=== PATIENT | female | born 1950 | race Caucasian/White ===

== ENCOUNTER 2018-10-12 11:16 | Observation (INO) | payer BC, MEDICARE ==
--- OUTSIDE RECORDS SUMMARY | 2018-10-12 11:20 | XMS REPORT | Continuity of Care Document ---
:1950 Author Organization Interface Problems Problem Status Onset Classification Date Comments Source Date Reported RECURRENT VENTRAL Active [facility] INCISIONAL HERNIA 7 Medical Center INCISIONAL Active [facility] HERNIA, ABD PAIN, 7 Medical UMBILICAL P Center CAD (<span Active Problem 05/02/2017 [facility] ID="[id number]" Medical >Confirmed</span> Center ) Morbid obesity Active Problem 05/02/2017 BMI-46.7 [facility] with BMI of Medical 45.0-49.9, Center adult<sup>1</sup> HTN (<span Active Problem 05/02/2017 [facility] ID="[id number]" Medical >Confirmed</span> Center ) MAIDA (<span Active Problem 05/02/2017 [facility] ID="[id number]" Medical >Confirmed</span> Center ) Type 2 diabetes Active Problem 05/02/2017 [facility] mellitus with Medical diabetic chronic Center kidney disease INCISIONAL HERNIA Active [facility] WITHOUT Medical OBSTRUCTION OR Center PERIUMBILICAL Active [facility] PAIN Medical Center Medications Medication Details Route Status Patient Ordering Order Source Instructions Provider Date pantoprazole 40 40 mg=1 tab, PO, Active 04/29[facility] [place] mg oral enteric Daily, 0 2016 Medical coated tablet Refill(s) [place] Acetaminophen 300 1 - 2 tablets, Active 04/29[facility] [place] MG / Codeine PO, Q6H, PRN 2017 Medical Phosphate 30 MG Pain, not to Center Oral Tablet exceed 4000 mg [Tylenol with acetaminophen Codeine #3] per day, do not operate vehicle or machinery on medication., X 14 day, # 90 tab, 0 Refill(s) POLYETHYLENE 17 gm, PO, Active 04/29[facility] [place] GLYCOL 3350 142 Bedtime, 2017 Medical MG/ML Oral Dissolve in 8 Center Solution oz. of water, X [Miralax] 7 day, # 1 ea, 1 Refill(s) Docusate Sodium 100 mg=1 cap, Active 04/29[facility] [place] 100 MG Oral PO, BID, # 60 2017 Medical Capsule cap, 1 Refill(s) [place] tiotropium 0.018 18 microgram=1 Active [facility] MG/ACTUAT inhalation, 2017 Medical Inhalant Powder INHALATION, [place] [Spiriva] Daily, 0 Refill(s) tramadol 50 mg, 1 tab, Inactive [place] hydrochloride 50 Route: PO, Drug 2017 Medical MG Oral Tablet form: TAB, Q6H, Center Dosing Weight 115.455, kg, Start date: 04/29/17 12:00:00 CDT, Duration: 30 day, Stop date: 05/29/17 6:00:00 CDTNotes: Not to exceed 400mg/day. (Same As: Ultram) tramadol 50 mg, 1 tab, Inactive [place] hydrochloride 50 Route: PO, Drug 2016 Medical MG Oral Tablet form: TAB, Q6H, Center Dosing Weight 115.455, kg, PRN Pain Score 1-3, Start date: 04/29/17 11:14:00 CDT, Duration: 30 day, Stop date: 05/29/17 11:13:00 CDTNotes: Not to exceed 400mg/day. (Same As: Ultram) pneumococcal 0.5 mL, Route: Inactive [facility] 13-valent vaccine IM, Drug Form: 2017 Medical INJ, Daily, Center Start date: 04/29/17 10:00:00 CDT, Duration: 1 doses or times, Stop date: 04/29/17 10:00:00 CDTNotes: Shake well prior to use (Same as: Prevnar 13) Protonix 40 mg, 1 tab, No Longer [facility] Route: PO, Drug Active 2016 Medical form: ECTAB, Center Daily, Start date: 04/27/17 10:00:00 CDT, Duration: 30 day, Stop date: 05/27/17 9:00:00 CDTNotes: Tablet should not be chewed or crushed. (Same as: Protonix) sennosides, FDC 8.6 mg, 1 tab, No Longer [place] Route: PO, Drug Active 2016 Medical Form: TAB, Center Dosing Weight 115.455, kg, BID, Start date: 04/27/17 9:00:00 CDT, Duration: 30 day, Stop date: 05/26/17 17:00:00 CDTNotes: (Same as: Senokot) Psyllium 1 tsp, Route: No Longer [facility] PO, Drug Form: Active 2017 Medical PDR/REC, Dosing Center Weight 115.455, kg, BID, Start date: 04/27/17 9:00:00 CDT, Duration: 30 day, Stop date: 05/26/17 17:00:00 CDTNotes: (Same as: Metamucil) Mix in 8 oz liquid with meal. Miralax 17 gm, 1 pkt, No Longer [facility] Route: PO, Drug Active 2016 Medical form: PWDR, BID, Center Dosing Weight 115.455, kg, Start date: 04/27/17 9:00:00 CDT, Duration: 30 day, Stop date: 05/26/17 17:00:00 CDTNotes: Dissolve in 8 oz of water or juice. (Same as: Miralax) Isolyte S (PH 1,000 mL, Rate: No Longer [place] 7.4) 1000 mL 70 ml/hr, Infuse Active 2017 Medical 1,000 mL over: 14.3 hr, Center Route: IV, Dosing Weight 115.455 kg, Total Volume: 1,000, Start date: 04/27/17 8:45:00 CDT, Duration: 30 day, Stop date: 05/27/17 8:44:00 CDTNotes: (Same as: Isolyte S PH 7.4) Mag-Ox 400 400 mg, 1 tab, Inactive [place] Route: PO, Drug 2017 Medical form: TAB, ONCE, Center Dosing Weight 115.455, kg, Start date: 04/27/17 8:38:00 CDT, Stop date: 04/27/17 8:38:00 CDTNotes: (Same as: Mag-Ox 400) Magnesium oxide [id number] elemental magnesium Dose=____mg magnesium oxide (___mg elemental magnesium) Acetaminophen 1,000 mg, 2 tab, No Longer [place] Route: PO, Drug Active 2016 Medical form: TAB, Q6H, Center Dosing Weight 115.455, kg, Start date: 04/26/17 18:00:00 CDT, Duration: 30 day, Stop date: 05/26/17 12:00:00 CDTNotes: Max acetaminophen 4000 mg/day (4 gm/day). (Same as: Tylenol Extra Strength) Morphine 4 mg, 1 mL, No Longer [facility] Route: IVP, Drug Active 2016 Medical form: INJ, Q4H, Center Dosing Weight 115.455, kg, PRN Pain Score 7-10, Start date: 04/26/17 18:00:00 CDT, Duration: 30 day, Stop date: 05/26/17 17:59:00 CDTNotes: (Same as:MORPhine Sulfate) Morphine 4 mg, 1 mL, Inactive [place] Route: IVP, Drug 2016 Medical form: INJ, ONCE, Center Dosing Weight 115.455, kg, Start date: 04/26/17 13:04:00 CDT, Stop date: 04/26/17 13:04:00 CDTNotes: (Same as:MORPhine Sulfate) gabapentin 300 MG 300 mg, 1 cap, No Longer [facility] Oral Capsule Route: PO, Drug Active 2016 Medical form: CAP, Q8H, Center Dosing Weight 115.455, kg, (CrCl > 60 ml/min), Start date: 04/26/17 13:03:00 CDT, Duration: 30 day, Stop date: 05/26/17 12:00:00 CDTNotes: (Same as: Neurontin) phenol 1 spray, Route: No Longer [facility] TOP, Daily, Drug Active 2016 Medical form: LUCILA, [employer] Center Sore Throat, Start date: 04/26/17 13:00:00 CDT, Duration: 30 day, Stop date: 05/26/17 12:59:00 CDTNotes: Chloraseptic [place] (Same as: Chloraseptic, Sore Throat [place]) WASTE: F/P - Black; E - Municipal Trash Bin Flomax 0.4 mg, 1 cap, No Longer [facility] Route: PO, Drug Active 2016 Medical form: CAP, After Center Breakfast, Dosing Weight 115.455, kg, Start date: 04/26/17 8:30:00 CDT, Duration: 30 day, Stop date: 05/25/17 8:30:00 CDTNotes: (Same As: Flomax) "Do Not Crush" Thyroxine 37 microgram, No Longer [facility] Route: IVP, Drug Active 2016 Medical form: INJ, Center Q630AM, Dosing Weight 115.455, kg, Start date: 04/26/17 6:30:00 CDT, Duration: 30 day, Stop date: 05/25/17 6:30:00 CDTNotes: (Same as: Synthroid) Reconstitute with 5ml of NS. Final concentration=20 micrograms/ml. Use immediately after reconstitution and discard remaining solution. Ofirmev 1,000 mg, 100 No Longer [facility] mL, Route: IV, Active 2016 Medical Drug form: INJ, Center Q6H, Dosing Weight 115.455, kg, for > or=50 kg, Start date: 04/25/17 18:00:00 CDT, Duration: 30 day, Stop date: 05/25/17 10:00:00 CDTNotes: Infuse over 15 minutes Do not exceed 4gm/day of acetaminophen MEDICATION WASTE Product Size: 1000 mg Product Wasted: ___ mg Protonix 40 mg, Route: No Longer [facility] IVP, Drug form: Active 2016 Medical INJ, Daily, Center Dosing Weight 115.455, kg, Patient is NPO, Start date: 04/25/17 17:00:00 CDT, Duration: 30 day, Stop date: 05/25/17 9:00:00 CDTNotes: For IV push reconstitute with 10 ml 0.9% sodium chloride and push over 2 minutes. (Same as: Protonix) Zofran 4 mg, 2 mL, No Longer [facility] Route: IVP, Drug Active 2016 Medical form: INJ, Q6H, Center Dosing Weight 115.455, kg, PRN Nausea, Start date: 04/25/17 16:48:00 CDT, Duration: 30 day, Stop date: 05/25/17 16:47:00 CDTNotes: (Same as: Zofran) MEDICATION WASTE Product Size: 4 mg Product Wasted: ___ mg Morphine 4 mg, 1 mL, No Longer [facility] Route: IVP, Drug Active 2017 Medical form: INJ, Q6H, Center Dosing Weight 115.455, kg, PRN Pain Score 7-10, Start date: 04/25/17 16:06:00 CDT, Duration: 30 day, Stop date: 05/25/17 16:05:00 CDTNotes: (Same as:MORPhine Sulfate) Isolyte S (PH 1,000 mL, Rate: No Longer [facility] 7.4) 1000 mL 135 ml/hr, Active 2017 Medical 1,000 mL Infuse over: 7.4 Center hr, Route: IV, Dosing Weight 115.455 kg, Total Volume: 1,000, Start date: 04/25/17 14:39:00 CDT, Duration: 30 day, Stop date: 05/25/17 14:38:00 CDTNotes: (Same as: Isolyte S PH 7.4) Zofran 4 mg, 1 tab, Inactive [place] Route: PO, Drug 2016 Medical form: TAB, Q8H, Center Dosing Weight 115.455, kg, PRN Nausea, Start date: 04/25/17 13:43:00 CDT, Duration: 30 day, Stop date: 05/25/17 13:42:00 CDTNotes: (Same as: Zofran) Bisacodyl 5 mg, 1 tab, Inactive [facility] Route: PO, Drug 2016 Medical form: ECTAB, Center ONCE, Dosing Weight 115.455, kg, Priority: NOW, Start date: 04/25/17 13:15:00 CDT, Stop date: 04/25/17 13:15:00 CDTNotes: (Same As: Dulcolax, Correctol) (Do Not Crush) "Do Not Crush" Bisacodyl 10 mg, 1 supp, Inactive [facility] Route: VA, Drug 2016 Medical form: SUPP, Center ONCE, Dosing Weight 115.455, kg, Priority: NOW, Start date: 04/25/17 13:14:00 CDT, Stop date: 04/25/17 13:14:00 CDTNotes: (Same As: Dulcolax, [place]-Lax) Lovenox 40 mg, 0.4 mL, No Longer [facility] Route: SUB-Q, Active 2017 Medical Drug form: INJ, Center [id number], Dosing Weight 115.455, kg, Start date: 04/24/17 20:00:00 CDT, Duration: 30 day, Stop date: 05/23/17 20:00:00 CDTNotes: (Same as: Lovenox) Plavix 75 mg, 1 tab, No Longer [facility] Route: PO, Drug Active 2017 Medical form: TAB, Center Daily, Dosing Weight 115.455, kg, Start date: 04/24/17 14:22:00 CDT, Duration: 30 day, Stop date: 05/24/17 9:00:00 CDTNotes: (Same As: Plavix) Allopurinol 300 mg, 1 tab, No Longer [facility] Route: PO, Drug Active 2016 Medical form: TAB, Center Daily, Dosing Weight 115.455, kg, Start date: 04/24/17 9:00:00 CDT, Duration: 30 day, Stop date: 05/23/17 9:00:00 CDT Streptococcus 0.5 mL, Route: No Longer [place] pneumoniae IM, Drug Form: Active 2017 Medical serotype 1 INJ, Daily, Center capsular antigen Start date: diphtheria [id number] 04/24/17 9:00:00 protein conjugate CDT, Duration: 1 vaccine / doses or times, Streptococcus Stop date: pneumoniae 04/24/17 9:00:00 serotype 14 CDTNotes: Shake capsular antigen well prior to diphtheria [id number] use (Same as: protein conjugate Prevnar 13) vaccine / Streptococcus pneumoniae serotype 18C capsular antigen d Lovenox 40 mg, 0.4 mL, Inactive [facility] Route: SUB-Q, 2016 Medical Drug form: INJ, Center Daily, Dosing Weight 115.455, kg, Start date: 04/24/17 9:00:00 CDT, Duration: 30 day, Stop date: 05/23/17 9:00:00 CDTNotes: (Same as: Lovenox) pantoprazole 40 mg, 1 tab, No Longer [facility] Route: PO, Drug Active 2016 Medical form: ECTAB, Center Daily, Dosing Weight 115.455, kg, Start date: 04/24/17 9:00:00 CDT, Duration: 30 day, Stop date: 05/23/17 9:00:00 CDT tiotropium 0.018 18 microgram, 1 No Longer [place] MG/ACTUAT inhalation, Active 2016 Medical Inhalant Powder Route: Center [Spiriva] INHALATION, Drug form: CAP, Daily, Dosing Weight 115.455, kg, Start date: 04/24/17 9:00:00 CDT, Duration: 30 day, Stop date: 05/23/17 9:00:00 CDT Buspirone 10 mg, 1 tab, No Longer [place] Route: PO, Drug Active 2016 Medical form: TAB, TID, Center Dosing Weight 115.455, kg, Start date: 04/24/17 9:00:00 CDT, Duration: 30 day, Stop date: 05/23/17 17:00:00 CDTNotes: (Same As: BuSpar) Bumetanide 2 mg, 2 tab, No Longer [place] Route: PO, Drug Active 2016 Medical form: TAB, Center Daily, Dosing Weight 115.455, kg, Start date: 04/24/17 9:00:00 CDT, Duration: 30 day, Stop date: 05/23/17 9:00:00 CDTNotes: (Same As: Bumex) Enoxaparin 40 mg, 0.4 mL, Inactive [facility] Route: SUB-Q, 2016 Medical Drug form: INJ, Center [id number], Dosing Weight 115.455, kg, Consider for obese patients, Start date: 04/24/17 7:00:00 CDT, Duration: 30 day, Stop date: 05/23/17 19:00:00 CDTNotes: (Same as: Lovenox) Levothroid 75 microgram, 1 No Longer [place] tab, Route: PO, Active 2016 Medical Drug form: TAB, Center Q630AM, Dosing Weight 115.455, kg, Start date: 04/24/17 6:30:00 CDT, Duration: 30 day, Stop date: 05/23/17 6:30:00 CDT Acetaminophen 1,000 mg, 2 tab, No Longer [place] Route: PO, Drug Active 2016 Medical form: TAB, Q6H, Center Dosing Weight 115.455, kg, Start date: 04/24/17 2:00:00 CDT, Duration: 30 day, Stop date: 05/23/17 20:00:00 CDTNotes: Max acetaminophen 4000 mg/day (4 gm/day). (Same as: Tylenol Extra Strength) celecoxib 200 mg, 1 cap, No Longer [place] Route: PO, Drug Active 2016 Medical form: CAP, Q12H, Center Dosing Weight 115.455, kg, Start date: 04/24/17 2:00:00 CDT, Duration: 30 day, Stop date: 05/23/17 14:00:00 CDTNotes: NSAID. Please check indication. Not for seizure. (Same As: CeleBREX) gabapentin 300 MG 300 mg, 1 cap, No Longer [facility] Oral Capsule Route: PO, Drug Active 2016 Medical form: CAP, Q8H, Center Dosing Weight 115.455, kg, (CrCl > 60 ml/min), Start date: 04/24/17 0:00:00 CDT, Duration: 30 day, Stop date: 05/23/17 16:00:00 CDTNotes: (Same as: Neurontin) pregabalin 100 mg, 1 cap, No Longer [place] Route: PO, Drug Active 2016 Medical form: CAP, Center Q8Hnow, Dosing Weight 115.455, kg, Start date: 04/23/17 21:00:00 CDT, Duration: 30 day, Stop date: 05/23/17 13:00:00 CDTNotes: (Same as: Lyrica) Docusate Sodium 50 mg, 5 mL, No Longer [place] 50 MG Oral Route: PO, Drug Active 2016 Medical Capsule [Colace] form: LIQ, Center Bedtime, Dosing Weight 115.455, kg, Start date: 04/23/17 21:00:00 CDT, Stop date: 05/22/17 21:00:00 CDTNotes: (Same as: Colace) Oxycodone 10 mg, 2 tab, No Longer [place] Hydrochloride 5 Route: PO, Drug Active 2016 Medical MG Oral Tablet form: TAB, Q4H, Center Dosing Weight 115.455, kg, PRN Pain Score 7-10, Start date: 04/23/17 20:49:00 CDT, Duration: 30 day, Stop date: 05/23/17 20:48:00 CDTNotes: (Same as: Roxicodone) Ofirmev 1,000 mg, 100 Inactive [place] mL, Route: IVPB, 2016 Medical Drug form: INJ, Center Q6H, Dosing Weight 115.455, kg, for > or=50 kg, Start date: 04/23/17 18:00:00 CDT, Duration: 48 hr, Stop date: 04/25/17 12:00:00 CDTNotes: Infuse over 15 minutes Do not exceed 4gm/day of acetaminophen MEDICATION WASTE Product Size: 1000 mg Product Wasted: ___ mg Albuterol 0.833 3 ml, Route: No Longer [place] MG/ML / NEB, Drug Form: Active 2016 Medical Ipratropium SOLN, Dosing Center [place] 0.167 Weight 115.455, MG/ML Inhalant kg, PRN, PRN Solution [DuoNeb] Respiratory Protocol, Start date: 04/23/17 17:27:00 CDT, Duration: 30 day, Stop date: 05/23/17 17:26:00 CDTNotes: (Same as: Duoneb) Insulin, Aspart, 1 unit, 0.01 mL, No Longer [place] Human Route: SUB-Q, Active 2016 Medical Drug form: SOLN, Center Sliding Scale, Dosing Weight 115.455, kg, PRN Blood Glucose Results, Start date: 04/23/17 17:26:00 CDT, Duration: 30 day, Stop date: 05/23/17 17:25:00 CDTNotes: Roll in palms of hands gently; Do not shake vigorously. (Same as: NovoLOG) "single patient use only" WASTE: F/P - Black; E - Municipal Trash Bin Stable for 28 days at room temperature. Expires in days from Da te Dextrose 50% 25 gm, 50 mL, No Longer [place] Syringe Route: IVP, Drug Active 2016 Medical Form: INJ, Center Dosing Weight 115.455, kg, PRN, PRN Blood Glucose Results, Start date: 04/23/17 17:26:00 CDT, Duration: 30 day, Stop date: 05/23/17 17:25:00 CDT Glucagon 1 mg, Route: IM, No Longer [facility] Drug form: Active 2016 Medical PDR/INJ, PRN, Center Dosing Weight 115.455, kg, PRN Blood Glucose Results, Start date: 04/23/17 17:26:00 CDT, Duration: 30 day, Stop date: 05/23/17 17:25:00 CDT hydromorphone Route: IV, Drug Inactive [facility] (ANES) form: INJ, ONCE, 2016 Medical Stop date: [place] 04/23/17 17:26:00 CDT neostigmine Route: IV, Drug Inactive [facility] ([employer] [facility]) form: INJ, ONCE, 2016 Medical Stop date: [place] 04/23/17 17:26:00 CDT glycopyrrolate Route: IV, Drug Inactive [facility] ([employer] [facility]) form: INJ, ONCE, 2016 Medical Stop date: [place] 04/23/17 17:26:00 CDT ondansetron Route: IV, Drug Inactive [facility] ([employer] [facility]) form: INJ, ONCE, 2016 Medical Stop date: [place] 04/23/17 17:26:00 CDT cyclobenzaprine 10 mg, 1 tab, No Longer [place] Route: PO, Drug Active 2016 Medical form: TAB, TID, Center Dosing Weight 115.455, kg, PRN as needed for muscle spasm, Start date: 04/23/17 17:25:00 CDT, Duration: 30 day, Stop date: 05/23/17 17:24:00 CDT Dilaudid 0.2 mg, 0.1 mL, Inactive [place] Route: IVP, Drug 2016 Medical form: INJ, Q3H, Center Dosing Weight 115.455, kg, PRN Pain Score 7-10, Start date: 04/23/17 17:20:00 CDT, Duration: 30 day, Stop date: 05/23/17 17:19:00 CDTNotes: Same as: Dilaudid tramadol 50 mg, 1 tab, No Longer [place] hydrochloride 50 Route: PO, Drug Active 2017 Medical MG Oral Tablet form: TAB, Q6H, [place] Dosing Weight 115.455, kg, PRN Pain Score 1-3, Start date: 04/23/17 17:18:00 CDT, Duration: 30 day, Stop date: 05/23/17 17:17:00 CDT Isolyte S (PH 1,000 mL, Rate: No Longer [facility] 7.4) 1000 mL 35 ml/hr, Infuse Active [facility] Medical 1,000 mL over: 28.6 hr, [place] Route: IV, Dosing Weight 115.455 kg, Total Volume: 1,000, Start date: 04/23/17 17:16:00 CDT, Stop date: 05/23/17 17:15:00 CDT rocuronium (ANES) Route: IV, Drug Inactive [place] form: INJ, ONCE, 2016 Medical Stop date: [place] 04/23/17 16:20:00 CDT dexamethasone Route: IV, Drug Inactive 04/23[facility] [place] (ANES) form: INJ, ONCE, 2016 Medical Stop date: [place] 04/23/17 16:07:00 CDT ketAMINE (ANES) Route: IV, Drug Inactive 04/23[facility] form: INJ, ONCE, 2016 Medical Stop date: [place] 04/23/17 16:05:00 CDT Promethazine 6.25 mg, Route: Inactive 04/23[facility] [place] IVPB, ONCE, 2016 Medical Dosing Weight Center 115.455, kg, PRN Nausea & Vomiting, Start date: 04/23/17 15:59:00 CDT Ondansetron 4 mg, Route: Inactive 04/23[facility] IVP, ONCE, 2016 Medical Dosing Weight Center 115.455, kg, PRN Nausea & Vomiting, Start date: 04/23/17 15:59:00 CDT Hydralazine 10 mg, Route: Inactive 04/23[facility] IVP, Q20Min, 2016 Medical Dosing Weight Center 115.455, kg, PRN Elevated BP, Start date: 04/23/17 15:59:00 CDT, Duration: 2 doses or times, Stop date: Limited # of times Hydromorphone 0.5 mg, Route: Inactive [facility] [place] IVP, Q5Min, 2016 Medical Dosing Weight Center 115.455, kg, PRN Pain Score 7-10, Start date: 04/23/17 15:59:00 CDT, Duration: 4 doses or times, Stop date: Limited # of times Labetalol 10 mg, Route: Inactive 04/23[facility] IVP, Q5Min, 2017 Medical Dosing Weight Center 115.455, kg, PRN Elevated BP, Start date: 04/23/17 15:59:00 CDT, Duration: 5 doses or times, Stop date: Limited # of times Acetaminophen 1,000 mg, Route: Inactive 04/23[facility] PO, Drug form: 2017 Medical TAB, ONCE, Center Dosing Weight 115.455, kg, PRN Pain Score 1-3, Start date: 04/23/17 15:59:00 CDT, Duration: 1 doses or times, Stop date: Limited # of times Naloxone 0.4 mg, Route: Inactive 04/23[facility] IVP, Q2MIN, 2017 Medical Dosing Weight Center 115.455, kg, PRN Narcotic Reversal, Start date: 04/23/17 15:59:00 CDT, Duration: 8 doses or times, Stop date: Limited # of times Flumazenil 0.2 mg, Route: Inactive 04/23[facility] IVP, PRN, Dosing 2017 Medical Weight 115.455, Center kg, PRN Benzodiazepine Reversal, Initial dose, Start date: 04/23/17 15:59:00 CDT, Duration: 30 day, Stop date: 05/23/17 15:58:00 CDT Oxycodone 5 mg, Route: PO, Inactive 04/23[facility] Drug form: TAB, 2017 Medical Q4H, Dosing Center Weight 115.455, kg, PRN Pain Score 4-6, Start date: 04/23/17 15:59:00 CDT, Duration: 30 day, Stop date: 05/23/17 15:58:00 CDT rocuronium (ANES) Route: IV, Drug Inactive 04/23[facility] form: INJ, ONCE, 2017 Medical Stop date: [place] 04/23/17 15:40:00 CDT dexamethasone Route: IV, Drug Inactive 04/23[facility] [place] (ANES) form: INJ, ONCE, 2017 Medical Stop date: [place] 04/23/17 15:25:00 CDT famotidine (ANES) Route: IV, Drug Inactive [facility] form: INJ, ONCE, 2016 Medical Stop date: [place] 04/23/17 15:25:00 CDT ketAMINE (ANES) Route: IV, Drug Inactive [facility] form: INJ, ONCE, 2016 Medical Stop date: [place] 04/23/17 15:25:00 CDT metoprolol (ANES) Route: IV, Drug Inactive [facility] form: INJ, ONCE, 2016 Medical Stop date: [place] 04/23/17 15:25:00 CDT midazolam (ANES) Route: IV, Drug Inactive [facility] form: SOLN, 2017 Medical ONCE, Stop date: [place] 04/23/17 15:25:00 CDT lidocaine (ANES) Route: IV, Drug Inactive [facility] form: INJ, ONCE, 2016 Medical Stop date: [place] 04/23/17 15:25:00 CDT propofol (ANES) Route: IV, Drug Inactive [facility] form: INJ, ONCE, 2016 Medical Stop date: [place] 04/23/17 15:25:00 CDT succinylcholine Route: IV, Drug Inactive [place] (ANES) form: INJ, ONCE, 2016 Medical Stop date: [place] 04/23/17 15:25:00 CDT fentaNYL (ANES) Route: IV, Drug Inactive [facility] form: INJ, ONCE, 2016 Medical Stop date: [place] 04/23/17 15:25:00 CDT ceFAZolin (ANES) Route: IV, Drug Inactive [facility] form: INJ, ONCE, 2016 Medical Stop date: [place] 04/23/17 15:09:00 CDT LR 1000 mL INJ Route: IV, Total Inactive [place] (ANES) Volume: 1,000, 2016 Medical Start date: [place] 04/23/17 13:50:00 CDT, Stop date: 04/23/17 14:50:00 CDT ceFAZolin 2 gm, 100 mL, No Longer [facility] Route: IVPB, Active 2016 Medical Drug form: INJ, Center PRE OP, Start date: 04/22/17 23:00:00 CDT, Duration: 1 day, Stop date: 04/23/17 22:59:00 CDT, ABX Indication: Surgical ProphylaxisNotes : Same as: Ancef Allergies, Adverse Reactions, Alerts Substance Category Reaction Severity Reaction Status Date Comments Source type Reported Immunizations Immunization Date Site Status Last Updated Comments Source Given pneumococcal Right completed Celine [facility] 13-valent 7 deltoid [facility] vaccine [place] Results Order Name Results Value Reference Date Interpretation Comments Source Range ELECTROLYTE AGAP 11.2 meq/L 10.0 - 04/29 [facility] 20.0 [facility] ELECTROLYTE Chloride Lvl 101 meq/L 95 - 109 04/[address] ELECTROLYTE Potassium Lvl 3.2 meq/L 3.5 - 5.1 04/[address] ELECTROLYTE Sodium Lvl 138 meq/L 135 - 145 04/[address] ELECTROLYTE CO2 29 meq/L 24 - 32 04/[address] ELECTROLYTE Calcium Lvl 8.5 mg/dL 8.5 - 10.5 04/[address] ELECTROLYTE BUN 14 mg/dL 7 - 22 04/[address] ELECTROLYTE Creatinine 0.72 mg/dL 0.50 - 04/29 [facility] Lvl 1. [facility] ELECTROLYTE Glucose Lvl 98 mg/dL 70 - 99 04/[address] ELECTROLYTE eGFR 87 04/29 Result Comment: The eGFR is calculated using the CKD-EPI formula. In most young, healthy individuals the eGFR will be >90 mL/ min/1.73m2. The eGFR declines with age. An eGFR of 60-89 may be normal in [facility] mL/min/1. some populations, particularly the elderly, for whom the CKD-EPI formula has not been extensively validated. Use of the eGFR is not recommended in the following populations: [address] Individuals with unstable creatinine concentrations, including patients and those with serious co-morbid conditions. Patients with extremes in muscle mass or diet. The data above are obtained from the National Kidney Disease Education Program (NKDEP) which additionally recommends that when the eGFR is used in patients with extremes of body mass index for purposes of drug dosing, the eGFR should be multiplied by the estimated BMI. HEMATOLOGY RBC 3.94 M/CMM 4.20 - 04/29 [facility] 5.40 [facility] HEMATOLOGY Hgb 11.2 g/dL 12.0 - 04/29 [place] 16.0 [facility], Inc HEMATOLOGY Hct 34.0 % 36.0 - 04/29 48.0 [facility] HEMATOLOGY MCV 86.1 fL 80.0 - 04/29 98.0 [facility] HEMATOLOGY MCHC 33.1 g/dL 32.0 - 04/29 [place] 36.0 [facility] HEMATOLOGY MCH 28.5 pg 27.0 - 04/29 31.0 [facility] HEMATOLOGY RDW 16.2 % 11.5 - 04/29 [place] 14.5 [facility] HEMATOLOGY Platelet 213 K/CMM 133 - 450 04/29 [facility] HEMATOLOGY MPV 7.3 fL 7.4 - 10.4 04/29 [facility] HEMATOLOGY WBC 6.4 K/CMM 3.7 - 10.4 04/29 [facility] HEMATOLOGY Monocytes # 0.6 K/CMM 0.0 - 0.8 04/29 [facility] HEMATOLOGY Eosinophils # 0.4 K/CMM 0.0 - 0.5 04/29 [facility] HEMATOLOGY Basophils # 0.1 K/CMM 0.0 - 0.2 04/29 [facility] HEMATOLOGY Segs 60.9 % 45.0 - 04/29 [facility] 75.0 [facility] HEMATOLOGY Lymphocytes 23.4 % 20.0 - 04/29 [place] 40.0 [facility] HEMATOLOGY Eosinophils 5.6 % 0.0 - 4.0 04/29 [facility] HEMATOLOGY Monocytes 9.2 % 2.0 - 12.0 04/29 [facility] HEMATOLOGY Basophils 0.9 % 0.0 - 1.0 04/29 [facility] HEMATOLOGY Segs-Bands # 3.9 K/CMM 1.5 - 8.1 04/29 [facility] HEMATOLOGY Lymphocytes # 1.5 K/CMM 1.0 - 5.5 04/29 2016 [facility] ELECTROLYTE AGAP 11.4 meq/L 10.0 - 04/28 [facility] S 20. [facility] ELECTROLYTE CO2 30 meq/L 24 - 32 04/28 [facility] ELECTROLYTE Calcium Lvl 8.4 mg/dL 8.5 - 10.5 04/28 [facility] ELECTROLYTE BUN 11 mg/dL 7 - 22 04/28 [facility] ELECTROLYTE Creatinine 0.82 mg/dL 0.50 - 04/28 [facility] Lvl 1.40 [facility] ELECTROLYTE Sodium Lvl 139 meq/L 135 - 145 04/28 [facility] ELECTROLYTE Glucose Lvl 111 mg/dL 70 - 99 04/28 [facility] ELECTROLYTE Potassium Lvl 3.4 meq/L 3.5 - 5.1 04/28 [facility] ELECTROLYTE Chloride Lvl 101 meq/L 95 - 109 04/28 [facility]2016 [facility] ELECTROLYTE eGFR 74 04/28 Result Comment: The eGFR is calculated using the CKD-EPI formula. In most young, healthy individuals the eGFR will be >90 mL/ min/1.73m2. The eGFR declines with age. An eGFR of 60-89 may be normal in [facility] mL/min/1.7 some populations, particularly the elderly, for whom the CKD-EPI formula has not been extensively validated. Use of the eGFR is not recommended in the following populations: [address] Individuals with unstable creatinine concentrations, including patients and those with serious co-morbid conditions. Patients with extremes in muscle mass or diet. The data above are obtained from the National Kidney Disease Education Program (NKDEP) which additionally recommends that when the eGFR is used in patients with extremes of body mass index for purposes of drug dosing, the eGFR should be multiplied by the estimated BMI. HEMATOLOGY Monocytes 9.1 % 2.0 - 12.0 04/28 [facility] HEMATOLOGY Segs 65.8 % 45.0 - 04/28 [facility] 75.0 [facility] HEMATOLOGY Basophils # 0.1 K/CMM 0.0 - 0.2 04/28 [facility]2016 [facility] HEMATOLOGY Eosinophils # 0.3 K/CMM 0.0 - 0.5 04/28 [facility]2016 [facility] HEMATOLOGY Monocytes # 0.6 K/CMM 0.0 - 0.8 04/[address] HEMATOLOGY Lymphocytes # 1.4 K/CMM 1.0 - 5.5 04/28 [facility]2016 [facility] HEMATOLOGY Basophils 1.0 % 0.0 - 1.0 04/28 [facility] [place] /2017 [facility] HEMATOLOGY Eosinophils 3.9 % 0.0 - 4.0 04/28 [facility] HEMATOLOGY Lymphocytes 20.2 % 20.0 - 04/28 40.0 [facility] HEMATOLOGY Segs-Bands # 4.5 K/CMM 1.5 - 8.1 04/28 [facility] HEMATOLOGY MCH 27.7 pg 27.0 - 04/28 31.0 [facility] HEMATOLOGY MCV 87.3 fL 80.0 - 04/28 98.0 [facility] HEMATOLOGY MPV 7.2 fL 7.4 - 10.4 04/28 [facility] HEMATOLOGY RBC 4.24 M/CMM 4.20 - 04/28 5.40 [facility] HEMATOLOGY WBC 6.8 K/CMM 3.7 - 10.4 04/28 [facility] HEMATOLOGY Hct 37.0 % 36.0 - 04/28 48.0 [facility] HEMATOLOGY Hgb 11.7 g/dL 12.0 - 04/28 16.0 [facility] HEMATOLOGY MCHC 31.7 g/dL 32.0 - 04/28 36.0 [facility] HEMATOLOGY RDW 16.6 % 11.5 - 04/28 14.5 [facility] HEMATOLOGY Platelet 212 K/CMM 133 - 450 04/28 [facility] IMMUNOLOGY Prealbumin 13.4 mg/dL 18.0 - 04/27 45.0 [facility] CHEM PANEL Magnesium Lvl 2.4 mg/dL 1.8 - 2.4 04/26 2016 [facility] CHEM PANEL Phosphorus 2.8 mg/dL 2.5 - 4.5 04/26 [facility] CHEM PANEL eGFR 89 04/26 Result Comment: The eGFR is calculated using the CKD-EPI formula. In most young, healthy individuals the eGFR will be >90 mL/ min/1.73m2. The eGFR declines with age. An eGFR of 60-89 may be normal in [facility] mL/min/1. some populations, particularly the elderly, for whom the CKD-EPI formula has not been extensively validated. Use of the eGFR is not recommended in the following populations: [address] Individuals with unstable creatinine concentrations, including patients and those with serious co-morbid conditions. Patients with extremes in muscle mass or diet. The data above are obtained from the National Kidney Disease Education Program (NKDEP) which additionally recommends that when the eGFR is used in patients with extremes of body mass index for purposes of drug dosing, the eGFR should be multiplied by the estimated BMI. CHEM PANEL AGAP 11.5 meq/L 10.0 - 04/26 [facility] 20.0 [facility] CHEM PANEL Potassium Lvl 4.5 meq/L 3.5 - 5.1 04/[address] CHEM PANEL Chloride Lvl 104 meq/L 95 - 109 04/[address] CHEM PANEL Calcium Lvl 7.9 mg/dL 8.5 - 10.5 04/[address] CHEM PANEL BUN 15 mg/dL 7 - 22 04/[address] CHEM PANEL Sodium Lvl 139 meq/L 135 - 145 04/[address] CHEM PANEL Creatinine 0.71 mg/dL 0.50 - 04/26 [facility] Lvl 1.40 [facility] CHEM PANEL CO2 28 meq/L 24 - 32 04/[address] CHEM PANEL Glucose Lvl 114 mg/dL 70 - 99 04/[address] HEMATOLOGY Eosinophils # 0.3 K/CMM 0.0 - 0.5 04/[address] HEMATOLOGY Lymphocytes # 1.8 K/CMM 1.0 - 5.5 04/[address] HEMATOLOGY Monocytes # 0.8 K/CMM 0.0 - 0.8 04/[address] HEMATOLOGY Segs 67.0 % 45.0 - 04/26 [facility] 75.0 [facility] HEMATOLOGY Lymphocytes 20.3 % 20.0 - 04/26 [facility] 40.0 [facility] HEMATOLOGY Eosinophils 3.1 % 0.0 - 4.0 04/[address] HEMATOLOGY Monocytes 9.0 % 2.0 - 12.0 04/[address] HEMATOLOGY Segs-Bands # 5.9 K/CMM 1.5 - 8.1 04/[address] HEMATOLOGY Basophils 0.6 % 0.0 - 1.0 04/[address] HEMATOLOGY RBC 4.57 M/CMM 4.20 - 04/26 [facility] 5.40 /2016 [facility] HEMATOLOGY WBC 8.8 K/CMM 3.7 - 10.4 04/26 [facility] HEMATOLOGY Hgb 12.8 g/dL 12.0 - 04/26 [facility] 16.0 [facility] HEMATOLOGY Hct 40.3 % 36.0 - 04/26 [facility] 48.0 /2016 [facility] HEMATOLOGY MCH 28.0 pg 27.0 - 04/26 31.0 [facility] HEMATOLOGY RDW 16.7 % 11.5 - 04/26 [facility] 14.5 /2016 [facility] HEMATOLOGY MCHC 31.7 g/dL 32.0 - 04/26 [facility] 36.0 [facility] HEMATOLOGY MPV 7.5 fL 7.4 - 10.4 04/26 [facility] HEMATOLOGY Platelet 213 K/CMM 133 - 450 04/26 [facility] HEMATOLOGY MCV 88.2 fL 80.0 - 04/26 [facility] 98.0 [facility] URINE AND UA <=1.0 0.1 - 1.0 04/25 [facility] Urobilinogen mg/dL [facility] URINE AND UA Sq Epi Occasional Few /LPF 04/25 [facility] STOOL /LPF [facility] URINE AND UA Bili Negative Negative 04/25 [facility] *NA* [place] (04/25/17 10:22 AM) URINE AND UA Mucus Few /LPF None Seen 04/25 [facility] /LPF [facility] URINE AND UA Ketones Negative Negative 04/25 [facility] mg/dL mg/dL [facility] URINE AND UA Blood Negative Negative 04/25 [facility] (04/25/17 10:22 AM) [place] URINE AND UA Nitrite Negative Negative 04/25 [facility] (04/25/17 10:22 AM) [place] URINE AND UA Leuk Est Negative Negative 04/25 [facility] (04/25/17 10:22 AM) [place] URINE AND UA WBC 1 /HPF 0 - 5 04/25 [facility] [address] [place] [address] URINE AND UA Protein Negative Negative 04/25 [facility] mg/dL mg/dL [facility] URINE AND UA Glucose Negative Negative 04/25 [facility] mg/dL mg/dL [facility] URINE AND UA Color Yellow Yellow 04/25 [facility] *NA* [place] (04/25/17 10:22 AM) URINE AND UA pH 5.5 5.0 - 8.0 04/25 [facility] URINE AND UA Spec Grav 1.017 <=1.030 04/25 [facility] URINE AND UA Turbidity Clear Clear 04/25 [facility] (04/25/17 10:22 AM) Center Abdomen AP Abdomen AP DX EXAM: XR ABDOMEN 1 VIEW 04/25 - [facility] - [facility] This report was dictated by a Engineering Instructor/Fellow. I have personally reviewed the images as Center well as the Resident's interpretation and agree with the findings. DATE: 04/25/2017 1:13 PM CDT Read by: Edwardo Thomas MD Resident: Edwardo Thomas MD Dictated Date/time: 04/25/17 15:59 Electronically Signed by: Aubrey Camejo MD 04/25/17 17:03 FINAL REPORT INDICATION: Extensive ventral hernia repair, no flatus/BM COMPARISON: Abdominal radiograph on 06/17/2007. TECHNIQUE: AP view of the abdomen. FINDINGS: Lines, tubes and hardware: Nasogastric tube tip and side port project in the gastric fundus. IVC filter is noted. Left paramedian surgical trevon are seen. A Jones catheter projects over the pelvis. Mu ltiple drainage tubes are seen projecting over the abdomen. Lower thorax: Unremarkable where visualized. Bowel: There is diffuse gaseous distention of the small and large bowel. The small bowel centrally appears mildly dilated up to 3.5 cm, suggestive of underlying ileus. No portal venous gas or pneumatosis is seen. Other abdominal organs: No abnormal mass or organomegaly seen. Calcifications: No abnormal calcifications found. Bones: No acute abnormality. Extraabdominal soft tissues: Normal. IMPRESSION: 1. Proportionate distention of the small and large bowel is suggestive of postoperative ileus. Continued follow-up with serial radiographs is recommended 2. Nasogastric tube tip and side port project in the gastric fundus. CHEM PANEL Phosphorus 3.4 mg/dL 2.5 - 4.5 04/25 [facility] CHEM PANEL Magnesium Lvl 2.5 mg/dL 1.8 - 2.4 04/25 [facility] [place] [address] Chest 1view Chest 1view EXAM: XR CHEST 1 VIEW 04/25 - [facility] DX - [facility] DATE: 04/25/2017 6:24 AM CDT Read by: Donya Naik MD Dictated Date/time: 04/25/17 09:32 Electronically Signed by: Donya Naik MD 04/25/17 11:03 FINAL REPORT INDICATION: - leukocytosis post-op. FINDINGS: Comparison is made to April 21. The lungs are low in volume resulting in spurious widening of the cardiomediastinal silhouette and bilateral infrahilar subsegmental atelectasis. The costophrenic sulci are sharp, without effusions. Note is made of old healed left-sided rib fractures. IMPRESSION: The lungs are low in volume with bilateral lower lobe subsegmental atelectasis. BLOOD BANK Antibody Scrn Negative 04/23 [facility] (04/23/17 9:08 AM) [place] BLOOD BANK ABO/Rh O POS 04/23 [facility] [address] [place] [address] CHEM PANEL B/C Ratio 20 6 - 25 04/[address] CHEM PANEL Globulin 3.9 g/dL 2.7 - 4.2 04/[address] CHEM PANEL A/G Ratio 1.0 0.7 - 1.6 04/[address] CHEM PANEL ALT 38 unit/L 0 - 65 04/[address] CHEM PANEL Total Protein 7.7 g/dL 6.4 - 8.4 04/[address] CHEM PANEL Albumin Lvl 3.8 g/dL 3.5 - 5.0 04/[address] CHEM PANEL AST 34 unit/L 0 - 37 04/[address] CHEM PANEL Alk Phos 106 unit/L 39 - 136 04/[address] CHEM PANEL Bili Total 0.3 mg/dL 0.2 - 1.3 04/[address] HEMATOLOGY Basophils # 0.1 K/CMM 0.0 - 0.2 04/[address] SPECIAL Hgb A1C 7.1 % <=5.6 % 04/21 [facility] CHEMISTRY /[address] [place] [address] Chest 2 Chest 2 views EXAM: XR CHEST 2 VIEWS 04/21 - [place] views DX - [facility] DATE: 04/21/2017 12:49 PM CDT Read by: Rickey Duarte MD Dictated Date/time: 04/21/17 13:15 Electronically Signed by: Rickey Duarte MD 04/21/17 13:16 FINAL REPORT INDICATION: - RECURRENT VENTRAL INCISIONAL HERNIA COMPARISON: 06/15/2007 FINDINGS: Lines and Tubes: None Heart and Mediastinum: Unremarkable. Lungs and Pleura: Mild biapical scarring present. Minimal opacities in the lung bases statistically represent atelectasis, however, infectious process could have a similar appearance. Other: None. IMPRESSION: 1. No acute cardiopulmonary findings. Vital Signs Vital Sign Value Date Comments Source Heart Rate 84 04/29/2017 [facility] Respitory Rate 20 04/29/2017 [facility] Systolic (mm Hg) 130 04/29/2017 [facility] Diastolic (mm Hg) 77 04/29/2017 [facility] Temperature Oral (F) 97.7 F 04/29/2017 [facility] Temperature Oral (F) 97.8 F 04/29/2017 [facility] Heart Rate 85 04/29/2017 [facility] Systolic (mm Hg) 129 04/29/2017 [facility] Diastolic (mm Hg) 77 04/29/2017 [facility] Respitory Rate 18 04/29/2017 [facility] Respitory Rate 18 04/29/2017 [facility] Systolic (mm Hg) 147 04/29/2017 [facility] Diastolic (mm Hg) 80 04/29/2017 [facility] Temperature Oral (F) 97.5 F 04/29/2017 [facility] Heart Rate 80 04/29/2017 [facility] Height 160.02 cm 04/24/2017 [facility] BMI Calculated 45.09 04/24/2017 [facility] Weight 115.455 04/24/2017 [facility] Weight 115.455 04/23/2017 [facility] BMI Calculated 44.38 04/23/2017 [facility] Height 161.29 cm 04/23/2017 [facility] Height 161.29 cm 04/21/2017 [facility] BMI Calculated 44.38 04/21/2017 [facility] Weight 115.455 04/21/2017 [facility] Encounters Location Location Encounter Encounter Reason Attending ADM DC Status Source Details Type Number For Provider Date Date Visit [facility] [id number] Marc 04/23 04/29 [facility]2016 [facility] Procedures Procedure Code Date Perfomer Comments Source Cholecystectomy [id number] [facility] Hernia repair [id number] [facility] Hysterectomy [id number] [facility] Knee joint operation [id number] [facility]
--- OUTSIDE RECORDS SUMMARY | 2018-10-12 11:20 | XMS REPORT | Summary of Care ---
:1950 Author Organization [facility] Address [address] [place] [id number] Encounter HQ [email or web address]([email or web address]) [id number] Date(s): 04/23/17 - 04/29/[address] Professional Services provided by [facility] [place] [address]- Discharge Disposition: Home or Self Care Attending Physician: Marc Sevilla DO Admitting Physician: Marc Sevilla DO Referring Physician: Marc Sevilla DO Vital Signs Most recent to oldest 1 2 3 [Reference Range]: Height 160.02 cm 161.29 cm 161.29 cm (04/23/17 8:58 PM) (04/23/17 9:02 AM) (04/21/17 2:23 PM) Temperature Oral [96.4-99.1 97.7 DegF 97.8 DegF 97.5 DegF DegF] (04/29/17 5:13 PM) (04/29/17 12:52 PM) (04/29/17 8:31 AM) Blood Pressure [90-140/60-90 130/77 mmHg 129/77 mmHg 147/80 mmHg mmHg] (04/29/17 5:13 PM) (04/29/17 12:52 PM) *HI* (04/29/17 8:31 AM) Respiratory Rate [14-20 20 BRMIN 18 BRMIN 18 BRMIN BRMIN] (04/29/17 5:13 PM) (04/29/17 12:52 PM) (04/29/17 10:07 AM) Peripheral Pulse Rate [60-100 84 bpm 85 bpm 80 bpm bpm] (04/29/17 5:13 PM) (04/29/17 12:52 PM) (04/29/17 8:31 AM) Weight 115.455 kg 115.455 kg 115.455 kg (04/23/17 8:58 PM) (04/23/17 9:02 AM) (04/21/17 2:23 PM) Body Mass Index 45.09 m2 44.38 m2 44.38 m2 (04/23/17 8:58 PM) (04/23/17 9:02 AM) (04/21/17 2:23 PM) Problem List Condition Effective Dates Status Health Status Informant CAD (coronary artery Active disease)(Confirmed) Morbid obesity with BMI of 45.0-49.9, Active adult(Confirmed)1 HTN (hypertension)(Confirmed) Active MAIDA (obstructive sleep Active apnea)(Confirmed) 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 (Same as: Tylenol Extra Strength) Start Date: 04/24/17 Stop Date: 04/25/17 Status: Discontinuedacetaminophen 1,000 mg, 2 tab, Route: PO, Drug form: TAB, Q6H, Dosing Weight 115.455, kg, Start date: 04/26/17 18:00:00 CDT, Duration: 30 day, Stop date: 05/26/17 12:00: 00 CDT Notes: Max acetaminophen 4000 mg/day (4 gm/day). (Same as: Tylenol Extra Strength) Start Date: 04/26/17 Stop Date: 04/29/17 Status: Discontinuedallopurinol 300 mg, 1 tab, Route: PO, Drug form: TAB, Daily, Dosing Weight 115.455, kg, Start date: 04/24/17 9:00:00 CDT, Duration: 30 day, Stop date: 05/23/17 9:00:00 CDT Start Date: 04/24/17 Stop Date: 04/29/17 Status: DiscontinuedANES acetaminophen 1,000 mg, Route: PO, Drug form: TAB, ONCE, Dosing Weight 115.455, kg, PRN Pain Score 1-3, Start date: 04/23/17 15:59:00 CDT, Duration: 1 doses or times, Stop date: Limited # of times Start Date: 04/23/17 Stop Date: 04/23/17 Status: DiscontinuedANES flumazenil 0.2 mg, Route: IVP, PRN, Dosing Weight 115.455, kg, PRN Benzodiazepine Reversal , Initial dose, Startdate: 04/23/17 15:59:00 CDT, Duration: 30 day, Stop date: 05/23/17 15:58:00 CDT Start Date: 04/23/17 Stop Date: 04/23/17 Status: DiscontinuedANES hydrALAZINE 10 mg, Route: IVP, Q20Min, Dosing Weight 115.455, kg, PRN Elevated BP, Start date: 04/23/17 15:59:00CDT, Duration: 2 doses or times, Stop date: Limited # of times Start Date: 04/23/17 Stop Date: 04/23/17 Status: DiscontinuedANES HYDROmorphone 0.5 mg, Route: IVP, Q5Min, Dosing Weight 115.455, kg, PRN Pain Score 7-10, Start date: 04/23/17 15:59:00 CDT, Duration: 4 doses or times, Stop date: Limited # of times Start Date: 04/23/17 Stop Date: 04/23/17 Status: DiscontinuedANES labetalol 10 mg, Route: IVP, Q5Min, Dosing Weight 115.455, kg, PRN Elevated BP, Start date : 04/23/17 15:59:00 CDT, Duration: 5 doses or times, Stop date: Limited # of times Start Date: 04/23/17 Stop Date: 04/23/17 Status: DiscontinuedANES naloxone 0.4 mg, Route: IVP, Q2MIN, Dosing Weight 115.455, kg, PRN Narcotic Reversal, Start date: 04/23/17 15:59:00 CDT, Duration: 8 doses or times, Stop date: Limited # of times Start Date: 04/23/17 Stop Date: 04/23/17 Status: DiscontinuedANES ondansetron 4 mg, Route: IVP, ONCE, Dosing Weight 115.455, kg, PRN Nausea & Vomiting, Start date: 04/23/17 15:59:00 CDT Start Date: 04/23/17 Stop Date: 04/23/17 Status: CompletedANES oxyCODONE 5 mg, Route: PO, Drug form: TAB, Q4H, Dosing Weight 115.455, kg, PRN Pain Score 4-6, Start date: 04/23/17 15:59:00 CDT, Duration: 30 day, Stop date: 05/23/17 15 :58:00 CDT Start Date: 04/23/17 Stop Date: 04/23/17 Status: DiscontinuedANES promethazine 6.25 mg, Route: IVPB, ONCE, Dosing Weight 115.455, kg, PRN Nausea & Vomiting , Start date: 04/23/17 15:59:00 CDT Start Date: 04/23/17 Stop Date: 04/23/17 Status: Completedbisacodyl 10 mg, 1 supp, Route: MA, Drug form: SUPP, ONCE, Dosing Weight 115.455, kg, Priority: NOW, Start date: 04/25/17 13:14:00 CDT, Stop date: 04/25/17 13:14:00 CDT Notes: (Same As: Dulcolax, Bisco-Lax) Start Date: 04/25/17 Stop Date: 04/25/17 Status: Completedbisacodyl 5 mg, 1 tab, Route: PO, Drug form: ECTAB, ONCE, Dosing Weight 115.455, kg, Priority: NOW, Start date: 04/25/17 13:15:00 CDT, Stop date: 04/25/17 13:15:00 CDT Notes: (Same As: Dulcolax, Correctol) (Do Not Crush) "Do Not Crush" Start Date: 04/25/17 Stop Date: 04/25/17 Status: Completedbumetanide 2 mg, 2 tab, Route: PO, Drug form: TAB, Daily, Dosing Weight 115.455, kg, Start date: 04/24/17 9:00:00 CDT, Duration: 30 day, Stop date: 05/23/17 9:00:00 CDT Notes: (Same As: Bumex) Start Date: 04/24/17 Stop Date: 04/29/17 Status: DiscontinuedbusPIRone 10 mg, 1 tab, Route: PO, Drug form: TAB, TID, Dosing Weight 115.455, kg, Start date: 04/24/17 9:00:00 CDT, Duration: 30 day, Stop date: 05/23/17 17:00:00 CDT Notes: (Same As: BuSpar) Start Date: 04/24/17 Stop Date: 04/29/17 Status: DiscontinuedceFAZolin 2 gm, 100 mL, Route: IVPB, Drug form: INJ, PRE OP, Start date: 04/22/17 23:00: 00 CDT, Duration: 1 day, Stop date: 04/23/17 22:59:00 CDT, ABX Indication: Surgical Prophylaxis Notes: Same as: Ancef Start Date: 04/22/17 Stop Date: 04/29/17 Status: DiscontinuedceFAZolin (ANES) Route: IV, Drug form: INJ, ONCE, Stop date: 04/23/17 15:09:00 CDT Start Date: 04/23/17 Stop Date: 04/23/17 Status: Completedcelecoxib 200 mg, 1 cap, Route: PO, Drug form: CAP, Q12H, Dosing Weight 115.455, kg, Start date: 04/24/17 2:00:00 CDT, Duration: 30 day, Stop date: 05/23/17 14:00: 00 CDT Notes: NSAID. Please check indication. Not for seizure. (Same As: CeleBREX) Start Date: 04/24/17 Stop Date: 04/29/17 Status: DiscontinuedChloraseptic 1.4% spray 1 spray, Route: TOP, Daily, Drug form: SPRY, PRN Sore Throat, Start date: 13:00:00 CDT, Duration: 30 day, Stop date: 05/26/17 12:59:00 CDT Notes: Chloraseptic [place](Same as: Chloraseptic, Sore Throat [place])WASTE: F/P - Black; E - MunicipalTrash Bin Start Date: 04/26/17 Stop Date: 04/29/17 Status: Discontinuedcyclobenzaprine 10 mg, 1 tab, Route: PO, Drug form: TAB, TID, Dosing Weight 115.455, kg, PRN as needed for muscle spasm, Start date: 04/23/17 17:25:00 CDT, Duration: 30 day, Stop date: 05/23/17 17:24:00 CDT Start Date: 04/23/17 Stop Date: 04/29/17 Status: Discontinueddexamethasone (ANES) Route: IV, Drug form: INJ, ONCE, Stop date: 04/23/17 15:25:00 CDT Start Date: 04/23/17 Stop Date: 04/23/17 Status: Deleteddexamethasone (ANES) Route: IV, Drug form: INJ, ONCE, Stop date: 04/23/17 16:07:00 CDT Start Date: 04/23/17 Stop Date: 04/23/17 Status: CompletedDextrose 50% Syringe 25 gm, 50 mL, Route: IVP, Drug Form: INJ, Dosing Weight 115.455, kg, PRN, PRN Blood Glucose Results,Start date: 04/23/17 17:26:00 CDT, Duration: 30 day, Stop date: 05/23/17 17:25:00 CDT Start Date: 04/23/17 Stop Date: 04/29/17 Status: DiscontinuedDextrose 50% Syringe 12.5 gm, 25 mL, Route: IVP, Drug Form: INJ, Dosing Weight 115.455, kg, PRN, PRN Blood Glucose Results, Start date: 04/23/17 17:26:00 CDT, Duration: 30 day, Stop date: 05/23/17 17:25:00 CDT Start Date: 04/23/17 Stop Date: 04/29/17 Status: DiscontinuedDilaudid 0.2 mg, 0.1 mL, Route: IVP, Drug form: INJ, Q3H, Dosing Weight 115.455, kg, PRN Pain Score 7-10, Start date: 04/23/17 17:20:00 CDT, Duration: 30 day, Stop date : 05/23/17 17:19:00 CDT Notes: Same as: Dilaudid Start Date: 04/23/17 Stop Date: 04/23/17 Status: Discontinueddocusate 50 mg, 5 mL, Route: PO, Drug form: LIQ, Bedtime, Dosing Weight 115.455, kg, Start date: 04/23/17 21:00:00 CDT, Stop date: 05/22/17 21:00:00 CDT Notes: (Same as: Colace) Start Date: 04/23/17 Stop Date: 04/29/17 Status: Discontinueddocusate sodium 100 mg oral capsule 100 mg=1 cap, PO, BID, # 60 cap, 1 Refill(s) Start Date: 04/29/17 Stop Date: 06/28/17 Status: OrderedDuoNeb inhalation solution 3 ml, Route: NEB, Drug Form: SOLN, Dosing Weight 115.455, kg, PRN, PRN Respiratory Protocol, Start date: 04/23/17 17:27:00 CDT, Duration: 30 day, Stop date: 05/23/17 17:26:00 CDT Notes: (Same as: Duoneb) Start Date: 04/23/17 Stop Date: 04/29/17 Status: Discontinuedenoxaparin 40 mg, 0.4 mL, Route: SUB-Q, Drug form: INJ, [id number], Dosing Weight 115.455, kg , Consider for obesepatients, Start date: 04/24/17 7:00:00 CDT, Duration: 30 day , Stop date: 05/23/17 19:00:00 CDT Notes: (Same as: Lovenox) Start Date: 04/24/17 Stop Date: 04/24/17 Status: Discontinuedfamotidine (ANES) Route: IV, Drug form: INJ, ONCE, Stop date: 04/23/17 15:25:00 CDT Start Date: 04/23/17 Stop Date: 04/23/17 Status: CompletedfentaNYL (ANES) Route: IV, Drug form: INJ, ONCE, Stop date: 04/23/17 15:25:00 CDT Start Date: 04/23/17 Stop Date: 04/23/17 Status: CompletedFlomax 0.4 mg, 1 cap, Route: PO, Drug form: CAP, After Breakfast, Dosing Weight 115.455 , kg, Start date: 04/26/17 8:30:00 CDT, Duration: 30 day, Stop date: 05/25/17 8: 30:00 CDT Notes: (Same As: Flomax) "Do Not Crush" Start Date: 04/26/17 Stop Date: 04/29/17 Status: Discontinuedgabapentin 300 mg oral capsule 300 mg, 1 cap, Route: PO, Drug form: CAP, Q8H, Dosing Weight 115.455, kg, (CrCl > 60 ml/min), Start date: 04/24/17 0:00:00 CDT, Duration: 30 day, Stop date: 16:00:00 CDT Notes: (Same as: Neurontin) Start Date: 04/24/17 Stop Date: 04/23/17 Status: Discontinuedgabapentin 300 mg oral capsule 300 mg, 1 cap, Route: PO, Drug form: CAP, Q8H, Dosing Weight 115.455, kg, (CrCl > 60 ml/min), Start date: 04/26/17 13:03:00 CDT, Duration: 30 day, Stop date: 12:00:00 CDT Notes: (Same as: Neurontin) Start Date: 04/26/17 Stop Date: 04/29/17 Status: Discontinuedglucagon 1 mg, Route: IM, Drug form: PDR/INJ, PRN, Dosing Weight 115.455, kg, PRN Blood Glucose Results, Start date: 04/23/17 17:26:00 CDT, Duration: 30 day, Stop date : 05/23/17 17:25:00 CDT Start Date: 04/23/17 Stop Date: 04/29/17 Status: Discontinuedglycopyrrolate (ANES) Route: IV, Drug form: INJ, ONCE, Stop date: 04/23/17 17:26:00 CDT Start Date: 04/23/17 Stop Date: 04/23/17 Status: Completedhydromorphone (ANES) Route: IV, Drug form: INJ, ONCE, Stop date: 04/23/17 17:26:00 CDT Start Date: 04/23/17 Stop Date: 04/23/17 Status: Completedinsulin aspart 1 unit, 0.01 mL, Route: SUB-Q, Drug form: SOLN, Sliding Scale, Dosing Weight 115.455, kg, PRN Blood Glucose Results, Start date: 04/23/17 17:26:00 CDT, Duration: 30 day, Stop date: 05/23/17 17:25:00 CDT Notes: Roll in palms of hands gently; Do not shake vigorously. (Same as: NovoLOG)"single patient use only"WASTE: F/P - Black; E - Municipal Trash Bin Stable for 28 days at room temperature.Expires in days from Date Start Date: 04/23/17 Stop Date: 04/29/17 Status: Discontinuedinsulin aspart 2 unit, 0.02 mL, Route: SUB-Q, Drug form: SOLN, Sliding Scale, Dosing Weight 115.455, kg, PRN Blood Glucose Results, Start date: 04/23/17 17:26:00 CDT, Duration: 30 day, Stop date: 05/23/17 17:25:00 CDT Notes: Roll in palms of hands gently; Do not shake vigorously. (Same as: NovoLOG)"single patient use only"WASTE: F/P - Black; E - Municipal Trash Bin Stable for 28 days at room temperature.Expires in days from Date Start Date: 04/23/17 Stop Date: 04/29/17 Status: Discontinuedinsulin aspart 3 unit, 0.03 mL, Route: SUB-Q, Drug form: SOLN, Sliding Scale, Dosing Weight 115.455, kg, PRN Blood Glucose Results, Start date: 04/23/17 17:26:00 CDT, Duration: 30 day, Stop date: 05/23/17 17:25:00 CDT Notes: Roll in palms of hands gently; Do not shake vigorously. (Same as: NovoLOG)"single patient use only"WASTE: F/P - Black; E - Municipal Trash Bin Stable for 28 days at room temperature.Expires in days from Date Start Date: 04/23/17 Stop Date: 04/29/17 Status: Discontinuedinsulin aspart 4 unit, 0.04 mL, Route: SUB-Q, Drug form: SOLN, Sliding Scale, Dosing Weight 115.455, kg, PRN Blood Glucose Results, Start date: 04/23/17 17:26:00 CDT, Duration: 30 day, Stop date: 05/23/17 17:25:00 CDT Notes: Roll in palms of hands gently; Do not shake vigorously. (Same as: NovoLOG)"single patient use only"WASTE: F/P - Black; E - Municipal Trash Bin Stable for 28 days at room temperature.Expires in days from Date Start Date: 04/23/17 Stop Date: 04/29/17 Status: Discontinuedinsulin aspart 5 unit, 0.05 mL, Route: SUB-Q, Drug form: SOLN, Sliding Scale, Dosing Weight 115.455, kg, PRN Blood Glucose Results, Start date: 04/23/17 17:26:00 CDT, Duration: 30 day, Stop date: 05/23/17 17:25:00 CDT Notes: Roll in palms of hands gently; Do not shake vigorously. (Same as: NovoLOG)"single patient use only"WASTE: F/P - Black; E - Municipal Trash Bin Stable for 28 days at room temperature.Expires in days from Date Start Date: 04/23/17 Stop Date: 04/29/17 Status: DiscontinuedIsolyte S (PH 7.4) 1000 mL 1,000 mL 1,000 mL, Rate: 70 ml/hr, Infuse over: 14.3 hr, Route: IV, Dosing Weight 115.455 kg, Total Volume: 1,000, Start date: 04/27/17 8:45:00 CDT, Duration: 30 day, Stop date: 05/27/17 8:44:00 CDT Notes: (Same as: Isolyte S PH 7.4) Start Date: 04/27/17 Stop Date: 04/29/17 Status: DiscontinuedIsolyte S (PH 7.4) 1000 mL 1,000 mL 1,000 mL, Rate: 35 ml/hr, Infuse over: 28.6 hr, Route: IV, Dosing Weight 115.455 kg, Total Volume: 1,000, Start date: 04/23/17 17:16:00 CDT, Stop date: 05/23/17 17:15:00 CDT Start Date: 04/23/17 Stop Date: 04/25/17 Status: DiscontinuedIsolyte S (PH 7.4) 1000 mL 1,000 mL 1,000 mL, Rate: 135 ml/hr, Infuse over: 7.4 hr, Route: IV, Dosing Weight 115.455 kg, Total Volume: 1,000, Start date: 04/25/17 14:39:00 CDT, Duration: 30 day, Stop date: 05/25/17 14:38:00 CDT Notes: (Same as: Isolyte S PH 7.4) Start Date: 04/25/17 Stop Date: 04/27/17 Status: DiscontinuedketAMINE (ANES) Route: IV, Drug form: INJ, ONCE, Stop date: 04/23/17 15:25:00 CDT Start Date: 04/23/17 Stop Date: 04/23/17 Status: CompletedketAMINE (ANES) Route: IV, Drug form: INJ, ONCE, Stop date: 04/23/17 16:05:00 CDT Start Date: 04/23/17 Stop Date: 04/23/17 Status: CompletedLevothroid 75 microgram, 1 tab, Route: PO, Drug form: TAB, Q630AM, Dosing Weight 115.455, kg, Start date: 04/24/17 6:30:00 CDT, Duration: 30 day, Stop date: 05/23/17 6:30 :00 CDT Start Date: 04/24/17 Stop Date: 04/25/17 Status: Discontinuedlevothyroxine 37 microgram, Route: IVP, Drug form: INJ, Q630AM, Dosing Weight 115.455, kg, Start date: 04/26/17 6:30:00 CDT, Duration: 30 day, Stop date: 05/25/17 6:30:00 CDT Notes: (Same as: Synthroid)Reconstitute with 5ml of NS. Final concentration=20 micrograms/ml. Use immediately after reconstitution and discard remaining solution. Start Date: 04/26/17 Stop Date: 04/29/17 Status: Discontinuedlidocaine (ANES) Route: IV, Drug form: INJ, ONCE, Stop date: 04/23/17 15:25:00 CDT Start Date: 04/23/17 Stop Date: 04/23/17 Status: CompletedLovenox 40 mg, 0.4 mL, Route: SUB-Q, Drug form: INJ, Daily, Dosing Weight 115.455, kg, Start date: 04/24/17 9:00:00 CDT, Duration: 30 day, Stop date: 05/23/17 9:00:00 CDT Notes: (Same as: Lovenox) Start Date: 04/24/17 Stop Date: 04/24/17 Status: DiscontinuedLovenox 40 mg, 0.4 mL, Route: SUB-Q, Drug form: INJ, [id number], Dosing Weight 115.455, kg , Start date: 04/24/17 20:00:00 CDT, Duration: 30 day, Stop date: 05/23/17 20:00 :00 CDT Notes: (Same as: Lovenox) Start Date: 04/24/17 Stop Date: 04/29/17 Status: DiscontinuedLR 1000 mL INJ (ANES) Route: IV, Total Volume: 1,000, Start date: 04/23/17 13:50:00 CDT, Stop date: 14:50:00 CDT Start Date: 04/23/17 Stop Date: 04/23/17 Status: CompletedMag-Ox 400 400 mg, 1 tab, Route: PO, Drug form: TAB, ONCE, Dosing Weight 115.455, kg, Start date: 04/27/17 8:38:00 CDT, Stop date: 04/27/17 8:38:00 CDT Notes: (Same as: Mag-Ox 400)Magnesium oxide [id number] elemental magnesiumDose= ____mg magnesium oxide (___mg elemental magnesium) Start Date: 04/27/17 Stop Date: 04/27/17 Status: Completedmetoprolol (ANES) Route: IV, Drug form: INJ, ONCE, Stop date: 04/23/17 15:25:00 CDT Start Date: 04/23/17 Stop Date: 04/23/17 Status: Completedmidazolam (ANES) Route: IV, Drug form: SOLN, ONCE, Stop date: 04/23/17 15:25:00 CDT Start Date: 04/23/17 Stop Date: 04/23/17 Status: CompletedMiraLax 17 gm, 1 pkt, Route: PO, Drug form: PWDR, BID, Dosing Weight 115.455, kg, Start date: 04/27/17 9:00:00 CDT, Duration: 30 day, Stop date: 05/26/17 17:00:00 CDT Notes: Dissolve in 8 oz of water or juice.(Same as: Miralax) Start Date: 04/27/17 Stop Date: 04/29/17 Status: DiscontinuedMiraLax oral powder for reconstitution 17 gm, PO, Bedtime, Dissolve in 8 oz. of water, X 7 day, # 1 ea, 1 Refill(s) Start Date: 04/29/17 Stop Date: 05/13/17 Status: Orderedmorphine Sulfate 4 mg, 1 mL, Route: IVP, Drug form: INJ, Q6H, Dosing Weight 115.455, kg, PRN Pain Score 7-10, Start date: 04/25/17 16:06:00 CDT, Duration: 30 day, Stop date : 05/25/17 16:05:00 CDT Notes: (Same as:MORPhine Sulfate) Start Date: 04/25/17 Stop Date: 04/26/17 Status: Discontinuedmorphine Sulfate 4 mg, 1 mL, Route: IVP, Drug form: INJ, Q4H, Dosing Weight 115.455, kg, PRN Pain Score 7-10, Start date: 04/26/17 18:00:00 CDT, Duration: 30 day, Stop date : 05/26/17 17:59:00 CDT Notes: (Same as:MORPhine Sulfate) Start Date: 04/26/17 Stop Date: 04/29/17 Status: Discontinuedmorphine Sulfate 4 mg, 1 mL, Route: IVP, Drug form: INJ, ONCE, Dosing Weight 115.455, kg, Start date: 04/26/17 13:04:00 CDT, Stop date: 04/26/17 13:04:00 CDT Notes: (Same as:MORPhine Sulfate) Start Date: 04/26/17 Stop Date: 04/26/17 Status: Completedneostigmine (ANES) Route: IV, Drug form: INJ, ONCE, Stop date: 04/23/17 17:26:00 CDT Start Date: 04/23/17 Stop Date: 04/23/17 Status: CompletedOfirmev 1,000 mg, 100 mL, Route: IV, Drug form: INJ, Q6H, Dosing Weight 115.455, kg, for > or=50 kg, Start date: 04/25/17 18:00:00 CDT, Duration: 30 day, Stop date: 05/25/17 10:00:00 CDT Notes: Infuse over 15 minutesDo not exceed 4gm/day of acetaminophen MEDICATION WASTE ProductSize: 1000 mgProduct Wasted: ___ mg Start Date: 04/25/17 Stop Date: 04/26/17 Status: DiscontinuedOfirmev 1,000 mg, 100 mL, Route: IVPB, Drug form: INJ, Q6H, Dosing Weight 115.455, kg, for > or=50 kg, Start date: 04/23/17 18:00:00 CDT, Duration: 48 hr, Stop date: 04/25/17 12:00:00 CDT Notes: Infuse over 15 minutesDo not exceed 4gm/day of acetaminophen MEDICATION WASTE ProductSize: 1000 mgProduct Wasted: ___ mg Start Date: 04/23/17 Stop Date: 04/23/17 Status: Discontinuedondansetron (ANES) Route: IV, Drug form: INJ, ONCE, Stop date: 04/23/17 17:26:00 CDT Start Date: 04/23/17 Stop Date: 04/23/17 Status: CompletedoxyCODONE 5 mg immediate release 10 mg, 2 tab, Route: PO, Drug form: TAB, Q4H, Dosing Weight 115.455, kg, PRN Pain Score 7-10, Start date: 04/23/17 20:49:00 CDT, Duration: 30 day, Stop date : 05/23/17 20:48:00 CDT Notes: (Same as: Roxicodone) Start Date: 04/23/17 Stop Date: 04/25/17 Status: DiscontinuedoxyCODONE 5 mg immediate release 5 mg, 1 tab, Route: PO, Drug form: TAB, Q4H, Dosing Weight 115.455, kg, PRN Pain Score 4-6, Start date: 04/23/17 20:49:00 CDT, Duration: 30 day, Stop date: 05/23/17 20:48:00 CDT Notes: (Same as: Roxicodone) Start Date: 04/23/17 Stop Date: 04/25/17 Status: Discontinuedpantoprazole 40 mg, 1 tab, Route: PO, Drug form: ECTAB, Daily, Dosing Weight 115.455, kg, Start date: 04/24/17 9:00:00 CDT, Duration: 30 day, Stop date: 05/23/17 9:00:00 CDT Start Date: 04/24/17 Stop Date: 04/25/17 Status: Discontinuedpantoprazole 40 mg oral enteric coated tablet 40 mg=1 tab, PO, Daily, 0 Refill(s) Start Date: 04/29/17 Status: OrderedPlavix 75 mg, 1 tab, Route: PO, Drug form: TAB, Daily, Dosing Weight 115.455, kg, Start date: 04/24/17 14:22:00 CDT, Duration: 30 day, Stop date: 05/24/17 9:00: 00 CDT Notes: (Same As: Plavix) Start Date: 04/24/17 Stop Date: 04/29/17 Status: Discontinuedpneumococcal 13-valent vaccine 0.5 mL, Route: IM, Drug Form: INJ, Daily, Start date: 04/24/17 9:00:00 CDT, Duration: 1 doses or times, Stop date: 04/24/17 9:00:00 CDT Notes: Shake well prior to use (Same as: Prevmila 13) Start Date: 04/24/17 Stop Date: 04/29/17 Status: Deletedpneumococcal 13-valent vaccine 0.5 mL, Route: IM, Drug Form: INJ, Daily, Start date: 04/29/17 10:00:00 CDT, Duration: 1 doses or times, Stop date: 04/29/17 10:00:00 CDT Notes: Shake well prior to use (Same as: Prevmila 13) Start Date: 04/29/17 Stop Date: 04/29/17 Status: Completedpregabalin 100 mg, 1 cap, Route: PO, Drug form: CAP, Q8Hnow, Dosing Weight 115.455, kg, Start date: 04/23/17 21:00:00 CDT, Duration: 30 day, Stop date: 05/23/17 13:00: 00 CDT Notes: (Same as: Lyrica) Start Date: 04/23/17 Stop Date: 04/25/17 Status: Discontinuedpropofol (ANES) Route: IV, Drug form: INJ, ONCE, Stop date: 04/23/17 15:25:00 CDT Start Date: 04/23/17 Stop Date: 04/23/17 Status: CompletedProtonix 40 mg, Route: IVP, Drug form: INJ, Daily, Dosing Weight 115.455, kg, Patient is NPO, Start date: 04/25/17 17:00:00 CDT, Duration: 30 day, Stop date: 05/25/17 9: 00:00 CDT Notes: For IV push reconstitute with 10 ml 0.9% sodium chloride and push over 2 minutes. (Same as: Protonix) Start Date: 04/25/17 Stop Date: 04/27/17 Status: DiscontinuedProtonix 40 mg, 1 tab, Route: PO, Drug form: ECTAB, Daily, Start date: 04/27/17 10:00:00 CDT, Duration: 30 day, Stop date: 05/27/17 9:00:00 CDT Notes: Tablet should not be chewed or crushed.(Same as: Protonix) Start Date: 04/27/17 Stop Date: 04/29/17 Status: Discontinuedpsyllium 1 tsp, Route: PO, Drug Form: PDR/REC, Dosing Weight 115.455, kg, BID, Start date : 04/27/17 9:00:00 CDT, Duration: 30 day, Stop date: 05/26/17 17:00:00 CDT Notes: (Same as: Metamucil) Mix in 8 oz liquid with meal. Start Date: 04/27/17 Stop Date: 04/29/17 Status: Discontinuedrocuronium (ANES) Route: IV, Drug form: INJ, ONCE, Stop date: 04/23/17 15:40:00 CDT Start Date: 04/23/17 Stop Date: 04/23/17 Status: Completedrocuronium (ANES) Route: IV, Drug form: INJ, ONCE, Stop date: 04/23/17 16:20:00 CDT Start Date: 04/23/17 Stop Date: 04/23/17 Status: Completedsenna 8.6 mg, 1 tab, Route: PO, Drug Form: TAB, Dosing Weight 115.455, kg, BID, Start date: 04/27/17 9:00:00 CDT, Duration: 30 day, Stop date: 05/26/17 17:00:00 CDT Notes: (Same as: Senokot) Start Date: 04/27/17 Stop Date: 04/29/17 Status: DiscontinuedSpiriva 18 mcg inhalation capsule 18 microgram, 1 inhalation, Route: INHALATION, Drug form: CAP, Daily, Dosing Weight 115.455, kg, Start date: 04/24/17 9:00:00 CDT, Duration: 30 day, Stop date: 05/23/17 9:00:00 CDT Start Date: 04/24/17 Stop Date: 04/29/17 Status: DiscontinuedSpiriva 18 mcg inhalation capsule 18 microgram=1 inhalation, INHALATION, Daily, 0 Refill(s) Start Date: 04/29/17 Status: Orderedsuccinylcholine (ANES) Route: IV, Drug form: INJ, ONCE, Stop date: 04/23/17 15:25:00 CDT Start Date: 04/23/17 Stop Date: 04/23/17 Status: Completedtramadol 50 mg oral tablet 50 mg, 1 tab, Route: PO, Drug form: TAB, Q6H, Dosing Weight 115.455, kg, Start date: 04/29/17 12:00:00 CDT, Duration: 30 day, Stop date: 05/29/17 6:00:00 CDT Notes: Not to exceed 400mg/day. (Same As: Ultram) Start Date: 04/29/17 Stop Date: 04/29/17 Status: Discontinuedtramadol 50 mg oral tablet 50 mg, 1 tab, Route: PO, Drug form: TAB, Q6H, Dosing Weight 115.455, kg, PRN Pain Score 1-3, Start date: 04/29/17 11:14:00 CDT, Duration: 30 day, Stop date: 05/29/17 11:13:00 CDT Notes: Not to exceed 400mg/day. (Same As: Ultram) Start Date: 04/29/17 Stop Date: 04/29/17 Status: Discontinuedtramadol 50 mg oral tablet 50 mg, 1 tab, Route: PO, Drug form: TAB, Q6H, Dosing Weight 115.455, kg, PRN Pain Score 1-3, Start date: 04/23/17 17:18:00 CDT, Duration: 30 day, Stop date: 05/23/17 17:17:00 CDT Start Date: 04/23/17 Stop Date: 04/25/17 Status: DiscontinuedTylenol with Codeine #3 oral tablet 1 - 2 tablets, PO, Q6H, PRN Pain, not to exceed 4000 mg acetaminophen per day, do not operate vehicle or machinery on medication., X 14 day, # 90 tab, 0 Refill (s) Start Date: 04/29/17 Stop Date: 05/13/17 Status: OrderedZofran 4 mg, 2 mL, Route: IVP, Drug form: INJ, Q6H, Dosing Weight 115.455, kg, PRN Nausea, Start date: 04/25/17 16:48:00 CDT, Duration: 30 day, Stop date: 16:47:00 CDT Notes: (Same as: Zofran) MEDICATION WASTE Product Size: 4 mgProduct Wasted: ___ mg Start Date: 04/25/17 Stop Date: 04/29/17 Status: DiscontinuedZofran 4 mg, 1 tab, Route: PO, Drug form: TAB, Q8H, Dosing Weight 115.455, kg, PRN Nausea, Start date: 04/25/17 13:43:00 CDT, Duration: 30 day, Stop date: 13:42:00 CDT Notes: (Same as: Zofran) Start Date: 04/25/17 Stop Date: 04/25/17 Status: Discontinued Results BLOOD BANK RESULTS Most recent to oldest [Reference Range]: 1 2 3 ABO/Rh O POS *Unknown* (04/23/17 9:08 AM) Antibody Scrn Negative (04/23/17 9:08 AM) ELECTROLYTES Most recent to oldest 1 2 3 [Reference Range]: Sodium Lvl [135-145 mEq/L] 138 mEq/L 139 mEq/L 139 mEq/L (04/29/17 3:33 AM) (04/28/17 6:48 AM) (04/26/17 6:28 AM) Potassium Lvl [3.5-5.1 3.2 mEq/L 3.4 mEq/L 4.5 mEq/L mEq/L] *LOW* *LOW* (04/26/17 6:28 AM) (04/29/17 3:33 AM) (04/28/17 6:48 AM) Chloride Lvl [95-109 mEq/L] 101 mEq/L 101 mEq/L 104 mEq/L (04/29/17 3:33 AM) (04/28/17 6:48 AM) (04/26/17 6:28 AM) CO2 [24-32 mEq/L] 29 mEq/L 30 mEq/L 28 mEq/L (04/29/17 3:33 AM) (04/28/17 6:48 AM) (04/26/17 6:28 AM) AGAP [10.0-20.0 mEq/L] 11.2 mEq/L 11.4 mEq/L 11.5 mEq/L (04/29/17 3:33 AM) (04/28/17 6:48 AM) (04/26/17 6:28 AM) CHEM PANEL Most recent to oldest 1 2 3 [Reference Range]: Creatinine Lvl [0.50-1.40 0.72 mg/dL 0.82 mg/dL 0.71 mg/dL mg/dL] (04/29/17 3:33 AM) (04/28/17 6:48 AM) (04/26/17 6:28 AM) eGFR 87 mL/min/1.73m2 1 74 mL/min/1.73m2 2 89 mL/min/1.73m2 3 *NA* *NA* *NA* (04/29/17 3:33 AM) (04/28/17 6:48 AM) (04/26/17 6:28 AM) BUN [7-22 mg/dL] 14 mg/dL 11 mg/dL 15 mg/dL (04/29/17 3:33 AM) (04/28/17 6:48 AM) (04/26/17 6:28 AM) B/C Ratio [6-25] 20 (04/21/17 12:30 PM) Glucose Lvl [70-99 mg/dL] 98 mg/dL 111 mg/dL 114 mg/dL (04/29/17 3:33 AM) *HI* *HI* (04/28/17 6:48 AM) (04/26/17 6:28 AM) Total Protein [6.4-8.4 7.7 g/dL g/dL] (04/21/17 12:30 PM) Albumin Lvl [3.5-5.0 g/dL] 3.8 g/dL (04/21/17 12:30 PM) Globulin [2.7-4.2 g/dL] 3.9 g/dL (04/21/17 12:30 PM) A/G Ratio [0.7-1.6] 1.0 (04/21/17 12:30 PM) Calcium Lvl [8.5-10.5 8.5 mg/dL 8.4 mg/dL 7.9 mg/dL mg/dL] (04/29/17 3:33 AM) *LOW* *LOW* (04/28/17 6:48 AM) (04/26/17 6:28 AM) Phosphorus [2.5-4.5 mg/dL] 2.8 mg/dL 3.4 mg/dL (04/26/17 6:28 AM) (04/25/17 2:51 AM) Magnesium Lvl [1.8-2.4 2.4 mg/dL 2.5 mg/dL mg/dL] (04/26/17 6:28 AM) *HI* (04/25/17 2:51 AM) ALT [0-65 unit/L] 38 unit/L (04/21/17 12:30 PM) AST [0-37 unit/L] 34 unit/L (04/21/17 12:30 PM) Alk Phos [39-136 unit/L] 106 unit/L (04/21/17 12:30 PM) Bili Total [0.2-1.3 mg/dL] 0.3 mg/dL (04/21/17 12:30 PM) 1Result Comment: The eGFR is calculated using the CKD-EPI formula. In most young , healthy individualsthe eGFR will be >90 mL/min/1.73m2. The eGFR declines with age. An eGFR of 60-89 may be normal in some populations, particularly the elderly, for whom the CKD-EPI formula has not been extensively validated. Use of the eGFR is not recommended in the following populations: Individuals with unstable creatinine concentrations, including patients and those with serious co-morbid conditions. Patients with extremes in muscle mass or diet. The data above are obtained from the National Kidney Disease Education Program ( NKDEP) which additionally recommends that when the eGFR is used in patients with extremes of body mass index for purposesof drug dosing, the eGFR should be multiplied by the estimated BMI.2Result Comment: The eGFR is calculated using the CKD-EPI formula. In most young, healthy individualsthe eGFR will be >90 mL/ min/1.73m2. The eGFR declines with age. An eGFR of 60-89 may be normal in some populations, particularly the elderly, for whom the CKD-EPI formula has not been extensively validated. Use of the eGFR is not recommended in the following populations: Individuals with unstable creatinine concentrations, including patients and those with serious co-morbid conditions. Patients with extremes in muscle mass or diet. The data above are obtained from the National Kidney Disease Education Program ( NKDEP) which additionally recommends that when the eGFR is used in patients with extremes of body mass index for purposesof drug dosing, the eGFR should be multiplied by the estimated BMI.3Result Comment: The eGFR is calculated using the CKD-EPI formula. In most young, healthy individualsthe eGFR will be >90 mL/ min/1.73m2. The eGFR declines with age. An eGFR of 60-89 may be normal in some populations, particularly the elderly, for whom the CKD-EPI formula has not been extensively validated. Use of the eGFR is not recommended in the following populations: Individuals with unstable creatinine concentrations, including patients and those with serious co-morbid conditions. Patients with extremes in muscle mass or diet. The data above are obtained from the National Kidney Disease Education Program ( NKDEP) which additionally recommends that when the eGFR is used in patients with extremes of body mass index for purposesof drug dosing, the eGFR should be multiplied by the estimated BMI.SPECIAL CHEMISTRY Most recent to oldest [Reference Range]: 1 2 3 Hgb A1C [<=5.6 %] 7.1 % *HI* (04/21/17 12:30 PM) URINE AND STOOL Most recent to oldest [Reference Range]: 1 2 3 UA Turbidity [Clear] Clear (04/25/17 10:22 AM) UA Color [Yellow] Yellow *NA* (04/25/17 10:22 AM) UA pH [5.0-8.0] 5.5 (04/25/17 10:22 AM) UA Spec Grav [<=1.030] 1.017 (04/25/17 10:22 AM) UA Glucose [Negative mg/dL] Negative mg/dL *NA* (04/25/17 10:22 AM) UA Blood [Negative] Negative (04/25/17 10:22 AM) UA Ketones [Negative mg/dL] Negative mg/dL *NA* (04/25/17 10:22 AM) UA Protein [Negative mg/dL] Negative mg/dL (04/25/17 10:22 AM) UA Urobilinogen [0.1-1.0 mg/dL] <=1.0 mg/dL *NA* (04/25/17 10:22 AM) UA Bili [Negative] Negative *NA* (04/25/17 10:22 AM) UA Leuk Est [Negative] Negative (04/25/17 10:22 AM) UA Nitrite [Negative] Negative (04/25/17 10:22 AM) UA WBC [0-5 /HPF] 1 /HPF (04/25/17 10:22 AM) UA Sq Epi [Few /LPF] Occasional /LPF *NA* (04/25/17 10:22 AM) UA Mucus [None Seen /LPF] Few /LPF *NA* (04/25/17 10:22 AM) IMMUNOLOGY Most recent to oldest [Reference Range]: 1 2 3 Prealbumin [18.0-45.0 mg/dL] 13.4 mg/dL *LOW* (04/27/17 12:52 PM) HEMATOLOGY Most recent to oldest 1 2 3 [Reference Range]: WBC [3.7-10.4 K/CMM] 6.4 K/CMM 6.8 K/CMM 8.8 K/CMM (04/29/17 3:33 AM) (04/28/17 6:48 AM) (04/26/17 6:28 AM) RBC [4.20-5.40 M/CMM] 3.94 M/CMM 4.24 M/CMM 4.57 M/CMM *LOW* (04/28/17 6:48 AM) (04/26/17 6:28 AM) (04/29/17 3:33 AM) Hgb [12.0-16.0 g/dL] 11.2 g/dL 11.7 g/dL 12.8 g/dL *LOW* *LOW* (04/26/17 6:28 AM) (04/29/17 3:33 AM) (04/28/17 6:48 AM) Hct [36.0-48.0 %] 34.0 % 37.0 % 40.3 % *LOW* (04/28/17 6:48 AM) (04/26/17 6:28 AM) (04/29/17 3:33 AM) MCV [80.0-98.0 fL] 86.1 fL 87.3 fL 88.2 fL (04/29/17 3:33 AM) (04/28/17 6:48 AM) (04/26/17 6:28 AM) MCH [27.0-31.0 pg] 28.5 pg 27.7 pg 28.0 pg (04/29/17 3:33 AM) (04/28/17 6:48 AM) (04/26/17 6:28 AM) MCHC [32.0-36.0 g/dL] 33.1 g/dL 31.7 g/dL 31.7 g/dL (04/29/17 3:33 AM) *LOW* *LOW* (04/28/17 6:48 AM) (04/26/17 6:28 AM) RDW [11.5-14.5 %] 16.2 % 16.6 % 16.7 % *HI* *HI* *HI* (04/29/17 3:33 AM) (04/28/17 6:48 AM) (04/26/17 6:28 AM) Platelet [133-450 K/CMM] 213 K/CMM 212 K/CMM 213 K/CMM (04/29/17 3:33 AM) (04/28/17 6:48 AM) (04/26/17 6:28 AM) MPV [7.4-10.4 fL] 7.3 fL 7.2 fL 7.5 fL *LOW* *LOW* (04/26/17 6:28 AM) (04/29/17 3:33 AM) (04/28/17 6:48 AM) Segs [45.0-75.0 %] 60.9 % 65.8 % 67.0 % (04/29/17 3:33 AM) (04/28/17 6:48 AM) (04/26/17 6:28 AM) Lymphocytes [20.0-40.0 %] 23.4 % 20.2 % 20.3 % (04/29/17 3:33 AM) (04/28/17 6:48 AM) (04/26/17 6:28 AM) Monocytes [2.0-12.0 %] 9.2 % 9.1 % 9.0 % (04/29/17 3:33 AM) (04/28/17 6:48 AM) (04/26/17 6:28 AM) Eosinophils [0.0-4.0 %] 5.6 % 3.9 % 3.1 % *HI* (04/28/17 6:48 AM) (04/26/17 6:28 AM) (04/29/17 3:33 AM) Basophils [0.0-1.0 %] 0.9 % 1.0 % 0.6 % (04/29/17 3:33 AM) (04/28/17 6:48 AM) (04/26/17 6:28 AM) Segs-Bands # [1.5-8.1 K/CMM] 3.9 K/CMM 4.5 K/CMM 5.9 K/CMM (04/29/17 3:33 AM) (04/28/17 6:48 AM) (04/26/17 6:28 AM) Lymphocytes # [1.0-5.5 1.5 K/CMM 1.4 K/CMM 1.8 K/CMM K/CMM] (04/29/17 3:33 AM) (04/28/17 6:48 AM) (04/26/17 6:28 AM) Monocytes # [0.0-0.8 K/CMM] 0.6 K/CMM 0.6 K/CMM 0.8 K/CMM (04/29/17 3:33 AM) (04/28/17 6:48 AM) (04/26/17 6:28 AM) Eosinophils # [0.0-0.5 0.4 K/CMM 0.3 K/CMM 0.3 K/CMM K/CMM] (04/29/17 3:33 AM) (04/28/17 6:48 AM) (04/26/17 6:28 AM) Basophils # [0.0-0.2 K/CMM] 0.1 K/CMM 0.1 K/CMM 0.1 K/CMM (04/29/17 3:33 AM) (04/28/17 6:48 AM) (04/21/17 12:30 PM) Immunizations Given and Recorded Vaccine Date Status Refusal Reason pneumococcal 13-valent vaccine 04/29/17 Given Procedures Procedure Date Related Diagnosis Body Site Cholecystectomy Hernia repair Hysterectomy Knee joint operation Social History Social History Type Response Substance Abuse Use: Current. Type: Marijuana. Recreational Drug Route: Inhaled. Frequency: 1-2 times per week.1 Smoking Status Never smoker; Type: Cigarettes; Exposure to Tobacco Smoke None; Cigarette Smoking Last 365 Days No; Reg Smoking Cessation Counseling No 1for pain Assessment and Plan Extracted from: Title: EGS Progress Note Author: Estrada Mishra MD Date: 04/29/17 Progress Note - Daily [facility] Completed: Saturday, APRIL 29, 2017, 11: 38 by Estrada Mishra MD RM: [id number], [id number] BALTA STOVER 66y (: 1950) F Attending: Marc Sevilla DO Service: Surgery Reason for Admission: RECURRENT VENTRAL INCISIONAL HERNIA Working DRG: Hernia procedures except inguinal & femoral w/o CC/SENIOR CARE Code status: None Specified=FULL CODE Isolation: None Documented Allergies: NKDA SUBJECTIVE Doing very well overnight. Had 3 large bowel movements. OBJECTIVE General: Alert and oriented, No acute distress. Eye: Extraocular movements are intact. HENT: Normocephalic. Respiratory: Respirations are non-labored; Symmetrical chest wall expansion. Cardiovascular: Good pulses equal in all extremities. Gastrointestinal: Soft. Surgical site is c/d/i. Cleaned and redresssed with 4x4 and tape. Abdominal binder in place. Musculoskeletal Normal range of motion in all extremities. 24hr Labs 04/29 0556 Glucose POC 99 04/29 0333 Glucose Lvl 98 BUN 14 Creatinine Lvl 0.72 Sodium Lvl 138 Potassium Lvl 3.2 L Chloride Lvl 101 CO2 29 AGAP 11.2 Calcium Lvl 8.5 eGFR 87 WBC 6.4 RBC 3.94 L Hgb 11.2 L Hct 34.0 L MCV 86.1 MCH 28.5 MCHC 33.1 RDW 16.2 H Platelet 213 MPV 7.3 L Segs 60.9 Monocytes 9.2 Lymphocytes 23.4 Eosinophils 5.6 H Basophils 0.9 Segs-Bands # 3.9 Lymphocytes # 1.5 Monocytes # 0.6 Eosinophils # 0.4 Basophils # 0.1 04/28 2115 Glucose POC 149 H 04/28 1748 Glucose POC 148 H Jones still necessary (Yes/No): Line still necessary (Yes/No): Vitals Tmp(F) Pulse BP RR SpO2 FIO2 04/29 10:07 ---- --- ----- 18 95 21% 04/29 08:31 97.5 80 147/80 18 95 --- 04/29 03:33 97.5 73 123/68 18 96 --- 04/28 23:44 98.0 83 117/72 18 96 --- 04/28 21:15 ---- --- ----- 18 96 --- 24 Hr Tmax: 98.2F (36.78c) at 04/28 12:39 Vital Signs are the last 5 in the past 48 hours. Date Wt(kg) Wt(lb) Ht(cm) Ht(in) Method 04/23 115.45 254.00 160.02 63.00 Estimated 04/21 (initial) 115.45 254.00 161.29 63.50 Measured I&O Record In Out Bal 04/29 24hr Tot 1 0 1 04/28 24hr Tot 593 140 453 Medications (32) Active Scheduled Meds (17): 04/26/17 acetaminophen 1,000 mg PO Q6H 04/24/17 allopurinol 300 mg PO Daily 04/24/17 bumetanide 2 mg PO Daily 04/24/17 busPIRone 10 mg PO TID 04/24/17 celecoxib 200 mg PO Q12H 04/24/17 clopidogrel (Plavix) 75 mg PO Daily 04/23/17 docusate 50 mg PO Bedtime 04/24/17 enoxaparin (Lovenox) 40 mg SUB-Q [id number] 04/26/17 gabapentin (gabapentin 300 mg oral capsule) 300 mg PO Q8H 04/26/17 levothyroxine 37 microgram IVP [id number] 04/27/17 pantoprazole (Protonix) 40 mg PO Daily 04/27/17 polyethylene glycol 3350 (MiraLax) 17 gm PO BID 04/27/17 psyllium 1 tsp PO BID 04/27/17 senna 8.6 mg PO BID 04/26/17 tamsulosin (Flomax) 0.4 mg PO After Breakfast 04/24/17 tiotropium (Spiriva 18 mcg inhalation capsule) 18 microgram INHALATION Daily 04/29/17 tramadol (tramadol 50 mg oral tablet) 50 mg PO Q6H Unscheduled Meds (1): 04/22/17 ceFAZolin 2 gm IVPB PRE OP 200 ml/hr PRN Meds (13): 04/23/17 Dextrose 50% in Water IV (Dextrose 50% Syringe) 12.5 gm IVP PRN 04/23/17 Dextrose 50% in Water IV (Dextrose 50% Syringe) 25 gm IVP PRN 04/23/17 albuterol-ipratropium (DuoNeb inhalation solution) 3 ml NEB PRN 04/23/17 cyclobenzaprine 10 mg PO TID 04/23/17 glucagon 1 mg IM PRN 04/23/17 insulin aspart 1 unit SUB-Q Sliding Scale 04/23/17 insulin aspart 2 unit SUB-Q Sliding Scale 04/23/17 insulin aspart 3 unit SUB-Q Sliding Scale 04/23/17 insulin aspart 4 unit SUB-Q Sliding Scale 04/23/17 insulin aspart 5 unit SUB-Q Sliding Scale 04/25/17 ondansetron (Zofran) 4 mg IVP Q6H 04/26/17 phenol topical (Chloraseptic 1.4% spray) 1 spray TOP Daily 04/29/17 tramadol (tramadol 50 mg oral tablet) 50 mg PO Q6H One Time Meds: None Continuous Infusions (1): 04/27/17 Isolyte S (PH 7.4) 1000 mL 1,000 mL 1,000 mL 70 ml/hr ASSESSMENT & PLAN 66y/o female with PMHx morbid obesity, asthma, DM, HepC, GERD and Breast Ca s/ p Ex-Lap, EDA, Retrorectus hernia repair with mesh -POD #6 - Distention and Pain improved - Having bowel movements - Continue robust bowel regimen + fiber, + senna, +miralax +Docusate - Advanced to regular diet - RAKESH outputs: 35 and 160 cc/ 24hrs; -Drains serousanguinous Not drawing daily labs - Jones out PT/OT ordered and seen working with patient - Patient ambulating daily. Will continue to encourage. Resumed home meds except BP meds as pressure are currently controlled -Possible d/c today vs tomorrow if tolerating diet. Addendum by Estrada Mishra MD on 04/29/2017 11:42 xx
[2018-10-12] MEDS ORDERED: METRONIDAZOLE 500mg IVPB 500 MG/100 ML BAG IV ONE (12:18)
[2018-10-12] MEDS ORDERED: NA CHLORIDE 0.9% 500 ML ONE (12:18)
[2018-10-12] MEDS ORDERED: CIPROFLOXACIN 400mg IV 400 MG/200 ML BAG IV ONE (12:18)
[2018-10-12] MEDS ORDERED: FENTANYL CITR 100 MCG/2 ML ONE ×2 (12:18→14:25)
[2018-10-12] MEDS ORDERED: ONDANSETRON 4 MG/2 ML VIAL ONE (12:18)
[2018-10-12] MEDS ORDERED: NA CHLORIDE 0.9% 1,000 ML ONE (12:18)
[2018-10-12 12:20] LABS: Absolute Lymphocytes (CBC) 2.1 K/uL (0.7-4.9); Absolute Monocytes 0.7 K/uL (0.1-1.3); Absolute Neutrophil 4.9 K/uL (1.8-8.0); Basophils % 0.8 % (0-1.3); Eosinophils % 3.1 % (0-4.4); Hematocrit 43.4 % (36.0-45.0); Lymphocytes % 26.5 % (15.3-44.8); MCH 27.4 pg (27.0-35.0); MCV 80.1 fL (80-100); MPV 7.1 fL (7.6-11.3); Monocytes % 8.3 % (3.3-12.3); RBC Red Blood Cell Count 5.42 M/uL (3.86-4.86)
[2018-10-12 12:40] LABS: Protime INR 1.03
--- NOTE | 2018-10-12 12:43 | RAD REPORT ---
EXAM DESCRIPTION: Benita Single View10/12/2018 12:21 pm CLINICAL HISTORY: Cough COMPARISON: 2016 FINDINGS: The lungs appear clear of acute infiltrate. The heart is normal size IMPRESSION: No acute abnormalities displayed
[2018-10-12 12:46] LABS: Urine Blood NEGATIVE (NEG); Urine Glucose NEGATIVE (NEG); Urine Protein NEGATIVE (NEG); Urine pH 6.5 (5.0-7.0)
[2018-10-12 13:01] LABS: ALT/SGPT 21 U/L (12-78); AST/SGOT 14 U/L (15-37); Albumin 3.3 g/dL (3.4-5.0); Alkaline Phosphatase 86 U/L (45-117); BUN Blood Urea Nitrogen 9 mg/dL (7-18); Bicarbonate 29 mmol/L (21-32); Bilirubin Direct < 0.1 mg/dL (0-0.2); Bilirubin Total 0.3 mg/dL (0.2-1.0); Glucose Level 135 mg/dL (74-106); Lipase 135 U/L (73-393); Magnesium 1.9 mg/dL (1.8-2.4); NT PRO-BNP 154 pg/mL (<125); Protein, Total 7.3 g/dL (6.4-8.2); Sodium Level 141 mmol/L (136-145); Troponin (Emerg Dept Use Only) < 0.02 ng/mL (0.0-0.045)
[2018-10-12 13:09] LABS: Potassium 2.8 mmol/L (3.5-5.1)
--- NOTE | 2018-10-12 13:57 | ER ---
Nurse's Notes [facility] Name: Adi Gifford Age: 67 yrs Sex: Female : 1950 Arrival Date: 10/12/2018 Time: 11:21 Bed 7 Private MD: Jayden Pérez Diagnosis: Abdominal tenderness;Nausea;Diarrhea, unspecified;Hypokalemia;Fever, unspecified Presentation: 10/12 11:31 Presenting complaint: Patient states: "It feels like my insides are falling out from my sv vagina." Has been going on for a week. c/o dysuria and a foul smell with urine. Transition of care: patient was not received from another setting of care. Onset of symptoms was October 05, 2018. Risk Assessment: Do you want to hurt yourself or someone else? Patient reports no desire to harm self or others. Care prior to arrival: None. 11:31 Method Of Arrival: Wheelchair sv 11:31 Acuity: RONI 3 sv 15:48 Initial Sepsis Screen: Does the patient meet any 2 criteria? No. Patient's initial bp sepsis screen is negative. Does the patient have a suspected source of infection? No. Patient's initial sepsis screen is negative. Triage Assessment: 11:32 General: Appears in no apparent distress. uncomfortable, obese, Behavior is sv cooperative, appropriate for age, anxious. Pain: Complains of pain in pelvis Pain currently is 10 out of 10 on a pain scale. Neuro: Level of Consciousness is awake, alert, obeys commands, Oriented to person, place, time, situation, Moves all extremities. Full function Gait is steady. Respiratory: Airway is patent Respiratory effort is even, unlabored, Respiratory pattern is regular, symmetrical. : Reports pain in suprapubic area vaginal area. Historical: - Allergies: 11:32 No Known Allergies; sv - PMHx: 11:32 CHF; High Cholesterol; Hypertension; Hypothyroidism; Myocardial infarction; sv - PSHx: 11:32 Hysterectomy; Cholecystectomy; Hernia repair; Knee surgery; Bladder suspension; sv Infected tooth; IVC filter; cardiac stents; - Immunization history:: Adult Immunizations up to date, Flu vaccine is not up to date. - Social history:: Smoking status: Patient/guardian denies using tobacco, Patient/guardian denies using alcohol. - Ebola Screening: : No symptoms or risks identified at this time. - Family history:: not pertinent. Screenin:35 Abuse screen: Denies threats or abuse. Denies injuries from another. Nutritional bp screening: No deficits noted. Tuberculosis screening: No symptoms or risk factors identified. Fall Risk None identified. Assessment: 11:34 General: SEE TRIAGE NOTE. VS STABLE ON MONITOR. bp 12:30 Reassessment: Patient appears in no apparent distress at this time. No changes from hb previously documented assessment. Patient and/or family updated on plan of care and expected duration. Pain level reassessed. Patient is alert, oriented x 3, equal unlabored respirations, skin warm/dry/pink. 13:17 Reassessment: Patient appears in no apparent distress at this time. No changes from hb previously documented assessment. Patient and/or family updated on plan of care and expected duration. Pain level reassessed. Patient is alert, oriented x 3, equal unlabored respirations, skin warm/dry/pink. 14:32 Reassessment: PT TO CT WITH CAREER RESOURCE SPECIALIST. bp Vital Signs: 11:33 BP 143 / 95; Pulse 84; Resp 24; Temp 98; Pulse Ox 97% ; Height 5 ft. 3 in. (160.02 cm); sv Pain 10/10; 12:21 BP 153 / 91; Pulse 81; Resp 18; Pulse Ox 97% ; bp 13:18 BP 142 / 84; Pulse 80; Resp 18; Pulse Ox 97% on R/A; hb 14:00 BP 141 / 85; Pulse 80; Resp 16; Pulse Ox 96% ; bp 15:00 BP 139 / 78; Pulse 76; Resp 16; Pulse Ox 95% ; bp 16:00 BP 139 / 94; Pulse 79; Resp 16; Pulse Ox 97% ; bp ED Course: 11:21 Patient arrived in ED. sb2 11:21 Jayden Pérez DO is Private Physician. sb2 11:23 Richard Moise, RN is Primary Nurse. bp 11:32 Triage completed. sv 11:33 Arm band placed on Patient placed in an exam room, on a stretcher, on pulse oximetry. sv 11:35 Patient has correct armband on for positive identification. Bed in low position. Call bp light in reach. Side rails up X2. 11:40 Tay Flores MD is Attending Physician. elissa 12:05 Missed attempt(s): 22 gauge in right antecubital area. Bleeding controlled, band aid hb applied, catheter tip intact. 12:06 EKG done, by technical customer support specialist. reviewed by Tay Flores MD. at1 12:12 Initial lab(s) drawn, by me, sent to lab. Inserted saline lock: 20 gauge in left dh3 antecubital area, using aseptic technique. Blood collected. 12:20 X-ray completed. Portable x-ray completed in exam room. Patient tolerated procedure mh1 well. 12:21 XRAY Chest (1 view) In Process Unspecified. EDMS 12:25 Urine collected: hat, cloudy. 3 12:33 Lab(s) recollected, by me, sent to lab. [facility] 13:41 River Roach MD is Hospitalizing Provider. [facility] 14:46 CT completed. Patient tolerated procedure well. Patient moved back from CT. pa 15:49 No provider procedures requiring assistance completed. Patient admitted, IV remains in bp place. Administered Medications: Discontinued: NS 0.9% 1000 ml IV at 125 ml/hr continuous 12:15 Drug: NS 0.9% 500 ml Route: IV; Rate: bolus; Site: left antecubital; bp 13:00 Follow up: IV Status: Completed infusion; IV Intake: 500ml bp 12:15 Drug: NS 0.9% 1000 ml Route: IV; Rate: 125 ml/hr; Site: left antecubital; bp 12:15 Drug: Flagyl 500 mg Volume: 100 ml; Route: IVPB; Rate: 200 ml/hr; Infused Over: 30 bp mins; Site: left antecubital; 13:11 Follow up: IV Status: Completed infusion; IV Intake: 100ml bp 12:15 Drug: fentaNYL (PF) 25 mcg Route: IVP; Site: left antecubital; bp 13:00 Follow up: Response: Pain is decreased bp 12:15 Drug: Zofran 4 mg Route: IVP; Site: left antecubital; bp 14:27 Follow up: Response: No adverse reaction bp 12:45 Drug: Rocephin - (cefTRIAXone) 1 grams Route: IVPB; Infused Over: 30 mins; Site: left bp antecubital; 13:15 Follow up: IV Status: Completed infusion bp 13:00 Drug: Cipro 400 mg Volume: 200 ml; Route: IVPB; Infused Over: 60 mins; Site: left bp antecubital; 14:00 Follow up: IV Status: Completed infusion; IV Intake: 200ml bp 13:30 Drug: NS 0.9% with KCl 20 mEq/L 1000 ml Route: IV; Rate: 125 ml/hr; Site: left bp antecubital; 15:43 Follow up: IV Status: Infusion continued upon admission bp 13:47 Drug: Potassium Chloride 20 mEq Route: IV; Rate: per protocol; Site: left antecubital; bp 15:44 Follow up: IV Status: Infusion continued upon admission bp 14:26 Drug: fentaNYL (PF) 25 mcg Route: IVP; Site: left antecubital; bp 15:43 Follow up: Response: Pain is decreased bp Intake: 13:00 IV: 500ml; Total: 500ml. bp 13:11 IV: 100ml; Total: 600ml. bp 14:00 IV: 200ml; Total: 800ml. bp Outcome: 13:43 Decision to Hospitalize by Provider. elissa 16:03 Admitted to Med/surg accompanied by tech, via stretcher, room 215, with chart, Report bp called to BRISEIDA DESAI RN 16:03 Condition: stable 16:03 Instructed on the need for admit. 16:11 Patient left the ED. bp Signatures: Dispatcher [employer] Alona Mahan, RN RN Tay Bhakta MD MD cha Harvey, Martha mh1 Lanette Meier, pattern clerk EKG Tat1 Sanjuana Mcdonnell RN RN hb Jordan, Nathan nj Herrera, Deanna 3 Richard Moise RN RN bp Ciara Berry sb2
--- NOTE | 2018-10-12 13:58 | EDPHYS ---
Physician Documentation [facility] Name: Adi Gifford Age: 67 yrs Sex: Female : 1950 Arrival Date: 10/12/2018 Time: 11:21 Bed 7 Private MD: Jayden Pérez ED Physician Tay Flores HPI: 10/12 11:53 This 67 yrs old Female presents to ER via Wheelchair with complaints of elissa Pelvic Pain. 11:53 The patient presents with abdominal pain in the lower abdomen, abdominal distention in elissa the upper abdomen, in the lower abdomen. Onset: The symptoms/episode began/occurred 3 day(s) ago. The patient presents with urinary symptoms, dysuria, frequency. Onset: The symptoms/episode began/occurred 3 day(s) ago. Modifying factors: The symptoms are alleviated by nothing, the symptoms are aggravated by nothing. Associated signs and symptoms: The patient has no apparent associated signs or symptoms. Severity of symptoms: At their worst the symptoms were mild, moderate, in the emergency department the symptoms are unchanged. The patient is not sexually active. Historical: - Allergies: 11:32 No Known Allergies; sv - PMHx: 11:32 CHF; High Cholesterol; Hypertension; Hypothyroidism; Myocardial infarction; sv - PSHx: 11:32 Hysterectomy; Cholecystectomy; Hernia repair; Knee surgery; Bladder suspension; sv Infected tooth; IVC filter; cardiac stents; - Immunization history:: Adult Immunizations up to date, Flu vaccine is not up to date. - Social history:: Smoking status: Patient/guardian denies using tobacco, Patient/guardian denies using alcohol. - Ebola Screening: : No symptoms or risks identified at this time. - Family history:: not pertinent. ROS: 11:53 Constitutional: Negative for fever, chills, and weight loss, Eyes: Negative for injury, elissa pain, redness, and discharge, ENT: Negative for injury, pain, and discharge, Neck: Negative for injury, pain, and swelling, Cardiovascular: Negative for chest pain, palpitations, and edema, Respiratory: Negative for shortness of breath, cough, wheezing, and pleuritic chest pain, Back: Negative for injury and pain. 11:53 : Negative for injury, bleeding, discharge, and swelling, MS/Extremity: Negative for injury and deformity, Skin: Negative for injury, rash, and discoloration, Neuro: Negative for headache, weakness, numbness, tingling, and seizure, Psych: Negative for depression, anxiety, suicide ideation, homicidal ideation, and hallucinations, Allergy/Immunology: Negative for hives, rash, and allergies, Endocrine: Negative for neck swelling, polydipsia, polyuria, polyphagia, and marked weight changes, Hematologic/Lymphatic: Negative for swollen nodes, abnormal bleeding, and unusual bruising. 11:53 Abdomen/GI: Positive for abdominal pain, nausea, of the right lower quadrant and left lower quadrant. Exam: 11:53 Constitutional: This is a well developed, well nourished patient who is awake, alert, elissa and in no acute distress. Head/Face: Normocephalic, atraumatic. Eyes: Pupils equal round and reactive to light, extra-ocular motions intact. Lids and lashes normal. Conjunctiva and sclera are non-icteric and not injected. Cornea within normal limits. Periorbital areas with no swelling, redness, or edema. ENT: Nares patent. No nasal discharge, no septal abnormalities noted. Tympanic membranes are normal and external auditory canals are clear. Oropharynx with no redness, swelling, or masses, exudates, or evidence of obstruction, uvula midline. Mucous membranes moist. Neck: Trachea midline, no thyromegaly or masses palpated, and no cervical lymphadenopathy. Supple, full range of motion without nuchal rigidity, or vertebral point tenderness. No Meningismus. Chest/axilla: Normal chest wall appearance and motion. Nontender with no deformity. No lesions are appreciated. Cardiovascular: Regular rate and rhythm with a normal S1 and S2. No gallops, murmurs, or rubs. Normal PMI, no JVD. No pulse deficits. Respiratory: Lungs have equal breath sounds bilaterally, clear to auscultation and percussion. No rales, rhonchi or wheezes noted. No increased work of breathing, no retractions or nasal flaring. Back: No spinal tenderness. No costovertebral tenderness. Full range of motion. Female : Normal external genitalia. Skin: Warm, dry with normal turgor. Normal color with no rashes, no lesions, and no evidence of cellulitis. MS/ Extremity: Pulses equal, no cyanosis. Neurovascular intact. Full, normal range of motion. Neuro: Awake and alert, GCS 15, oriented to person, place, time, and situation. Cranial nerves II-XII grossly intact. Motor strength 5/5 in all extremities. Sensory grossly intact. Cerebellar exam normal. Normal gait. Psych: Awake, alert, with orientation to person, place and time. Behavior, mood, and affect are within normal limits. 11:53 Abdomen/GI: Inspection: distension, Bowel sounds: active, Palpation: mild abdominal tenderness, moderate abdominal tenderness, in the right lower quadrant and left lower quadrant, Indicators: , Liver: no appreciated palpable abnormalities, Hernia: not appreciated. Vital Signs: 11:33 BP 143 / 95; Pulse 84; Resp 24; Temp 98; Pulse Ox 97% ; Height 5 ft. 3 in. (160.02 cm); sv Pain 10/10; 12:21 BP 153 / 91; Pulse 81; Resp 18; Pulse Ox 97% ; bp 13:18 BP 142 / 84; Pulse 80; Resp 18; Pulse Ox 97% on R/A; hb 14:00 BP 141 / 85; Pulse 80; Resp 16; Pulse Ox 96% ; bp 15:00 BP 139 / 78; Pulse 76; Resp 16; Pulse Ox 95% ; bp 16:00 BP 139 / 94; Pulse 79; Resp 16; Pulse Ox 97% ; bp MDM: 11:40 Patient medically screened. [facility] 11:55 Data reviewed: vital signs, nurses notes, lab test result(s), EKG, radiologic studies, [facility] CT scan, plain films. 10/12 11:52 Order name: Basic Metabolic Panel; Complete Time: 13:16 [facility] 10/12 11:52 Order name: CBC with Diff; Complete Time: 12:33 [facility] 10/12 11:52 Order name: LFT's; Complete Time: 13:16 [facility] 10/12 11:52 Order name: Magnesium; Complete Time: 13:16 [facility] 10/12 11:52 Order name: NT PRO-BNP; Complete Time: 13:16 [facility] 10/12 11:52 Order name: PT-INR; Complete Time: 13:16 [facility] 10/12 11:52 Order name: Troponin (emerg Dept Use Only); Complete Time: 13:16 [facility] 10/12 11:52 Order name: XRAY Chest (1 view); Complete Time: 13:16 [facility] 10/12 11:52 Order name: Lipase; Complete Time: 13:16 [facility] 10/12 11:52 Order name: Urine Culture [facility] 10/12 12:28 Order name: Urine Dipstick--Ancillary (enter results); Complete Time: 13:16 10/12 13:49 Order name: Stool Culture [facility] 10/12 13:49 Order name: Fecal Leukocyte Stain [facility] 10/12 13:49 Order name: CDIFF [facility] 10/12 11:52 Order name: EKG; Complete Time: 11:54 [facility] 10/12 11:52 Order name: Cardiac monitoring; Complete Time: 12:13 [facility] 10/12 11:52 Order name: EKG - Nurse/Tech; Complete Time: 12:13 [facility] 10/12 11:52 Order name: IV Saline Lock; Complete Time: 12:14 [facility] 10/12 11:52 Order name: CT Abd/Pelvis - W/Contrast [facility] 10/12 14:59 Order name: CT; Complete Time: 15:35 EDMS 10/12 11:52 Order name: Labs collected and sent; Complete Time: 12:13 [facility] 10/12 11:52 Order name: O2 Per Protocol; Complete Time: 12:14 [facility] 10/12 11:52 Order name: O2 Sat Monitoring; Complete Time: 12:14 [facility] 10/12 11:52 Order name: Urine Dipstick-Ancillary (obtain specimen); Complete Time: 12:32 [facility] 10/12 11:52 Order name: Urine Test (obtain specimen); Complete Time: 12:32 [facility] Administered Medications: Discontinued: NS 0.9% 1000 ml IV at 125 ml/hr continuous 12:15 Drug: NS 0.9% 500 ml Route: IV; Rate: bolus; Site: left antecubital; bp 13:00 Follow up: IV Status: Completed infusion; IV Intake: 500ml bp 12:15 Drug: NS 0.9% 1000 ml Route: IV; Rate: 125 ml/hr; Site: left antecubital; bp 12:15 Drug: Flagyl 500 mg Volume: 100 ml; Route: IVPB; Rate: 200 ml/hr; Infused Over: 30 bp mins; Site: left antecubital; 13:11 Follow up: IV Status: Completed infusion; IV Intake: 100ml bp 12:15 Drug: fentaNYL (PF) 25 mcg Route: IVP; Site: left antecubital; bp 13:00 Follow up: Response: Pain is decreased bp 12:15 Drug: Zofran 4 mg Route: IVP; Site: left antecubital; bp 14:27 Follow up: Response: No adverse reaction bp 12:45 Drug: Rocephin - (cefTRIAXone) 1 grams Route: IVPB; Infused Over: 30 mins; Site: left bp antecubital; 13:15 Follow up: IV Status: Completed infusion bp 13:00 Drug: Cipro 400 mg Volume: 200 ml; Route: IVPB; Infused Over: 60 mins; Site: left bp antecubital; 14:00 Follow up: IV Status: Completed infusion; IV Intake: 200ml bp 13:30 Drug: NS 0.9% with KCl 20 mEq/L 1000 ml Route: IV; Rate: 125 ml/hr; Site: left bp antecubital; 15:43 Follow up: IV Status: Infusion continued upon admission bp 13:47 Drug: Potassium Chloride 20 mEq Route: IV; Rate: per protocol; Site: left antecubital; bp 15:44 Follow up: IV Status: Infusion continued upon admission bp 14:26 Drug: fentaNYL (PF) 25 mcg Route: IVP; Site: left antecubital; bp 15:43 Follow up: Response: Pain is decreased bp Disposition: 10/12/18 13:43 Hospitalization ordered by River Roach for Inpatient Admission. Preliminary diagnosis are Abdominal tenderness, Nausea, Diarrhea, unspecified, Hypokalemia, Fever, unspecified. - Bed requested for Telemetry/MedSurg (Inpatient). - Status is Inpatient Admission. bp - Condition is Fair. - Problem is new. - Symptoms have improved. UTI on Admission? Yes Signatures: Dispatcher [employer] EDGA Alona García RN RN sv Woody, Diana, RN RN dw Anderson, Corey, MD MD cha Peltier, Brian, RN RN bp Corrections: (The following items were deleted from the chart) 14:08 13:43 Hospitalization Ordered by River Roach MD for Inpatient Admission. Preliminary diagnosis is Abdominal tenderness; Nausea; Diarrhea, unspecified; Hypokalemia; Fever, unspecified. Bed requested for Telemetry/MedSurg (Inpatient). Status is Inpatient Admission. Condition is Fair. Problem is new. Symptoms have improved. UTI on Admission? Yes. elissa 16:11 14:08 10/12/2018 13:43 Hospitalization Ordered by River Roach MD for Inpatient bp Admission. Preliminary diagnosis is Abdominal tenderness; Nausea; Diarrhea, unspecified; Hypokalemia; Fever, unspecified. Bed requested for Telemetry/MedSurg (Inpatient). Status is Inpatient Admission. Condition is Fair. Problem is new. Symptoms have improved. UTI on Admission? Yes. dw
[2018-10-12] MEDS ORDERED: NA CHLORIDE 0.9% 100 ML IV ONE (14:01)
[2018-10-12] MEDS ORDERED: CEFTRIAXONE 1000 MG/VIAL ONE ×2 (14:01→14:03)
[2018-10-12] MEDS ORDERED: NS KCL 20MEQ 1,000 ML IV ONE (14:01)
--- NOTE | 2018-10-12 14:01 | EKG ---
Test Date: 2018-10-12 Test Time: 12:03:28 Overhead Foreman: TEDDY MEASUREMENT RESULTS: Intervals: Rate: 77 HI: 144 QRSD: 80 QT: 432 QTc: 488 [place]: P: 79 HI: 144 QRS: 35 T: 20 INTERPRETIVE STATEMENTS: Normal sinus rhythm with sinus arrhythmia Normal ECG Compared to ECG 09/23/2016 21:09:56 No significant changes Electronically Signed On 10-12-18 14:00:41 ATHLETIC AGENT by Terry Sy
[2018-10-12] MEDS ORDERED: KCL 20 MEQ/100 mL IVPB 20 MEQ/100 ML BAG IV ONE (14:02)
--- NOTE | 2018-10-12 14:58 | RAD REPORT ---
EXAM DESCRIPTION: CT - Abdomen Pelvis W Contrast - 10/12/2018 2:45 pm CLINICAL HISTORY: Abdominal pain. Dysuria COMPARISON: 2014 TECHNIQUE: Computed axial tomography of the abdomen and pelvis was obtained. 100 cc Isovue-300 is ad ministered intravenously. Oral contrast was given. All CT scans are performed using dose optimization technique as appropriate and may include automated exposure control or mA/KV adjustment according to patient size. FINDINGS: An IVC filter is in place The liver, pancreas, adrenals and kidneys appear unremarkable. A 15 millimeter splenic lesion is decreased in size and is benign. Postsurgical changes of a ventral hernia repair. Diastases of the rectus abdominis muscles within the mid abdomen measures 7 centimeters. The appendix is normal caliber. There is no evidence of diverticulitis IMPRESSION: No acute abnormality displayed
[2018-10-12 16:31] VITALS: O2SAT 97
[2018-10-12 17:14] VITALS: BMI 40.4
[2018-10-12] MEDS ORDERED: ONDANSETRON 4 MG/2 ML VIAL IV PRN (17:54)
[2018-10-12] MEDS ORDERED: GLUCAGON 1 MG/VIAL IM PRN (17:59)
[2018-10-12] MEDS ORDERED: D50W 25 GM/50 ML SYRINGE IV PRN (17:59)
[2018-10-12] MEDS ORDERED: POTASSIUM CL SA 10 MEQ TAB PO ONE (18:00)
[2018-10-12] MEDS ORDERED: INFLUENZA VACCINE (for 3y+) 0.5 ML DOSE IMVAC ONE (18:00)
[2018-10-12] MEDS: METOPROLOL TAR 25 MG TAB PO SCH (18:30)
[2018-10-12] MEDS: FUROSEMIDE 40 MG TABLET PO SCH (18:30)
[2018-10-12] MEDS: GABAPENTIN 300 MG CAP PO SCH (20:17)
[2018-10-12] MEDS: AMILORIDE HCL 5 MG TABLET PO SCH (20:17)
[2018-10-12] MEDS ORDERED: HOME MED 1 EA UNK (Gabapentin [Neurontin] 600 MG) PO SCH (21:00)
[2018-10-12] MEDS ORDERED: TRAZODONE 150 MG TAB PO SCH (21:00)
[2018-10-12] MEDS: INSULIN -REGULAR HUMAN 50 UNIT/0.5 ML ML SQ SCH (21:00)
[2018-10-12] MEDS ORDERED: ATORVASTATIN 20 MG TAB PO SCH (21:00)
[2018-10-12] MEDS ORDERED: AMITRIPTYLINE 25 MG TAB PO SCH (21:00)
[2018-10-12] MEDS ORDERED: HOME MED 1 EA UNK (Furosemide [Lasix] 80 MG) PO SCH (21:00)
[2018-10-12] MEDS ORDERED: HOME MED 1 EA UNK (Simvastatin [Zocor*] 40 MG) PO SCH (21:00)
[2018-10-12] MEDS ORDERED: TRAMADOL HCL 50 MG TAB PO PRN (23:05)
--- NOTE | 2018-10-13 00:23 | P.HP ---
Patient History Date of Service: 10/13/18 History of Present Illness: This is a 67 yr old F with multiple medical comorbidities who presented with pelvic/lower abdominal pain along with dysuria. Per patient, for the past 1 week, she has been experiecing lower abdominal/pelvic pain and pain in the vaginal area, which has been unchanged. This was associated with nausea, dysuria, urgency and foul smelling urine. She also has been complaning of diarrhea for the same amount of time. States she has approx 4-5 episodes a day of watery, Non bloody diarrhea. ROS positive for fevers, chills, nausea, Lower abdominal pain, urinary complaints, diarrhea Denies: vomiting, vaginal bleeding, cp, sob, RIZZO, speech or vision changes, focal weakness At the time of my exam, patient was AAOx3, in no acute distress. Allergies No Known Drug Allergies Allergy (Verified 09/02/16 06:56) Unknown No Known Allergies Allergy (Uncoded 09/02/16 06:56) Unknown Home Medications: Allopurinol [Zyloprim*] 300 mg PO DAILY 05/20/13 Levothyroxine [Synthroid*] 75 mcg PO [id number] 05/20/13 Amitriptyline HCl 50 mg PO BEDTIME 12/20/14 Clopidogrel Bisulfate [Plavix*] 75 mg PO DAILY 12/20/14 Trazodone [Desyrel*] 150 mg PO BEDTIME 01/05/15 Albuterol Sulfate [Proair Hfa] 2 puff PO TID 01/28/16 Amiloride HCl 5 mg PO BID 01/28/16 Hydrocodone/Acetaminophen [Vicodin 5-325 mg Tablet] 10 mg PO BID 01/28/16 Metformin HCl [Metformin HCl ER] 500 mg PO DAILY 01/28/16 Simvastatin [Zocor*] 40 mg PO BEDTIME 01/28/16 Metoprolol Tartrate [Lopressor*] 25 mg PO BID 6AM 6PM #60 tab 02/03/16 Tiotropium [Spiriva Handihaler*] 1 sprays IH DAILY #30 inh 02/03/16 Buspirone HCl [Buspar] 10 mg PO DAILY 08/28/16 Gabapentin [Neurontin] 600 mg PO TID 08/28/16 Spironolactone [Aldactone] 50 mg PO DAILY 09/28/16 Calcipotriene [Dovonex] 60 gm TP BID 10/12/18 Furosemide [Lasix] 80 mg PO BID 10/12/18 - Past Medical/Surgical History Has patient received pneumonia vaccine in the past: Yes Diabetic: No -: chf -: htn -: hyperlipidemia -: GERD -: COPD -: Hernia -: PE -: mi -: sleep apnea -: hypothyroid -: anxiety -: DM -: hysterectomy/ [place] -: [place] -: ventral hernia -: cyst -: bladder reconstruction -: knee/ [place] -: knee/gnosticist -: IVC filter - Family History Mother -: Cancer Sister -: Hypertension - Social History Smoking Status: Never smoker Alcohol use: No CD- Drugs: Yes Caffeine use: Yes Place of Residence: Home Review of Systems General: Fever, Chills, As per HPI Eyes: Unremarkable ENT: Unremarkable Respiratory: Unremarkable Cardiovascular: Unremarkable Gastrointestinal: Nausea, Abdominal Pain, As per HPI Genitourinary: Dysuria, Urgency, As per HPI Musculoskeletal: Unremarkable Integumentary: Unremarkable Neurological: Unremarkable Lymphatics: Unremarkable Physical Examination - Vital Signs Temperature: 97.0 F Blood Pressure: 111/60 Pulse: 86 Respirations: 18 Pulse Ox (%): 92 - Physical Exam General: Alert, In no apparent distress, Oriented x3 HEENT: Atraumatic, PERRLA, Mucous membr. moist/pink, EOMI, Sclerae nonicteric Neck: Supple, 2+ carotid pulse no bruit, No LAD, Without JVD or thyroid abnormality Respiratory: Clear to auscultation bilaterally, Normal air movement Cardiovascular: Regular rate/rhythm, Normal S1 S2 Gastrointestinal: Normal bowel sounds, No tenderness, Other (Negative CVA tenderness), Tenderness (Mild tenderness in Right and left lower quadrants) Musculoskeletal: No tenderness Integumentary: No rashes Neurological: Normal gait, Normal speech, Normal strength at 5/5 x4 extr, Normal tone, Normal affect - Studies Laboratory Data (last 24 hrs) 10/12/18 12:30: PT 12.1, INR 1.03 10/12/18 12:30: Sodium 141, Potassium 2.8 L*, BUN 9, Creatinine 0.90, Glucose 135 H, Magnesium 1.9, Total Bilirubin 0.3, AST 14 L, ALT 21, Alkaline Phosphatase 86, Lipase 135 10/12/18 12:12: WBC 8.0, Hgb 14.9, Hct 43.4, Plt Count 257 Assessment and Plan - Plan Abdominal pain, CT abdomen negative for acute abnormalities Likely 2/2 UTI Continue IV antibiotics CLD, pt wants to try a diet. Advance as tolerated. Zofran for nausea prn Diarrhea Stool studies pending C. Diff pending UTI UA with e/o infection, urine cultures pending. Continue IV abx, adjust as necessary Hypokalemia: Repleted per protocol. Recheck/monitor via am labs. COPD Continue breathing treatments PRN. Stable, breathing well on RA HTN BP stable, continue home medications CHF Last ECHO in 2015, per records. Stable without e/o fluid overload on exam Continue home BB, lasix, amiloride, spironolactone DM2 Accu checks. Mild dose sliding scale insulin. Will adjust as needed Hypothyroid Continue home dose of levothyroxine Hx of coronary stent Stable, no c/o chest pain at this time. Anticoagulated on asa and plavix at home. Continue home meds Hx oF PE Stable, no c/o shortness of breath, CP. Continue anticoagulation HLD Continue home statin DVT prophylaxis: ASA/plavix GI Prophylaixis: Not needed Diet: CLD, advance as tolerated. Dispo: Admit to floor w/ tele. Pending symptomatic improvement. Pending urine cultures. - Advance Directives Does patient have a Living Will: No Does patient have a Durable POA for Healthcare: No
[2018-10-13 05:43] LABS: Absolute Lymphocytes (CBC) 2.5 K/uL (0.7-4.9); Absolute Monocytes 0.7 K/uL (0.1-1.3); Absolute Neutrophil 4.2 K/uL (1.8-8.0); Basophils % 0.8 % (0-1.3); Eosinophils % 3.6 % (0-4.4); Hematocrit 42.5 % (36.0-45.0); Lymphocytes % 32.2 % (15.3-44.8); MCH 27.1 pg (27.0-35.0); MCV 82.6 fL (80-100); MPV 7.1 fL (7.6-11.3); Monocytes % 8.7 % (3.3-12.3); RBC Red Blood Cell Count 5.14 M/uL (3.86-4.86)
[2018-10-13] MEDS: METOPROLOL TAR 25 MG TAB PO SCH (05:52)
[2018-10-13] MEDS: FUROSEMIDE 40 MG TABLET PO SCH (05:52)
[2018-10-13] MEDS ORDERED: LEVOTHYROXINE SOD 0.075 MG TAB PO SCH (06:00)
[2018-10-13 06:02] LABS: Albumin 3.2 g/dL (3.4-5.0); Bilirubin Total 0.3 mg/dL (0.2-1.0); Potassium 3.5 mmol/L (3.5-5.1); Protein, Total 6.9 g/dL (6.4-8.2)
[2018-10-13] MEDS: INSULIN -REGULAR HUMAN 50 UNIT/0.5 ML ML SQ SCH ×3 (07:30→16:30)
[2018-10-13] MEDS ORDERED: HOME MED 1 EA UNK (Buspirone Hcl [Buspar] 10 MG) PO SCH (09:00)
[2018-10-13] MEDS ORDERED: ALLOPURINOL 300 MG TAB PO SCH (09:00)
[2018-10-13] MEDS ORDERED: POTASSIUM CL SA 10 MEQ TAB PO ONE (09:00)
[2018-10-13] MEDS ORDERED: BUSPIRONE HCL 5 MG TABLET PO SCH (09:00)
[2018-10-13] MEDS ORDERED: CLOPIDOGREL 75 MG TABLET PO SCH (09:00)
[2018-10-13] MEDS ORDERED: SPIRONOLACTONE 25 MG TABLET PO SCH (09:00)
[2018-10-13] MEDS ORDERED: HOME MED 1 EA UNK (Spironolactone [Aldactone] 50 MG) PO SCH (09:00)
[2018-10-13] MEDS ORDERED: ENOXAPARIN 40 MG/0.4 ML SQ SCH (09:00)
[2018-10-13] MEDS: AMILORIDE HCL 5 MG TABLET PO SCH (09:00)
[2018-10-13] MEDS ORDERED: TIOTROPIUM 5 SPRAYS/INHALER IH SCH (09:00)
[2018-10-13] MEDS: GABAPENTIN 300 MG CAP PO SCH ×2 (09:14→14:14)
[2018-10-13] MEDS: CEFTRIAXONE/SWI 1gm 1 GM/10 ML SYR IV SCH ×2 (14:00→14:14)
[2018-10-13] MEDS ORDERED: WATER FOR INJ,STERILE 10 ML IM PRN ×2 (15:02→15:19)
[2018-10-13] MEDS ORDERED: LIDOCAINE 1% MPF 5 ML VIAL IM PRN (15:20)
[2018-10-13] MEDS ORDERED: CEFTRIAXONE 1000 MG/VIAL IM ONE (16:00)
[2018-10-13 17:52] VITALS: BP 131/58; TEMP 98.1
--- NOTE | 2018-10-14 12:33 | DS ---
Date of Discharge: 10/13/2018 Discharge Diagnoses: 1. Acute abdominal pain. 2. Acute diarrhea. 3. Acute cystitis without hematuria secondary to Klebsiella. 4. Hypokalemia. 5. Chronic obstructive pulmonary disease, chronic bronchitis. 6. Essential hypertension. 7. Chronic congestive heart failure, diastolic dysfunction. 8. Diabetes mellitus type 2, [id number] with hyperglycemia. 9. Hypothyroidism. 10. History of coronary artery disease, mary's igloo artery, mary's igloo heart status post stent 11. History of pulmonary embolism. 12. Mixed hyperlipidemia. 13. Morbid obesity. BMI of 40. Hospital Course: The patient is a 67-year-old female, who comes in with pelvic and lower abdominal pain with dysuria. The patient found to have UTI. The patient was still having some diarrhea and had some hypokalemia. Potassium was replaced. White count was normal. Her urine culture did show gram-negative rods, 3+ with ID and sensitivity pending. C. diff was negative. Stool culture was negative. The patient's diarrhea improved significantly. CT scan of the abdomen and pelvis did not show any acute findings. The patient was then doing well with treatment. She was then cleared for discharge. Followup: Follow up with PCP in 2-3 days. Return to ER for worsening condition. Activity: As tolerated. Medications: As per medication reconciliation list. Physical Examination: General: Awake, alert, oriented, no acute distress. Elderly female, obese. CV: S1, S2. Peripheral pulses regular. Respiratory: Moving air well bilaterally. Abdomen: Soft. Mild tenderness to palpation in the suprapubic region. No rebound or guarding. Bowel sounds positive. Extremities: No clubbing, cyanosis, or edema. Neuro: Nonfocal. SA/MODL Voice ID: [id number] Report ID: [id number] [facility]
== END 2018-10-13 16:58 | disposition home or self-care (01) ==
LOC: ER 11:16 → INTOOBSV 13:44 → ERHOLD 13:44 → 2ND 16:06
PROVIDERS: ADMIT Family Medicine; ATTEND Family Medicine
DX: N30.00 Acute cystitis without hematuria (principal); B96.1 Klebsiella pneumoniae [K. pneumoniae] as the cause of diseases classified elsewhere; E87.6 Hypokalemia; J44.9 Chronic obstructive pulmonary disease, unspecified; I11.0 Hypertensive heart disease with heart failure; I50.32 Chronic diastolic (congestive) heart failure; E11.65 Type 2 diabetes mellitus with hyperglycemia; E03.9 Hypothyroidism, unspecified; I25.10 Atherosclerotic heart disease of native coronary artery without angina pectoris; Z95.5 Presence of coronary angioplasty implant and graft; Z86.711 Personal history of pulmonary embolism; E78.2 Mixed hyperlipidemia; E66.9 Obesity, unspecified; Z68.41 Body mass index [BMI] 40.0-44.9, adult; Z23 Encounter for immunization
CPT/HCPCS: 36415; 71045; 74177; 80048; 80053; 80076; 81003; 82274; 82962 ×5; 83690; 83735; 83880; 84484; 85025 ×2; 85610; 87045; 87046; 87077; 87086; 87088; 87177; 87186; 87209; 87493; 89055; 93005; 96365; 96366; 96367; 96368; 96375; 99285; G0008; G0378 ×2; J0744; J2405; J3010 ×2; J7030; Q2035; Q9967; J0696

== ENCOUNTER 2019-02-06 09:38 | Observation (INO) | payer MEDICARE ==
--- OUTSIDE RECORDS SUMMARY | 2019-02-06 09:43 | XMS REPORT | Continuity of Care Document ---
:1950 Author Organization Interface Problems Problem Status Onset Classification Date Comments Source Date Reported RECURRENT VENTRAL Active [facility] INCISIONAL HERNIA 7 Medical Center INCISIONAL Active [facility] HERNIA, ABD PAIN, 7 Medical UMBILICAL P Center CAD (<span Active Problem 05/02/2017 [facility] ID="[id number]" Medical >Confirmed</span> Center ) Morbid obesity Active Problem 05/02/2017 BMI-46.7 [facility] with BMI of Medical 45.0-49.9, Center adult<sup>1</sup> HTN (<span Active Problem 05/02/2017 [facility] ID="[id number]" Medical >Confirmed</span> Center ) MAIDA (<span Active Problem 05/02/2017 [facility] ID="[id number]" Medical >Confirmed</span> Center ) Type 2 diabetes Active Problem 05/02/2017 [facility] mellitus with Medical diabetic chronic Center kidney disease INCISIONAL HERNIA Active [facility] WITHOUT Medical OBSTRUCTION OR Center PERIUMBILICAL Active [facility] PAIN Medical Center Medications Medication Details Route Status Patient Ordering Order Source Instructions Provider Date pantoprazole 40 40 mg=1 tab, PO, Active 04/29[facility] [place] mg oral enteric Daily, 0 2016 Medical coated tablet Refill(s) [place] Acetaminophen 300 1 - 2 tablets, Active 04/29[facility] [place] MG / Codeine PO, Q6H, PRN 2017 Medical Phosphate 30 MG Pain, not to Center Oral Tablet exceed 4000 mg [Tylenol with acetaminophen Codeine #3] per day, do not operate vehicle or machinery on medication., X 14 day, # 90 tab, 0 Refill(s) POLYETHYLENE 17 gm, PO, Active 04/29[facility] [place] GLYCOL 3350 142 Bedtime, 2017 Medical MG/ML Oral Dissolve in 8 Center Solution oz. of water, X [Miralax] 7 day, # 1 ea, 1 Refill(s) Docusate Sodium 100 mg=1 cap, Active 04/29[facility] [place] 100 MG Oral PO, BID, # 60 2017 Medical Capsule cap, 1 Refill(s) [place] tiotropium 0.018 18 microgram=1 Active [facility] MG/ACTUAT inhalation, 2017 Medical Inhalant Powder INHALATION, [place] [Spiriva] Daily, 0 Refill(s) tramadol 50 mg, [...] As: Ultram) pneumococcal 0.5 mL, Route: Inactive [facility] 13-valent vaccine IM, Drug Form: 2017 Medical INJ, Daily, Center Start date: 04/29/17 10:00:00 CDT, Duration: 1 doses or times, Stop date: 04/29/17 10:00:00 CDTNotes: Shake well prior to use (Same as: Prevnar 13) Protonix 40 mg, 1 tab, No Longer [facility] Route: PO, Drug Active 2016 Medical form: ECTAB, Center Daily, Start date: 04/27/17 10:00:00 CDT, Duration: 30 day, Stop date: 05/27/17 9:00:00 CDTNotes: Tablet should not be chewed or crushed. (Same as: Protonix) sennosides, [facility] 8.6 mg, 1 tab, No Longer [place] Route: PO, Drug Active 2016 Medical Form: TAB, Center Dosing Weight 115.455, kg, BID, Start date: 04/27/17 9:00:00 CDT, Duration: 30 day, Stop date: 05/26/17 17:00:00 CDTNotes: (Same as: Senokot) Psyllium 1 tsp, Route: No Longer [facility] PO, Drug Form: Active 2017 Medical PDR/REC, Dosing Center Weight 115.455, kg, BID, Start date: 04/27/17 9:00:00 CDT, Duration: 30 day, Stop date: 05/26/17 17:00:00 CDTNotes: (Same as: Metamucil) Mix in 8 oz liquid with meal. Miralax 17 gm, 1 pkt, No Longer [facility] Route: PO, Drug Active 2016 Medical form: PWDR, BID, Center Dosing Weight 115.455, kg, Start date: 04/27/17 9:00:00 CDT, Duration: 30 day, Stop date: 05/26/17 17:00:00 CDTNotes: Dissolve in 8 oz of water or juice. (Same as: Miralax) Isolyte S (PH 1,000 mL, Rate: No Longer [place] 7.4) 1000 mL 70 ml/hr, Infuse Active 2017 Medical 1,000 mL over: 14.3 hr, Center Route: IV, Dosing Weight 115.455 kg, Total Volume: 1,000, Start date: 04/27/17 8:45:00 CDT, Duration: 30 day, Stop date: 05/27/17 8:44:00 CDTNotes: (Same as: Isolyte S PH 7.4) Mag-Ox 400 400 mg, 1 tab, Inactive [place] Route: PO, Drug 2017 Medical form: TAB, ONCE, Center Dosing Weight 115.455, kg, Start date: 04/27/17 8:38:00 CDT, Stop date: 04/27/17 8:38:00 CDTNotes: (Same as: Mag-Ox 400) Magnesium oxide [id number] elemental magnesium Dose=____mg magnesium oxide (___mg elemental magnesium) Acetaminophen 1,000 mg, 2 tab, No Longer [place] Route: PO, Drug Active 2016 Medical form: TAB, Q6H, Center Dosing Weight 115.455, kg, Start date: 04/26/17 18:00:00 CDT, Duration: 30 day, Stop date: 05/26/17 12:00:00 CDTNotes: Max acetaminophen 4000 mg/day (4 gm/day). (Same as: Tylenol Extra Strength) Morphine 4 mg, 1 mL, No Longer [facility] Route: IVP, Drug Active 2016 Medical form: INJ, Q4H, Center Dosing Weight 115.455, kg, PRN Pain Score 7-10, Start date: 04/26/17 18:00:00 CDT, Duration: 30 day, Stop date: 05/26/17 17:59:00 CDTNotes: (Same as:MORPhine Sulfate) Morphine 4 mg, 1 mL, Inactive [place] Route: IVP, Drug 2016 Medical form: INJ, ONCE, Center Dosing Weight 115.455, kg, Start date: 04/26/17 13:04:00 CDT, Stop date: 04/26/17 13:04:00 CDTNotes: (Same as:MORPhine Sulfate) gabapentin 300 MG 300 mg, 1 cap, No Longer [facility] Oral Capsule Route: PO, Drug Active 2016 Medical form: CAP, Q8H, Center Dosing Weight 115.455, kg, (CrCl > 60 ml/min), Start date: 04/26/17 13:03:00 CDT, Duration: 30 day, Stop date: 05/26/17 12:00:00 CDTNotes: (Same as: Neurontin) phenol 1 spray, Route: No Longer [facility] TOP, Daily, Drug Active 2016 Medical form: LUCILA, [employer] Center Sore Throat, Start date: 04/26/17 13:00:00 CDT, Duration: 30 day, Stop date: 05/26/17 12:59:00 CDTNotes: Chloraseptic [place] (Same as: Chloraseptic, Sore Throat [place]) WASTE: F/P - Black; E - [employer] Flomax 0.4 mg, 1 cap, No Longer [facility] Route: PO, Drug Active 2016 Medical form: CAP, After Center Breakfast, Dosing Weight 115.455, kg, Start date: 04/26/17 8:30:00 CDT, Duration: 30 day, Stop date: 05/25/17 8:30:00 CDTNotes: (Same As: Flomax) "Do Not Crush" Thyroxine 37 microgram, No Longer [facility] Route: IVP, Drug Active 2016 Medical form: INJ, Center Q630AM, Dosing Weight 115.455, kg, Start date: 04/26/17 6:30:00 CDT, Duration: 30 day, Stop date: 05/25/17 6:30:00 CDTNotes: (Same as: Synthroid) Reconstitute with 5ml of NS. Final concentration=20 micrograms/ml. Use immediately after reconstitution and discard remaining solution. Ofirmev 1,000 mg, 100 No Longer [facility] mL, Route: IV, Active 2016 Medical Drug form: INJ, Center Q6H, Dosing Weight 115.455, kg, for > or=50 kg, Start date: 04/25/17 18:00:00 CDT, Duration: 30 day, Stop date: 05/25/17 10:00:00 CDTNotes: Infuse over 15 minutes Do not exceed 4gm/day of acetaminophen MEDICATION WASTE Product Size: 1000 mg Product Wasted: ___ mg Protonix 40 mg, Route: No Longer [facility] IVP, Drug form: Active 2016 Medical INJ, Daily, Center Dosing Weight 115.455, kg, Patient is NPO, Start date: 04/25/17 17:00:00 CDT, Duration: 30 day, Stop date: 05/25/17 9:00:00 CDTNotes: For IV push reconstitute with 10 ml 0.9% sodium chloride and push over 2 minutes. (Same as: Protonix) Zofran 4 mg, 2 mL, No Longer [facility] Route: IVP, Drug Active 2016 Medical form: INJ, Q6H, Center Dosing Weight 115.455, kg, PRN Nausea, Start date: 04/25/17 16:48:00 CDT, Duration: 30 day, Stop date: 05/25/17 16:47:00 CDTNotes: (Same as: Zofran) MEDICATION WASTE Product Size: 4 mg Product Wasted: ___ mg Morphine 4 mg, 1 mL, No Longer [facility] Route: IVP, Drug Active 2017 Medical form: INJ, Q6H, Center Dosing Weight 115.455, kg, PRN Pain Score 7-10, Start date: 04/25/17 16:06:00 CDT, Duration: 30 day, Stop date: 05/25/17 16:05:00 CDTNotes: (Same as:MORPhine Sulfate) Isolyte S (PH 1,000 mL, Rate: No Longer [facility] 7.4) 1000 mL 135 ml/hr, Active 2017 Medical 1,000 mL Infuse over: 7.4 Center hr, Route: IV, Dosing Weight 115.455 kg, Total Volume: 1,000, Start date: 04/25/17 14:39:00 CDT, Duration: 30 day, Stop date: 05/25/17 14:38:00 CDTNotes: (Same as: Isolyte S PH 7.4) Zofran 4 mg, 1 tab, Inactive [place] Route: PO, Drug 2016 Medical form: TAB, Q8H, Center Dosing Weight 115.455, kg, PRN Nausea, Start date: 04/25/17 13:43:00 CDT, Duration: 30 day, Stop date: 05/25/17 13:42:00 CDTNotes: (Same as: Zofran) Bisacodyl 5 mg, 1 tab, Inactive [facility] Route: PO, Drug 2016 Medical form: ECTAB, Center ONCE, Dosing Weight 115.455, kg, Priority: NOW, Start date: 04/25/17 13:15:00 CDT, Stop date: 04/25/17 13:15:00 CDTNotes: (Same As: Dulcolax, Correctol) (Do Not Crush) "Do Not Crush" Bisacodyl 10 mg, 1 supp, Inactive [facility] Route: [place], Drug 2016 Medical form: SUPP, Center ONCE, Dosing Weight 115.455, kg, Priority: NOW, Start date: 04/25/17 13:14:00 CDT, Stop date: 04/25/17 13:14:00 CDTNotes: (Same As: Dulcolax, [place]-Lax) Lovenox 40 mg, 0.4 mL, No Longer [facility] Route: SUB-Q, Active 2017 Medical Drug form: INJ, Center [id number], Dosing Weight 115.455, kg, Start date: 04/24/17 20:00:00 CDT, Duration: 30 day, Stop date: 05/23/17 20:00:00 CDTNotes: (Same as: Lovenox) Plavix 75 mg, 1 tab, No Longer [facility] Route: PO, Drug Active 2017 Medical form: TAB, Center Daily, Dosing Weight 115.455, kg, Start date: 04/24/17 14:22:00 CDT, Duration: 30 day, Stop date: 05/24/17 9:00:00 CDTNotes: (Same As: Plavix) Allopurinol 300 mg, 1 tab, No Longer [facility] Route: PO, Drug Active 2016 Medical form: TAB, Center Daily, Dosing Weight 115.455, kg, Start date: 04/24/17 9:00:00 CDT, Duration: 30 day, Stop date: 05/23/17 9:00:00 CDT Streptococcus 0.5 mL, Route: No Longer [place] pneumoniae IM, Drug Form: Active 2017 Medical serotype 1 INJ, Daily, Center capsular antigen Start date: diphtheria [id number] 04/24/17 9:00:00 protein conjugate CDT, Duration: 1 vaccine / doses or times, Streptococcus Stop date: pneumoniae 04/24/17 9:00:00 serotype 14 CDTNotes: Shake capsular antigen well prior to diphtheria [id number] use (Same as: protein conjugate Prevnar 13) vaccine / Streptococcus pneumoniae serotype 18C capsular antigen d Lovenox 40 mg, 0.4 mL, Inactive [facility] Route: SUB-Q, 2016 Medical Drug form: INJ, Center Daily, Dosing Weight 115.455, kg, Start date: 04/24/17 9:00:00 CDT, Duration: 30 day, Stop date: 05/23/17 9:00:00 CDTNotes: (Same as: Lovenox) pantoprazole 40 mg, 1 tab, No Longer [facility] Route: PO, Drug Active 2016 Medical [...] Bumex) Enoxaparin 40 mg, 0.4 mL, Inactive [facility] Route: SUB-Q, 2016 Medical Drug form: INJ, Center [id number], Dosing Weight 115.455, kg, Consider for obese [...] as: Roxicodone) Ofirmev 1,000 mg, 100 Inactive [place] mL, Route: IVPB, 2016 Medical Drug form: [...] Active 2016 Medical Ipratropium SOLN, Dosing Center [place] 0.167 Weight 115.455, MG/ML Inhalant kg, PRN, PRN Solution [DuoNeb] Respiratory Protocol, Start date: 04/23/17 17:27:00 CDT, Duration: 30 day, Stop date: 05/23/17 17:26:00 CDTNotes: (Same as: Duoneb) Insulin, Aspart, 1 unit, 0.01 mL, No Longer [place] Human Route: SUB-Q, Active 2016 Medical Drug [...] 50% 25 gm, 50 mL, No Longer [place] Syringe Route: IVP, Drug Active 2016 Medical Form: INJ, Center Dosing Weight 115.455, kg, PRN, PRN Blood Glucose Results, Start date: 04/23/17 17:26:00 CDT, Duration: 30 day, Stop date: 05/23/17 17:25:00 CDT Glucagon 1 mg, Route: IM, No Longer [facility] Drug form: Active 2016 Medical PDR/INJ, PRN, Center Dosing Weight 115.455, kg, PRN Blood Glucose Results, Start date: 04/23/17 17:26:00 CDT, Duration: 30 day, Stop date: 05/23/17 17:25:00 CDT hydromorphone Route: IV, Drug Inactive [facility] (ANES) form: INJ, ONCE, 2016 Medical Stop date: [place] 04/23/17 17:26:00 CDT neostigmine Route: IV, Drug Inactive [facility] ([facility]) form: INJ, ONCE, 2016 Medical Stop date: [place] 04/23/17 17:26:00 CDT glycopyrrolate Route: IV, Drug Inactive [facility] ([facility]) form: INJ, ONCE, 2016 Medical Stop date: [place] 04/23/17 17:26:00 CDT ondansetron Route: IV, Drug Inactive [facility] ([facility]) form: INJ, ONCE, 2016 Medical Stop date: [place] 04/23/17 17:26:00 CDT cyclobenzaprine 10 mg, 1 [...] Medical MG Oral Tablet form: TAB, Q6H, [place] Dosing Weight 115.455, kg, PRN Pain Score 1-3, Start date: 04/23/17 17:18:00 CDT, Duration: 30 day, Stop date: 05/23/17 17:17:00 CDT Isolyte S (PH 1,000 mL, Rate: No Longer [facility] 7.4) 1000 mL 35 ml/hr, Infuse Active [facility] Medical 1,000 mL over: 28.6 hr, [place] Route: IV, Dosing Weight 115.455 kg, Total Volume: 1,000, Start date: 04/23/17 17:16:00 CDT, Stop date: 05/23/17 17:15:00 CDT rocuronium (ANES) Route: IV, Drug Inactive [place] form: INJ, ONCE, 2016 Medical Stop date: [place] 04/23/17 16:20:00 CDT dexamethasone Route: IV, Drug Inactive 04/23[facility] [place] (ANES) form: INJ, ONCE, 2016 Medical Stop date: [place] 04/23/17 16:07:00 CDT ketAMINE (ANES) Route: IV, Drug Inactive 04/23[facility] [place] form: INJ, ONCE, 2016 Medical Stop date: [place] 04/23/17 16:05:00 CDT Promethazine 6.25 mg, Route: Inactive 04/23[facility] [place] IVPB, ONCE, 2016 Medical Dosing Weight Center 115.455, kg, PRN Nausea & Vomiting, Start date: 04/23/17 15:59:00 CDT Ondansetron 4 mg, Route: Inactive 04/23[facility] [place] IVP, ONCE, 2016 Medical Dosing Weight Center 115.455, kg, PRN Nausea & Vomiting, Start date: 04/23/17 15:59:00 CDT Hydralazine 10 mg, Route: Inactive 04/23[facility] [place] IVP, Q20Min, 2016 Medical Dosing Weight Center 115.455, kg, PRN Elevated BP, Start date: 04/23/17 15:59:00 CDT, Duration: 2 doses or times, Stop date: Limited # of times Hydromorphone 0.5 mg, Route: Inactive [facility] [place] IVP, Q5Min, 2016 Medical Dosing Weight Center 115.455, kg, PRN Pain Score 7-10, Start date: 04/23/17 15:59:00 CDT, Duration: 4 doses or times, Stop date: Limited # of times Labetalol 10 mg, Route: Inactive 04/23[facility] IVP, Q5Min, 2017 Medical Dosing Weight Center 115.455, kg, PRN Elevated BP, Start date: 04/23/17 15:59:00 CDT, Duration: 5 doses or times, Stop date: Limited # of times Acetaminophen 1,000 mg, Route: Inactive 04/23[facility] [place] PO, Drug form: 2017 Medical TAB, ONCE, Center Dosing Weight 115.455, kg, PRN Pain Score 1-3, Start date: 04/23/17 15:59:00 CDT, Duration: 1 doses or times, Stop date: Limited # of times Naloxone 0.4 mg, Route: Inactive 04/23[facility] IVP, Q2MIN, 2017 Medical Dosing Weight Center 115.455, kg, PRN Narcotic Reversal, Start date: 04/23/17 15:59:00 CDT, Duration: 8 doses or times, Stop date: Limited # of times Flumazenil 0.2 mg, Route: Inactive 04/23[facility] IVP, PRN, Dosing 2017 Medical Weight 115.455, Center kg, PRN Benzodiazepine Reversal, Initial dose, Start date: 04/23/17 15:59:00 CDT, Duration: 30 day, Stop date: 05/23/17 15:58:00 CDT Oxycodone 5 mg, Route: PO, Inactive 04/23[facility] Drug form: TAB, 2017 Medical Q4H, Dosing Center Weight 115.455, kg, PRN Pain Score 4-6, Start date: 04/23/17 15:59:00 CDT, Duration: 30 day, Stop date: 05/23/17 15:58:00 CDT rocuronium (ANES) Route: IV, Drug Inactive 04/23[facility] [place] form: INJ, ONCE, 2017 Medical Stop date: [place] 04/23/17 15:40:00 CDT dexamethasone Route: IV, Drug Inactive 04/23[facility] [place] (ANES) form: INJ, ONCE, 2017 Medical Stop date: [place] 04/23/17 15:25:00 CDT famotidine (ANES) Route: IV, Drug Inactive [facility] form: INJ, ONCE, 2016 Medical Stop date: [place] 04/23/17 15:25:00 CDT ketAMINE (ANES) Route: IV, Drug Inactive [facility] form: INJ, ONCE, 2016 Medical Stop date: [place] 04/23/17 15:25:00 CDT metoprolol (ANES) Route: IV, Drug Inactive [facility] form: INJ, ONCE, 2016 Medical Stop date: [place] 04/23/17 15:25:00 CDT midazolam (ANES) Route: IV, Drug Inactive [facility] form: SOLN, 2017 Medical ONCE, Stop date: [place] 04/23/17 15:25:00 CDT lidocaine (ANES) Route: IV, Drug Inactive [facility] form: INJ, ONCE, 2016 Medical Stop date: [place] 04/23/17 15:25:00 CDT propofol (ANES) Route: IV, Drug Inactive [facility] form: INJ, ONCE, 2016 Medical Stop date: [place] 04/23/17 15:25:00 CDT succinylcholine Route: IV, Drug Inactive [place] (ANES) form: INJ, ONCE, 2016 Medical Stop date: [place] 04/23/17 15:25:00 CDT fentaNYL (ANES) Route: IV, Drug Inactive [facility] form: INJ, ONCE, 2016 Medical Stop date: [place] 04/23/17 15:25:00 CDT ceFAZolin (ANES) Route: IV, Drug Inactive [facility] form: INJ, ONCE, 2016 Medical Stop date: [place] 04/23/17 15:09:00 CDT LR 1000 mL INJ Route: IV, Total Inactive [place] (ANES) Volume: 1,000, 2016 Medical Start date: [place] 04/23/17 13:50:00 CDT, Stop date: 04/23/17 14:50:00 CDT ceFAZolin 2 gm, 100 mL, No Longer [facility] Route: IVPB, Active 2016 Medical Drug form: INJ, Center PRE OP, Start date: 04/22/17 23:00:00 CDT, Duration: 1 day, Stop date: 04/23/17 22:59:00 CDT, ABX Indication: Surgical ProphylaxisNotes : Same as: Ancef Allergies, Adverse Reactions, Alerts Substance Category Reaction Severity Reaction Status Date Comments Source type Reported Immunizations Immunization Date Site Status Last Updated Comments Source Given pneumococcal Right completed [facility] 13-valent 7 deltoid [facility] vaccine [place] Results Order Name Results Value Reference Date Interpretation Comments Source Range ELECTROLYTE AGAP 11.2 meq/L 10.0 - 04/29 [facility] 20.0 [facility] ELECTROLYTE Chloride Lvl 101 meq/L 95 - 109 04/[address] ELECTROLYTE Potassium Lvl 3.2 meq/L 3.5 - 5.1 04/[address] ELECTROLYTE Sodium Lvl 138 meq/L 135 - 145 04/[address] ELECTROLYTE CO2 29 meq/L 24 - 32 04/[address] ELECTROLYTE Calcium Lvl 8.5 mg/dL 8.5 - 10.5 04/[address] ELECTROLYTE BUN 14 mg/dL 7 - 22 04/[address] ELECTROLYTE Creatinine 0.72 mg/dL 0.50 - 04/29 [facility] Lvl 1. [facility] ELECTROLYTE Glucose Lvl 98 mg/dL 70 - 99 04/[address] ELECTROLYTE eGFR 87 04/29 Result Comment: The eGFR is calculated using the CKD-EPI formula. In most young, healthy individuals the eGFR will be >90 mL/ min/1.73m2. The eGFR declines with age. An eGFR of 60-89 may be normal in [facility] mL/min/1. some populations, particularly the elderly, for whom the CKD-EPI formula has not been extensively validated. Use of the eGFR is not recommended in the following populations: [address] Individuals with unstable creatinine concentrations, including [...] HEMATOLOGY RBC 3.94 M/CMM 4.20 - 04/29 [facility] 5.40 [facility] HEMATOLOGY Hgb 11.2 g/dL 12.0 - 04/29 [place] 16.0 [facility] HEMATOLOGY Hct 34.0 % 36.0 - 04/29 48.0 [facility] HEMATOLOGY MCV 86.1 fL 80.0 - 04/29 98.0 [facility] HEMATOLOGY MCHC 33.1 g/dL 32.0 - 04/29 [place] 36.0 [facility] HEMATOLOGY MCH 28.5 pg 27.0 - 04/29 31.0 [facility] HEMATOLOGY RDW 16.2 % 11.5 - 04/29 [place] 14.5 [facility] HEMATOLOGY Platelet 213 K/CMM 133 - 450 04/29 [facility] HEMATOLOGY MPV 7.3 fL 7.4 - 10.4 04/29 [facility] HEMATOLOGY WBC 6.4 K/CMM 3.7 - 10.4 04/29 [facility] HEMATOLOGY Monocytes # 0.6 K/CMM 0.0 - 0.8 04/29 [facility] HEMATOLOGY Eosinophils # 0.4 K/CMM 0.0 - 0.5 04/29 [facility] HEMATOLOGY Basophils # 0.1 K/CMM 0.0 - 0.2 04/29 [facility] HEMATOLOGY Segs 60.9 % 45.0 - 04/29 [facility] 75.0 [facility] HEMATOLOGY Lymphocytes 23.4 % 20.0 - 04/29 [place] 40.0 [facility] HEMATOLOGY Eosinophils 5.6 % 0.0 - 4.0 04/29 [facility] HEMATOLOGY Monocytes 9.2 % 2.0 - 12.0 04/29 [facility] HEMATOLOGY Basophils 0.9 % 0.0 - 1.0 04/29 [facility] HEMATOLOGY Segs-Bands # 3.9 K/CMM 1.5 - 8.1 04/29 [facility] HEMATOLOGY Lymphocytes # 1.5 K/CMM 1.0 - 5.5 04/29 2016 [facility] ELECTROLYTE AGAP 11.4 meq/L 10.0 - 04/28 [facility] S 20. [facility] ELECTROLYTE CO2 30 meq/L 24 - 32 04/28 [facility] ELECTROLYTE Calcium Lvl 8.4 mg/dL 8.5 - 10.5 04/28 [facility] ELECTROLYTE BUN 11 mg/dL 7 - 22 04/28 [facility] ELECTROLYTE Creatinine 0.82 mg/dL 0.50 - 04/28 [facility] Lvl 1.40 [facility] ELECTROLYTE Sodium Lvl 139 meq/L 135 - 145 04/28 [facility] ELECTROLYTE Glucose Lvl 111 mg/dL 70 - 99 04/28 [facility] ELECTROLYTE Potassium Lvl 3.4 meq/L 3.5 - 5.1 04/28 [facility] ELECTROLYTE Chloride Lvl 101 meq/L 95 - 109 04/[address] [facility]2016 [facility] ELECTROLYTE eGFR 74 04/28 Result Comment: The eGFR is calculated using the CKD-EPI formula. In most young, healthy individuals the eGFR will be >90 mL/ min/1.73m2. The eGFR declines with age. An eGFR of 60-89 may be normal in [facility] mL/min/1.7 some populations, particularly the elderly, for whom the CKD-EPI formula has not been extensively validated. Use of the eGFR is not recommended in the following populations: [address] Individuals with unstable creatinine concentrations, including [...] Monocytes 9.1 % 2.0 - 12.0 04/28 [facility] HEMATOLOGY Segs 65.8 % 45.0 - 04/28 [facility] 75.0 [facility] HEMATOLOGY Basophils # 0.1 K/CMM 0.0 - 0.2 04/28 [facility]2016 [facility] HEMATOLOGY Eosinophils # 0.3 K/CMM 0.0 - 0.5 04/28 [facility]2016 [facility] HEMATOLOGY Monocytes # 0.6 K/CMM 0.0 - 0.8 04/[address] HEMATOLOGY Lymphocytes # 1.4 K/CMM 1.0 - 5.5 04/28 [facility]2016 [facility] HEMATOLOGY Basophils 1.0 % 0.0 - 1.0 04/28 [facility] [place] /2017 [facility] HEMATOLOGY Eosinophils 3.9 % 0.0 - 4.0 04/28 [facility] HEMATOLOGY Lymphocytes 20.2 % 20.0 - 04/28 40.0 [facility] HEMATOLOGY Segs-Bands # 4.5 K/CMM 1.5 - 8.1 04/28 [facility] HEMATOLOGY MCH 27.7 pg 27.0 - 04/28 31.0 [facility] HEMATOLOGY MCV 87.3 fL 80.0 - 04/28 98.0 [facility] HEMATOLOGY MPV 7.2 fL 7.4 - 10.4 04/28 [facility] HEMATOLOGY RBC 4.24 M/CMM 4.20 - 04/28 5.40 [facility] HEMATOLOGY WBC 6.8 K/CMM 3.7 - 10.4 04/28 [facility] HEMATOLOGY Hct 37.0 % 36.0 - 04/28 48.0 [facility] HEMATOLOGY Hgb 11.7 g/dL 12.0 - 04/28 16.0 [facility] HEMATOLOGY MCHC 31.7 g/dL 32.0 - 04/28 36.0 [facility] HEMATOLOGY RDW 16.6 % 11.5 - 04/28 14.5 [facility] HEMATOLOGY Platelet 212 K/CMM 133 - 450 04/28 [facility] IMMUNOLOGY Prealbumin 13.4 mg/dL 18.0 - 04/27 45.0 [facility] CHEM PANEL Magnesium Lvl 2.4 mg/dL 1.8 - 2.4 04/26 2016 [facility] CHEM PANEL Phosphorus 2.8 mg/dL 2.5 - 4.5 04/26 [facility] CHEM PANEL eGFR 89 04/26 Result Comment: The eGFR is calculated using the CKD-EPI formula. In most young, healthy individuals the eGFR will be >90 mL/ min/1.73m2. The eGFR declines with age. An eGFR of 60-89 may be normal in [facility] mL/min/1. some populations, particularly the elderly, for whom the CKD-EPI formula has not been extensively validated. Use of the eGFR is not recommended in the following populations: [address] Individuals with unstable creatinine concentrations, including [...] PANEL AGAP 11.5 meq/L 10.0 - 04/26 [facility] 20.0 [facility] CHEM PANEL Potassium Lvl 4.5 meq/L 3.5 - 5.1 04/[address] CHEM PANEL Chloride Lvl 104 meq/L 95 - 109 04/[address] CHEM PANEL Calcium Lvl 7.9 mg/dL 8.5 - 10.5 04/[address] CHEM PANEL BUN 15 mg/dL 7 - 22 04/[address] CHEM PANEL Sodium Lvl 139 meq/L 135 - 145 04/[address] CHEM PANEL Creatinine 0.71 mg/dL 0.50 - 04/26 [facility] Lvl 1.40 [facility] CHEM PANEL CO2 28 meq/L 24 - 32 04/[address] CHEM PANEL Glucose Lvl 114 mg/dL 70 - 99 04/[address] HEMATOLOGY Eosinophils # 0.3 K/CMM 0.0 - 0.5 04/[address] HEMATOLOGY Lymphocytes # 1.8 K/CMM 1.0 - 5.5 04/[address] HEMATOLOGY Monocytes # 0.8 K/CMM 0.0 - 0.8 04/[address] HEMATOLOGY Segs 67.0 % 45.0 - 04/26 [facility] 75.0 [facility] HEMATOLOGY Lymphocytes 20.3 % 20.0 - 04/26 [facility] 40.0 [facility] HEMATOLOGY Eosinophils 3.1 % 0.0 - 4.0 04/[address] HEMATOLOGY Monocytes 9.0 % 2.0 - 12.0 04/[address] HEMATOLOGY Segs-Bands # 5.9 K/CMM 1.5 - 8.1 04/[address] HEMATOLOGY Basophils 0.6 % 0.0 - 1.0 04/[address] HEMATOLOGY RBC 4.57 M/CMM 4.20 - 04/26 [facility] 5.40 /2016 [facility] HEMATOLOGY WBC 8.8 K/CMM 3.7 - 10.4 04/26 [facility] HEMATOLOGY Hgb 12.8 g/dL 12.0 - 04/26 [facility] 16.0 [facility] HEMATOLOGY Hct 40.3 % 36.0 - 04/26 [facility] 48.0 /2016 [facility] HEMATOLOGY MCH 28.0 pg 27.0 - 04/26 31.0 [facility] HEMATOLOGY RDW 16.7 % 11.5 - 04/26 [facility] 14.5 /2016 [facility] HEMATOLOGY MCHC 31.7 g/dL 32.0 - 04/26 [facility] 36.0 [facility] HEMATOLOGY MPV 7.5 fL 7.4 - 10.4 04/26 [facility] HEMATOLOGY Platelet 213 K/CMM 133 - 450 04/26 [facility] HEMATOLOGY MCV 88.2 fL 80.0 - 04/26 [facility] 98.0 [facility] URINE AND UA <=1.0 0.1 - 1.0 04/25 [facility] Urobilinogen mg/dL [facility] URINE AND UA Sq Epi Occasional Few /LPF 04/25 [facility] STOOL /LPF [facility] URINE AND UA Bili Negative Negative 04/25 [facility] *NA* [place] (04/25/17 10:22 AM) URINE AND UA Mucus Few /LPF None Seen 04/25 [facility] /LPF [facility] URINE AND UA Ketones Negative Negative 04/25 [facility] mg/dL mg/dL [facility] URINE AND UA Blood Negative Negative 04/25 [facility] (04/25/17 10:22 AM) [place] URINE AND UA Nitrite Negative Negative 04/25 [facility] (04/25/17 10:22 AM) [place] URINE AND UA Leuk Est Negative Negative 04/25 [facility] (04/25/17 10:22 AM) [place] URINE AND UA WBC 1 /HPF 0 - 5 04/25 [facility] [address] [place] [address] URINE AND UA Protein Negative Negative 04/25 [facility] mg/dL mg/dL [facility] URINE AND UA Glucose Negative Negative 04/25 [facility] mg/dL mg/dL [facility] URINE AND UA Color Yellow Yellow 04/25 [facility] *NA* [place] (04/25/17 10:22 AM) URINE AND UA pH 5.5 5.0 - 8.0 04/25 [facility] URINE AND UA Spec Grav 1.017 <=1.030 04/25 [facility] URINE AND UA Turbidity Clear Clear 04/25 [facility] (04/25/17 10:22 AM) Center Abdomen AP Abdomen AP DX EXAM: XR ABDOMEN 1 VIEW 04/25 - [facility] This report was dictated by a Harnessmaker Apprentice/Fellow. I have personally reviewed the images as [...] Phosphorus 3.4 mg/dL 2.5 - 4.5 04/25 [facility] CHEM PANEL Magnesium Lvl 2.5 mg/dL 1.8 - 2.4 04/25 [facility] [place] [address] Chest 1view Chest 1view EXAM: XR CHEST 1 VIEW 04/25 - [facility] DX - [facility] DATE: 04/25/2017 6:24 AM CDT Read by: [...] atelectasis. BLOOD BANK Antibody Scrn Negative 04/23 [facility] (04/23/17 9:08 AM) [place] BLOOD BANK ABO/Rh O POS 04/23 [facility] [address] [place] [address] CHEM PANEL B/C Ratio 20 6 - 25 04/[address] CHEM PANEL Globulin 3.9 g/dL 2.7 - 4.2 04/[address] CHEM PANEL A/G Ratio 1.0 0.7 - 1.6 04/[address] CHEM PANEL ALT 38 unit/L 0 - 65 04/[address] CHEM PANEL Total Protein 7.7 g/dL 6.4 - 8.4 04/[address] CHEM PANEL Albumin Lvl 3.8 g/dL 3.5 - 5.0 04/[address] CHEM PANEL AST 34 unit/L 0 - 37 04/[address] CHEM PANEL Alk Phos 106 unit/L 39 - 136 04/[address] CHEM PANEL Bili Total 0.3 mg/dL 0.2 - 1.3 04/[address] HEMATOLOGY Basophils # 0.1 K/CMM 0.0 - 0.2 04/[address] SPECIAL Hgb A1C 7.1 % <=5.6 % 04/21 [facility] CHEMISTRY /[address] [place] [address] Chest 2 Chest 2 views EXAM: XR CHEST 2 VIEWS 04/21 - [place] views DX - [facility] DATE: 04/21/2017 12:49 PM CDT Read by: [...] Date Comments Source Heart Rate 84 04/29/2017 [facility] Respitory Rate 20 04/29/2017 [facility] Systolic (mm Hg) 130 04/29/2017 [facility] Diastolic (mm Hg) 77 04/29/2017 [facility] Temperature Oral (F) 97.7 F 04/29/2017 [facility] Temperature Oral (F) 97.8 F 04/29/2017 [facility] Heart Rate 85 04/29/2017 [facility] Systolic (mm Hg) 129 04/29/2017 [facility] Diastolic (mm Hg) 77 04/29/2017 [facility] Respitory Rate 18 04/29/2017 [facility] Respitory Rate 18 04/29/2017 [facility] Systolic (mm Hg) 147 04/29/2017 [facility] Diastolic (mm Hg) 80 04/29/2017 [facility] Temperature Oral (F) 97.5 F 04/29/2017 [facility] Heart Rate 80 04/29/2017 [facility] Height 160.02 cm 04/24/2017 [facility] BMI Calculated 45.09 04/24/2017 [facility] Weight 115.455 04/24/2017 [facility] Weight 115.455 04/23/2017 [facility] BMI Calculated 44.38 04/23/2017 [facility] Height 161.29 cm 04/23/2017 [facility] Height 161.29 cm 04/21/2017 [facility] BMI Calculated 44.38 04/21/2017 [facility] Weight 115.455 04/21/2017 [facility] Encounters Location Location Encounter Encounter Reason Attending ADM DC Status Source Details Type Number For Provider Date Date Visit [facility] [id number] Marc 04/23 04/29 [facility] /2016 [facility] [place] Procedures Procedure Code Date Perfomer Comments Source Cholecystectomy [id number] [facility] Hernia repair [id number] [facility] Hysterectomy [id number] [facility] Knee joint operation [id number] [facility]
[2019-02-06 10:10] LABS: Protime INR 1.04
[2019-02-06 10:13] LABS: Absolute Lymphocytes (CBC) 1.5 K/uL (0.7-4.9); Absolute Monocytes 0.5 K/uL (0.1-1.3); Absolute Neutrophil 4.9 K/uL (1.8-8.0); Basophils % 0.7 % (0-1.3); Hematocrit 44.6 % (36.0-45.0); Lymphocytes % 20.4 % (15.3-44.8); MPV 7.4 fL (7.6-11.3); Monocytes % 7.1 % (3.3-12.3)
[2019-02-06 10:24] LABS: ALT/SGPT 21 U/L (12-78); AST/SGOT 14 U/L (15-37); Albumin 3.6 g/dL (3.4-5.0); Alkaline Phosphatase 89 U/L (45-117); BUN Blood Urea Nitrogen 17 mg/dL (7-18); Bicarbonate 31 mmol/L (21-32); Bilirubin Direct 0.2 mg/dL (0-0.2); Bilirubin Total 0.5 mg/dL (0.2-1.0); Glucose Level 137 mg/dL (74-106); NT PRO-BNP 67 pg/mL (<125); Potassium 3.6 mmol/L (3.5-5.1); Protein, Total 7.5 g/dL (6.4-8.2); Sodium Level 140 mmol/L (136-145); Troponin (Emerg Dept Use Only) < 0.02 ng/mL (0.0-0.045)
--- NOTE | 2019-02-06 10:44 | ER ---
Nurse's Notes [facility] Name: Adi Gifford Age: 68 yrs Sex: Female : 1950 Arrival Date: 02/06/2019 Time: 09:43 Bed 7 Private MD: Diagnosis: Other chest pain;Fall due to bumping against object;Dyspnea Presentation: 02/06 09:35 Presenting complaint: EMS states: substernal chest pain that radiates to the back sv started about an hour ago. Irregular pulse. 2 unsuccessful IV attempts. 09:35 Transition of care: patient was not received from another setting of care. Onset of sv symptoms was February 06, 2019 at 08:30. Risk Assessment: Do you want to hurt yourself or someone else? Patient reports no desire to harm self or others. Initial Sepsis Screen: Does the patient meet any 2 criteria? No. Patient's initial sepsis screen is negative. Does the patient have a suspected source of infection? No. Patient's initial sepsis screen is negative. Care prior to arrival: None. 09:35 Method Of Arrival: EMS: [facility] sv 09:35 Acuity: RONI 3 sv 09:37 Presenting complaint: Patient states: that she was already awake this morning and was sv making a pot of coffee and started feeling different and had SOB. "Next thing I know I'm on the ground.". Triage Assessment: 09:35 General: Appears in no apparent distress. uncomfortable, obese, well developed, sv Behavior is calm, cooperative, appropriate for age. Pain: Complains of pain in anterior aspect of left upper chest and mid-sternal area Pain currently is 8 out of 10 on a pain scale. Quality of pain is described as sharp, Pain began 1 hour ago. Is continuous, Also complains of shortness of breath. Neuro: Level of Consciousness is awake, alert, obeys commands, Oriented to person, place, time, situation, Moves all extremities. Full function Speech is normal. Cardiovascular: Reports shortness of breath, Heart tones S1 S2 present Patient's skin is warm and dry. Pulses are 3+ in right radial artery, right dorsalis pedis artery, left radial artery and left dorsalis pedis artery Rhythm is sinus rhythm. Respiratory: Airway is patent Respiratory effort is even, unlabored, Respiratory pattern is regular, symmetrical, Breath sounds are clear bilaterally. Derm: Skin is pink, warm \\T\\ dry. Historical: - Allergies: 09:50 No Known Allergies; sv - PMHx: 09:50 CHF; High Cholesterol; Hypertension; Hypothyroidism; Myocardial infarction; Depression; sv - PSHx: 09:50 Hysterectomy; Cholecystectomy; Hernia repair; Knee surgery; Bladder suspension; sv Infected tooth; IVC filter; cardiac stents; - Immunization history:: Adult Immunizations up to date. - Social history:: Smoking status: Patient/guardian denies using tobacco. - Ebola Screening: : No symptoms or risks identified at this time. - Family history:: not pertinent. Screenin:40 Abuse screen: Denies threats or abuse. Denies injuries from another. Nutritional sv screening: No deficits noted. Tuberculosis screening: No symptoms or risk factors identified. Fall Risk None identified. Assessment: 10:03 Reassessment: Patient appears in no apparent distress at this time. Patient and/or sv family updated on plan of care and expected duration. Pain level reassessed. Patient is alert, oriented x 3, equal unlabored respirations, skin warm/dry/pink. Patient states feeling better. 10:34 Reassessment: Patient appears in no apparent distress at this time. Patient and/or sv family updated on plan of care and expected duration. Pain level reassessed. Patient is alert, oriented x 3, equal unlabored respirations, skin warm/dry/pink. Vital Signs: 09:38 BP 140 / 61; Pulse 78; Resp 16; Temp 97.7(O); Pulse Ox 97% ; Pain 8/10; sv 10:04 Weight 108.41 kg; Height 5 ft. 3 in. (160.02 cm); sv 10:38 BP 153 / 72; Pulse 81; Resp 19; Pulse Ox 99% ; ms 11:37 BP 128 / 70; Pulse 78; Resp 16; Pulse Ox 99% ; sv 10:04 Body Mass Index 42.34 (108.41 kg, 160.02 cm) sv ED Course: 09:35 Patient maintains SpO2 saturation greater than 95% on room air. sv 09:40 Patient has correct armband on for positive identification. Placed in gown. Bed in low sv position. Call light in reach. Side rails up X2. phototypesetting equipment monitor on. Pulse ox on. NIBP on. Door closed. Warm blanket given. Head of bed elevated. 09:43 Patient arrived in ED. sv 09:46 Alona García, ROCÍO is Primary Nurse. sv 09:47 Tay Flores MD is Attending Physician. elissa 09:49 Triage completed. sv 09:51 Arm band placed on. sv 09:55 Initial lab(s) drawn, by ED staff, sent to lab. sv 10:02 Inserted saline lock: 22 gauge in left hand, using aseptic technique. ,using aseptic sv technique. done by Mitzi ALFORD. 10:02 Oxygen administration via nasal cannula \\T\\ 2L/min. sv 10:15 X-ray completed. Portable x-ray completed in exam room. Patient tolerated procedure sg4 well. 10:17 XRAY Chest (1 view) In Process Unspecified. EDMS 10:33 ED physician to see patient. sv 10:33 Awaiting lab results, Awaiting radiology results. sv 10:[address] Scan, Awaiting for x-ray. sv 10:41 Rafael Rome DO is Hospitalizing Provider. elissa 10:52 CT Head C Spine In Process Unspecified. EDMS 10:53 CT completed. Patient tolerated procedure well. Patient moved back from CT. kw1 11:07 Shoulder Right (2 View) XRAY In Process Unspecified. EDMS 12:39 No provider procedures requiring assistance completed. Patient admitted, IV remains in sv place. intact. Administered Medications: 11:55 Drug: Lovenox 1 mg/kg Route: Sub-Q; Site: right lower abdomen; sv 12:11 Follow up: Response: No adverse reaction sv 11:55 Drug: PlaVIX 75 mg Route: PO; sv 12:11 Follow up: Response: No adverse reaction sv 11:55 Drug: Lopressor 25 mg Route: PO; sv 12:11 Follow up: Response: No adverse reaction sv 11:56 Drug: Pepcid 20 mg Route: IVP; Site: left hand; sv 12:12 Follow up: Response: No adverse reaction sv 11:56 Drug: Aspirin 162 mg Route: PO; sv 12:12 Follow up: Response: No adverse reaction sv Outcome: 10:42 Decision to Hospitalize by Provider. elissa 12:39 Patient left the ED. sv 12:39 Admitted to Tele accompanied by tech, via wheelchair, with chart. sv 12:39 Condition: stable 12:39 Instructed on the need for admit. Signatures: Dispatcher [email or web address] Alona Mahan, ROCÍO RN Tay Bhakta MD MD cha Solis, Maria ms Wilhelm, Kimberly 1 Thuy Carlos 4 Corrections: (The following items were deleted from the chart) 19:16 12:39 IV discontinued, intact, bleeding controlled, No redness/swelling at site. sv Pressure dressing applied, sv
--- NOTE | 2019-02-06 10:44 | EDPHYS ---
Physician Documentation [facility] Name: Adi Gifford Age: 68 yrs Sex: Female : 1950 Arrival Date: 02/06/2019 Time: 09:43 Bed 7 Private MD: ED Physician Tay Flores HPI: 02/06 10:43 This 68 yrs old Female presents to ER via EMS with complaints of Chest Pain > elissa 30 y/o. 10:43 The patient or guardian reports chest pain that is located primarily in the substernal elissa area. Onset: just prior to arrival, this morning. The pain does not radiate. Associated signs and symptoms: Pertinent positives: shortness of breath. The chest pain is described as a heaviness, a pressure. Modifying factors: The symptoms are alleviated by nothing. the symptoms are aggravated by nothing. Severity of pain: At its worst the pain was mild moderate in the emergency department the pain has improved mildly. The patient has experienced similar episodes in the past, several times. Historical: - Allergies: 09:50 No Known Allergies; sv - PMHx: 09:50 CHF; High Cholesterol; Hypertension; Hypothyroidism; Myocardial infarction; Depression; sv - PSHx: 09:50 Hysterectomy; Cholecystectomy; Hernia repair; Knee surgery; Bladder suspension; sv Infected tooth; IVC filter; cardiac stents; - Immunization history:: Adult Immunizations up to date. - Social history:: Smoking status: Patient/guardian denies using tobacco. - Ebola Screening: : No symptoms or risks identified at this time. - Family history:: not pertinent. ROS: 10:43 Constitutional: Negative for fever, chills, and weight loss, Eyes: Negative for injury, elissa pain, redness, and discharge, ENT: Negative for injury, pain, and discharge, Neck: Negative for injury, pain, and swelling, Abdomen/GI: Negative for abdominal pain, nausea, vomiting, diarrhea, and constipation, Back: Negative for injury and pain, : Negative for injury, bleeding, discharge, and swelling, MS/Extremity: Negative for injury and deformity, Skin: Negative for injury, rash, and discoloration, Neuro: Negative for headache, weakness, numbness, tingling, and seizure, Psych: Negative for depression, anxiety, suicide ideation, homicidal ideation, and hallucinations, Allergy/Immunology: Negative for hives, rash, and allergies, Endocrine: Negative for neck swelling, polydipsia, polyuria, polyphagia, and marked weight changes, Hematologic/Lymphatic: Negative for swollen nodes, abnormal bleeding, and unusual bruising. 10:43 Cardiovascular: Positive for chest pain, of the chest. 10:43 Respiratory: Positive for shortness of breath. Exam: 10:43 Constitutional: This is a well developed, well nourished patient who is awake, alert, elissa and in no acute distress. Head/Face: Normocephalic, atraumatic. Eyes: Pupils equal round and reactive to light, extra-ocular motions intact. Lids and lashes normal. Conjunctiva and sclera are non-icteric and not injected. Cornea within normal limits. Periorbital areas with no swelling, redness, or edema. ENT: Nares patent. No nasal discharge, no septal abnormalities noted. Tympanic membranes are normal and external auditory canals are clear. Oropharynx with no redness, swelling, or masses, exudates, or evidence of obstruction, uvula midline. Mucous membranes moist. Neck: Trachea midline, no thyromegaly or masses palpated, and no cervical lymphadenopathy. Supple, full range of motion without nuchal rigidity, or vertebral point tenderness. No Meningismus. Chest/axilla: Normal chest wall appearance and motion. Nontender with no deformity. No lesions are appreciated. Cardiovascular: Regular rate and rhythm with a normal S1 and S2. No gallops, murmurs, or rubs. Normal PMI, no JVD. No pulse deficits. Respiratory: Lungs have equal breath sounds bilaterally, clear to auscultation and percussion. No rales, rhonchi or wheezes noted. No increased work of breathing, no retractions or nasal flaring. Abdomen/GI: Soft, non-tender, with normal bowel sounds. No distension or tympany. No guarding or rebound. No evidence of tenderness throughout. Back: No spinal tenderness. No costovertebral tenderness. Full range of motion. Female : Normal external genitalia. Skin: Warm, dry with normal turgor. Normal color with no rashes, no lesions, and no evidence of cellulitis. Neuro: Awake and alert, GCS 15, oriented to person, place, time, and situation. Cranial nerves II-XII grossly intact. Motor strength 5/5 in all extremities. Sensory grossly intact. Cerebellar exam normal. Normal gait. Psych: Awake, alert, with orientation to person, place and time. Behavior, mood, and affect are within normal limits. 10:43 Musculoskeletal/extremity: Extremities: grossly normal except: noted in the anterior aspect of right shoulder and posterior aspect of right shoulder: decreased ROM, pain. Vital Signs: 09:38 BP 140 / 61; Pulse 78; Resp 16; Temp 97.7(O); Pulse Ox 97% ; Pain 8/10; sv 10:04 Weight 108.41 kg; Height 5 ft. 3 in. (160.02 cm); sv 10:38 BP 153 / 72; Pulse 81; Resp 19; Pulse Ox 99% ; ms 11:37 BP 128 / 70; Pulse 78; Resp 16; Pulse Ox 99% ; sv 10:04 Body Mass Index 42.34 (108.41 kg, 160.02 cm) sv MDM: 09:47 Patient medically screened. [facility] 10:45 Data reviewed: vital signs, nurses notes, lab test result(s), EKG, radiologic studies, [facility] CT scan, plain films. 03 09:48 Order name: Basic Metabolic Panel; Complete Time: 10:32 02/06 09:48 Order name: CBC with Diff; Complete Time: 10:32 02/06 09:48 Order name: LFT's; Complete Time: 10:32 02/06 09:48 Order name: Magnesium; Complete Time: 10:32 02/06 09:48 Order name: NT PRO-BNP; Complete Time: 10:32 02/06 09:48 Order name: PT-INR; Complete Time: 10:32 02/06 09:48 Order name: Troponin (emerg Dept Use Only); Complete Time: 10:32 02/06 09:48 Order name: XRAY Chest (1 view); Complete Time: 11:33 02/06 10:07 Order name: Lipase; Complete Time: 11:33 [facility] 02/06 10:32 Order name: Shoulder Right (2 View) XRAY; Complete Time: 11:33 [facility] 02/06 10:32 Order name: CT Head C Spine; Complete Time: 11:33 [facility] 02/06 09:48 Order name: EKG; Complete Time: 09:49 02/06 09:48 Order name: Cardiac monitoring; Complete Time: 09:55 02/06 09:48 Order name: EKG - Nurse/Tech; Complete Time: 09:55 sv 02/06 09:48 Order name: IV Saline Lock; Complete Time: :55 sv 02/06 09:48 Order name: Labs collected and sent; Complete Time: 09:55 sv 02/06 09:48 Order name: O2 Per Protocol; Complete Time: 09:55 sv 02/06 09:48 Order name: O2 Sat Monitoring; Complete Time: :55 sv 02/06 12:11 Order name: Diet Ada 2000 Hiro; Complete Time: 12:11 sv Administered Medications: 11:55 Drug: Lovenox 1 mg/kg Route: Sub-Q; Site: right lower abdomen; sv 12:11 Follow up: Response: No adverse reaction sv 11:55 Drug: PlaVIX 75 mg Route: PO; sv 12:11 Follow up: Response: No adverse reaction sv 11:55 Drug: Lopressor 25 mg Route: PO; sv 12:11 Follow up: Response: No adverse reaction sv 11:56 Drug: Pepcid 20 mg Route: IVP; Site: left hand; sv 12:12 Follow up: Response: No adverse reaction sv 11:56 Drug: Aspirin 162 mg Route: PO; sv 12:12 Follow up: Response: No adverse reaction sv Disposition: 02/06/19 10:42 Hospitalization ordered by Rafael Rome for Observation. Preliminary diagnosis are Other chest pain, Fall due to bumping against object, Dyspnea. - Bed requested for Telemetry/MedSurg (observation). - Status is Observation. sv - Condition is Fair. - Problem is new. - Symptoms have improved. UTI on Admission? No Signatures: Dispatcher [employer] Alona Mahan RN RN Tay Bhakta MD MD cha Botello, Elizabeth eb Corrections: (The following items were deleted from the chart) 12:11 10:42 Hospitalization Ordered by Rafael Rome DO for Observation. Preliminary eb diagnosis is Other chest pain; Fall due to bumping against object; Dyspnea. Bed requested for Telemetry/MedSurg (observation). Status is Observation. Condition is Fair. Problem is new. Symptoms have improved. UTI on Admission? No. elissa 12:39 12:11 02/06/2019 10:42 Hospitalization Ordered by Rafael Rome DO for Observation. sv Preliminary diagnosis is Other chest pain; Fall due to bumping against object; Dyspnea. Bed requested for Telemetry/MedSurg (observation). Status is Observation. Condition is Fair. Problem is new. Symptoms have improved. UTI on Admission? No. eb
[2019-02-06] MEDS ORDERED: ASPIRIN 81 MG CHEWABLE TABLET ONE (11:12)
[2019-02-06] MEDS ORDERED: CLOPIDOGREL 75 MG TABLET ONE (11:12)
[2019-02-06] MEDS ORDERED: ENOXAPARIN 100 MG/ML SYR SQ ONE (11:13)
[2019-02-06] MEDS ORDERED: FAMOTIDINE 20 MG/2 ML VIAL IV ONE (11:13)
[2019-02-06] MEDS ORDERED: METOPROLOL TAR 25 MG TAB ONE (11:13)
--- NOTE | 2019-02-06 11:13 | RAD REPORT ---
EXAM DESCRIPTION: CT - [id number] - 02/06/2019 10:52 am CLINICAL HISTORY: Syncope, fall, head and neck injury COMPARISON: CT head and cervical October 2016 TECHNIQUE: Axial 5 mm thick images of the head were obtained. Axial 2 mm thick images of the cervic al spine were obtained with sagittal and coronal reconstruction images generated and reviewed. All CT scans are performed using dose optimization technique as appropriate and may include automated exposure control or mA/KV adjustment according to patient size. FINDINGS: No intracranial hemorrhage, mass, edema or acute intracranial finding. No suspicion for ac genesis infarction. No extra-axial fluid collections. Mastoid air cells and paranasal sinuses are clear o f acute finding. No globe or orbit abnormality seen. Cervical body height and alignment are normal. C5-6 disc space narrowing present. Significant multile donovan facet joint degenerative changes are present. Mild foraminal encroachment on the right at C3-4. V kiran significant left foraminal stenosis at C5-6. Spinal stenosis in the central canal at C5-6. No fra cture or acute bony abnormality. No paraspinal mass or hematoma. IMPRESSION: No hemorrhage, edema or acute intracranial finding. Head findings are not significantly different from comparison. No fracture or acute cervical spine finding. C5-6 central spinal stenosis and significant left forami nal stenosis are present stable.
--- NOTE | 2019-02-06 11:16 | RAD REPORT ---
EXAM DESCRIPTION: RAD - Chest Single View - 02/06/2019 10:17 am CLINICAL HISTORY: Chest pain COMPARISON: October 2018 TECHNIQUE: AP portable chest image was obtained 1006 hours . FINDINGS: Lungs are clear. Heart and vasculature are normal. No measurable pleural effusion and no p neumothorax. No acute bony abnormality seen. No acute aortic findings suspected. IMPRESSION: No acute cardiopulmonary process. No significant change from comparison.
--- NOTE | 2019-02-06 11:22 | RAD REPORT ---
EXAM DESCRIPTION: Shoulder Right 2 View - 02/06/2019 11:10 am CLINICAL HISTORY: Fall, shoulder pain COMPARISON: None. TECHNIQUE: Internal and external rotation views of the right shoulder were obtained. FINDINGS: No fracture or dislocation of the proximal humerus identifiable. Marginal spurs are presen t along the articular surface of the humerus. AC joint degenerative changes are present along the sup erior margin. No inferiorly directed spur. Acromial humeral joint space is normal. No abnormal soft t issue calcifications. IMPRESSION: Humerus and AC joint degenerative changes are present as detailed. No fracture or acute finding confirmed.
[2019-02-06] MEDS ORDERED: MORPHINE 2 MG/ML SYR IV PRN (13:14)
[2019-02-06] MEDS ORDERED: ONDANSETRON 4 MG/2 ML VIAL IV PRN (13:14)
--- NOTE | 2019-02-06 13:36 | P.HP ---
Certification for Inpatient Patient admitted to: Observation With expected LOS: <2 Midnights Patient will require the following post-hospital care: None Practitioner: I am a practitioner with admitting privileges, knowledge of patient current condition, hospital course, and medical plan of care. Services: Services provided to patient in accordance with Admission requirements found in Title 42 Section 412.3 of the Code of Federal Regulations Patient History Date of Service: 02/06/19 Primary Care Provider: Dr. Pérez; Cardiology-Dr. Sy Reason for admission: Chest pain, shortness of breath History of Present Illness: 68-year-old female presented to the emergency room with chest pain and shortness of breath. Patient reported chest pain and shortness of breath today. She was getting coffee when she felt her legs weak. At around the same time she reported some chest pain and shortness of breath. Chest pain was to the substernal region. It radiated to the lower right side. She also fell to the right side. She did not have any syncopal episode. She came to the ER for further evaluation. In the ER patient evaluated. Blood pressure stable. CBC unremarkable. Low sodium 140, potassium 3.6, BUN of 17, creatinine 0.9 with a GFR 58. Glucose 137. Troponin unremarkable. Chest x-ray unremarkable. CT head showed no acute changes. EKG showed no acute changes. The patient was admitted for further evaluation. When I saw the patient the ER, she appeared stable. Patient with history of CAD with prior stent, COPD, CHF, hyperlipidemia, hypertension, hypothyroidism, diabetes and diabetic neuropathy. Patient sees cardiology but it has been over 2 years since her last stress test. Allergies No Known Drug Allergies Allergy (Verified 09/02/16 06:56) Unknown No Known Allergies Allergy (Uncoded 09/02/16 06:56) Unknown Home medications list reviewed: Yes Home Medications: Allopurinol [Zyloprim*] 300 mg PO DAILY 05/20/13 Levothyroxine [Synthroid*] 75 mcg PO [id number] 05/20/13 Amitriptyline HCl 50 mg PO BEDTIME 12/20/14 Clopidogrel Bisulfate [Plavix*] 75 mg PO DAILY 12/20/14 Trazodone [Desyrel*] 150 mg PO BEDTIME 01/05/15 Albuterol Sulfate [Proair Hfa] 2 puff PO TID 01/28/16 Amiloride HCl 5 mg PO BID 01/28/16 Hydrocodone/Acetaminophen [Vicodin 5-325 mg Tablet] 10 mg PO BID 01/28/16 Metformin HCl [Metformin HCl ER] 500 mg PO DAILY 01/28/16 Simvastatin [Zocor*] 40 mg PO BEDTIME 01/28/16 Metoprolol Tartrate [Lopressor*] 25 mg PO BID 6AM 6PM #60 tab 02/03/16 Tiotropium [Spiriva Handihaler*] 1 sprays IH DAILY #30 inh 02/03/16 Buspirone HCl [Buspar] 10 mg PO DAILY 08/28/16 Gabapentin [Neurontin] 600 mg PO TID 08/28/16 Spironolactone [Aldactone] 50 mg PO DAILY 08/28/16 Calcipotriene [Dovonex] 60 gm TP BID 10/12/18 Furosemide [Lasix] 80 mg PO BID 10/12/18 Cefuroxime Axetil [Cefuroxime] 500 mg PO BID #10 tab 10/13/18 - Past Medical/Surgical History Diabetic: No -: Diastolic CHF -: Hypertension -: Hyperlipidemia -: GERD -: COPD -: Diabetes mellitus type 2 -: CAD with prior stent -: Obstructive sleep apnea -: Hypothyroidism -: Anxiety -: Diabetic neuropathy -: Chronic renal disease -: Hysterectomy -: Cholecystectomy -: Ventral hernia repair -: cyst -: bladder reconstruction -: knee/ [place] -: knee/confucianism -: IVC filter Psychosocial/ Personal History: Patient is a . She has 2 children. - Family History Mother -: Cancer Sister -: Hypertension - Social History Smoking Status: Never smoker Alcohol use: No CD- Drugs: Yes Caffeine use: Yes Place of Residence: Home Review of Systems General: Weakness, As per HPI Eyes: Unremarkable ENT: Unremarkable Respiratory: Shortness of Breath, As per HPI Cardiovascular: Chest Pain, As per HPI Gastrointestinal: Unremarkable Genitourinary: Unremarkable Musculoskeletal: As per HPI Integumentary: Unremarkable Neurological: As per HPI Lymphatics: Unremarkable Physical Examination - Vital Signs Temperature: 97.7 F Blood Pressure: 128/70 Pulse: 78 Respirations: 16 - Physical Exam General: Alert, In no apparent distress, Oriented x3, Cooperative HEENT: Atraumatic, Normocephalic, Mucous membr. moist/pink Neck: Supple Respiratory: Clear to auscultation bilaterally, Normal air movement Cardiovascular: Normal pulses, Regular rate/rhythm Gastrointestinal: Normal bowel sounds, Soft and benign, Non-distended, No tenderness, No masses, No rebound, No guarding Musculoskeletal: No erythema, No tenderness, No warmth Integumentary: No tenderness/swelling, No erythema, No warmth, No cyanosis Neurological: Normal speech, Normal strength at 5/5 x4 extr, Normal tone, Normal affect Lymphatics: No axilla or inguinal lymphadenopathy - Studies Laboratory Data (last 24 hrs) 02/06/19 09:45: Lipase 150 02/06/19 09:45: PT 12.2, INR 1.04 02/06/19 09:45: WBC 7.1, Hgb 14.8, Hct 44.6, Plt Count 258 02/06/19 09:45: Sodium 140, Potassium 3.6, BUN 17, Creatinine 0.96, Glucose 137 H, Magnesium 2.0, Total Bilirubin 0.5, AST 14 L, ALT 21, Alkaline Phosphatase 89 Assessment and Plan - Plan Impression: Chest pain and shortness of breath with history of CAD/prior stent and chronic diastolic CHF COPD Diabetes mellitus type 2 Chronic renal disease, stage 3 Hypothyroidism Hyperlipidemia Obstructive sleep apnea Diabetic neuropathy Recent fall Plan: Chest pain and shortness of breath with history of CAD/prior stent and chronic diastolic CHF: Patient will be admitted for observation. Will consult cardiology to further evaluate. Previous cardiac stress test 2 years ago as reported by patient. Will obtain echocardiogram. Monitored on telemetry and cardiac enzymes. Await further recommendations from cardiology. Will continue home medication including Lasix and Aldactone. Other medications included metoprolol. COPD: Continue COPD medication Diabetes mellitus type 2: Will provide sliding scale. Will monitor closely Chronic renal disease, stage 3: Will consult Nephrology to further monitor. Patient on diuretic therapy. Hypothyroidism: Continue home medication. Will check tsh and free T4. Hyperlipidemia: Continue home medication. Will check fasting lipid panel. Obstructive sleep apnea: Patient may use CPAP at night. Diabetic neuropathy: Continue home medication. Recent fall: Will have physical therapy assess ambulation tomorrow. Fall precaution in place. Discharge Plan: Home Plan to discharge in: 24 Hours - Advance Directives Does patient have a Living Will: No Does patient have a Durable POA for Healthcare: No - Code Status/Comfort Care Code Status Assessed: Yes (Patient full code.) Time Spent Managing Pts Care (In Minutes): 55
[2019-02-06 13:51] VITALS: BMI 42.3
[2019-02-06] MEDS: GABAPENTIN 300 MG CAP PO SCH ×2 (14:43→20:36)
[2019-02-06 15:00] LABS: CKMB Creatine Kinase MB < 1.0 ng/mL (0.3-3.6); Creatine Phosphokinase 44 U/L (26-192); Troponin I < 0.02 ng/mL (0.0-0.045)
[2019-02-06 15:06] LABS: Thyroid Stimulating Hormone 1.04 uIU/mL (0.360-3.740)
[2019-02-06] MEDS: INSULIN -REGULAR HUMAN 50 UNIT/0.5 ML ML SQ SCH ×2 (16:30→20:37)
[2019-02-06] MEDS ORDERED: FUROSEMIDE 40 MG TABLET PO SCH (17:00)
[2019-02-06] MEDS: METOPROLOL TAR 25 MG TAB PO SCH (17:24)
[2019-02-06 18:32] LABS: Urine Appearance CLEAR; Urine Bilirubin NEGATIVE (NEG); Urine Blood NEGATIVE (NEG); Urine Color YELLOW; Urine Glucose NEGATIVE (NEG); Urine Protein NEGATIVE (NEG); Urine Specific Gravity 1.015 (1.005-1.030); Urine Urobilinogen 0.2 mg/dL (0.2-1.0); Urine pH 5.5 (5.0-7.0)
[2019-02-06 19:02] LABS: Urine Microscopic Reflex NO UMIC
[2019-02-06] MEDS: NITROGLYCERIN 0.4 MG/TAB SL PRN (19:16)
[2019-02-06] MEDS: ATORVASTATIN 20 MG TAB PO SCH (20:36)
[2019-02-06] MEDS: TRAZODONE 150 MG TAB PO SCH (20:36)
[2019-02-06] MEDS ORDERED: SPIRONOLACTONE 25 MG TABLET PO SCH (21:00)
[2019-02-06 22:53] LABS: CKMB Creatine Kinase MB < 1.0 ng/mL (0.3-3.6); Creatine Phosphokinase 54 U/L (26-192); Troponin I < 0.02 ng/mL (0.0-0.045)
[2019-02-07] MEDS: NITROGLYCERIN 0.4 MG/TAB SL PRN (01:50)
--- NOTE | 2019-02-07 05:56 | EKG ---
Test Date: 2019-02-06 Test Time: 09:43:28 Car Spotter: MEASUREMENT RESULTS: Intervals: Rate: 82 IA: 134 QRSD: 88 QT: 414 QTc: 483 [place]: P: 37 IA: 134 QRS: 11 T: 45 INTERPRETIVE STATEMENTS: Normal sinus rhythm Normal ECG Compared to ECG 10/12/2018 12:03:28 Sinus arrhythmia no longer present Electronically Signed On 02-07-19 05:54:56 CDT by Terry Sy
[2019-02-07] MEDS: METOPROLOL TAR 25 MG TAB PO SCH ×2 (06:23→17:33)
[2019-02-07] MEDS: LEVOTHYROXINE SOD 0.075 MG TAB PO SCH (06:23)
[2019-02-07 07:03] LABS: Absolute Monocytes 0.7 K/uL (0.1-1.3); Absolute Neutrophil 3.9 K/uL (1.8-8.0); Basophils % 0.9 % (0-1.3); Eosinophils % 2.9 % (0-4.4); Hematocrit 41.2 % (36.0-45.0); Lymphocytes % 29.9 % (15.3-44.8); MPV 7.4 fL (7.6-11.3); Monocytes % 9.9 % (3.3-12.3); RBC Red Blood Cell Count 5.04 M/uL (3.86-4.86)
[2019-02-07 07:11] LABS: Magnesium 2.3 mg/dL (1.8-2.4); Potassium 4.6 mmol/L (3.5-5.1)
[2019-02-07] MEDS: INSULIN -REGULAR HUMAN 50 UNIT/0.5 ML ML SQ SCH ×4 (07:30→21:00)
--- NOTE | 2019-02-07 08:49 | P.PN ---
Subjective Date of Service: 02/07/19 Primary Care Provider: Dr. Pérez; Cardiology-Dr. Sy Chief Complaint: Chest pain, shortness of breath Subjective: Other (Patient doing well. Patient reported some chest pain last night.) Physical Examination - Vital Signs Temperature: 97.2 F Blood Pressure: 127/57 Pulse: 72 Respirations: 16 Pulse Ox (%): 95 - Physical Exam General: Alert, In no apparent distress, Oriented x3, Cooperative HEENT: Atraumatic Neck: Supple Respiratory: Clear to auscultation bilaterally, Normal air movement Cardiovascular: Normal pulses, Regular rate/rhythm Gastrointestinal: Normal bowel sounds, Soft and benign, Non-distended, No tenderness, No masses, No rebound, No guarding Musculoskeletal: No erythema, No tenderness, No warmth Integumentary: No tenderness/swelling, No erythema, No warmth, No cyanosis Neurological: Normal speech, Normal strength at 5/5 x4 extr, Normal tone, Normal affect - Studies Laboratory Data (last 24 hrs) 02/06/19 09:45: Lipase 150 02/06/19 09:45: PT 12.2, INR 1.04 02/06/19 09:45: WBC 7.1, Hgb 14.8, Hct 44.6, Plt Count 258 02/06/19 09:45: Sodium 140, Potassium 3.6, BUN 17, Creatinine 0.96, Glucose 137 H, Magnesium 2.0, Total Bilirubin 0.5, AST 14 L, ALT 21, Alkaline Phosphatase 89 Medications List Reviewed: Yes Assessment & Plan Discharge Plan: Home Plan to discharge in: 24 Hours Physician Review Additional Text: Impression: Chest pain and shortness of breath with history of CAD/prior stent and chronic diastolic CHF COPD Diabetes mellitus type 2 Chronic renal disease, stage 3 Hypothyroidism Hyperlipidemia Obstructive sleep apnea Diabetic neuropathy Depression with insomnia Recent fall Plan: Chest pain and shortness of breath with history of CAD/prior stent and chronic diastolic CHF: So far cardiac enzymes unremarkable. LDL 85. Patient with prior history of cardiac stress test 2 years ago. Patient with history of cardiac stent. Suspect patient may require cardiac evaluation. Patient may need to stay 1 more day to get this evaluation. Await recommendations by Cardiology. Suspect underlying chronic diastolic CHF but patient may be slightly dry. Patient on Lasix 80 mg twice daily and Aldactone 50 mg twice daily. Will decrease medication to Lasix 40 mg 1 pill twice daily and Aldactone 25 mg 1 pill twice daily. If the patient remains in the hospital, I will turn the service over to Dr. Roach tomorrow. I will go over the plan of her with her. COPD: Continue COPD medication. Maintain sats above 90%. Diabetes mellitus type 2: Will provide sliding scale. Will monitor closely. May need to discontinue metformin at discharge if worsening renal function. Chronic renal disease, stage 3: Nephrology consulted. I will decrease diuretic therapy to Lasix 40 mg 1 pill twice daily and Aldactone 25 mg 1 pill twice daily. May need to discontinue metformin at discharge due to renal function. Await recommendations by nephrology. Hypothyroidism: Continue home medication. Tsh and free T4 within normal range. Hyperlipidemia: Continue medication. LDL 85. Obstructive sleep apnea: Patient may use CPAP at night. Diabetic neuropathy: Continue home medication. Depression with insomnia: Continue medication Recent fall: Will have physical therapy assess ambulation tomorrow. Fall precaution in place. Time Spent Managing Pts Care (In Minutes): 55
[2019-02-07] MEDS: ENOXAPARIN 40 MG/0.4 ML SQ SCH (09:00)
[2019-02-07] MEDS: GABAPENTIN 300 MG CAP PO SCH ×4 (09:00→21:19)
[2019-02-07] MEDS ORDERED: HOME MED 1 EA UNK (Gabapentin [Neurontin] 600 MG) PO SCH (09:00)
[2019-02-07] MEDS ORDERED: HOME MED 1 EA UNK (Duloxetine Hcl [Cymbalta] 60 MG) PO SCH (09:00)
[2019-02-07] MEDS: FUROSEMIDE 40 MG TABLET PO SCH ×2 (09:01→16:37)
[2019-02-07] MEDS: ASPIRIN EC 81 MG TAB PO SCH (09:02)
[2019-02-07] MEDS: DULOXETINE 30 MG CAP PO SCH (09:02)
[2019-02-07] MEDS: SPIRONOLACTONE 25 MG TABLET PO SCH ×2 (09:04→21:20)
[2019-02-07] MEDS ORDERED: GLUCAGON 1 MG/VIAL IM PRN (09:05)
[2019-02-07] MEDS ORDERED: D50W 25 GM/50 ML SYRINGE IV PRN (09:05)
[2019-02-07] MEDS: CLOPIDOGREL 75 MG TABLET PO SCH (09:10)
--- NOTE | 2019-02-07 11:35 | RAD REPORT ---
EXAM DESCRIPTION: RAD - Chest Pa And Lat (2 Views) - 02/07/2019 6:03 am CLINICAL HISTORY: follow up SOB Chest pain. COMPARISON: Chest Single View dated 02/06/2019; Chest Single View dated 10/12/2018; Chest Pa And Lat ( 2 Views) dated 09/23/2016; CHEST SINGLE VIEW dated 02/06/2016 FINDINGS: The lungs are clear. The heart is normal in size. No displaced fractures. IMPRESSION: No acute or concerning finding suspected.
--- NOTE | 2019-02-07 15:33 | CON ---
A 68-year-old woman. Attending Physician: Dr. Rome. Chief Complaint: Loss of consciousness. History Of Present Illness: Yesterday morning shortly after getting out of bed, the patient was roberta ding and felt her legs got weak and wobbly when she fell. She bumped her head. She was not unconsci ous for very long after she became supine and since being in the hospital has not had any arrhythmia or repeat syncope. As an outpatient, the patient was taking very high doses of Lasix and spironolact one, those have been reduced. I do not think anybody has checked orthostatic vital signs where blood pressure in the hospital was 127/57. She has been here since Friday and this is Friday the . O ne of her blood pressures was 110/65. She has a history of an intracoronary stent in LAD in 2013. Medications: She takes levothyroxine, trazodone, metformin, albuterol, hydrocodone, simvastatin, met oprolol Spiriva, spironolactone, gabapentin, and Lasix. Impression: The patient was probably volume depleted. Nothing on her laboratory exam. Her EKG woul d suggest she is having an acute coronary syndrome, not having chest pain. I think we could check or thostatic vital signs with an echo and carotid on her and make sure those are looking okay. If so, s he could probably be discharged with the lower dose of diuretics. SH/MODL Voice ID: [id number] Report ID: [id number]
--- NOTE | 2019-02-07 20:23 | P.CNS ---
Date of Consult: 02/07/19 Reason for Consult: CKD Requesting Physician: Rafael Rome Primary Care Provider: Dr. Pérez; Cardiology-Dr. Sy Chief Complaint: Chest pain, shortness of breath History of Present Illness: 68-year-old female presented to the emergency room with chest pain and shortness of breath. Patient reported chest pain and shortness of breath today. She was getting coffee when she felt her legs weak. At around the same time she reported some chest pain and shortness of breath. Chest pain was to the substernal region. It radiated to the lower right side. She also fell to the right side. She did not have any syncopal episode. She came to the ER for further evaluation. 10:43 This 68 yrs old Female presents to ER via EMS with complaints of Chest Pain > elissa 30 y/o. 10:43 The patient or guardian reports chest pain that is located primarily in the substernal elissa area. Onset: just prior to arrival, this morning. The pain does not radiate. Associated signs and symptoms: Pertinent positives: shortness of breath. The chest pain is described as a heaviness, a pressure. Modifying factors: The symptoms are alleviated by nothing. the symptoms are aggravated by nothing. Severity of pain: At its worst the pain was mild moderate in the emergency department the pain has improved mildly. The patient has experienced similar episodes in the past, several times. Reports that she has not been on her Plavix for a couple of months. Allergies No Known Drug Allergies Allergy (Verified 09/02/16 06:56) Unknown No Known Allergies Allergy (Uncoded 09/02/16 06:56) Unknown Home medications list reviewed: Yes Home Medications: Levothyroxine [Synthroid*] 75 mcg PO [id number] 05/20/13 Clopidogrel Bisulfate [Plavix*] 75 mg PO DAILY 12/20/14 Trazodone [Desyrel*] 150 mg PO BEDTIME 01/05/15 Albuterol Sulfate [Proair Hfa] 2 puff PO TID 01/28/16 Hydrocodone/Acetaminophen [Vicodin 5-325 mg Tablet] 10 mg PO BID 01/28/16 Metformin HCl [Metformin HCl ER] 500 mg PO DAILY 01/28/16 Simvastatin [Zocor*] 40 mg PO BEDTIME 01/28/16 Metoprolol Tartrate [Lopressor*] 25 mg PO BID 6AM 6PM #60 tab 02/03/16 Tiotropium [Spiriva Handihaler*] 1 sprays IH DAILY #30 inh 02/03/16 Gabapentin [Neurontin] 600 mg PO TID 08/28/16 Spironolactone [Aldactone] 50 mg PO BID 08/28/16 Furosemide [Lasix] 80 mg PO BID 10/12/18 Duloxetine HCl [Cymbalta] 60 mg PO DAILY 02/06/19 - Past Medical/Surgical History Diabetic: No -: Diastolic CHF -: Hypertension -: Hyperlipidemia -: GERD -: COPD -: Diabetes mellitus type 2 -: CAD with prior stent -: Obstructive sleep apnea -: Hypothyroidism -: Anxiety -: Diabetic neuropathy -: Chronic renal disease -: Hysterectomy -: Cholecystectomy -: Ventral hernia repair -: cyst -: bladder reconstruction -: knee/ [place] -: knee/islam -: IVC filter Psychosocial/ Personal History: Patient is a . She has 2 children. - Family History Mother Medical History: Cancer Sister Medical History: Hypertension - Social History Smoking Status: Unknown if ever smoked Alcohol use: Yes CD- Drugs: No Caffeine use: Yes Place of Residence: Home Review of Systems 10-point ROS is otherwise unremarkable General: Weakness, Malaise Respiratory: SOB with Excertion Cardiovascular: Chest Pain, Edema Neurological: Weakness Physical Examination Temp Pulse Resp BP Pulse Ox 97.3 F 78 16 137/62 94 02/07/19 16:00 02/07/19 17:33 02/07/19 16:00 02/07/19 17:33 02/07/19 16:00 General: Oriented x3, Cooperative HEENT: Atraumatic Neck: Supple Respiratory: Clear to auscultation bilaterally Cardiovascular: Regular rate/rhythm Gastrointestinal: Soft and benign, Non-distended Integumentary: No rashes, No cyanosis Neurological: Normal speech Blood work reviewed in the chart. Cr 1.08 Imagings Data: EXAM DESCRIPTION: RAD - Chest Single View - 02/06/2019 10:17 am CLINICAL HISTORY: Chest pain COMPARISON: October 2018 TECHNIQUE: AP portable chest image was obtained 1006 hours . FINDINGS: Lungs are clear. Heart and vasculature are normal. No measurable pleural effusion and no pneumothorax. No acute bony abnormality seen. No acute aortic findings suspected. IMPRESSION: No acute cardiopulmonary process. No significant change from comparison. EXAM DESCRIPTION: RAD - Chest Pa And Lat (2 Views) - 02/07/2019 6:03 am CLINICAL HISTORY: follow up SOB Chest pain. COMPARISON: Chest Single View dated 02/06/2019; Chest Single View dated 2017; Chest Pa And Lat (2 Views) dated 09/23/2016; CHEST SINGLE VIEW dated 2015 FINDINGS: The lungs are clear. The heart is normal in size. No displaced fractures. IMPRESSION: No acute or concerning finding suspected. Conclusions/Impression: A/ OC, mild. Hx Hypokalemia. Diastolic CHF, chronic. HTN. MAIDA. Does not tolerate CPAP. DM II. Obesity. P/ Continue current POC and Medications. Chest pain evaluation by cardiology in process. Restart home medications as indicated. No NSAIDs. AM labs. Daily weight. Thank you kindly for the consultation. Case discussed with Dr. Rome.
[2019-02-07] MEDS: TRAZODONE 150 MG TAB PO SCH (21:19)
[2019-02-07] MEDS: ACETAMINOPHEN 500 MG TAB PO PRN (21:19)
[2019-02-07] MEDS: ATORVASTATIN 20 MG TAB PO SCH (21:20)
--- NOTE | 2019-02-07 21:44 | EKG ---
Test Date: 2019-02-07 Test Time: 03:25:40 Pulp Grinder: OLIVE MEASUREMENT RESULTS: Intervals: Rate: 74 OK: 138 QRSD: 84 QT: 460 QTc: 510 [place]: P: -9 OK: 138 QRS: 31 T: 37 INTERPRETIVE STATEMENTS: Sinus rhythm with marked sinus arrhythmia Prolonged QT Abnormal ECG Compared to ECG 02/06/2019 09:43:28 Prolonged QT interval now present Electronically Signed On 02-07-19 21:44:12 CDT by Terry Sy
--- NOTE | 2019-02-07 21:46 | EKG ---
Test Date: 2019-02-06 Test Time: 19:27:44 Oil Pipe Inspector Helper: OLIVE MEASUREMENT RESULTS: Intervals: Rate: 72 MD: 142 QRSD: 84 QT: 424 QTc: 464 [place]: P: 72 MD: 142 QRS: 1 T: 24 INTERPRETIVE STATEMENTS: Normal sinus rhythm with sinus arrhythmia Normal ECG Compared to ECG 02/06/2019 09:43:28 No significant changes Electronically Signed On 02-07-19 21:45:34 CDT by Terry Sy
--- NOTE | 2019-02-07 22:25 | RAD REPORT ---
EXAM DESCRIPTION: US - CP - 02/07/2019 10:17 pm CLINICAL HISTORY: syncope rule out subclavian steal syndrome COMPARISON: Head C Spine Mpr Wo Con dated 02/06/2019 TECHNIQUE: Real-time sonographic evaluation of both carotid systems was performed. Doppler interroga tion was performed with waveform tracing bilaterally. FINDINGS: Normal high resistance waveforms are noted in both external carotid arteries. The common c arotid arteries and internal carotid arteries show normal low resistance waveforms. Mild hard plaquing is present in both carotid bulbs, slightly greater on the left. Turbulent flow is seen in both proximal ICAs. Peak systolic and end diastolic velocity values and the ICA/CCA ratios ar e in the non-hemodynamically significant range. Antegrade flow seen in both vertebral arteries. No flow reversal seen in the left vertebral artery. IMPRESSION: Mild hard plaquing is seen in both proximal internal carotid arteries. No evidence of a hemodynamically significant stenosis. No evidence of flow reversal in the left vertebral artery.
[2019-02-08] MEDS: LEVOTHYROXINE SOD 0.075 MG TAB PO SCH (05:44)
[2019-02-08] MEDS: ACETAMINOPHEN 500 MG TAB PO PRN ×2 (05:44→16:37)
[2019-02-08] MEDS: METOPROLOL TAR 25 MG TAB PO SCH ×2 (05:44→17:37)
[2019-02-08 06:10] LABS: Absolute Lymphocytes (CBC) 2.2 K/uL (0.7-4.9); Absolute Monocytes 0.6 K/uL (0.1-1.3); Absolute Neutrophil 2.9 K/uL (1.8-8.0); Basophils % 0.9 % (0-1.3); Eosinophils % 3.4 % (0-4.4); Hematocrit 41.5 % (36.0-45.0); Lymphocytes % 37.5 % (15.3-44.8); MPV 7.3 fL (7.6-11.3); Monocytes % 9.9 % (3.3-12.3); RBC Red Blood Cell Count 5.07 M/uL (3.86-4.86)
[2019-02-08 06:17] LABS: Magnesium 2.2 mg/dL (1.8-2.4); Potassium 3.3 mmol/L (3.5-5.1)
[2019-02-08] MEDS ORDERED: POTASSIUM 25 MEQ EFFERV TAB PO ONE ×2 (06:52→09:00)
[2019-02-08] MEDS: INSULIN -REGULAR HUMAN 50 UNIT/0.5 ML ML SQ SCH ×3 (07:30→16:30)
[2019-02-08] MEDS: ENOXAPARIN 40 MG/0.4 ML SQ SCH (08:26)
[2019-02-08] MEDS: DULOXETINE 30 MG CAP PO SCH (08:27)
[2019-02-08] MEDS: GABAPENTIN 300 MG CAP PO SCH ×2 (08:27→13:41)
[2019-02-08] MEDS: ASPIRIN EC 81 MG TAB PO SCH (08:28)
[2019-02-08] MEDS: CLOPIDOGREL 75 MG TABLET PO SCH (08:28)
[2019-02-08] MEDS: SPIRONOLACTONE 25 MG TABLET PO SCH (08:28)
[2019-02-08] MEDS: FUROSEMIDE 40 MG TABLET PO SCH ×2 (08:31→16:38)
[2019-02-08] MEDS ORDERED: DULOXETINE 30 MG CAP PO SCH (09:00)
[2019-02-08 12:18] VITALS: O2SAT 95
--- NOTE | 2019-02-08 13:51 | PN ---
Mrs. Gifford's orthostatic vital signs that suggest she either has autonomic insufficiency or she was dehydrated and the latter is more likely. I think with a lower dose of diuretic, she will do better and her echocardiogram shows no new findings. I think she could be discharged home with a lower dos e of diuretics. SH/MODL Voice ID: [id number] Report ID: [id number]
[2019-02-08 15:37] LABS: Potassium 4.8 mmol/L (3.5-5.1)
[2019-02-08 16:38] VITALS: BP 129/62
--- NOTE | 2019-02-08 16:56 | ECHO ---
HEIGHT: 5 ft 3 in WEIGHT: 239 lb 0 oz DATE OF STUDY: 02/08/[address]: Rafael Rome DO 2-DIMENSIONAL: YES M.MODE: YES DOPPLER: YES COLOR FLOW: YES TDS: YES PORTABLE: NO DEFINITY: NO BUBBLE STUDY: NO DIAGNOSIS: CONGESTIVE HEART FAILURE CARDIAC HISTORY: CATHERIZATION: YES SURGERY: NO PROSTHETIC VALVE: NO PACEMAKER: NO MEASUREMENTS (cm) DIASTOLIC (NORMALS) SYSTOLIC (NORMALS) IVSd 1.2 (0.6-1.2) LA Diam 4.4 (1.9-4.0) LVEF 65% LVIDd 3.8 (3.5-5.7) LVIDs 2.5 (2.0-3.5) %FS 35% LVPWd 1.1 (0.6-1.2) Ao Diam 2.8 (2.0-3.7) 2 DIMENSIONAL ASSESSMENT: RIGHT ATRIUM: NORMAL LEFT ATRIUM: DILATED RIGHT VENTRICLE: NORMAL LEFT VENTRICLE: LEFT VENTRICULAR HYPERTROPHY TRICUSPID VALVE: NORMAL MITRAL VALVE: MINIMAL MITRAL ANNULAR CALCIFICATION PULMONIC VALVE: NORMAL AORTIC VALVE: NORMAL PERICARDIAL EFFUSION: NONE AORTIC ROOT: NORMAL LEFT VENTRICULAR WALL MOTION: NORMLA DOPPLER/COLOR FLOW: PHYSIOLOGIC TRICUSPID REGURGITATION. NORMAL RIGHT VENTRICULAR SYSTOLIC PRESSURE. COMMENTS: NORMAL LEFT VENTRICULAR EJECTION FRACTION. DILATED LEFT ATRIUM. LEFT VENTRICULAR HYPERTROPHY. MINIMAL MITRAL ANNULAR CALCIFICATION. TECHNOLOGIST: Sree VELAZQUEZ
[2019-02-08 17:51] VITALS: TEMP 97.5
--- NOTE | 2019-02-09 16:29 | DS ---
Date of Discharge: 02/08/2019 Bargain Table Clerk: Dr. Sy with Cardiology and Dr. Pérez with Nephrology. Discharge Diagnoses: 1.Chest pain, resolved. 2.Shortness of breath, resolved. 3.History of coronary artery disease status post stent. 4.Chronic diastolic heart failure, ejection fraction 65%. 5.Chronic obstructive pulmonary disease, chronic bronchitis. 6.Diabetes mellitus type 2 with hyperglycemia, non-insulin requiring. 7.Chronic kidney disease stage 3. 8.Hypothyroidism. 9.Hyperlipidemia. 10.Obstructive sleep apnea. 11.Diabetic neuropathy. 12.Recent fall. 13.Orthostatic hypotension. 14.Hypokalemia. 15.Morbid obesity, BMI 42. Hospital Course: The patient is a 68-year-old female, comes in with chest pain, shortness of breath and some generalized weakness. The patient was admitted to the hospital for further workup. She had a CT scan which was negative. Her cardiac enzymes were also negative. She was seen by Cardiology, Dr. Sy, echocardiogram was done. EF was 65%. She did have some left ventricular hypertrophy. H er orthostatic vital signs were also positive. She appeared to be dehydrated. The patient's Aldacto ne and Lasix were adjusted. Carotid artery ultrasound was also done, which showed some heart plaquin g, but no hemodynamically significant stenosis due to her fall. Head CT scan and cervical spine were done, did not show any acute fractures. She did have C5-C6 central spinal stenosis and significant left foraminal stenosis. The patient overall did well over the course of the hospital stay. She was able to ambulate without difficulty. She was also seen by Dr. Pérez with Nephrology. Her creatin ine remained stable. The patient's potassium was replaced. The [facility] and was sent home in a stable condition. Activity: Fall precautions, ambulate with assist. Medications: As per medication reconciliation list. The patient's dose of Lasix and Aldactone were adjusted and will be reduced. Followup: Follow up with primary care physician in 2-3 days. Follow up with clinical program consultant, Dr. Enoch baker in 2 weeks. Follow up with [facility], Dr. Pérez in 2 weeks. Return to ER for worsening condi tion. Diet: Heart healthy, fluid-restricted diet. Physical Examination: General: Awake, alert, oriented x3. No acute distress. CV: S1 and S2. No murmurs. Respiratory: Moving air well bilaterally. Abdomen: Soft, nontender, nondistended. Positive bowel sounds. Extremities: No clubbing, cyanosis, edema. Neurologic: Nonfocal. Code Status: Full. SA/MODL Voice ID: [id number] Report ID: [id number]
== END 2019-02-08 18:27 | disposition home or self-care (01) ==
LOC: ER 09:38 → ERHOLD 11:39 → 4TH 12:23
PROVIDERS: ADMIT Family Medicine; ATTEND Family Medicine
DX: R07.9 Chest pain, unspecified (principal); R06.02 Shortness of breath; I25.10 Atherosclerotic heart disease of native coronary artery without angina pectoris; Z95.5 Presence of coronary angioplasty implant and graft; I13.0 Hypertensive heart and chronic kidney disease with heart failure and stage 1 through stage 4 chronic kidney disease, or unspecified chronic kidney disease; E11.22 Type 2 diabetes mellitus with diabetic chronic kidney disease; E11.65 Type 2 diabetes mellitus with hyperglycemia; N18.3 Chronic kidney disease, stage 3 (moderate); I50.32 Chronic diastolic (congestive) heart failure; J44.9 Chronic obstructive pulmonary disease, unspecified; E03.9 Hypothyroidism, unspecified; E78.5 Hyperlipidemia, unspecified; G47.33 Obstructive sleep apnea (adult) (pediatric); E11.40 Type 2 diabetes mellitus with diabetic neuropathy, unspecified; I95.1 Orthostatic hypotension; E87.6 Hypokalemia; E66.01 Morbid (severe) obesity due to excess calories; Z68.41 Body mass index [BMI] 40.0-44.9, adult
CPT/HCPCS: 93005 ×3; 93306; 85025 ×3; 80048 ×4; 36415 ×2; 83735 ×3; 82550 ×2; 85610; 80061; 82962 ×9; 80076; 84443; 81003; 84484 ×3; 82553 ×2; 84439; 83690; 83880; 70450; 72125; 71045; 71046; 73030; 93880; 97116; 97162; 96372; 96374; 99285; J1650 ×3; J2405; G0378 ×2

== ENCOUNTER 2019-03-28 11:10 | Emergency (ER) | payer MEDICARE ==
--- OUTSIDE RECORDS SUMMARY | 2019-03-28 11:14 | XMS REPORT | Continuity of Care Document ---
:1950 Author Organization Interface Problems Problem Status Onset Classification Date Comments Source Date Reported RECURRENT VENTRAL Active [facility] INCISIONAL HERNIA 7 [facility] Center INCISIONAL Active [facility] HERNIA, ABD PAIN, 7 Medical UMBILICAL P Center CAD (<span Active Problem 05/02/2017 [facility] ID="[id number]" Medical >Confirmed</span> Center ) Morbid obesity Active Problem 05/02/2017 BMI-46.7 [facility] with BMI of Medical 45.0-49.9, Center adult<sup>1</sup> HTN (<span Active Problem 05/02/2017 [facility] ID="[id number]" Medical >Confirmed</span> Center ) MAIDA (<span Active Problem 05/02/2017 [facility] ID="[id number]" Medical >Confirmed</span> Center ) Type 2 diabetes Active Problem 05/02/2017 [facility] mellitus with Medical diabetic chronic Center kidney disease INCISIONAL HERNIA Active [facility] WITHOUT Medical OBSTRUCTION OR Center PERIUMBILICAL Active [facility] PAIN Medical Center Medications Medication Details Route Status Patient Ordering Order Source Instructions Provider Date pantoprazole 40 40 mg=1 tab, PO, Active 04/29[facility] [place] mg oral enteric Daily, 0 2016 Medical coated tablet Refill(s) [place] Acetaminophen 300 1 - 2 tablets, Active 04/29[facility] [place] MG / Codeine PO, Q6H, PRN 2017 Medical Phosphate 30 MG Pain, not to Center Oral Tablet exceed 4000 mg [Tylenol with acetaminophen Codeine #3] per day, do not operate vehicle or machinery on medication., X 14 day, # 90 tab, 0 Refill(s) POLYETHYLENE 17 gm, PO, Active 04/29[facility] [place] GLYCOL 3350 142 Bedtime, 2017 Medical MG/ML Oral Dissolve in 8 Center Solution oz. of water, X [Miralax] 7 day, # 1 ea, 1 Refill(s) Docusate Sodium 100 mg=1 cap, Active 04/29[facility] [place] 100 MG Oral PO, BID, # 60 2017 Medical Capsule cap, 1 Refill(s) [place] tiotropium 0.018 18 microgram=1 Active [facility] MG/ACTUAT inhalation, 2017 Medical Inhalant Powder INHALATION, [place] [Spiriva] Daily, 0 Refill(s) tramadol 50 mg, [...] As: Ultram) pneumococcal 0.5 mL, Route: Inactive [facility] 13-valent vaccine IM, Drug Form: 2017 Medical INJ, Daily, Center Start date: 04/29/17 10:00:00 CDT, Duration: 1 doses or times, Stop date: 04/29/17 10:00:00 CDTNotes: Shake well prior to use (Same as: Prevnar 13) Protonix 40 mg, 1 tab, No Longer [facility] Route: PO, Drug Active 2016 Medical form: ECTAB, Center Daily, Start date: 04/27/17 10:00:00 CDT, Duration: 30 day, Stop date: 05/27/17 9:00:00 CDTNotes: Tablet should not be chewed or crushed. (Same as: Protonix) sennosides, [facility] 8.6 mg, 1 tab, No Longer [place] Route: PO, Drug Active 2016 Medical Form: TAB, Center Dosing Weight 115.455, kg, BID, Start date: 04/27/17 9:00:00 CDT, Duration: 30 day, Stop date: 05/26/17 17:00:00 CDTNotes: (Same as: Senokot) Psyllium 1 tsp, Route: No Longer [facility] PO, Drug Form: Active 2017 Medical PDR/REC, Dosing Center Weight 115.455, kg, BID, Start date: 04/27/17 9:00:00 CDT, Duration: 30 day, Stop date: 05/26/17 17:00:00 CDTNotes: (Same as: Metamucil) Mix in 8 oz liquid with meal. Miralax 17 gm, 1 pkt, No Longer [facility] Route: PO, Drug Active 2016 Medical form: PWDR, BID, Center Dosing Weight 115.455, kg, Start date: 04/27/17 9:00:00 CDT, Duration: 30 day, Stop date: 05/26/17 17:00:00 CDTNotes: Dissolve in 8 oz of water or juice. (Same as: Miralax) Isolyte S (PH 1,000 mL, Rate: No Longer [place] 7.4) 1000 mL 70 ml/hr, Infuse Active 2017 Medical 1,000 mL over: 14.3 hr, Center Route: IV, Dosing Weight 115.455 kg, Total Volume: 1,000, Start date: 04/27/17 8:45:00 CDT, Duration: 30 day, Stop date: 05/27/17 8:44:00 CDTNotes: (Same as: Isolyte S PH 7.4) Mag-Ox 400 400 mg, 1 tab, Inactive [place] Route: PO, Drug 2017 Medical form: TAB, ONCE, Center Dosing Weight 115.455, kg, Start date: 04/27/17 8:38:00 CDT, Stop date: 04/27/17 8:38:00 CDTNotes: (Same as: Mag-Ox 400) Magnesium oxide [id number] elemental magnesium Dose=____mg magnesium oxide (___mg elemental magnesium) Acetaminophen 1,000 mg, 2 tab, No Longer [place] Route: PO, Drug Active 2016 Medical form: TAB, Q6H, Center Dosing Weight 115.455, kg, Start date: 04/26/17 18:00:00 CDT, Duration: 30 day, Stop date: 05/26/17 12:00:00 CDTNotes: Max acetaminophen 4000 mg/day (4 gm/day). (Same as: Tylenol Extra Strength) Morphine 4 mg, 1 mL, No Longer [facility] Route: IVP, Drug Active 2016 Medical form: INJ, Q4H, Center Dosing Weight 115.455, kg, PRN Pain Score 7-10, Start date: 04/26/17 18:00:00 CDT, Duration: 30 day, Stop date: 05/26/17 17:59:00 CDTNotes: (Same as:MORPhine Sulfate) Morphine 4 mg, 1 mL, Inactive [place] Route: IVP, Drug 2016 Medical form: INJ, ONCE, Center Dosing Weight 115.455, kg, Start date: 04/26/17 13:04:00 CDT, Stop date: 04/26/17 13:04:00 CDTNotes: (Same as:MORPhine Sulfate) gabapentin 300 MG 300 mg, 1 cap, No Longer [facility] Oral Capsule Route: PO, Drug Active 2016 Medical form: CAP, Q8H, Center Dosing Weight 115.455, kg, (CrCl > 60 ml/min), Start date: 04/26/17 13:03:00 CDT, Duration: 30 day, Stop date: 05/26/17 12:00:00 CDTNotes: (Same as: Neurontin) phenol 1 spray, Route: No Longer [facility] TOP, Daily, Drug Active 2016 Medical form: LUCILA, [employer] Center Sore Throat, Start date: 04/26/17 13:00:00 CDT, Duration: 30 day, Stop date: 05/26/17 12:59:00 CDTNotes: Chloraseptic [place] (Same as: Chloraseptic, Sore Throat [place]) WASTE: F/P - Black; E - [employer]ash [employer] Flomax 0.4 mg, 1 cap, No Longer [facility] Route: PO, Drug Active 2016 Medical form: CAP, After Center Breakfast, Dosing Weight 115.455, kg, Start date: 04/26/17 8:30:00 CDT, Duration: 30 day, Stop date: 05/25/17 8:30:00 CDTNotes: (Same As: Flomax) "Do Not Crush" Thyroxine 37 microgram, No Longer [facility] Route: IVP, Drug Active 2016 Medical form: INJ, Center Q630AM, Dosing Weight 115.455, kg, Start date: 04/26/17 6:30:00 CDT, Duration: 30 day, Stop date: 05/25/17 6:30:00 CDTNotes: (Same as: Synthroid) Reconstitute with 5ml of NS. Final concentration=20 micrograms/ml. Use immediately after reconstitution and discard remaining solution. Ofirmev 1,000 mg, 100 No Longer [facility] mL, Route: IV, Active 2016 Medical Drug form: INJ, Center Q6H, Dosing Weight 115.455, kg, for > or=50 kg, Start date: 04/25/17 18:00:00 CDT, Duration: 30 day, Stop date: 05/25/17 10:00:00 CDTNotes: Infuse over 15 minutes Do not exceed 4gm/day of acetaminophen MEDICATION WASTE Product Size: 1000 mg Product Wasted: ___ mg Protonix 40 mg, Route: No Longer [facility] IVP, Drug form: Active 2016 Medical INJ, Daily, Center Dosing Weight 115.455, kg, Patient is NPO, Start date: 04/25/17 17:00:00 CDT, Duration: 30 day, Stop date: 05/25/17 9:00:00 CDTNotes: For IV push reconstitute with 10 ml 0.9% sodium chloride and push over 2 minutes. (Same as: Protonix) Zofran 4 mg, 2 mL, No Longer [facility] Route: IVP, Drug Active 2016 Medical form: INJ, Q6H, Center Dosing Weight 115.455, kg, PRN Nausea, Start date: 04/25/17 16:48:00 CDT, Duration: 30 day, Stop date: 05/25/17 16:47:00 CDTNotes: (Same as: Zofran) MEDICATION WASTE Product Size: 4 mg Product Wasted: ___ mg Morphine 4 mg, 1 mL, No Longer [facility] Route: IVP, Drug Active 2017 Medical form: INJ, Q6H, Center Dosing Weight 115.455, kg, PRN Pain Score 7-10, Start date: 04/25/17 16:06:00 CDT, Duration: 30 day, Stop date: 05/25/17 16:05:00 CDTNotes: (Same as:MORPhine Sulfate) Isolyte S (PH 1,000 mL, Rate: No Longer [facility] 7.4) 1000 mL 135 ml/hr, Active 2017 Medical 1,000 mL Infuse over: 7.4 Center hr, Route: IV, Dosing Weight 115.455 kg, Total Volume: 1,000, Start date: 04/25/17 14:39:00 CDT, Duration: 30 day, Stop date: 05/25/17 14:38:00 CDTNotes: (Same as: Isolyte S PH 7.4) Zofran 4 mg, 1 tab, Inactive [place] Route: PO, Drug 2016 Medical form: TAB, Q8H, Center Dosing Weight 115.455, kg, PRN Nausea, Start date: 04/25/17 13:43:00 CDT, Duration: 30 day, Stop date: 05/25/17 13:42:00 CDTNotes: (Same as: Zofran) Bisacodyl 5 mg, 1 tab, Inactive [facility] Route: PO, Drug 2016 Medical form: ECTAB, Center ONCE, Dosing Weight 115.455, kg, Priority: NOW, Start date: 04/25/17 13:15:00 CDT, Stop date: 04/25/17 13:15:00 CDTNotes: (Same As: Dulcolax, Correctol) (Do Not Crush) "Do Not Crush" Bisacodyl 10 mg, 1 supp, Inactive [facility] Route: ME, Drug 2016 Medical form: SUPP, Center ONCE, Dosing Weight 115.455, kg, Priority: NOW, Start date: 04/25/17 13:14:00 CDT, Stop date: 04/25/17 13:14:00 CDTNotes: (Same As: Dulcolax, [place]-Lax) Lovenox 40 mg, 0.4 mL, No Longer [facility] Route: SUB-Q, Active 2017 Medical Drug form: INJ, Center [id number], Dosing Weight 115.455, kg, Start date: 04/24/17 20:00:00 CDT, Duration: 30 day, Stop date: 05/23/17 20:00:00 CDTNotes: (Same as: Lovenox) Plavix 75 mg, 1 tab, No Longer [facility] Route: PO, Drug Active 2017 Medical form: TAB, Center Daily, Dosing Weight 115.455, kg, Start date: 04/24/17 14:22:00 CDT, Duration: 30 day, Stop date: 05/24/17 9:00:00 CDTNotes: (Same As: Plavix) Allopurinol 300 mg, 1 tab, No Longer [facility] Route: PO, Drug Active 2016 Medical form: TAB, Center Daily, Dosing Weight 115.455, kg, Start date: 04/24/17 9:00:00 CDT, Duration: 30 day, Stop date: 05/23/17 9:00:00 CDT Streptococcus 0.5 mL, Route: No Longer [place] pneumoniae IM, Drug Form: Active 2017 Medical serotype 1 INJ, Daily, Center capsular antigen Start date: diphtheria [id number] 04/24/17 9:00:00 protein conjugate CDT, Duration: 1 vaccine / doses or times, Streptococcus Stop date: pneumoniae 04/24/17 9:00:00 serotype 14 CDTNotes: Shake capsular antigen well prior to diphtheria [id number] use (Same as: protein conjugate Prevnar 13) vaccine / Streptococcus pneumoniae serotype 18C capsular antigen d Lovenox 40 mg, 0.4 mL, Inactive [facility] Route: SUB-Q, 2016 Medical Drug form: INJ, Center Daily, Dosing Weight 115.455, kg, Start date: 04/24/17 9:00:00 CDT, Duration: 30 day, Stop date: 05/23/17 9:00:00 CDTNotes: (Same as: Lovenox) pantoprazole 40 mg, 1 tab, No Longer [facility] Route: PO, Drug Active 2016 Medical [...] Bumex) Enoxaparin 40 mg, 0.4 mL, Inactive [facility] Route: SUB-Q, 2016 Medical Drug form: INJ, Center [id number], Dosing Weight 115.455, kg, Consider for obese [...] as: Roxicodone) Ofirmev 1,000 mg, 100 Inactive [place] mL, Route: IVPB, 2016 Medical Drug form: [...] Active 2016 Medical Ipratropium SOLN, Dosing Center [place] 0.167 Weight 115.455, MG/ML Inhalant kg, PRN, PRN Solution [DuoNeb] Respiratory Protocol, Start date: 04/23/17 17:27:00 CDT, Duration: 30 day, Stop date: 05/23/17 17:26:00 CDTNotes: (Same as: Duoneb) Insulin, Aspart, 1 unit, 0.01 mL, No Longer [place] Human Route: SUB-Q, Active 2016 Medical Drug [...] 50% 25 gm, 50 mL, No Longer [place] Syringe Route: IVP, Drug Active 2016 Medical Form: INJ, Center Dosing Weight 115.455, kg, PRN, PRN Blood Glucose Results, Start date: 04/23/17 17:26:00 CDT, Duration: 30 day, Stop date: 05/23/17 17:25:00 CDT Glucagon 1 mg, Route: IM, No Longer [facility] Drug form: Active 2016 Medical PDR/INJ, PRN, Center Dosing Weight 115.455, kg, PRN Blood Glucose Results, Start date: 04/23/17 17:26:00 CDT, Duration: 30 day, Stop date: 05/23/17 17:25:00 CDT hydromorphone Route: IV, Drug Inactive [facility] ([facility]ES) form: INJ, ONCE, 2016 Medical Stop date: [place] 04/23/17 17:26:00 CDT neostigmine Route: IV, Drug Inactive [facility] ([facility]) form: INJ, ONCE, 2016 Medical Stop date: [place] 04/23/17 17:26:00 CDT glycopyrrolate Route: IV, Drug Inactive [facility] ([facility]) form: INJ, ONCE, 2016 Medical Stop date: [place] 04/23/17 17:26:00 CDT ondansetron Route: IV, Drug Inactive [facility] ([facility]) form: INJ, ONCE, 2016 Medical Stop date: [place] 04/23/17 17:26:00 CDT cyclobenzaprine 10 mg, 1 [...] Medical MG Oral Tablet form: TAB, Q6H, [place] Dosing Weight 115.455, kg, PRN Pain Score 1-3, Start date: 04/23/17 17:18:00 CDT, Duration: 30 day, Stop date: 05/23/17 17:17:00 CDT Isolyte S (PH 1,000 mL, Rate: No Longer [facility] 7.4) 1000 mL 35 ml/hr, Infuse Active [facility] Medical 1,000 mL over: 28.6 hr, [place] Route: IV, Dosing Weight 115.455 kg, Total Volume: 1,000, Start date: 04/23/17 17:16:00 CDT, Stop date: 05/23/17 17:15:00 CDT rocuronium (ANES) Route: IV, Drug Inactive [place] form: INJ, ONCE, 2016 Medical Stop date: [place] 04/23/17 16:20:00 CDT dexamethasone Route: IV, Drug Inactive 04/23[facility] [place] (ANES) form: INJ, ONCE, 2016 Medical Stop date: [place] 04/23/17 16:07:00 CDT ketAMINE (ANES) Route: IV, Drug Inactive 04/23[facility] [place] form: INJ, ONCE, 2016 Medical Stop date: [place] 04/23/17 16:05:00 CDT Promethazine 6.25 mg, Route: Inactive 04/23[facility] [place] IVPB, ONCE, 2016 Medical Dosing Weight Center 115.455, kg, PRN Nausea & Vomiting, Start date: 04/23/17 15:59:00 CDT Ondansetron 4 mg, Route: Inactive 04/23[facility] [place] IVP, ONCE, 2016 Medical Dosing Weight Center 115.455, kg, PRN Nausea & Vomiting, Start date: 04/23/17 15:59:00 CDT Hydralazine 10 mg, Route: Inactive 04/23[facility] [place] IVP, Q20Min, 2016 Medical Dosing Weight Center 115.455, kg, PRN Elevated BP, Start date: 04/23/17 15:59:00 CDT, Duration: 2 doses or times, Stop date: Limited # of times Hydromorphone 0.5 mg, Route: Inactive [facility] [place] IVP, Q5Min, 2016 Medical Dosing Weight Center 115.455, kg, PRN Pain Score 7-10, Start date: 04/23/17 15:59:00 CDT, Duration: 4 doses or times, Stop date: Limited # of times Labetalol 10 mg, Route: Inactive 04/23[facility] IVP, Q5Min, 2017 Medical Dosing Weight Center 115.455, kg, PRN Elevated BP, Start date: 04/23/17 15:59:00 CDT, Duration: 5 doses or times, Stop date: Limited # of times Acetaminophen 1,000 mg, Route: Inactive 04/23[facility] [place] PO, Drug form: 2017 Medical TAB, ONCE, Center Dosing Weight 115.455, kg, PRN Pain Score 1-3, Start date: 04/23/17 15:59:00 CDT, Duration: 1 doses or times, Stop date: Limited # of times Naloxone 0.4 mg, Route: Inactive 04/23[facility] IVP, Q2MIN, 2017 Medical Dosing Weight Center 115.455, kg, PRN Narcotic Reversal, Start date: 04/23/17 15:59:00 CDT, Duration: 8 doses or times, Stop date: Limited # of times Flumazenil 0.2 mg, Route: Inactive 04/23[facility] IVP, PRN, Dosing 2017 Medical Weight 115.455, Center kg, PRN Benzodiazepine Reversal, Initial dose, Start date: 04/23/17 15:59:00 CDT, Duration: 30 day, Stop date: 05/23/17 15:58:00 CDT Oxycodone 5 mg, Route: PO, Inactive 04/23[facility] Drug form: TAB, 2017 Medical Q4H, Dosing Center Weight 115.455, kg, PRN Pain Score 4-6, Start date: 04/23/17 15:59:00 CDT, Duration: 30 day, Stop date: 05/23/17 15:58:00 CDT rocuronium (ANES) Route: IV, Drug Inactive 04/23[facility] [place] form: INJ, ONCE, 2017 Medical Stop date: [place] 04/23/17 15:40:00 CDT dexamethasone Route: IV, Drug Inactive 04/23[facility] [place] (ANES) form: INJ, ONCE, 2017 Medical Stop date: [place] 04/23/17 15:25:00 CDT famotidine (ANES) Route: IV, Drug Inactive [facility] form: INJ, ONCE, 2016 Medical Stop date: [place] 04/23/17 15:25:00 CDT ketAMINE (ANES) Route: IV, Drug Inactive [facility] form: INJ, ONCE, 2016 Medical Stop date: [place] 04/23/17 15:25:00 CDT metoprolol (ANES) Route: IV, Drug Inactive [facility] form: INJ, ONCE, 2016 Medical Stop date: [place] 04/23/17 15:25:00 CDT midazolam (ANES) Route: IV, Drug Inactive [facility] form: SOLN, 2017 Medical ONCE, Stop date: [place] 04/23/17 15:25:00 CDT lidocaine (ANES) Route: IV, Drug Inactive [facility] form: INJ, ONCE, 2016 Medical Stop date: [place] 04/23/17 15:25:00 CDT propofol (ANES) Route: IV, Drug Inactive [facility] form: INJ, ONCE, 2016 Medical Stop date: [place] 04/23/17 15:25:00 CDT succinylcholine Route: IV, Drug Inactive [place] (ANES) form: INJ, ONCE, 2016 Medical Stop date: [place] 04/23/17 15:25:00 CDT fentaNYL (ANES) Route: IV, Drug Inactive [facility] form: INJ, ONCE, 2016 Medical Stop date: [place] 04/23/17 15:25:00 CDT ceFAZolin (ANES) Route: IV, Drug Inactive [facility] form: INJ, ONCE, 2016 Medical Stop date: [place] 04/23/17 15:09:00 CDT LR 1000 mL INJ Route: IV, Total Inactive [place] (ANES) Volume: 1,000, 2016 Medical Start date: [place] 04/23/17 13:50:00 CDT, Stop date: 04/23/17 14:50:00 CDT ceFAZolin 2 gm, 100 mL, No Longer [facility] Route: IVPB, Active 2016 Medical Drug form: INJ, Center PRE OP, Start date: 04/22/17 23:00:00 CDT, Duration: 1 day, Stop date: 04/23/17 22:59:00 CDT, ABX Indication: Surgical ProphylaxisNotes : Same as: Ancef Allergies, Adverse Reactions, Alerts Substance Category Reaction Severity Reaction Status Date Comments Source type Reported Immunizations Immunization Date Site Status Last Updated Comments Source Given pneumococcal Right completed [facility] 13-valent 7 deltoid [facility] vaccine [place] Results Order Name Results Value Reference Date Interpretation Comments Source Range ELECTROLYTE AGAP 11.2 meq/L 10.0 - 04/29 [facility] [place] 20.0 [facility] ELECTROLYTE Chloride Lvl 101 meq/L 95 - 109 04/[address] ELECTROLYTE Potassium Lvl 3.2 meq/L 3.5 - 5.1 04/[address] ELECTROLYTE Sodium Lvl 138 meq/L 135 - 145 04/[address] ELECTROLYTE CO2 29 meq/L 24 - 32 04/[address] ELECTROLYTE Calcium Lvl 8.5 mg/dL 8.5 - 10.5 04/[address] ELECTROLYTE BUN 14 mg/dL 7 - 22 04/[address] ELECTROLYTE Creatinine 0.72 mg/dL 0.50 - 04/29 [facility] [place] Lvl 1. [facility] ELECTROLYTE Glucose Lvl 98 mg/dL 70 - 99 04/[address] ELECTROLYTE eGFR 87 04/29 Result Comment: The eGFR is calculated using the CKD-EPI formula. In most young, healthy individuals the eGFR will be >90 mL/ min/1.73m2. The eGFR declines with age. An eGFR of 60-89 may be normal in [facility] [place] mL/min/1. some populations, particularly the elderly, for whom the CKD-EPI formula has not been extensively validated. Use of the eGFR is not recommended in the following populations: [address] Individuals with unstable creatinine concentrations, including [...] HEMATOLOGY RBC 3.94 M/CMM 4.20 - 04/29 [facility] 5.40 [facility] HEMATOLOGY Hgb 11.2 g/dL 12.0 - 04/29 [place] 16.0 [facility] HEMATOLOGY Hct 34.0 % 36.0 - 04/29 48.0 [facility] HEMATOLOGY MCV 86.1 fL 80.0 - 04/29 98.0 [facility] HEMATOLOGY MCHC 33.1 g/dL 32.0 - 04/29 [place] 36.0 [facility] HEMATOLOGY MCH 28.5 pg 27.0 - 04/29 31.0 [facility] HEMATOLOGY RDW 16.2 % 11.5 - 04/29 [place] 14.5 [facility] HEMATOLOGY Platelet 213 K/CMM 133 - 450 04/29 [facility] HEMATOLOGY MPV 7.3 fL 7.4 - 10.4 04/29 [facility] HEMATOLOGY WBC 6.4 K/CMM 3.7 - 10.4 04/29 [facility] HEMATOLOGY Monocytes # 0.6 K/CMM 0.0 - 0.8 04/29 [facility] HEMATOLOGY Eosinophils # 0.4 K/CMM 0.0 - 0.5 04/29 [facility] HEMATOLOGY Basophils # 0.1 K/CMM 0.0 - 0.2 04/29 [facility] HEMATOLOGY Segs 60.9 % 45.0 - 04/29 [facility] 75.0 [facility] HEMATOLOGY Lymphocytes 23.4 % 20.0 - 04/29 [place] 40.0 [facility] HEMATOLOGY Eosinophils 5.6 % 0.0 - 4.0 04/29 [facility] HEMATOLOGY Monocytes 9.2 % 2.0 - 12.0 04/29 [facility] HEMATOLOGY Basophils 0.9 % 0.0 - 1.0 04/29 [facility] HEMATOLOGY Segs-Bands # 3.9 K/CMM 1.5 - 8.1 04/29 [facility] HEMATOLOGY Lymphocytes # 1.5 K/CMM 1.0 - 5.5 04/29 2016 [facility] ELECTROLYTE AGAP 11.4 meq/L 10.0 - 04/28 [facility] S 20. [facility] ELECTROLYTE CO2 30 meq/L 24 - 32 04/28 [facility] ELECTROLYTE Calcium Lvl 8.4 mg/dL 8.5 - 10.5 04/28 [facility] ELECTROLYTE BUN 11 mg/dL 7 - 22 04/28 [facility] ELECTROLYTE Creatinine 0.82 mg/dL 0.50 - 04/28 [facility] [place] Lvl 1.40 [facility] ELECTROLYTE Sodium Lvl 139 meq/L 135 - 145 04/28 [facility] ELECTROLYTE Glucose Lvl 111 mg/dL 70 - 99 04/28 [facility] ELECTROLYTE Potassium Lvl 3.4 meq/L 3.5 - 5.1 04/28 [facility] [place] [facility] ELECTROLYTE Chloride Lvl 101 meq/L 95 - 109 04/28 [facility] [place] [facility] ELECTROLYTE eGFR 74 04/28 Result Comment: The eGFR is calculated using the CKD-EPI formula. In most young, healthy individuals the eGFR will be >90 mL/ min/1.73m2. The eGFR declines with age. An eGFR of 60-89 may be normal in [facility] [place] mL/min/1.7 some populations, particularly the elderly, for whom the CKD-EPI formula has not been extensively validated. Use of the eGFR is not recommended in the following populations: [address] Individuals with unstable creatinine concentrations, including [...] Monocytes 9.1 % 2.0 - 12.0 04/28 [facility] HEMATOLOGY Segs 65.8 % 45.0 - 04/28 [facility] 75.0 [facility] HEMATOLOGY Basophils # 0.1 K/CMM 0.0 - 0.2 04/28 [facility]2016 [facility] HEMATOLOGY Eosinophils # 0.3 K/CMM 0.0 - 0.5 04/28 [facility]2016 [facility] HEMATOLOGY Monocytes # 0.6 K/CMM 0.0 - 0.8 04/[address] HEMATOLOGY Lymphocytes # 1.4 K/CMM 1.0 - 5.5 04/28 [facility]2016 [facility] HEMATOLOGY Basophils 1.0 % 0.0 - 1.0 04/28 [facility] [place] /2017 [facility] HEMATOLOGY Eosinophils 3.9 % 0.0 - 4.0 04/28 [facility] HEMATOLOGY Lymphocytes 20.2 % 20.0 - 04/28 40.0 [facility] HEMATOLOGY Segs-Bands # 4.5 K/CMM 1.5 - 8.1 04/28 [facility] HEMATOLOGY MCH 27.7 pg 27.0 - 04/28 31.0 [facility] HEMATOLOGY MCV 87.3 fL 80.0 - 04/28 98.0 [facility] HEMATOLOGY MPV 7.2 fL 7.4 - 10.4 04/28 [facility] HEMATOLOGY RBC 4.24 M/CMM 4.20 - 04/28 5.40 [facility] HEMATOLOGY WBC 6.8 K/CMM 3.7 - 10.4 04/28 [facility] HEMATOLOGY Hct 37.0 % 36.0 - 04/28 48.0 [facility] HEMATOLOGY Hgb 11.7 g/dL 12.0 - 04/28 16.0 [facility] HEMATOLOGY MCHC 31.7 g/dL 32.0 - 04/28 36.0 [facility] HEMATOLOGY RDW 16.6 % 11.5 - 04/28 14.5 [facility] HEMATOLOGY Platelet 212 K/CMM 133 - 450 04/28 [facility] IMMUNOLOGY Prealbumin 13.4 mg/dL 18.0 - 04/27 45.0 [facility] CHEM PANEL Magnesium Lvl 2.4 mg/dL 1.8 - 2.4 04/26 2016 [facility] CHEM PANEL Phosphorus 2.8 mg/dL 2.5 - 4.5 04/26 [facility] CHEM PANEL eGFR 89 04/26 Result Comment: The eGFR is calculated using the CKD-EPI formula. In most young, healthy individuals the eGFR will be >90 mL/ min/1.73m2. The eGFR declines with age. An eGFR of 60-89 may be normal in [facility] mL/min/1. some populations, particularly the elderly, for whom the CKD-EPI formula has not been extensively validated. Use of the eGFR is not recommended in the following populations: [address] Individuals with unstable creatinine concentrations, including [...] PANEL AGAP 11.5 meq/L 10.0 - 04/26 [facility] 20.0 [facility] CHEM PANEL Potassium Lvl 4.5 meq/L 3.5 - 5.1 04/[address] CHEM PANEL Chloride Lvl 104 meq/L 95 - 109 04/[address] CHEM PANEL Calcium Lvl 7.9 mg/dL 8.5 - 10.5 04/[address] CHEM PANEL BUN 15 mg/dL 7 - 22 04/[address] CHEM PANEL Sodium Lvl 139 meq/L 135 - 145 04/[address] CHEM PANEL Creatinine 0.71 mg/dL 0.50 - 04/26 [facility] Lvl 1.40 [facility] CHEM PANEL CO2 28 meq/L 24 - 32 04/[address] CHEM PANEL Glucose Lvl 114 mg/dL 70 - 99 04/[address] HEMATOLOGY Eosinophils # 0.3 K/CMM 0.0 - 0.5 04/[address] HEMATOLOGY Lymphocytes # 1.8 K/CMM 1.0 - 5.5 04/[address] HEMATOLOGY Monocytes # 0.8 K/CMM 0.0 - 0.8 04/[address] HEMATOLOGY Segs 67.0 % 45.0 - 04/26 [facility] 75.0 [facility] HEMATOLOGY Lymphocytes 20.3 % 20.0 - 04/26 [facility] 40.0 [facility] HEMATOLOGY Eosinophils 3.1 % 0.0 - 4.0 04/[address] HEMATOLOGY Monocytes 9.0 % 2.0 - 12.0 04/26 [address] HEMATOLOGY Segs-Bands # 5.9 K/CMM 1.5 - 8.1 04/[address] HEMATOLOGY Basophils 0.6 % 0.0 - 1.0 04/[address] HEMATOLOGY RBC 4.57 M/CMM 4.20 - 04/26 [facility] 5.40 /2016 [facility] HEMATOLOGY WBC 8.8 K/CMM 3.7 - 10.4 04/26 [facility] HEMATOLOGY Hgb 12.8 g/dL 12.0 - 04/26 [facility] 16.0 [facility] HEMATOLOGY Hct 40.3 % 36.0 - 04/26 [facility] 48.0 /2016 [facility] HEMATOLOGY MCH 28.0 pg 27.0 - 04/26 31.0 [facility] HEMATOLOGY RDW 16.7 % 11.5 - 04/26 [facility] 14.5 /2016 [facility] HEMATOLOGY MCHC 31.7 g/dL 32.0 - 04/26 [facility] 36.0 [facility] HEMATOLOGY MPV 7.5 fL 7.4 - 10.4 04/26 [facility] HEMATOLOGY Platelet 213 K/CMM 133 - 450 04/26 [facility] HEMATOLOGY MCV 88.2 fL 80.0 - 04/26 [facility] 98.0 [facility] URINE AND UA <=1.0 0.1 - 1.0 04/25 [facility] Urobilinogen mg/dL [facility] URINE AND UA Sq Epi Occasional Few /LPF 04/25 [facility] STOOL /LPF [facility] URINE AND UA Bili Negative Negative 04/25 [facility] *NA* [place] (04/25/17 10:22 AM) URINE AND UA Mucus Few /LPF None Seen 04/25 [facility] /LPF [facility] URINE AND UA Ketones Negative Negative 04/25 [facility] mg/dL mg/dL [facility] URINE AND UA Blood Negative Negative 04/25 [facility] (04/25/17 10:22 AM) [place] URINE AND UA Nitrite Negative Negative 04/25 [facility] (04/25/17 10:22 AM) [place] URINE AND UA Leuk Est Negative Negative 04/25 [facility] (04/25/17 10:22 AM) [place] URINE AND UA WBC 1 /HPF 0 - 5 04/25 [facility] [address] [place] [address] URINE AND UA Protein Negative Negative 04/25 [facility] mg/dL mg/dL [facility] URINE AND UA Glucose Negative Negative 04/25 [facility] mg/dL mg/dL [facility] URINE AND UA Color Yellow Yellow 04/25 [facility] *NA* [place] (04/25/17 10:22 AM) URINE AND UA pH 5.5 5.0 - 8.0 04/25 [facility] URINE AND UA Spec Grav 1.017 <=1.030 04/25 [facility] URINE AND UA Turbidity Clear Clear 04/25 [facility] (04/25/17 10:22 AM) Center Abdomen AP Abdomen AP DX EXAM: XR ABDOMEN 1 VIEW 04/25 - [facility] This report was dictated by a Neurodiagnostic Technician/Fellow. I have personally reviewed the images as [...] Phosphorus 3.4 mg/dL 2.5 - 4.5 04/25 [facility] CHEM PANEL Magnesium Lvl 2.5 mg/dL 1.8 - 2.4 04/25 [facility] [place] [address] Chest 1view Chest 1view EXAM: XR CHEST 1 VIEW 04/25 - [facility] DX - [facility] DATE: 04/25/2017 6:24 AM CDT Read [...] atelectasis. BLOOD BANK Antibody Scrn Negative 04/23 [facility] (04/23/17 9:08 AM) [place] BLOOD BANK ABO/Rh O POS 04/23 [facility] [address] [place] [address] CHEM PANEL B/C Ratio 20 6 - 25 04/[address] CHEM PANEL Globulin 3.9 g/dL 2.7 - 4.2 04/[address] CHEM PANEL A/G Ratio 1.0 0.7 - 1.6 04/[address] CHEM PANEL ALT 38 unit/L 0 - 65 04/[address] CHEM PANEL Total Protein 7.7 g/dL 6.4 - 8.4 04/[address] CHEM PANEL Albumin Lvl 3.8 g/dL 3.5 - 5.0 04/[address] CHEM PANEL AST 34 unit/L 0 - 37 04/[address] CHEM PANEL Alk Phos 106 unit/L 39 - 136 04/[address] CHEM PANEL Bili Total 0.3 mg/dL 0.2 - 1.3 04/[address] HEMATOLOGY Basophils # 0.1 K/CMM 0.0 - 0.2 04/[address] SPECIAL Hgb A1C 7.1 % <=5.6 % 04/21 [facility] CHEMISTRY /[address] [place] [address] Chest 2 Chest 2 views EXAM: XR CHEST 2 VIEWS 04/21 - [place] [facility] DX - [facility] DATE: 04/21/2017 12:49 PM CDT Read [...] Date Comments Source Heart Rate 84 04/29/2017 [facility] Respitory Rate 20 04/29/2017 [facility] Systolic (mm Hg) 130 04/29/2017 [facility] Diastolic (mm Hg) 77 04/29/2017 [facility] Temperature Oral (F) 97.7 F 04/29/2017 [facility] Temperature Oral (F) 97.8 F 04/29/2017 [facility] Heart Rate 85 04/29/2017 [facility] Systolic (mm Hg) 129 04/29/2017 [facility] Diastolic (mm Hg) 77 04/29/2017 [facility] Respitory Rate 18 04/29/2017 [facility] Respitory Rate 18 04/29/2017 [facility] Systolic (mm Hg) 147 04/29/2017 [facility] Diastolic (mm Hg) 80 04/29/2017 [facility] Temperature Oral (F) 97.5 F 04/29/2017 [facility] Heart Rate 80 04/29/2017 [facility] Height 160.02 cm 04/24/2017 [facility] BMI Calculated 45.09 04/24/2017 [facility] Weight 115.455 04/24/2017 [facility] Weight 115.455 04/23/2017 [facility] BMI Calculated 44.38 04/23/2017 [facility] Height 161.29 cm 04/23/2017 [facility] Height 161.29 cm 04/21/2017 [facility] BMI Calculated 44.38 04/21/2017 [facility] Weight 115.455 04/21/2017 [facility] Encounters Location Location Encounter Encounter Reason Attending ADM DC Status Source Details Type Number For Provider Date Date Visit [facility] [id number] Marc 04/23 04/29 [facility] /2016 [facility] Procedures Procedure Code Date Perfomer Comments Source Cholecystectomy [id number] [facility] Hernia repair [id number] [facility] Hysterectomy [id number] [facility] Knee joint operation [id number] [facility]
[2019-03-28] MEDS ORDERED: IBUPROFEN 400 MG TAB ONE (11:57)
--- NOTE | 2019-03-28 12:17 | RAD REPORT ---
EXAM DESCRIPTION: RAD - Wrist Left 3 View - 03/28/2019 12:09 pm CLINICAL HISTORY: Pain;Swelling Pain COMPARISON: <Comparisons> FINDINGS: Arthritic changes are present involving the radiocarpal joint and first carpometacarpal amina int. Soft tissue swelling is seen involving the dorsal aspect of the hand. No acute fracture evident .
[2019-03-28] MEDS ORDERED: MORPHINE 4 MG/ML SYR ONE (12:45)
[2019-03-28] MEDS ORDERED: KETOROLAC 30 MG/ML INJ ONE (12:45)
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
--- NOTE | 2019-03-28 12:50 | EDPHYS ---
Physician Documentation [facility] Name: Adi Gifford Age: 68 yrs Sex: Female : 1950 Arrival Date: 03/28/2019 Time: 11:11 Bed 5 Private MD: ED Physician Rasheed French HPI: 03/28 11:45 This 68 yrs old Female presents to ER via Ambulatory with complaints of Wrist cp Injury. 11:45 The patient or guardian reports decreased range of motion, injury, pain, swelling, cp tenderness. The complaints affect the left wrist diffusely. Context: resulted from a fall. Onset: The symptoms/episode began/occurred last night. Associated signs and symptoms: Pertinent negatives: cyanosis distally, numbness distally. Historical: - Allergies: 11:47 No Known Allergies; iw - PMHx: 11:47 CHF; Depression; High Cholesterol; Hypertension; Hypothyroidism; Myocardial infarction; iw - PSHx: 11:47 Hysterectomy; Cholecystectomy; Hernia repair; Knee surgery; Bladder suspension; IVC iw filter; cardiac stents; - Immunization history:: Adult Immunizations up to date. - Social history:: Smoking status: Patient/guardian denies using tobacco. - Ebola Screening: : Patient negative for fever greater than or equal to 101.5 degrees Fahrenheit, and additional compatible Ebola Virus Disease symptoms Patient denies exposure to infectious person Patient denies travel to an Ebola-affected area in the 21 days before illness onset No symptoms or risks identified at this time. ROS: 11:50 Constitutional: Negative for body aches, chills, fever, poor PO intake. cp 11:50 Eyes: Negative for injury, pain, redness, and discharge. cp 11:50 Neck: Negative for pain with movement, pain at rest, stiffness, bony tenderness. 11:50 Cardiovascular: Negative for chest pain, palpitations. 11:50 Respiratory: Negative for cough, shortness of breath, wheezing. 11:50 Abdomen/GI: Negative for abdominal pain, nausea, vomiting, and diarrhea. 11:50 Back: Negative for decreased range of motion. 11:50 MS/extremity: Positive for injury or acute deformity, decreased range of motion, pain, swelling, tenderness, Negative for paresthesias, warmth. 11:50 Skin: Negative for cellulitis, rash. 11:50 Neuro: Negative for altered mental status, headache, loss of consciousness. 11:50 All other systems are negative. Exam: 12:00 Constitutional: The patient appears in no acute distress, alert, awake, non-toxic, well cp developed, well nourished, uncomfortable. 12:00 Head/Face: Normocephalic, atraumatic. cp 12:00 Eyes: Periorbital structures: appear normal, Conjunctiva: normal, no exudate, no injection, Lids and lashes: appear normal, bilaterally. 12:00 ENT: External ear(s): are unremarkable, Nose: is normal, Mouth: is normal, Posterior pharynx: Airway: no evidence of obstruction, patent. 12:00 Neck: C-spine: vertebral tenderness, is not appreciated, crepitus, is not appreciated, ROM/movement: pain, is not appreciated, limited range of motion, is not appreciated. 12:00 Chest/axilla: Inspection: normal, Palpation: is normal, no crepitus, no tenderness. 12:00 Cardiovascular: Rate: normal, Rhythm: regular. 12:00 Respiratory: the patient does not display signs of respiratory distress, Respirations: normal, no use of accessory muscles, no retractions, no splinting, no tachypnea. 12:00 Back: ROM is normal, vertebral tenderness, is not appreciated. Vital Signs: 11:46 BP 155 / 89; Pulse 82; Resp 16; Pulse Ox 98% on R/A; Weight 108.86 kg; Height 5 ft. 3 iw in. (160.02 cm); Pain 10/10; 13:09 BP 150 / 85; Pulse 86; Resp 18; Pulse Ox 100% on R/A; hj 11:46 Body Mass Index 42.51 (108.86 kg, 160.02 cm) iw MDM: 11:35 Patient medically screened. 03/28 11:40 Order name: XRAY Wrist LEFT 3 view; Complete Time: 12:27 cp 03/28 12:27 Interpretation: Reviewed. 03/28 12:30 Order name: Splint: sugar tong thumb spica; Complete Time: 12:55 cp Administered Medications: 11:47 Not Given (Patient Refused; per PCP, doesnt want her to take ibuprofen): Ibuprofen 800 hj mg PO once 12:31 Drug: morphine 4 mg Route: IM; Site: right deltoid; hj 13:11 Follow up: Response: No adverse reaction; Pain is decreased hj 12:31 Drug: TORadol 60 mg Route: IM; Site: left deltoid; hj Disposition: 03/28/19 12:49 Discharged to Home. Impression: Pain in left wrist. - Condition is Stable. - Discharge Instructions: Wrist Pain. - Prescriptions for Ibuprofen 800 mg Oral Tablet - take 1 tablet by ORAL route every 8 hours As needed take with food; 30 tablet. - Medication Reconciliation Form, Thank You Letter, Antibiotic Education, Prescription Opioid Use form. - Follow up: Vikash Angel MD; When: 2 - 3 days; Reason: left wrist injury. - Problem is new. - Symptoms have improved. Signatures: Dispatcher [employer] EDTN Maria Isabel Reilly RN RN Mio Arizmendi RN RN Tay Romo PA PA cp Corrections: (The following items were deleted from the chart) 12:06 11:41 Wrist Left 3 View ordered. [facility] EDTN 13:10 12:49 03/28/2019 12:49 Discharged to Home. Impression: Pain in left wrist. Condition is hj Stable. Forms are Medication Reconciliation Form, Thank You Letter, Antibiotic Education, Prescription Opioid Use. Follow up: Vikash Angel; When: 2 - 3 days; Reason: left wrist injury. Problem is new. Symptoms have improved. cp
[2019-03-28 13:16] VITALS: BP 150/85; O2SAT 100
== END 2019-03-28 13:10 | disposition home or self-care (01) ==
LOC: ER 11:10
DX: M25.532 Pain in left wrist (principal); W19.XXXA Unspecified fall, initial encounter; Y93.9 Activity, unspecified; Y92.9 Unspecified place or not applicable; Z95.818 Presence of other cardiac implants and grafts; I10 Essential (primary) hypertension; I25.2 Old myocardial infarction

== ENCOUNTER 2020-09-02 14:10 | Emergency (ER) | payer MEDICARE ==
[2020-09-02] MEDS ORDERED: ONDANSETRON 4 MG/2 ML VIAL ONE (16:33)
[2020-09-02] MEDS ORDERED: MORPHINE 4 MG/ML SYR ONE (16:33)
[2020-09-02 16:56] LABS: Absolute Lymphocytes (CBC) 1.4 K/uL (0.7-4.9); Hematocrit 44.5 % (36.0-45.0); Lymphocytes % 30.3 % (15.3-44.8); RBC Red Blood Cell Count 5.42 M/uL (3.86-4.86)
[2020-09-02 17:11] LABS: ALT/SGPT 21 U/L (12-78); AST/SGOT 11 U/L (15-37); Albumin 3.4 g/dL (3.4-5.0); Alkaline Phosphatase 82 U/L (45-117); BUN Blood Urea Nitrogen 13 mg/dL (7-18); Bicarbonate 30 mmol/L (21-32); Bilirubin Direct < 0.1 mg/dL (0-0.2); Bilirubin Total 0.3 mg/dL (0.2-1.0); Glucose Level 81 mg/dL (74-106); Protein, Total 7.8 g/dL (6.4-8.2); Sodium Level 142 mmol/L (136-145)
[2020-09-02 17:12] LABS: Lipase 146 U/L (73-393)
[2020-09-02 17:30] LABS: Urine Bacteria LOADED /HPF (<20); Urine Culture Reflex Order NOT NEEDED; Urine RBC <5 /HPF (NONE SEEN)
--- NOTE | 2020-09-02 17:59 | EDPHYS ---
Physician Documentation [facility] Name: Adi Gifford Age: 69 yrs Sex: Female : 1950 Arrival Date: 09/02/2020 Time: 14:12 Bed 18 Private MD: ED Physician Jonathan Adams HPI: 09/02 16:16 This 69 yrs old Female presents to ER via EMS with complaints of Flank Pain. pm1 16:16 The patient complains of pain in the right low back. The pain does not radiate. Onset: pm1 The symptoms/episode began/occurred 1 week(s) ago. Modifying factors: The symptoms are alleviated by nothing. the symptoms are aggravated by nothing. Associated signs and symptoms: Pertinent positives: diarrhea, dysuria, Pertinent negatives: fever, nausea, vomiting. Severity of pain: in the emergency department the pain is actually worse. The patient has not experienced similar symptoms in the past. The patient has not recently seen a physician. Historical: - Allergies: 14:22 No Known Allergies; ca1 - PMHx: 14:22 CHF; Depression; High Cholesterol; Hypertension; Hypothyroidism; Myocardial infarction; ca1 - PSHx: 14:22 Hysterectomy; Cholecystectomy; Hernia repair; Knee surgery; Bladder suspension; IVC ca1 filter; cardiac stents; - Immunization history:: Adult Immunizations up to date, Flu vaccine is not up to date. - Social history:: Smoking status: Patient denies any tobacco usage or history of. ROS: 16:16 Constitutional: Negative for fever, chills, and weight loss, Neck: Negative for injury, pm1 pain, and swelling, Cardiovascular: Negative for chest pain, palpitations, and edema, Respiratory: Negative for shortness of breath, cough, wheezing, and pleuritic chest pain. 16:16 MS/Extremity: Negative for injury and deformity, Skin: Negative for injury, rash, and discoloration, Neuro: Negative for headache, weakness, numbness, tingling, and seizure. 16:16 Abdomen/GI: Positive for diarrhea, Negative for abdominal pain, nausea and vomiting. 16:16 Back: Positive for of the right low back, Pain. 16:16 : Positive for urinary frequency, small amounts, burning with urination. Exam: 16:16 Constitutional: This is a well developed, well nourished patient who is awake, alert, pm1 and in no acute distress. Head/Face: Normocephalic, atraumatic. Cardiovascular: Regular rate and rhythm with a normal S1 and S2. No gallops, murmurs, or rubs. Normal PMI, no JVD. No pulse deficits. Respiratory: Lungs have equal breath sounds bilaterally, clear to auscultation and percussion. No rales, rhonchi or wheezes noted. No increased work of breathing, no retractions or nasal flaring. Abdomen/GI: Soft, non-tender, with normal bowel sounds. No distension or tympany. No guarding or rebound. No evidence of tenderness throughout. 16:16 Skin: Warm, dry with normal turgor. Normal color with no rashes, no lesions, and no evidence of cellulitis. MS/ Extremity: Pulses equal, no cyanosis. Neurovascular intact. Full, normal range of motion. 16:16 Back: pain, that is mild, of the right low back, vertebral tenderness, is not appreciated. 16:16 Neuro: Exam negative for acute changes, Orientation: is normal, Mentation: is normal, Motor: is normal, moves all fours. Vital Signs: 14:53 BP 142 / 76; Pulse 68; Resp 18 S; Temp 97(TE); Pulse Ox 98% on R/A; Weight 98.88 kg ca1 (R); Height 5 ft. 4 in. (162.56 cm) (R); Pain 10/10; 17:00 BP 154 / 66; Pulse 69; Resp 18; Pulse Ox 98% ; ah 17:30 BP 165 / 84; Pulse 59; Resp 18; Pulse Ox 99% ; ah 14:53 Body Mass Index 37.42 (98.88 kg, 162.56 cm) ca1 MDM: 16:16 Patient medically screened. pm1 17:58 Data reviewed: vital signs. Data interpreted: Pulse oximetry: on room air is 99 %. pm1 Interpretation: normal. Counseling: I had a detailed discussion with the patient and/or guardian regarding: the historical points, exam findings, and any diagnostic results supporting the discharge/admit diagnosis, lab results, the need for outpatient follow up, to return to the emergency department if symptoms worsen or persist or if there are any questions or concerns that arise at home. 18:40 ED course: Pain improved with deep muscle massage to left lower back while patient pm1 sitting down. Muscle spasm present and massaged to comfort. With massage working for her pain and the presence of a muscle spasm, this pain is not due to her chronic lumbar spine spondylosis or UTI. Patient already has a prescription for [place] from pain management and muscle relaxants are not a good option for the patient due to BEERS list. recommended OTC rubbing creams to the back and massage therapy. 09/02 15:03 Order name: Urine Culture snw 09/02 15:03 Order name: Urine Microscopic Only; Complete Time: 17:56 snw 09/02 16:17 Order name: Basic Metabolic Panel; Complete Time: 17:56 pm1 09/02 16:17 Order name: CBC with Diff; Complete Time: 17:56 pm1 09/02 16:17 Order name: Hepatic Function; Complete Time: 17:56 pm1 09/02 16:17 Order name: Lipase; Complete Time: 17:56 pm1 09/02 15:03 Order name: Urine Dipstick-Ancillary (obtain specimen); Complete Time: 17:16 snw 09/02 16:17 Order name: IV Saline Lock; Complete Time: 16:54 pm1 09/02 16:17 Order name: Labs collected and sent; Complete Time: 16:54 pm1 09/02 17:51 Order name: Urine Dipstick--Ancillary (enter results); Complete Time: 18:37 eb Administered Medications: 16:40 Drug: morphine 4 mg Route: IVP; Site: right antecubital; 18:15 Follow up: Response: No adverse reaction 16:45 Drug: Zofran (Ondansetron) 4 mg Route: IVP; Site: right antecubital; 18:15 Follow up: Response: No adverse reaction 18:23 Drug: Rocephin 1 grams Route: IV; Rate: calculated rate; Site: right antecubital; 18:37 Follow up: Response: No adverse reaction; IV Status: Completed infusion Disposition: 09/02/20 17:58 Discharged to Home. Impression: Urinary tract infection, site not specified. - Condition is Stable. - Discharge Instructions: Urinary Tract Infection, Adult. - Prescriptions for Bactrim DS 800- 160 mg Oral Tablet - take 1 tablet by ORAL route every 12 hours for 10 days; 20 tablet. Tylenol- Codeine #3 300-30 mg Oral Tablet - take 2 tablets by ORAL route every 6 hours As needed; 20 tablet. - Medication Reconciliation Form, Thank You Letter, Antibiotic Education, Prescription Opioid Use form. - Follow up: Emergency Department; When: As needed; Reason: Worsening of condition. Follow up: Private Physician; When: 2 - 3 days; Reason: Recheck today's complaints, Continuance of care, Re-evaluation by your physician. - Problem is new. - Symptoms have improved. Addendum: 09/04/2020 07:02 Co-signature as Attending Physician, Jonathan Adams MD I agree with the assessment and k dr plan of care. Signatures: Dispatcher [employer] EDMD Jonathan Adams MD MD kdr Waters, Shelly, STEFANIA-C SUBSYSTEMS ENGINEER-Juniorw Juwan Lopez NP MANAGER OF INTERNAL AUDIT pm1 Farnaz Calzada RN RN [facility] Rachel Sy RN RN Corrections: (The following items were deleted from the chart) 09/02 16:18 16:18 Lipase ordered. [facility] EDMD 18:38 17:58 09/02/2020 17:58 Discharged to Home. Impression: Urinary tract infection, site ah not specified. Condition is Stable. Forms are Medication Reconciliation Form, Thank You Letter, Antibiotic Education, Prescription Opioid Use. Follow up: Emergency Department; When: As needed; Reason: Worsening of condition. Follow up: Private Physician; When: 2 - 3 days; Reason: Recheck today's complaints, Continuance of care, Re-evaluation by your physician. Problem is new. Symptoms have improved. pm1
--- NOTE | 2020-09-02 17:59 | ER ---
Nurse's Notes [facility] Name: Adi Gifford Age: 69 yrs Sex: Female : 1950 Arrival Date: 09/02/2020 Time: 14:12 Bed 18 Private MD: Diagnosis: Urinary tract infection, site not specified Presentation: 09/02 14:19 Chief complaint: EMS states: R kidney pain x 1 week. R lower back pain x 1 week. Worse ca1 since then. Diarrhea x 1 week. No HX of kidney problems. Reports foul-smelling and cloudy urine. Denies fever. VS WNL. Coronavirus screen: Client denies travel out of the [place] in the last 14 days. diarrhea, fever, nausea, Client presents with at least one sign or symptom that may indicate coronavirus-19. Standard/surgical mask placed on the client. Provider contacted for isolation considerations. Ebola Screen: Patient negative for fever greater than or equal to 101.5 degrees Fahrenheit, and additional compatible Ebola Virus Disease symptoms Patient denies exposure to infectious person. Patient denies travel to an Ebola-affected area in the 21 days before illness onset. No symptoms or risks identified at this time. Onset of symptoms was September 02, 2020. 14:19 Method Of Arrival: EMS: [facility] 14:53 Chief complaint: Patient states: Report nausea. Denies vomiting. States, "Dr. Pérez, ca1 says I have chronic kidney problem but I don't know what he means be that". Reports Fever at the beginning of the week this week and urinating less. Initial Sepsis Screen: Does the patient meet any 2 criteria? No. Patient's initial sepsis screen is negative. Does the patient have a suspected source of infection? No. Patient's initial sepsis screen is negative. Risk Assessment: Do you want to hurt yourself or someone else? Patient reports no desire to harm self or others. 14:53 Acuity: RONI 3 ca1 Historical: - Allergies: 14:22 No Known Allergies; ca1 - PMHx: 14:22 CHF; Depression; High Cholesterol; Hypertension; Hypothyroidism; Myocardial infarction; ca1 - PSHx: 14:22 Hysterectomy; Cholecystectomy; Hernia repair; Knee surgery; Bladder suspension; IVC ca1 filter; cardiac stents; - Immunization history:: Adult Immunizations up to date, Flu vaccine is not up to date. - Social history:: Smoking status: Patient denies any tobacco usage or history of. Screenin:49 Abuse screen: Denies threats or abuse. Nutritional screening: No deficits noted. Tuberculosis screening: No symptoms or risk factors identified. Fall Risk None identified. Assessment: 16:50 General: Appears uncomfortable, Behavior is calm, cooperative, appropriate for age. Pain: Complains of pain in low back area Pain currently is 8 out of 10 on a pain scale. Neuro: Level of Consciousness is awake, alert, obeys commands, Oriented to person, place, time, situation, Appropriate for age. Cardiovascular: Capillary refill < 3 seconds Patient's skin is warm and dry. Respiratory: Airway is patent Respiratory effort is even, unlabored. : Reports urgency, dysuria Denies. Derm: Skin is intact, Skin is dry. 18:20 Reassessment: Rocephin administered per orders. 18:35 Reassessment: Discharge instructions given to patient and educated on prescriptions. Pt ah voiced understanding. Vital Signs: 14:53 BP 142 / 76; Pulse 68; Resp 18 S; Temp 97(TE); Pulse Ox 98% on R/A; Weight 98.88 kg ca1 (R); Height 5 ft. 4 in. (162.56 cm) (R); Pain 10/10; 17:00 BP 154 / 66; Pulse 69; Resp 18; Pulse Ox 98% ; ah 17:30 BP 165 / 84; Pulse 59; Resp 18; Pulse Ox 99% ; ah 14:53 Body Mass Index 37.42 (98.88 kg, 162.56 cm) ca1 ED Course: 14:12 Patient arrived in ED. as 14:21 Triage completed. ca1 14:22 Arm band placed on right wrist. ca1 16:07 Juwan Lopze NP is PHCP. pm1 16:07 Jonathan Adams MD is Attending Physician. pm1 16:08 Rachel Sy, RN is Primary Nurse. 16:49 Door closed. Warm blanket given. 16:49 Initial lab(s) drawn, by vt, sent to lab. Urine collected:. Inserted saline lock: 22 ah gauge in right antecubital area, using aseptic technique. Blood collected. 17:00 Straight cath inserted, using sterile technique, 18 Fr. Specimen obtained. Returned ca1 clear yellow urine. Patient tolerated well. 17:15 Urine collected:. Straight cath inserted, using sterile technique, 16 Fr. Specimen [facility] obtained. 17:16 Urine Culture Sent. [facility] 17:16 Urine Microscopic Only Sent. [facility] 17:50 Patient has correct armband on for positive identification. Bed in low position. Call light in reach. Side rails up X2. 18:37 No provider procedures requiring assistance completed. IV discontinued, intact, bleeding controlled, No redness/swelling at site. Pressure dressing applied. Administered Medications: 16:40 Drug: morphine 4 mg Route: IVP; Site: right antecubital; 18:15 Follow up: Response: No adverse reaction 16:45 Drug: Zofran (Ondansetron) 4 mg Route: IVP; Site: right antecubital; 18:15 Follow up: Response: No adverse reaction 18:23 Drug: Rocephin 1 grams Route: IV; Rate: calculated rate; Site: right antecubital; 18:37 Follow up: Response: No adverse reaction; IV Status: Completed infusion Outcome: 17:58 Discharge ordered by MD. pm1 18:36 Discharged to home ambulatory. 18:36 Condition: good 18:36 Discharge instructions given to patient, Instructed on discharge instructions, follow up and referral plans. medication usage, Demonstrated understanding of instructions, follow-up care, medications, Prescriptions given X 2. 18:38 Patient left the ED. Addendum: 09/06/2020 14:14 Addendum: Culture Results: Positive urine culture. Bacteria is resistant to, has i w intermediate sensitivity, or is not tested against prescribed antibiotics. Report given to YONY for further evaluation and then to brake rider for follow up with patient. Phone call Attempt #1 wrong number. Signatures: Zelda La Irene, RN RN iw Juwan Lopez NP PENSION ADVISER pm1 Shereen La [facility] Farnaz Calzada RN RN ca1 Rachel Sy RN RN Corrections: (The following items were deleted from the chart) 09/02 14:22 14:19 Acuity: RONI 4 ca1 ca1 14:56 14:19 Coronavirus screen: Client denies travel out of the [place] in the last 14 days. ca1 diarrhea, Client presents with at least one sign or symptom that may indicate coronavirus-19. Standard/surgical mask placed on the client. Provider contacted for isolation considerations. ca1 14:56 14:53 Chief complaint: Patient states: Report nausea. Denies vomiting. States, "Dr. tommy Pérez, says I have chronic kidney problem but I don't know what he means be that" ca1
[2020-09-02 18:05] LABS: Urine Blood 1+ (NEG); Urine Glucose NEGATIVE (NEG); Urine Protein NEGATIVE (NEG); Urine pH 6.5 (5.0-7.0)
[2020-09-02] MEDS ORDERED: CEFTRIAXONE/SWI 1gm 1 GM/10 ML SYR ONE (18:30)
[2020-09-02 18:45] VITALS: TEMP 97
[2020-09-02 18:48] VITALS: BP 165/84; O2SAT 99
--- OUTSIDE RECORDS SUMMARY | 2020-09-06 23:20 | XMS REPORT | Continuity of Care Document ---
:1950 Author Organization [employer] Care Team Providers Name Role Phone [employer] Unavailable Un available Problems Problem Status Onset Classification Date Comments Sourc e Date Reported RECURRENT VENTRAL Active 04/17/20 [facility] INCISIONAL HERNIA 17 [place] [facility] INCISIONAL HERNIA, Active 02/27/20 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 apnea syndrome Medic al (disorder) [place] Diabetes mellitus Active Problem 05/02/2017 [facility] type 2 (disorder) [facility] INCISIONAL HERNIA Active [facility] WITHOUT OBSTRUCTION Medical OR Center PERIUMBILICAL PAIN Active [facility] Medical [place] Medications Medication Details Route Status Patient Ordering Order Source Instructions Provider Date pantoprazole 40 40 mg = 1 tab, Active 04/29/ [facility] [place] mg oral enteric PO, Daily, 0 2016 Med ical coated tablet Refill(s) [place] Acetaminophen 300 1 - 2 tablets, Active 04/29[employer] MG / Codeine PO, Q6H, PRN 2017 Medica l Phosphate 30 MG Pain, not to Ramandeep ter Oral Tablet exceed 4000 mg [Tylenol with acetaminophen Codeine #3] per day, do not operate vehicle or machinery on medication., X 14 day, # 90 tab, 0 Refill(s) POLYETHYLENE 17 gm, PO, Active [facility] GLYCOL [id number] Bedtime, 2017 Medical MG/ML Oral Dissolve in 8 Center Solution oz. of water, X [Miralax] 7 day, # 1 ea, 1 Refill(s) Docusate Sodium 100 mg = 1 cap, Active 04/29[facility] [place] 100 MG Oral PO, BID, # 60 2017 Medica l Capsule cap, 1 Refill(s) Center tiotropium 0.018 18 microgram = 1 Active [facility] MG/ACTUAT inhalation, 2017 Medical Inhalant Powder INHALATION, Cent er [Spiriva] Daily, 0 Refill(s) tramadol Notes: Not to Inactive [facility] hydrochloride 50 exceed 2017 Medical MG Oral Tablet 400mg/day. (Same Center As: [facility]) tramadol Notes: Not to Inactive [facility] hydrochloride 50 exceed 2017 Medical MG Oral Tablet 400mg/day. (Same Center As: [facility]) pneumococcal Notes: Shake Inactive [place] 13-valent vaccine well prior to 2017 Medical use (Same as: Center Prevnar 13) Protonix Notes: Tablet [place] Longer [place] should not be Active 2017 Medical chewed or Center crushed. (Same as: Protonix) sennosides, CORRECTION Notes: (Same as: No Longer 04/27 [facility] Senokot) Active 2016 Medical Center Psyllium Notes: (Same as: [place] Longer [place] Metamucil) Mix Active 2017 Medical in 8 oz liquid Center with meal. Miralax Notes: Dissolve No Longer [place] in 8 oz of water Active 2016 Medical or juice. (Same Center as: Miralax) Isolyte S (PH Notes: (Same as: No Longer [facility] 7.4) 1000 mL Isolyte S PH Active 2016 Medica l 1,000 mL 7.4) Center Mag-Ox 400 Notes: (Same as: Inactive [facility] Mag-Ox 400) 2017 Medical Magnesium oxide Center [id number] elemental magnesium Dose=____mg magnesium oxide (___mg elemental magnesium) Acetaminophen Notes: Max [place] Longer [place] acetaminophen Active 2017 Medical 4000 mg/day (4 Center gm/day). (Same as: Tylenol Extra Strength) Morphine Notes: (Same No Longer [facility] as:MORPhine Active 2016 Medical Sulfate) Center Morphine Notes: (Same Inactive [facility] as:MORPhine 2016 Medical Sulfate) Center gabapentin 300 MG Notes: (Same as: No Longer [facility] Oral Capsule Neurontin) Active 2017 Medical Center phenol Notes: No Longer [facility] Chloraseptic Active 2017 Medical [place] (Same as: Center Chloraseptic, Sore Throat [place]) WASTE: F/P - Black; E - Municipal Trash Bin Flomax Notes: (Same As: No Longer [facility] Flomax) "Do Not Active 2016 Medical Crush" Center Thyroxine Notes: (Same as: No Longer [place] Synthroid) Active 2017 Medical Reconstitute Center with 5ml of NS. Final concentration = 20 micrograms/ml. Use immediately after reconstitution and discard remaining solution. Ofirmev Notes: Infuse No Longer [facility] over 15 minutes Active 2017 Medical Do not exceed Center 4gm/day of acetaminophen MEDICATION WASTE Product Size: 1000 mg Product Wasted: ___ mg Protonix Notes: For IV [place] Longer [place] push Active 2016 Medical reconstitute Center with 10 ml 0.9% sodium chloride and push over 2 minutes. (Same as: Protonix) Zofran Notes: (Same as: No Longer [facility] Zofran) Active 2016 Medical MEDICATION WASTE Center Product Size: 4 mg Product Wasted: ___ mg Morphine Notes: (Same No Longer [facility] as:MORPhine Active 2016 Medical Sulfate) Center Isolyte S (PH Notes: (Same as: No Longer [place] 7.4) 1000 mL Isolyte S PH Active 2017 Medica l 1,000 mL 7.4) Center Zofran Notes: (Same as: Inactive [place] Zofran) 2017 Medical Center Bisacodyl Notes: (Same As: Inactive [facility] [place] Dulcolax, 2017 Medical Correctol) (Do Center Not Crush) "Do Not Crush" Bisacodyl Notes: (Same As: Inactive [place] Dulcolax, 2017 Medical [place]isco-Lax) Center Lovenox Notes: (Same as: No Longer [facility] [place] Lovenox) Active 2017 Medical Center Plavix Notes: (Same As: No Longer [facility] [place] Plavix) Active 2017 Medical Center Allopurinol 300 mg, 1 tab, No Longer [place] Route: PO, Drug Active 2017 Medical form: TAB, Center Daily, Dosing Weight 115.455, kg, Start date: 04/24/17 9:00:00 CDT, Duration: 30 day, Stop date: 05/23/17 9:00:00 CDT Streptococcus Notes: Shake No Longer [facility] pneumoniae well prior to Active 2017 Medical serotype 1 use (Same as: [place] capsular antigen Prevnar 13) diphtheria [id number] protein conjugate vaccine / Streptococcus pneumoniae serotype 14 capsular antigen diphtheria [id number] protein conjugate vaccine / Streptococcus pneumoniae serotype 18C capsular antigen d Lovenox Notes: (Same as: Inactive [place] Lovenox) 2017 [facility] pantoprazole 40 mg, 1 tab, No Longer [facility] Route: PO, Drug Active 2016 Medical form: ECTAB, Center Daily, Dosing Weight 115.455, kg, Start date: 04/24/17 9:00:00 CDT, Duration: 30 day, Stop date: 05/23/17 9:00:00 CDT tiotropium 0.018 18 microgram, 1 No Longer 04/24 [employer] MG/ACTUAT inhalation, Active 2016 Medical Inhalant Powder Route: [place] [Spiriva] INHALATION, Drug form: CAP, Daily, Dosing Weight 115.455, kg, Start date: 04/24/17 9:00:00 CDT, Duration: 30 day, Stop date: 05/23/17 9:00:00 CDT Buspirone Notes: (Same As: No Longer [facility] BuSpar) Active 2017 [facility] Bumetanide Notes: (Same As: No Longer 04/24[employer] Bumex) Active 2017 Medical [place] Enoxaparin Notes: (Same as: Inactive [facility] Lovenox) 2017 [facility] Levothroid 75 microgram, 1 No Longer [facility] tab, Route: PO, Active 2016 Medical Drug form: TAB, [place] [id number], Dosing Weight 115.455, kg, Start date: 04/24/17 6:30:00 CDT, Duration: 30 day, Stop date: 05/23/17 6:30:00 CDT Acetaminophen Notes: [place] acetaminophen Active 2017 Medical 4000 mg/day (4 Center gm/day). (Same as: Tylenol Extra Strength) celecoxib Notes: NSAID. No Longer [place] as Please check Active 2017 Medical indication. Not Center for seizure. (Same As: CeleBREX) gabapentin 300 MG Notes: (Same as: No Longer [facility] Oral Capsule Neurontin) Active 2017 Medical Center pregabalin Notes: (Same as: No Longer [facility] Lyrica) Active 2017 Medical Center Docusate Sodium Notes: (Same as: No Longer 04/24 [facility] 50 MG Oral Colace) Active 2017 Medical Capsule [Colace] [place] Oxycodone Notes: (Same as: No Longer [facility] Hydrochloride 5 Roxicodone) Active 2017 [place]i [place] MG Oral Tablet Center Ofirmev Notes: Infuse Inactive [facility] over 15 minutes 2017 Medical Do not exceed Center 4gm/day of acetaminophen MEDICATION WASTE Product Size: 1000 mg Product Wasted: ___ mg Albuterol 0.833 Notes: (Same as: No Longer 04/23 [facility] MG/ML / Duoneb) Active 2017 [facility] Ipratropium [place] 0.167 MG/ML Inhalant Solution [DuoNeb] Insulin, Aspart, Notes: Roll in No Longer [facility] Human palms of hands Active 2017 Medical gently; Do not Center shake vigorously. (Same as: NovoLOG) "single patient use only" WASTE: F/P - Black; E - Municipal Trash Bin Stable for 28 days at room temperature. Expires in days from Da te Dextrose 50% 25 gm, 50 mL, No Longer [facility] Syringe Route: IVP, Drug Active 2016 Medical Form: INJ, Center Dosing Weight 115.455, kg, PRN, PRN Blood Glucose Results, Start date: 04/23/17 17:26:00 CDT, Duration: 30 day, Stop date: 05/23/17 17:25:00 CDT Glucagon 1 mg, Route: IM, No Longer [place] Drug form: Active 2017 Medical PDR/INJ, PRN, Center Dosing Weight 115.455, kg, PRN Blood Glucose Results, Start date: 04/23/17 17:26:00 CDT, Duration: 30 day, Stop date: 05/23/17 17:25:00 CDT hydromorphone Route: IV, Drug Inactive [facility] (ANES) form: INJ, ONCE, 2016 Medical Stop date: [place] 04/23/17 17:26:00 CDT neostigmine Route: IV, Drug Inactive [facility] (ANES) form: INJ, ONCE, 2016 Medical Stop date: [place] 04/23/17 17:26:00 CDT glycopyrrolate Route: IV, Drug Inactive [facility] (ANES) form: INJ, ONCE, 2016 Medical Stop date: [place] 04/23/17 17:26:00 CDT ondansetron Route: IV, Drug Inactive [facility] (ANES) form: INJ, ONCE, 2016 Medical Stop date: [place] 04/23/17 17:26:00 CDT cyclobenzaprine 10 mg, 1 tab, No Longer [facility] Route: PO, Drug Active 2016 Medical form: TAB, TID, [place] Dosing Weight 115.455, kg, PRN as needed for muscle spasm, Start date: 04/23/17 17:25:00 CDT, Duration: 30 day, Stop date: 05/23/17 17:24:00 CDT Dilaudid Notes: Same as: Inactive [place] Dilaudid [address] [place] [address] tramadol 50 mg, 1 tab, [place] hydrochloride 50 Route: PO, Drug Active 2016 Medical MG Oral Tablet form: TAB, Q6H, C enter Dosing Weight 115.455, kg, PRN Pain Score 1-3, Start date: 04/23/17 17:18:00 CDT, Duration: 30 day, Stop date: 05/23/17 17:17:00 CDT Isolyte S (PH 1,000 mL, Rate: No Longer [facility] 7.4) 1000 mL 35 ml/hr, Infuse Active 2016 Me dical 1,000 mL over: 28.6 hr, [place] Route: IV, Dosing Weight 115.455 kg, Total Volume: 1,000, Start date: 04/23/17 17:16:00 CDT, Stop date: 05/23/17 17:15:00 CDT rocuronium (ANES) Route: IV, Drug Inactive 04/23 [facility] form: INJ, ONCE, 2016 Medical Stop date: [place] 04/23/17 16:20:00 CDT dexamethasone Route: IV, Drug Inactive 04/23[facility] [place] (ANES) form: INJ, ONCE, 2016 Medical Stop date: [place] 04/23/17 16:07:00 CDT ketAMINE (ANES) Route: IV, Drug Inactive 04/23[employer] form: INJ, ONCE, 2016 Medical Stop date: [place] 04/23/17 16:05:00 CDT Promethazine 6.25 mg, Route: Inactive 04/23[facility] [place] IVPB, ONCE, 2016 Medical Dosing Weight Center 115.455, kg, PRN Nausea & Vomiting, Start date: 04/23/17 15:59:00 CDT Ondansetron 4 mg, Route: Inactive [facility] [place] IVP, ONCE, 2016 Medical Dosing Weight Center 115.455, kg, PRN Nausea & Vomiting, Start date: 04/23/17 15:59:00 CDT Hydralazine 10 mg, Route: Inactive 04/[place] [place] IVP, Q20Min, 2017 Medical Dosing Weight Center 115.455, kg, PRN Elevated BP, Start date: 04/23/17 15:59:00 CDT, Duration: 2 doses or times, Stop date: Limited # of times Hydromorphone 0.5 mg, Route: Inactive 04/23[facility] [place] IVP, Q5Min, 2016 Medical Dosing Weight Center 115.455, kg, PRN Pain Score 7-10, Start date: 04/23/17 15:59:00 CDT, Duration: 4 doses or times, Stop date: Limited # of times Labetalol 10 mg, Route: Inactive 04/23[facility] [place] IVP, Q5Min, 2016 Medical Dosing Weight Center 115.455, kg, PRN Elevated BP, Start date: 04/23/17 15:59:00 CDT, Duration: 5 doses or times, Stop date: Limited # of times Acetaminophen 1,000 mg, Route: Inactive [facility] [place] PO, Drug form: 2017 Medical TAB, ONCE, Center Dosing Weight 115.455, kg, PRN Pain Score 1-3, Start date: 04/23/17 15:59:00 CDT, Duration: 1 doses or times, Stop date: Limited # of times Naloxone 0.4 mg, Route: [place] IVP, Q2MIN, 2017 Medical Dosing Weight Center 115.455, kg, PRN Narcotic Reversal, Start date: 04/23/17 15:59:00 CDT, Duration: 8 doses or times, Stop date: Limited # of times Flumazenil 0.2 mg, Route: Inactive [place] IVP, PRN, Dosing 2017 Medical Weight 115.455, Center kg, PRN Benzodiazepine Reversal, Initial dose, Start date: 04/23/17 15:59:00 CDT, Duration: 30 day, Stop date: 05/23/17 15:58:00 CDT Oxycodone 5 mg, Route: PO, Inactive [place] Drug form: TAB, 2017 Medical Q4H, Dosing Center Weight 115.455, kg, PRN Pain Score 4-6, Start date: 04/23/17 15:59:00 CDT, Duration: 30 day, Stop date: 05/23/17 15:58:00 CDT rocuronium (ANES) Route: IV, Drug Inactive 04/23 [place] form: INJ, ONCE, 2016 Medical Stop date: [place] 04/23/17 15:40:00 CDT dexamethasone Route: IV, Drug Inactive [place] (ANES) form: INJ, ONCE, 2016 Medical Stop date: [place] 04/23/17 15:25:00 CDT famotidine (ANES) Route: IV, Drug Inactive 04/23 [employer] form: INJ, ONCE, 2016 Medical Stop date: [place] 04/23/17 15:25:00 CDT ketAMINE (ANES) Route: IV, Drug Inactive 04/23[facility] [place] form: INJ, ONCE, 2016 Medical Stop date: [place] 04/23/17 15:25:00 CDT metoprolol (ANES) Route: IV, Drug Inactive 04/23 [employer] form: INJ, ONCE, 2016 Medical Stop date: [place] 04/23/17 15:25:00 CDT midazolam (ANES) Route: IV, Drug Inactive 04/23[facility] [place] form: SOLN, 2017 Medical ONCE, Stop date: [place] 04/23/17 15:25:00 CDT lidocaine (ANES) Route: IV, Drug Inactive [facility] form: INJ, ONCE, 2016 Medical Stop date: [place] 04/23/17 15:25:00 CDT propofol (ANES) Route: IV, Drug Inactive [facility] form: INJ, ONCE, 2016 Medical Stop date: [place] 04/23/17 15:25:00 CDT succinylcholine Route: IV, Drug Inactive [place] (ANES) form: INJ, ONCE, 2016 Medical Stop date: [place] 04/23/17 15:25:00 CDT fentaNYL (ANES) Route: IV, Drug Inactive [facility] form: INJ, ONCE, 2016 Medical Stop date: [place] 04/23/17 15:25:00 CDT ceFAZolin (ANES) Route: IV, Drug Inactive [facility] form: INJ, ONCE, 2016 Medical Stop date: [place] 04/23/17 15:09:00 CDT LR 1000 mL INJ Route: IV, Total Inactive [facility] (ANES) Volume: 1,000, 2016 Medical Start date: [place] 04/23/17 13:50:00 CDT, Stop date: 04/23/17 14:50:00 CDT ceFAZolin Notes: Same as: No Longer Carlos concepcion Ancef Active 2016 [facility] Allergies, Adverse Reactions, Alerts No Known Medication Allergies Immunizations Immunization Date Site Status Last Updated Comments Sour ce Given pneumococcal Right completed [facility] as 13-valent 7 deltoid [facility] vaccine Center Results Order Name Results Value Reference Date Interpretation Comments Radha rce Range ELECTROLYTE AGAP 11.2 10.0 - 04/29 [facility] S 20.0 [facility] ELECTROLYTE Chloride Lvl 101 95 - 109 04/29 [place] [facility] ELECTROLYTE Potassium Lvl 3.2 3.5 - 5.1 04/29 [place] [facility] ELECTROLYTE Sodium Lvl 138 135 - 145 04/29 [place] [facility] ELECTROLYTE CO2 29 24 - 32 04/29 [facility] ELECTROLYTE Calcium Lvl 8.5 8.5 - 10.5 04/29 [place] [facility] ELECTROLYTE BUN 14 7 - 22 04/29 [facility] ELECTROLYTE Creatinine 0.72 0.50 - 04/29 [facility] S Lvl 1.40 [facility] ELECTROLYTE Glucose Lvl 98 70 - 99 04/29 [facility] ELECTROLYTE eGFR 87 04/29 [facility] Comment: The Medical eGFR is Center calculated using the CKD-EPI formula. In most young, healthy individuals the eGFR will be >90 mL/min/1.73m2 . The eGFR declines with age. An eGFR of 60-89 may be normal in some populations, particularly the elderly, for whom the CKD-EPI formula has not been extensively validated. Use of the eGFR is not recommended in the following populations:< br/>
Terrie viduals with unstable creatinine concentration s, including patients and those with serious co-morbid conditions.<b r/>
Patie nts with extremes in muscle mass or diet.

The data above are obtained from the National Kidney Disease Education Program (NKDEP) which additionally recommends that when the eGFR is used in patients with extremes of body mass index for purposes of drug dosing, the eGFR should be multiplied by the estimated BMI. HEMATOLOGY RBC 3.94 4.20 - 04/29 [place] 5.40 [facility] HEMATOLOGY Hgb 11.2 12.0 - 04/29 [place] 16.0 [facility] HEMATOLOGY Hct 34.0 36.0 - 04/29 [place] 48.0 [facility] HEMATOLOGY MCV 86.1 80.0 - 04/29 [facility] 98.0 [facility] HEMATOLOGY MCHC 33.1 32.0 - 04/29 [place] 36.0 [facility] HEMATOLOGY MCH 28.5 27.0 - 04/29 [place] 31.0 [facility] HEMATOLOGY RDW 16.2 11.5 - 04/29 [place] 14.5 [facility] HEMATOLOGY Platelet 213 133 - 450 04/29 [facility] HEMATOLOGY MPV 7.3 7.4 - 10.4 04/29 [facility] HEMATOLOGY WBC 6.4 3.7 - 10.4 04/[address] HEMATOLOGY Monocytes # 0.6 0.0 - 0.8 04/29 [place] [facility] HEMATOLOGY Eosinophils # 0.4 0.0 - 0.5 04/29 [facility] HEMATOLOGY Basophils # 0.1 0.0 - 0.2 04/29 [facility] 2016 [facility] HEMATOLOGY Segs 60.9 45.0 - 04/29 [facility] 75.0 [facility] HEMATOLOGY Lymphocytes 23.4 20.0 - 04/29 [facility] 40.0 [facility] HEMATOLOGY Eosinophils 5.6 0.0 - 4.0 04/29 [facility] HEMATOLOGY Monocytes 9.2 2.0 - 12.0 04/29 [facility]2016 [facility] HEMATOLOGY Basophils 0.9 0.0 - 1.0 04/29 [facility]2016 [facility] HEMATOLOGY Segs-Bands # 3.9 1.5 - 8.1 04/29 [facility] HEMATOLOGY Lymphocytes # 1.5 1.0 - 5.5 04/29 [facility]2016 [facility] ELECTROLYTE AGAP 11.4 10.0 - 04/28 [facility] [place] [facility] 20.0 [facility] ELECTROLYTE CO2 30 24 - 32 04/28 [facility] 2016 [facility] ELECTROLYTE Calcium Lvl 8.4 8.5 - 10.5 04/28 [facility] ELECTROLYTE BUN 11 7 - 22 04/28 [facility] 2016 [facility] ELECTROLYTE Creatinine 0.82 0.50 - 04/28 [facility] [place] [facility] Lvl 1.40 [facility] ELECTROLYTE Sodium Lvl 139 135 - 145 04/28 [facility] 2016 [facility] ELECTROLYTE Glucose Lvl 111 70 - 99 04/28 [facility] ELECTROLYTE Potassium Lvl 3.4 3.5 - 5.1 04/28 [place] [facility] ELECTROLYTE Chloride Lvl 101 95 - 109 04/28 [facility] ELECTROLYTE eGFR 74 04/28 [facility] Comment: The Medical eGFR is Center calculated using the CKD-EPI formula. In most young, healthy individuals the eGFR will be >90 mL/min/1.73m2 . The eGFR declines with age. An eGFR of 60-89 may be normal in some populations, particularly the elderly, for whom the CKD-EPI formula has not been extensively validated. Use of the eGFR is not recommended in the following populations:< br/>
Terrie viduals with unstable creatinine concentration s, including patients and those with serious co-morbid conditions.<b r/>
Patie nts with extremes in muscle mass or diet.

The data above are obtained from the National Kidney Disease Education Program (NKDEP) which additionally recommends that when the eGFR is used in patients with extremes of body mass index for purposes of drug dosing, the eGFR should be multiplied by the estimated BMI. HEMATOLOGY Monocytes 9.1 2.0 - 12.0 04/28 [facility] HEMATOLOGY Segs 65.8 45.0 - 04/28 [place] 75.0 [facility] HEMATOLOGY Basophils # 0.1 0.0 - 0.2 04/28 [facility] HEMATOLOGY Eosinophils # 0.3 0.0 - 0.5 04/28 [facility] HEMATOLOGY Monocytes # 0.6 0.0 - 0.8 04/28 [facility] HEMATOLOGY Lymphocytes # 1.4 1.0 - 5.5 04/28 [facility] HEMATOLOGY Basophils 1.0 0.0 - 1.0 04/28 [facility] HEMATOLOGY Eosinophils 3.9 0.0 - 4.0 04/28 [facility] HEMATOLOGY Lymphocytes 20.2 20.0 - 04/28 [place] 40.0 [facility] HEMATOLOGY Segs-Bands # 4.5 1.5 - 8.1 04/28 [facility] HEMATOLOGY MCH 27.7 27.0 - 04/28 [place] 31.0 [facility] HEMATOLOGY MCV 87.3 80.0 - 04/28 [place] 98.0 [facility] HEMATOLOGY MPV 7.2 7.4 - 10.4 04/28 [facility] HEMATOLOGY RBC 4.24 4.20 - 04/28 [place] 5.40 [facility] HEMATOLOGY WBC 6.8 3.7 - 10.4 04/28 [facility] HEMATOLOGY Hct 37.0 36.0 - 04/28 [place] 48.0 [facility] HEMATOLOGY Hgb 11.7 12.0 - 04/28 [place] 16.0 [facility] HEMATOLOGY MCHC 31.7 32.0 - 04/28 [place] 36.0 [facility] HEMATOLOGY RDW 16.6 11.5 - 04/28 [place] 14.5 [facility] HEMATOLOGY Platelet 212 133 - 450 04/28 [facility] IMMUNOLOGY Prealbumin 13.4 18.0 - 04/27 45.0 [facility] CHEM PANEL Magnesium Lvl 2.4 1.8 - 2.4 04/26 [facility] CHEM PANEL Phosphorus 2.8 2.5 - 4.5 04/26 [facility] CHEM PANEL eGFR 89 04/26 Result Comment: The [facility] eGFR is Center calculated using the CKD-EPI formula. In most young, healthy individuals the eGFR will be >90 mL/min/1.73m2 . The eGFR declines with age. An eGFR of 60-89 may be normal in some populations, particularly the elderly, for whom the CKD-EPI formula has not been extensively validated. Use of the eGFR is not recommended in the following populations:< br/>
Terrie viduals with unstable creatinine concentration s, including patients and those with serious co-morbid conditions.<b r/>
Patie nts with extremes in muscle mass or diet.

The data above are obtained from the National Kidney Disease Education Program (NKDEP) which additionally recommends that when the eGFR is used in patients with extremes of body mass index for purposes of drug dosing, the eGFR should be multiplied by the estimated BMI. CHEM PANEL AGAP 11.5 10.0 - 04/26 20. [facility] CHEM PANEL Potassium Lvl 4.5 3.5 - 5.1 04/26 [facility] CHEM PANEL Chloride Lvl 104 95 - 109 04/26 a s [facility] CHEM PANEL Calcium Lvl 7.9 8.5 - 10.5 04/26 [facility] CHEM PANEL BUN 15 7 - 22 04/26 [facility] CHEM PANEL Sodium Lvl 139 135 - 145 04/26 [facility] CHEM PANEL Creatinine 0.71 0.50 - 04/26 [facility] Lvl 1.40 [facility] CHEM PANEL CO2 28 24 - 32 04/26 [facility] CHEM PANEL Glucose Lvl 114 70 - 99 04/26 [facility] HEMATOLOGY Eosinophils # 0.3 0.0 - 0.5 04/26 [facility] HEMATOLOGY Lymphocytes # 1.8 1.0 - 5.5 04/26 [place] [facility] HEMATOLOGY Monocytes # 0.8 0.0 - 0.8 04/26 s [facility] HEMATOLOGY Segs 67.0 45.0 - 04/26 [place] 75.0 [facility] HEMATOLOGY Lymphocytes 20.3 20.0 - 04/26 [place] 40.0 [facility] HEMATOLOGY Eosinophils 3.1 0.0 - 4.0 04/26 s [facility] HEMATOLOGY Monocytes 9.0 2.0 - 12.0 04/26 [facility] HEMATOLOGY Segs-Bands # 5.9 1.5 - 8.1 04/26 [facility] HEMATOLOGY Basophils 0.6 0.0 - 1.0 04/26 [facility] HEMATOLOGY RBC 4.57 4.20 - 04/26 [place] 5.40 /2016 [facility] HEMATOLOGY WBC 8.8 3.7 - 10.4 04/26 [facility] HEMATOLOGY Hgb 12.8 12.0 - 04/26 [place] 16.0 [facility] HEMATOLOGY Hct 40.3 36.0 - 04/26 [place] 48.0 [facility] HEMATOLOGY MCH 28.0 27.0 - 04/26 31.0 [facility] HEMATOLOGY RDW 16.7 11.5 - 04/26 [place] 14.5 [facility] HEMATOLOGY MCHC 31.7 32.0 - 04/26 [place] 36.0 [facility] HEMATOLOGY MPV 7.5 7.4 - 10.4 04/26 [facility] HEMATOLOGY Platelet 213 133 - 450 04/26 [facility] HEMATOLOGY MCV 88.2 80.0 - 04/26 [place] 98.0 [facility] URINE AND UA <=1.0 0.1 - 1.0 04/25 [facility] STOOL Urobilinogen mg/dL /2016 [facility] URINE AND UA Sq Epi Occasional Few /LPF 04/25 [facility] STOOL /LPF [facility] URINE AND UA Bili Negative Negative 04/25 [facility] STOOL *NA* /2016 Medical (04/25/17 10:22 AM) Cente r URINE AND UA Mucus Few /LPF None Seen 04/25 [facility] STOOL /LPF /2016 [facility] URINE AND UA Ketones Negative Negative 04/25 [facility] STOOL mg/dL mg/dL [facility] URINE AND UA Blood Negative Negative 04/25 [facility] STOOL (04/25/17 10:22 AM) [facility] URINE AND UA Nitrite Negative Negative 04/25 [facility] STOOL (04/25/17 10:22 AM) [facility] URINE AND UA Leuk Est Negative Negative 04/25 [facility] STOOL (04/25/17 10:22 AM) [facility] URINE AND UA WBC 1 0 - 5 04/25 [facility] STOOL /2016 [facility] URINE AND UA Protein Negative Negative 04/25 [facility] mg/dL mg/dL [facility] URINE AND UA Glucose Negative Negative 04/25 [facility] mg/dL mg/dL [facility] URINE AND UA Color Yellow Yellow 04/25 [facility] STOOL *NA* /2016 Medical (04/25/17 10:22 AM) Cente r URINE AND UA pH 5.5 5.0 - 8.0 04/25 [facility] URINE AND UA Spec Grav 1.017 <=1.030 04/25 [facility] STOOL /2016 [facility] URINE AND UA Turbidity Clear Clear 04/25 [facility] (04/25/17 10:22 AM) [facility] CHEM PANEL Phosphorus 3.4 2.5 - 4.5 04/25 [facility] CHEM PANEL Magnesium Lvl 2.5 1.8 - 2.4 04/25 [facility] [place] [facility] BLOOD BANK Antibody Scrn Negative 04/23 [place] RESULTS (04/23/17 9:08 AM) [facility] BLOOD BANK ABO/Rh O POS 04/23 [place] RESULTS [facility] CHEM PANEL B/C Ratio 20 6 - 25 04/21 [facility] CHEM PANEL Globulin 3.9 2.7 - 4.2 04/21 [facility] CHEM PANEL A/G Ratio 1.0 0.7 - 1.6 04/21 [facility] CHEM PANEL ALT 38 0 - 65 04/21 [facility] CHEM PANEL Total Protein 7.7 6.4 - 8.4 04/21 [place] [facility] CHEM PANEL Albumin Lvl 3.8 3.5 - 5.0 04/21 [facility]2016 [facility] CHEM PANEL AST 34 0 - 37 04/21 [facility]2016 [facility] CHEM PANEL Alk Phos 106 39 - 136 04/21 [facility]2016 [facility] CHEM PANEL Bili Total 0.3 0.2 - 1.3 04/[address] HEMATOLOGY Basophils # 0.1 0.0 - 0.2 04/21 [facility]2016 [facility] SPECIAL Hgb A1C 7.1 <=5.6 % 04/21 [facility] /2016 [facility] Pathology Reports No Data Provided for This Section Diagnostic Reports Report Value Date Source Abdomen AP DX EXAM: XR ABDOMEN 1 VIEW 04/25/2017 [facility] DATE: 04/25/2017 1:13 PM CDT Cent er INDICATION: Extensive ventral hernia repair, no flatus/BM COMPARISON: Abdominal radiograph on 06/17/2007. TECHNIQUE: AP view of the abdomen. FINDINGS: Lines, tubes and hardware: N asogastric tube tip and side port project in the gastric fundus. IVC filter is noted. Left paramedian surgical trevon are seen. A Jones catheter projects over the pelvis. Mu ltiple drainage tubes are seen projecting over t he abdomen. Lower thorax: Unremarkable where visualized. Bowel: There is diffuse gase ous distention of the small and large bowel. The small bowel centrally appears mildly dilated up to 3.5 cm, suggestive of underlying ileus. No portal venous gas or pneumatosis is seen. Other abdominal organs: No abnormal mass or orga nomegaly seen. Calcifications: No abnormal calcifications found . Bones: No acute abnormality. Extraabdominal soft tissues: Normal. IMPRESSION: 1. Proportionate distention of the small and large bowel is suggestive of postoperative ileus. Continued follow-up with serial radiographs is recommended 2. Nasogastric tube tip and side port project i n the gastric fundus. Chest 1view DX EXAM: XR CHEST 1 VIEW 04/25/2017 [facility] DATE: 04/25/2017 6:24 AM CDT Cent er INDICATION: - leukocytosis post-op. FINDINGS: Comparison is made to April 21. The lungs are low in volume resulting in spurious widening of the cardiomediastinal silhouette and bilateral infrahilar subsegmental atelectasis. The costophrenic sulci are sharp, without effusions. Note is made of old healed left-sided rib fractu res. IMPRESSION: The lungs are lo w in volume with bilateral lower lobe subsegmental atelectasis. Chest 2 views DX EXAM: XR CHEST 2 VIEWS 04/21/2017 [facility] DATE: 04/21/2017 12:[address] INDICATION: - RECURRENT VENTRAL INCISIONAL LUCI IA COMPARISON: 06/15/2007 FINDINGS: Lines and Tubes: None Heart and Mediastinum: Unremarkable. Lungs and Pleura: Mild [place] scarring present. Minimal opacities in the lung bases statistically represent atelectasis, however, infectious process could have a similar appearance. Other: None. IMPRESSION: 1. No acute cardiopulmonary findings. Consultation Notes No Data Provided for This Section Discharge Summaries No Data Provided for This Section History and Physicals No Data Provided for This Section Vital Signs Vital Sign Value Date Comments Source Heart Rate 84 04/29/2017 [facility] Respitory Rate 20 04/29/2017 [facility] Systolic (mm Hg) 130 04/29/2017 [facility] [place] [facility] Diastolic (mm Hg) 77 04/29/2017 [facility] Temperature Oral (F) 97.7 F 04/29/2017 [facility] Temperature Oral (F) 97.8 F 04/29/2017 [facility] Heart Rate 85 04/29/2017 [facility] Systolic (mm Hg) 129 04/29/2017 [facility] [place] [facility] Diastolic (mm Hg) 77 04/29/2017 [facility] Respitory Rate 18 04/29/2017 [facility] Respitory Rate 18 04/29/2017 [facility] Systolic (mm Hg) 147 04/29/2017 [facility] Diastolic (mm Hg) 80 04/29/2017 [facility] Temperature Oral (F) 97.5 F 04/29/2017 [facility] Heart Rate 80 04/29/2017 [facility] Height 160.02 cm 04/24/2017 [facility] BMI Calculated 45.09 04/24/2017 [facility] Weight 115.455 04/24/2017 [facility] Weight 115.455 04/23/2017 [facility] BMI Calculated 44.38 04/23/2017 [facility] Height 161.29 cm 04/23/2017 [facility] Height 161.29 cm 04/21/2017 [facility] BMI Calculated 44.38 04/21/2017 [facility] Weight 115.455 04/21/2017 [facility] Encounters Location Location Encounter Encounter Reason Attending ADM DC Stat us Source Details Type Number For Provider Date Date Visit [facility] Inpatient [id number] Marc 04/23 04/29 [facility] /2016 [facility] Procedures Procedure Code Date Perfomer Comments Source Cholecystectomy [id number] [facility] Hernia repair [id number] [facility] Hysterectomy [id number] [facility] Knee joint operation [id number] [facility] Assessment and Plan Assessment and Plan Date Source Extracted from:Title: EGS Progress Note 04/29/2017 [facility] Author: Estrada Mishra MD Date: 04/29/17 Progress Note - Daily [facility] mpleted: Saturday, APRIL 29, 2017, 11:38 by Estrada Mishra MD RM: [id number], 6EJP HAILEY STOVER 66y (: 1950) F Attending: Marc Sevilla DO Service: Surgery Reason for Admission: RECURRENT VENTRAL INCISIONAL HERNIA Working DRG: Hernia procedures except inguinal and femoral w /o CC/ASSISTED Code status: None Specified=FULL CODE Isolation: None Documented Allergies: NKDA SUBJECTIVE Doing very well overnight. Had 3 large bowel movements. OBJECTIVE General: Alert and oriented, No acute distress. Eye: Extraocular movements are intact. HENT: Normocephalic. Respiratory: Respirations are non-labored; Symmetrical ches t wall expansion. Cardiovascular: Good pulses equal in all extremities. Gastrointestinal: Soft. Surgical site i s c/d/i. Cleaned and redresssed with 4x4 and [...] H Jones still necessary (Yes/No): Line still keyananicola peñaloza (Yes/No): Vitals Tmp(F) Pulse BP RR SpO2 FIO2 04/29 10:07 ---- --- ----- 18 95 21% 04/29 08:31 97.5 80 147/80 18 95 --- 04/29 03:33 97.5 73 123/68 18 96 --- 04/28 23:44 98.0 83 117/72 18 96 --- 04/28 21:15 ---- --- ----- 18 96 --- 24 Hr Tmax: 98.2F (36.78c) at 04/28 12:3 9 Vital Signs are the last 5 in [...] Bedtime 04/24/17 enoxaparin (Lovenox) 40 mg [id number] [id number] 04/26/17 gabapentin (gabapentin 300 mg oral capsule) 300 mg PO Q8H 04/26/17 levothyroxine 37 microgram IVP [id number] 04/27/17 pantoprazole (Protonix) 40 mg PO Daily 04/27/17 polyethylene glycol 3350 (MiraLax) 17 gm PO BID 04/27/17 psyllium 1 tsp PO BID 04/27/17 senna 8.6 mg PO BID 04/26/17 tamsulosin (Flomax) 0.4 mg PO After Breakfast 04/24/17 tiotropium (Spiriva 18 mcg inha lation capsule) 18 microgram INHALATION Daily 04/29/17 tramadol (tramadol 50 mg oral tablet) 50 mg PO Q6H Unscheduled Meds (1): 04/22/17 ceFAZolin 2 gm IVPB PRE OP 200 ml/hr PRN Meds (13): 04/23/17 Dextrose 50% in Water IV (Dextrose 50% Syringe) 12. 5 gm IVP PRN 04/23/17 Dextrose 50% in [...] phenol topical (Chloraseptic 1.4% spray) 1 spray TO P Daily 04/29/17 tramadol (tramadol 50 mg oral tablet) 50 mg PO Q6H One Time Meds: None Continuous Infusions (1): 04/27/17 Isolyte S (PH 7.4) 1000 mL 1,000 mL 1,000 mL 70 ml/ hr ASSESSMENT and PLAN 66y/o female with PMHx morbid obesity, a sthma, DM, HepC, GERD and Breast Ca s/p Ex-Lap, EDA, Retrorectus hernia repair with mesh [...] except BP meds as pressure are currently c ontrolled -Possible d/c today vs tomorrow if tolerating diet. Addendum by Estrada Mishra MD on 04/29/2017 11:4 2 xx Plan of Care No Data Provided for This Section Social History Social History Date Source Social History TypeResponse 04/21/2017 [facility] Substance Abuse Use: Current. Type: Marijuana. Recreat ional Drug Route: Inhaled. Frequency: 1-2 times per week.1 Smoking Status Never smoker; Type: Cigarettes; Exposure to Tobacco Smoke None; Cigarette Smoking Last 365 Days No; Reg Smoking Cessation Counseling No 1for pain Family History No Data Provided for This Section Advance Directives No Data Provided for This Section Functional Status No Data Provided for This Section
== END 2020-09-02 18:38 | disposition home or self-care (01) ==
LOC: ER 14:10
DX: N39.0 Urinary tract infection, site not specified (principal); I10 Essential (primary) hypertension; I25.2 Old myocardial infarction; Z95.818 Presence of other cardiac implants and grafts
CPT/HCPCS: 87088; 85025; 87086; 80048; 36415; 80076; 87077; 87186; 83690; 51702; 96375; 96374; 99284; J0696; J2405; 81003; 81015

== ENCOUNTER 2021-07-12 15:25 | Emergency (ER) | payer MEDICARE, OTHER ==
--- OUTSIDE RECORDS SUMMARY | 2021-07-12 15:29 | XMS REPORT | Continuity of Care Document ---
:1950 Author Organization [facility] t Address [address] [place] [address] Care Team Providers Name Role Phone Krupa WARD Attending Clinician Doctor Unassigned, Name Attending Clinician Unavailable Estrada Sevilla Attending Clinician Estrada Sevilla Admitting Clinician Problems Condition Condition Condition Status Onset Resolution Last Treating Co mments Source Name Details Category Date Date Treatment Clinician Date RECURRENT Diagnosis Active 2017-12-22 Memoria VENTRAL -18 08:52:00 l INCISIONAL 00:00: Michael n HERNIA RECURRENT 00 VENTRAL INCISIONAL HERNIA Active 04/17/2017 [facility] INCISIONAL Diagnosis Active 2017-04-14 Memoria HERNIA, - 09:34:00 l ABD PAIN, 00:00: Kranhti UMBILICAL INCISIONAL 00 P HERNIA, ABD PAIN, UMBILICAL P Active 02/26/2017 [facility] Diabetes Problem Active 2017-05-02 Mem oria mellitus 01:04:31 l type 2 Diabetes Michael n (disorder) mellitus type 2 (disorder) Active Problem 05/02/2017 [facility] INCISIONAL Diagnosis Active 2017-04-14 Memoria HERNIA 09:34:00 l WITHOUT [place] OBSTRUCTIO INCISIONAL N OR HERNIA WITHOUT OBSTRUCTIO N OR Active [facility] PERIUMBILI Diagnosis Active 2017-04-14 Memoria MARGARET PAIN 09:34:00 l Kranthi PERIUMBILI MARGARET PAIN Active [facility] Coronary Problem Active 2017-05-02 Mem oria arterioscl 01:04:31 l erosis Coronary Michael n (disorder) arterioscl erosis (disorder) Active Problem 05/02/2017 [facility] Body mass Problem Active 2017-05-02 Me moria index 40+ 01:04:31 l - severely Body Michael n obese mass index (finding) 40+ - severely obese (finding) Active Problem 05/02/2017 BMI-46.7 [facility] Hypertensi Problem Active 2017-05-02 M emoria ve 01:04:31 l disorder, [place] systemic Hypertensi arterial ve (disorder) disorder, systemic arterial (disorder) Active Problem 05/02/2017 [facility] Obstructiv Problem Active 2017-05-02 M emoria e sleep 01:04:31 l apnea [place] syndrome Obstructiv (disorder) e sleep apnea syndrome (disorder) Active Problem 05/02/2017 [facility] Allergies, Adverse Reactions, Alerts This patient has no known allergies or adverse reactions. Social History Social Habit Start Date Stop Date Quantity Comments Source Social History 2017-04-21 2017-04-21 [facility] fang 16:06:37 16:06:37 Medications Ordered Filled Start Stop Current Ordering Indication Dosage Frequency Signature Comments Components Source Medication Medication Date Date Medication? Clinician (SIG) Name Name pantoprazol Yes 40 mg = 1 M emoria e 40 mg 5-30 tab, PO, l oral 21:20: Daily, 0 [place] enteric 00 Refill(s) coated tablet Acetaminoph Yes 1 - 2 Memor ia en 300 MG / 5-30 tablets, l Codeine 21:20: PO, Q6H, Michael n Phosphate 00 PRN Pain, 30 MG Oral not to Tablet exceed [Tylenol 4000 mg with acetaminop Codeine #3] hen per day, do not operate vehicle or machinery on medication ., X 14 day, # 90 tab, 0 Refill(s) POLYETHYLEN Yes 17 gm, PO, Memoria E GLYCOL 5-30 Bedtime, l 3350 142 21:20: Dissolve Su nn MG/ML Oral 00 in 8 oz. Solution of water, [Miralax] X 7 day, # 1 ea, 1 Refill(s) Docusate Yes 100 mg = 1 Mem oria Sodium 100 5-30 cap, PO, l MG Oral 21:20: BID, # 60 Su nn Capsule 00 cap, 1 Refill(s) tiotropium Yes 18 Memoria 0.018 5-30 microgram l MG/ACTUAT 21:20: = 1 Kranthi Inhalant 00 inhalation Powder , [Spiriva] INHALATION , Daily, 0 Refill(s) tramadol No Notes: Not Mem oria hydrochlori 5-30 to exceed l de 50 MG 17:00: 400mg/day. Her duran Oral Tablet 00 (Same As: Ultram) tramadol No Notes: Not Mem oria hydrochlori 5-30 to exceed l de 50 MG 16:14: 400mg/day. Her duran Oral Tablet 00 (Same As: Ultram) pneumococca No Notes: Arnulfo magdi l 13-valent 5-30 Shake well l vaccine 15:00: prior to Michael n 00 use (Same as: Prevnar 13) Protonix No Notes: Memoria 5-28 Tablet l 15:00: should not Kranthi 00 be chewed or crushed. (Same as: Protonix) sennosides, No Notes: Arnulfo magdi FCI -28 (Same as: l 14:00: Senokot) Kranthi 00 Psyllium No Notes: Memoria 5-28 (Same as: l 14:00: Metamucil) [place] 00 Mix in 8 oz liquid with meal. Miralax No Notes: Memoria 5-28 Dissolve l 14:00: in 8 oz of [place] 00 water or juice. (Same as: Miralax) Isolyte S No Notes: Memori a (PH 7.4) -28 (Same as: l 1000 mL 13:45: Isolyte S Su nn 1,000 mL 00 PH 7.4) Mag-Ox 400 No Notes: Memor ia 5-28 (Same as: l 13:38: Mag-Ox Kranthi 00 400) Magnesium oxide 962vx=184a g elemental magnesium Dose=____m g magnesium oxide (___mg elemental magnesium) Acetaminoph No Notes: Max Memoria en 5-27 acetaminop l 23:00: hen 4000 Kranthi 00 mg/day (4 gm/day). (Same as: Tylenol Extra Strength) Morphine No Notes: Memoria 5-27 (Same l 23:00: as:MORPhin [place] e Sulfate) Morphine No Notes: Memoria 5-27 (Same l 18:04: as:MORPhin [place] e Sulfate) gabapentin No Notes: Memor ia 300 MG Oral 5- (Same as: l Capsule 18:03: Neurontin) Herm annmarie phenol No Notes: Memoria 5-27 Chlorasept l 18:00: ic [place] Kranthi (Same as: Chlorasept ic, Sore Throat [place]) WASTE: F/P - Black; E - Municipal Trash Bin Flomax No Notes: Memoria 5-27 (Same As: l 13:30: Flomax) [place] "Do Not Crush" Thyroxine No Notes: Memori a 5-27 (Same as: l 11:30: Synthroid) Reconstitu te with 5ml of NS. Final concentrat ion = 20 micrograms /ml. Use immediatel y after reconstitu tion and discard remaining solution. Ofirmev No Notes: Memoria 5-26 Infuse l 23:00: over 15 Kranthi 00 minutes Do not exceed 4gm/day of acetaminop hen MEDICATION WASTE Product Size: 1000 mg Product Wasted: ___ mg Protonix No Notes: For Mem oria 5-26 IV push l 22:00: reconstitu te with 10 ml 0.9% sodium chloride and push over 2 minutes. (Same as: Protonix) Zofran No Notes: Memoria 5-26 (Same as: l 21:48: Zofran) [place] 00 MEDICATION WASTE Product Size: 4 mg Product Wasted: ___ mg Morphine No Notes: Memoria 5-26 (Same l 21:06: as:MORPhin [place] 00 e Sulfate) Isolyte S No Notes: Memori a (PH 7.4) 5-26 (Same as: l 1000 mL 19:39: Isolyte S Su nn 1,000 mL 00 PH 7.4) Zofran No Notes: Memoria 5-26 (Same as: l 18:43: Zofran) [place] Bisacodyl No Notes: Memori a - (Same As: l 18:15: Dulcolax, Correctol) (Do Not Crush) "Do Not Crush" Bisacodyl No Notes: Memori a - (Same As: l 18:14: Dulcolax, Bisco-Lax) Lovenox No Notes: Memoria 5-26 (Same as: l 01:00: Lovenox) Plavix No Notes: Memoria 5-25 (Same As: l 19:22: Plavix) Allopurinol No 300 mg, 1 M emoria 5-25 tab, l 14:00: Route: PO, Drug form: TAB, Daily, Dosing Weight 115.455, kg, Start date: 04/24/17 9:00:00 CDT, Duration: 30 day, Stop date: 05/23/17 9:00:00 CDT Streptococc No Notes: Arnulfo magdi us 5-25 Shake well l pneumoniae 14:00: prior to Her duran serotype 1 00 use (Same capsular as: antigen Prevnar diphtheria 13) [id number] protein conjugate vaccine / Streptococc us pneumoniae serotype 14 capsular antigen diphtheria [id number] protein conjugate vaccine / Streptococc us pneumoniae serotype 18C capsular antigen d Lovenox No Notes: Memoria 5-25 (Same as: l 14:00: Lovenox) pantoprazol No 40 mg, 1 Me moria e 5-25 tab, l 14:00: Route: PO, Drug form: ECTAB, Daily, Dosing Weight 115.455, kg, Start date: 04/24/17 9:00:00 CDT, Duration: 30 day, Stop date: 05/23/17 9:00:00 CDT tiotropium No 18 Memoria 0.018 5-25 microgram, l MG/ACTUAT 14:00: 1 Kranthi Inhalant 00 inhalation Powder , Route: [Spiriva] INHALATION , Drug form: CAP, Daily, Dosing Weight 115.455, kg, Start date: 04/24/17 9:00:00 CDT, Duration: 30 day, Stop date: 05/23/17 9:00:00 CDT Buspirone No Notes: Memori a 5-25 (Same As: l 14:00: BuSpar) Kranthi Bumetanide No Notes: Memor ia 5-25 (Same As: l 14:00: Bumex) Enoxaparin No Notes: Memor ia 5-25 (Same as: l 12:00: Lovenox) Levothroid No 75 Memoria 5-25 microgram, l 11:30: 1 tab, [place] 00 Route: PO, Drug form: TAB, Q630AM, Dosing Weight 115.455, kg, Start date: 04/24/17 6:30:00 CDT, Duration: 30 day, Stop date: 05/23/17 6:30:00 CDT Acetaminoph No Notes: Max Memoria en 5-25 acetaminop l 07:00: hen 4000 [place] 00 mg/day (4 gm/day). (Same as: Tylenol Extra Strength) celecoxib No Notes: Memori a 5-25 NSAID. l 07:00: Please Kranthi 00 check indication . Not for seizure. (Same As: CeleBREX) gabapentin No Notes: Memor ia 300 MG Oral 5-25 (Same as: l Capsule 05:00: Neurontin) Herm annmarie 00 pregabalin No Notes: Memor ia 5-25 (Same as: l 02:00: Lyrica) Kranthi 00 Docusate No Notes: Memoria Sodium 50 5-25 (Same as: l MG Oral 02:00: Colace) Kranthi Capsule 00 [Colace] Oxycodone No Notes: Memori a Hydrochlori 5-25 (Same as: l de 5 MG 01:49: Roxicodone Herm annmarie Oral Tablet 00 ) Ofirmev No Notes: Memoria 5-24 Infuse l 23:00: over 15 [place] 00 minutes Do not exceed 4gm/day of acetaminop hen MEDICATION WASTE Product Size: 1000 mg Product Wasted: ___ mg Albuterol No Notes: Memori a 0.833 MG/ML 5-24 (Same as: l / 22:27: Duoneb) Ipratropium 00 [place] 0.167 MG/ML Inhalant Solution [DuoNeb] Insulin, No Notes: Memoria Aspart, 5-24 Roll in l Human 22:26: palms of hands gently; Do not shake vigorously . (Same as: NovoLOG) "single patient use only" WASTE: F/P - Black; E - [employer] Trash Bin Stable for 28 days at room temperatur e. Expires in days from ____Date Dextrose No 25 gm, 50 Arnulfo magdi 50% Syringe 5-24 mL, Route: l 22:26: IVP, Drug Form: INJ, Dosing Weight 115.455, kg, PRN, PRN Blood Glucose Results, Start date: 04/23/17 17:26:00 CDT, Duration: 30 day, Stop date: 05/23/17 17:25:00 CDT Glucagon No 1 mg, Memoria 5-24 Route: IM, l 22:26: Drug form: PDR/INJ, PRN, Dosing Weight 115.455, kg, PRN Blood Glucose Results, Start date: 04/23/17 17:26:00 CDT, Duration: 30 day, Stop date: 05/23/17 17:25:00 CDT hydromorpho No Route: IV, Memoria ne (ANES) 5-24 Drug form: l 22:26: INJ, ONCE, Stop date: 04/23/17 17:26:00 CDT neostigmine No Route: IV, Memoria (ANES) 5-24 Drug form: l 22:26: INJ, ONCE, Stop date: 04/23/17 17:26:00 CDT glycopyrrol No Route: IV, Memoria ate (ANES) 5-24 Drug form: l 22:26: INJ, ONCE, Stop date: 04/23/17 17:26:00 CDT ondansetron No Route: IV, Memoria (ANES) 5-24 Drug form: l 22:26: INJ, ONCE, Stop date: 04/23/17 17:26:00 CDT cyclobenzap 2016- No 10 mg, 1 Me moria rine 5-24 tab, l 22:25: Route: PO, Drug form: TAB, TID, Dosing Weight 115.455, kg, PRN as needed for muscle spasm, Start date: 04/23/17 17:25:00 CDT, Duration: 30 day, Stop date: 05/23/17 17:24:00 CDT Dilaudid 2016- No Notes: Memoria 5-24 Same as: l 22:20: Dilaudid tramadol No 50 mg, 1 Memor ia hydrochlori -24 tab, l de 50 MG 22:18: Route: PO, Her duran Oral Tablet 00 Drug form: TAB, Q6H, Dosing Weight 115.455, kg, PRN Pain Score 1-3, Start date: 04/23/17 17:18:00 CDT, Duration: 30 day, Stop date: 05/23/17 17:17:00 CDT Isolyte S No 1,000 mL, Mem oria (PH 7.4) 04-23 Rate: 35 l 1000 mL 22:16: ml/hr, Kranthi 1,000 mL 00 Infuse over: 28.6 hr, Route: IV, Dosing Weight 115.455 kg, Total Volume: 1,000, Start date: 04/23/17 17:16:00 CDT, Stop date: 05/23/17 17:15:00 CDT rocuronium No Route: IV, M emoria (ANES) 04-23 Drug form: l 21:20: INJ, ONCE, Stop date: 04/23/17 16:20:00 CDT dexamethaso No Route: IV, Memoria ne (ANES) 04-23 Drug form: l 21:07: INJ, ONCE, Stop date: 04/23/17 16:07:00 CDT ketAMINE No Route: IV, Mem oria (ANES) 24 Drug form: l 21:05: INJ, ONCE, Stop date: 04/23/17 16:05:00 CDT Promethazin 2017-0 No 6.25 mg, Me moria e 04-23 Route: l 20:59: IVPB, [place] 00 ONCE, Dosing Weight 115.455, kg, PRN Nausea & Vomiting, Start date: 04/23/17 15:59:00 CDT Ondansetron 2017-0 No 4 mg, Memor ia 04-23 Route: l 20:59: IVP, ONCE, [place] 00 Dosing Weight 115.455, kg, PRN Nausea & Vomiting, Start date: 04/23/17 15:59:00 CDT Hydralazine 2017-0 No 10 mg, Arnulfo magdi 04-23 Route: l 20:59: IVP, [place] 00 Q20Min, Dosing Weight 115.455, kg, PRN Elevated BP, Start date: 04/23/17 15:59:00 CDT, Duration: 2 doses or times, Stop date: Limited # of times Hydromorpho 2017-0 No 0.5 mg, Mem oria ne 04-23 Route: l 20:59: IVP, Kranthi 00 Q5Min, Dosing Weight 115.455, kg, PRN Pain Score 7-10, Start date: 04/23/17 15:59:00 CDT, Duration: 4 doses or times, Stop date: Limited # of times Labetalol 2017-0 No 10 mg, Memori a 04-23 Route: l 20:59: IVP, Kranthi 00 Q5Min, Dosing Weight 115.455, kg, PRN Elevated BP, Start date: 04/23/17 15:59:00 CDT, Duration: 5 doses or times, Stop date: Limited # of times Acetaminoph 2017-0 No 1,000 mg, M emoria en 04-23 Route: PO, l 20:59: Drug form: Kranthi 00 TAB, ONCE, Dosing Weight 115.455, kg, PRN Pain Score 1-3, Start date: 04/23/17 15:59:00 CDT, Duration: 1 doses or times, Stop date: Limited # of times Naloxone 2017-0 No 0.4 mg, Memori a 04-23 Route: l 20:59: IVP, Kranthi 00 Q2MIN, Dosing Weight 115.455, kg, PRN Narcotic Reversal, Start date: 04/23/17 15:59:00 CDT, Duration: 8 doses or times, Stop date: Limited # of times Flumazenil No 0.2 mg, Arnulfo magdi -24 Route: l 20:59: IVP, PRN, Dosing Weight 115.455, kg, PRN Benzodiaze pine Reversal, Initial dose, Start date: 04/23/17 15:59:00 CDT, Duration: 30 day, Stop date: 05/23/17 15:58:00 CDT Oxycodone No 5 mg, Memoria 524 Route: PO, l 20:59: Drug form: TAB, Q4H, Dosing Weight 115.455, kg, PRN Pain Score 4-6, Start date: 04/23/17 15:59:00 CDT, Duration: 30 day, Stop date: 05/23/17 15:58:00 CDT rocuronium No Route: IV, M emoria (ANES) 04-23 Drug form: l 20:40: INJ, ONCE, Stop date: 04/23/17 15:40:00 CDT dexamethaso No Route: IV, Memoria ne (ANES) 04-23 Drug form: l 20:25: INJ, ONCE, Stop date: 04/23/17 15:25:00 CDT famotidine No Route: IV, M emoria (ANES) 04-23 Drug form: l 20:25: INJ, ONCE, Stop date: 04/23/17 15:25:00 CDT ketAMINE No Route: IV, Mem oria (ANES) 04-23 Drug form: l 20:25: INJ, ONCE, Stop date: 04/23/17 15:25:00 CDT metoprolol No Route: IV, M emoria (ANES) 24 Drug form: l 20:25: INJ, ONCE, Stop date: 04/23/17 15:25:00 CDT midazolam No Route: IV, Me moria (ANES) 04-23 Drug form: l 20:25: SOLN, ONCE, Stop date: 04/23/17 15:25:00 CDT lidocaine No Route: IV, Me moria (ANES) -24 Drug form: l 20:25: INJ, ONCE, Stop date: 04/23/17 15:25:00 CDT propofol No Route: IV, Mem oria (ANES) 524 Drug form: l 20:25: INJ, ONCE, Kranthi 00 Stop date: 04/23/17 15:25:00 CDT succinylcho No Route: IV, Memoria line (ANES) 04-23 Drug form: l 20:25: INJ, ONCE, Stop date: 04/23/17 15:25:00 CDT fentaNYL No Route: IV, Mem oria (ANES) 24 Drug form: l 20:25: INJ, ONCE, Stop date: 04/23/17 15:25:00 CDT ceFAZolin No Route: IV, Me moria (ANES) 24 Drug form: l 20:09: INJ, ONCE, Stop date: 04/23/17 15:09:00 CDT LR 1000 mL No Route: IV, M emoria INJ (ANES) 04-23 Total l 18:50: Volume: [place] 00 1,000, Start date: 04/23/17 13:50:00 CDT, Stop date: 04/23/17 14:50:00 CDT ceFAZolin No Notes: Memori a 04-23 Same as: l 04:00: Ancef [place] 00 Immunizations Ordered Immunization Filled Immunization Date Status Commen ts Source Name Name pneumococcal 2017-04-29 Completed [facility] 13-valent vaccine 16:39:00 Kranthi Vital Signs Vital Name Observation Time Observation Value Comments Source Heart Rate 2017-04-29 22:13:00 [facility] [place] Respitory Rate 2017-04-29 22:13:00 Harpal Willamsann Systolic (mm Hg) 2017-04-29 22:13:00 Arnulfo Charltonann Diastolic (mm Hg) 2017-04-29 22:13:00 Mem orial Kranthi Temperature Oral (F) 2017-04-29 22:13:00 97.7 F [facility] K[place] Temperature Oral (F) 2017-04-29 17:52:00 97.8 F [facility] K[place] Heart Rate 2017-04-29 17:52:00 [facility] [place] Systolic (mm Hg) 2017-04-29 17:52:00 Arnulfo rial [place] Diastolic (mm Hg) 2017-04-29 17:52:00 Mem orial Kranthi Respitory Rate 2017-04-29 17:52:00 Memori al [place] Respitory Rate 2017-04-29 15:07:00 Memori al Kranthi Systolic (mm Hg) 2017-04-29 13:31:00 Arnulfo rial Kranthi Diastolic (mm Hg) 2017-04-29 13:31:00 Mem orial Kranthi Temperature Oral (F) 2017-04-29 13:31:00 97.5 F [facility] [place] Heart Rate 2017-04-29 13:31:00 [facility] K[facility]hi Height 2017-04-24 01:58:00 160.02 cm [facility] Kranthi BMI Calculated 2017-04-24 01:58:00 Memori al K[place]hi Weight 2017-04-24 01:58:00 [facility] [place] Weight 2017-04-23 14:02:00 [facility] [place] BMI Calculated 2017-04-23 14:02:00 Memori al [place] Height 2017-04-23 14:02:00 161.29 cm [facility] [place] Height 2017-04-21 19:23:00 161.29 cm [facility] K[place]hi BMI Calculated 2017-04-21 19:23:00 Memori al [place] Weight 2017-04-21 19:23:00 [facility] [place] Procedures Procedure Date / Time Performed Performing Clinician Sour e Cholecystectomy [facility] [place] Hernia repair [facility] [place] Hysterectomy [facility] [place] Knee joint operation [facility] rmann Encounters Start End Encounter Admission Attending Care Care Encounter Source Date/Time Date/Time Type Type Clinicians Facility Department ID 2020-09-26 2020-09-26 Telemedici Darrick Gentile [facility] [id number] 08:06:00 16:31:49 ne Visit Health [id number] Clear [id number] [place] [id number] Medical [facility] Office Building 2020-09-18 2020-09-18 Telephone Darrick Gentile MTMARSHALL [id number] 00:00:00 00:00:00 Health [id number] Clear [id number] [place] [id number] Medical [address] 2020-08-18 2020-08-18 Orders Doctor ELIJAH [id number] 00:00:00 00:00:00 Only Unassigned, [place] [id number] [facility] [id number] [id number] [id number] 2020-08-09 2020-08-09 Letter Darrick Gentile BINA [id number] 00:00:00 00:00:00 (Out) Health [id number] Clear 4.2.7.2.686 [place] [id number] Medical [address] 2020-08-09 2020-08-09 Orders Doctor ELIJAH [id number] 00:00:00 00:00:00 Only Unassigned, [place] [id number] [facility] 4.2.7.2.686 [id number] [id number] 2020-07-31 2020-07-31 Telephone KrupaDarrick BINA [id number] 00:00:00 00:00:00 Health [id number] Specialty 4.2.7.2.686 [facility] [id number] [place] [address] 2020-06-20 2020-06-20 Office Darrick Gentile 1.2.840.114 [id number] 10:45:01 13:39:43 Visit Health [id number] Clear 4.2.7.2.686 [place] [id number] Medical [address] 2017-04-23 2017-04-29 Inpatient nullFlavo [facility] [id number] Memoria 13:34:00 23:01:00 r Kranthi 01 [facility] 2017-04-23 2017-04-29 Outpatient Di, [facility] [id number] 08:34:00 18:01:00 Marc Dorado Results Test Description Test Time Test Comments Results Result Comments Source ELECTROLYTES 2017-04-29 11.2 [facility] Her duran 08:33:00 ELECTROLYTES 2017-04-29 101 [facility] Her duran 08:33:00 ELECTROLYTES 2017-04-29 3.2 [facility] Her duran 08:33:00 ELECTROLYTES 2017-04-29 138 [facility] Her duran 08:33:00 ELECTROLYTES 2017-04-29 29 [facility] Her duran 08:33:00 ELECTROLYTES 2017-04-29 8.5 [facility] Her duran 08:33:00 ELECTROLYTES 2017-04-29 14 [facility] Her duran 08:33:00 ELECTROLYTES 2017-04-29 0.72 [facility] Her duran 08:33:00 ELECTROLYTES 2017-04-29 98 [facility] Her duran 08:33:00 ELECTROLYTES 2017-04-29 87 [facility] Her duran 08:33:00 HEMATOLOGY 2017-04-29 3.94 Memorial Su nn 08:33:00 HEMATOLOGY 2017-04-29 11.2 Memorial Su nn 08:33:00 HEMATOLOGY 2017-04-29 34.0 Memorial Su nn 08:33:00 HEMATOLOGY 2017-04-29 86.1 Memorial Su nn 08:33:00 HEMATOLOGY 2017-04-29 33.1 Memorial Su nn 08:33:00 HEMATOLOGY 2017-04-29 08:33:00 Test Item Value Reference Range Interpretation Comme nts MCH (test code = MCH) 28.5 pg 27.0-31.0 Memorial GbpdvwyTXAJSXUHGA8638-06-81 08:33:0016.2[facility] HermannHEMATOLOGY 2017-04-29 08:33:01290Xvmzkpuz OajodwtBNOEPSEYIQ7146-07-83 08:33:007.3[facility] RxhqndkHJMPZULUZE2466-09-52 08:33:006.4[facility] YnhfcivEWKFHJOVUS3638-14-43 08:33:000.6[facility] WgetlaqYWXJPSKBBF6328-73-18 08:33:000.4[facility] Kranthi JXKNBJMAUR3865-40-08 08:33:000.1[facility] CnzvcejSVBXOAYBSM6144-20-23 08:33:00 60.9[facility] YuihwouYJIKVNSSZV2997-42-73 08:33:0023.4[facility] HermannHEMATOLOGY 2017-04-29 08:33:005.6[facility] LmxzlftIJBDTWDWPR5641-66-96 08:33:009.2[facility] IbqdummEIQQGBSYCQ5767-64-97 08:33:000.9[facility] LhrqjvoQZLWXHEUPW2973-86-45 08:33:003.9[facility] GbzsvadJBLTSWJDFR0485-12-86 08:33:001.5[facility] [place] VUTDNKPJIVWZ4365-70-54 11:48:008.4[facility] RywcnewJRGLDNTNIBGN1983-22-74 11:48:0011[facility] IxznangEZTFRHCDHMTW1418-58-36 11:48:000.82[facility] Kranthi RNWSSDLMCBJO4222-33-71 11:48:53631Egporxsq IjowlctEVHAOWUSMQRE0801-92-93 11:48:18244Ahplnrws CxmplhbIRLPLKRQJYNW8412-63-72 11:48:003.4[facility] [place] ZQHOAULTYABF8000-28-43 11:48:49656Wiyqiuxx PlsfuaeWBIRIPJKFPFN2366-88-11 11:48:0074[facility] PilgxqiTWDMFTNGWV0979-68-76 11:48:009.1[facility] K[facility]hi SYEWARPQQP5252-14-32 11:48:0065.8[facility] YtohquqFIUQXLGTGO5135-85-70 11:48:00 0.1[facility] UnsqgfaEDLNFFQWOF6854-87-69 11:48:000.3[facility] HermannHEMATOLOGY 2017-04-28 11:48:000.6[facility] UxtspvmLBLFBUYPMV0706-82-56 11:48:001.4[facility] YcgkisgCQFWHRAQKW5444-17-46 11:48:001.0[facility] JzyvaytILQHPEQWPM0492-06-54 11:48:003.9[facility] WeukputOCMQYVSRXL5698-41-09 11:48:0020.2[facility] Kranthi GKOYLBZQSQ0147-29-35 11:48:004.5[facility] PdyiyukJVWDJXZWBG0867-01-38 11:48:00 Test Item Value Reference Range Interpretation Comments MCH (test code = MCH) 27.7 pg 27.0-31.0 Memorial MsqspxaIMRPGVAIVU3755-29-13 11:48:0087.3[facility] HermannHEMATOLOGY 2017-04-28 11:48:007.2[facility] NoiyeejJCRUFUIODS3792-57-51 11:48:004.24[facility] HtuedjkLBTMGPOPLO2470-07-92 11:48:006.8[facility] BjknygaAYORESZUXK0659-91-15 11:48:0037.0[facility] LuukxxdOLFILWORPW6425-85-27 11:48:0011.7[facility] Kranthi NCSFUZRZPY2029-61-13 11:48:0031.7[facility] HwxbncbIEHUFSRCAU9124-21-11 11:48:00 16.6[facility] DlrtvovPHZRCGVEDA2642-93-19 11:48:61484Xooubbon HermannELECTROLYTES 2017-04-28 11:48:0011.4[facility] BefxkvnAVVFBSVFBEQZ4782-54-53 11:48:0030[facility] TuwsmymDUQGFXDRFR7117-30-26 17:52:0013.4[facility] HermannCHEM PVEFG6459-73-75 11:28:002.4[facility] HermannCHEM KYECY6509-93-96 11:28:002.8[facility] HermannCHEM SZYMC1252-62-58 11:28:0089[facility] HermannCHEM DKBPP2006-16-66 11:28:0011.5 [facility] HermannCHEM QWZCL3137-45-50 11:28:004.5[facility] HermannCHEM PANEL 2017-04-26 11:28:99989Eochhmpu HermannCHEM ZNWUQ1460-87-17 11:28:007.9[facility]annCHEM VHWAN7058-50-78 11:28:0015[facility]annCHEM YLEZJ0957-42-44 11:28:29974Mnmsxxxy HermannCHEM QNDCS7196-83-06 11:28:000.71[facility]annCHEM HVFHZ7538-69-51 11:28:0028[facility]annCHEM VHNCY1636-82-90 11:28:75938 [facility] LvocuxgFIPUEYYNWZ5717-54-14 11:28:000.3[facility] HermannHEMATOLOGY 2017-04-26 11:28:001.8[facility] FsmzmnoCTRYLDWJXR3938-88-80 11:28:000.8[facility] YavosyaHCXGRWUUCO5750-34-05 11:28:0067.0[facility] KldckzbFARRJVYBYW5973-57-29 11:28:0020.3[facility] MjmitpjPBWBAZBKVW2336-81-65 11:28:003.1[facility] Kranthi INUYUTVZWX5457-74-90 11:28:009.0[facility] CfnarjfEDPSAIEPWH9593-88-79 11:28:005.9 [facility] MawycruPZKEEEZCVY7711-63-82 11:28:000.6[facility] HermannHEMATOLOGY 2017-04-26 11:28:004.57[facility] UvvvavyLHYSAHEWXV1978-59-79 11:28:008.8[facility] RsxzqypAONXQRUQIN9623-78-08 11:28:0012.8[facility] IkgsyehRWVKIZLDSC9781-00-75 11:28:0040.3[facility] ChzyrlvHLGLZEUKYC0931-50-27 11:28:00 Test Item Value Reference Range Interpretation Comments MCH (test code = MCH) 28.0 pg 27.0-31.0 [facility] DfxmaxlDBESTRRHBE2686-48-76 11:28:0016.7[facility] HermannHEMATOLOGY 2017-04-26 11:28:0031.7[facility] XencgpaCPGVVQOXCE8200-03-07 11:28:007.5[facility] VhwcaxkCRXGTPAXXL8770-39-93 11:28:46547Vvaffedv FsoouvtZDKFCZRWOJ3626-16-02 11:28:0088.2[facility]annURINE AND ECGSM0146-13-11 15:22:00Negative *NA*(04/25/17 10:22 AM)[facility] QZVFU1590-08-30 15:22:00Negative (04/25/17 10:22 AM)[facility] MWULW7180-35-48 15:22:00Negative (04/25/17 10:22 AM)[facility] QQPFM0059-11-98 15:22:00Negative (04/25/17 10:22 AM)[facility] CSDMH8849-33-75 15:22:001[facility] AND SGIJV0628-77-99 15:22:00Yellow *NA*(04/25/17 10:22 AM)[facility] RXVVK9758-71-43 15:22:005.5[facility] STOOL 2017-04-25 15:22:001.017[facility] YPZXL7741-40-61 15:22:00Clear (04/25/17 10:22 AM)[facility]annCHEM [id number] 07:51:003.4[facility]annCHEM [id number] 07:51:002.5[facility]annBLOOD BANK RESULTS 2017-04-23 14:08:00Negative (04/23/17 9:08 AM)[facility]annCHEM PANEL 2017-04-21 17:30:0020[facility]annCHEM [id number] 17:30:003.9[facility]annCHEM [id number] 17:30:001.0[facility]annCHEM [id number] 17:30:0038[facility]annCHEM [id number] 17:30:007.7[facility]annCHEM [id number] 17:30:003.8[facility]annCHEM [id number] 17:30:0034 [facility]annCHEM [id number] 17:30:97781Lwldfzmv HermannCHEM PANEL 2017-04-21 17:30:000.3[facility] [id number] 17:30:000.1[facility] HermannSPECIAL [id number] 17:30:007.1[facility]
[2021-07-12 18:59] LABS: Urine Blood Negative (Negative); Urine Glucose Negative (Negative); Urine Protein Negative (Negative); Urine Specific Gravity 1.015 (1.005-1.030); Urine pH 6.5 (5.0-7.0)
[2021-07-12 19:11] LABS: Absolute Lymphocytes (CBC) 2.3 K/uL (0.7-4.9); Basophils % 1.2 % (0-1.3); Lymphocytes % 28.8 % (15.3-44.8); MPV 6.7 fL (7.6-11.3); RBC Red Blood Cell Count 5.46 M/uL (3.86-4.86)
[2021-07-12 19:23] LABS: ALT/SGPT 37 U/L (12-78); AST/SGOT 25 U/L (15-37); Albumin 3.3 g/dL (3.4-5.0); Alkaline Phosphatase 80 U/L (45-117); BUN Blood Urea Nitrogen 15 mg/dL (7-18); Bicarbonate 32 mmol/L (21-32); Bilirubin Direct < 0.1 mg/dL (0-0.2); Bilirubin Total 0.2 mg/dL (0.2-1.0); Glucose Level 91 mg/dL (74-106); Lipase 102 U/L (73-393); Potassium 4.5 mmol/L (3.5-5.1); Protein, Total 7.7 g/dL (6.4-8.2); Sodium Level 141 mmol/L (136-145)
[2021-07-12 20:23] LABS: Blood Morphology Comment NOT SEEN (NOT SEEN); Platelet Estimate ADEQ; White Blood Cell Scan OK (OK)
[2021-07-12] MEDS ORDERED: levoFLOXacin 500 MG TAB ONE (21:29)
[2021-07-12] MEDS ORDERED: MORPHINE 2 MG/ML SYR ONE (21:29)
[2021-07-12] MEDS ORDERED: CEFTRIAXONE 1000 MG/VIAL ONE (21:29)
[2021-07-12] MEDS ORDERED: NA CHLORIDE 0.9% 1,000 ML ONE (21:30)
[2021-07-12] MEDS ORDERED: ONDANSETRON 4 MG/2 ML VIAL ONE (21:30)
--- NOTE | 2021-07-12 21:35 | RAD REPORT ---
EXAM DESCRIPTION: CT - Abdomen Pelvis W Contrast - 07/12/2021 9:06 pm CLINICAL HISTORY: ABD PAIN COMPARISON: CT October 2018 TECHNIQUE: Biphasic, helical CT imaging of the abdomen and pelvis was performed following 100 ml non -ionic IV contrast. No oral contrast given. All CT scans are performed using dose optimization technique as appropriate and may include automated exposure control or mA/KV adjustment according to patient size. FINDINGS: No suspicious findings in the lung bases. The liver, spleen, and pancreas show no suspicious findings. Cholecystectomy clips are present. Symmetric renal function is seen with no hydronephrosis or suspicious renal mass. No pyelonephritis o r acute parenchymal process. No bladder abnormalities. No adrenal abnormalities. Uterus is absent. No right ovarian abnormality. A 3 centimeter left ovarian or paraovarian remnant cyst is present. This has enlarged from approximately 15 mm in 2018. This warrants ongoing monitoring for any continued enl argement. No dilated bowel loops or bowel wall thickening. Moderate stool volume seen throughout the colon. No free air, free fluid or inflammatory stranding. No bulky lymphadenopathy or suspicious soft tissue m ass. Postsurgical changes are noted along most of the abdominal wall. Upper abdominal fat filled hernia is present unchanged from prior imaging. No entrapped bowel in this area of fat only hernia. No abdomin al wall hematoma or mass. There is a large infraumbilical hernia containing multiple loops of small b owel. No congested or edematous bowel or fat. The hernia is 15 mm in transverse diameter and 12 cm in craniocaudal dimension. No suspicious bony findings. IMPRESSION: Contrast enhanced CT abdomen and pelvis showing no acute or emergent finding. Large 15 centimeter infraumbilical ventral hernia within low-lying pannus. This contains multiple sma ll bowel loops but no acute finding of the bowel or herniated fat. This has enlarged substantially fr om 2018. Much smaller fat only hernia in the superior aspect abdomen unchanged from 2018. A 3 centimeter ovarian or paraovarian cyst is present enlarged from 2018. This warrants ongoing monit oring for any continued growth.
--- NOTE | 2021-07-12 21:46 | ER ---
Nurse's Notes [facility] Name: Adi Gifford Age: 70 yrs Sex: Female : 1950 Arrival Date: 07/12/2021 Time: 15:28 Bed 11 Private MD: Diagnosis: Ventral hernia without obstruction or gangrene;Obesity, unspecified;UTI/ Urinary tract infection, site not specified Presentation: 07/12 15:38 Chief complaint: EMS states: Upper and lower abdominal pain x 2 days, 2 abdominal jl7 hernias, denies N/V/D, last BM today and normal, denies SOB. Pt also reports foul smelling urine and burning with urination that just started a few days ago. Coronavirus screen: Client denies travel out of the [place] in the last 14 days. At this time, the client does not indicate any symptoms associated with coronavirus-19. Ebola Screen: No symptoms or risks identified at this time. Initial Sepsis Screen: Does the patient meet any 2 criteria? No. Patient's initial sepsis screen is negative. Does the patient have a suspected source of infection? No. Patient's initial sepsis screen is negative. Risk Assessment: Do you want to hurt yourself or someone else? Patient reports no desire to harm self or others. Onset of symptoms was July 09, 2021. 15:38 Method Of Arrival: EMS: [place] [id number] 15:38 Acuity: RONI 3 jl7 Triage Assessment: 19:49 General: Appears in no apparent distress. Behavior is calm, cooperative, appropriate lh3 for age. Pain: Denies pain. GI: No deficits noted. 19:49 Pain: Complains of pain in abdomen. lh3 Historical: - Allergies: 15:41 No Known Allergies; jl7 - PMHx: 15:41 CHF; Depression; High Cholesterol; Hypertension; Hypothyroidism; Myocardial infarction; jl7 Chronic obstructive lung disease; Diabetes mellitus; - Immunization history:: Client reports receiving the 2nd dose of the Covid vaccine. - Social history:: Smoking status: Patient denies any tobacco usage or history of. - Family history:: not pertinent. Screenin:52 Abuse screen: Denies threats or abuse. Nutritional screening: No deficits noted. lh3 Tuberculosis screening: No symptoms or risk factors identified. Fall Risk None identified. IV access (20 points). Assessment: 19:52 GI: Abd is soft Abdomen is tender to palpation pt has 2 hernias. lh3 22:02 Reassessment: Patient is alert, oriented x 3, equal unlabored respirations, skin ch4 warm/dry/pink. Patient denies pain at this time. Patient states feeling better. Patient states symptoms have improved. Vital Signs: 15:38 Pulse 81; Resp 15; Temp 97.7; Pulse Ox 97% ; Weight 99.79 kg; Pain 9/10; jl7 15:38 BP 148 / 57; jl7 19:49 BP 146 / 81; Pulse 79; Resp 18; Pulse Ox 100% on R/A; lh3 21:21 BP 184 / 91; Pulse 72; Resp 17; Temp 97.9(T); Pulse Ox 99% ; ch4 22:02 BP 182 / 74; Pulse 72; Resp 17; Temp 97.5; Pulse Ox 99% on R/A; ch4 ED Course: 15:28 Patient arrived in ED. as 15:41 Triage completed. jl7 15:41 Arm band placed on right wrist. Patient placed in waiting room, Patient notified of jl7 wait time. 16:08 Jonathan Adams MD is Attending Physician. kdr 19:29 Tay Flores MD is Attending Physician. elissa 19:29 Milagro Rodriguez, ROCÍO is Primary Nurse. ch4 19:52 Patient has correct armband on for positive identification. lh3 19:52 No provider procedures requiring assistance completed. Inserted saline lock: 22 gauge lh3 in right antecubital area, using aseptic technique. 21:06 CT Abd/Pelvis - IV Contrast Only In Process Unspecified. EDMS 21:45 Ronald Mendoza MD is Referral Physician. elissa 22:02 IV discontinued, intact, bleeding controlled, No redness/swelling at site. Pressure ch4 dressing applied. Administered Medications: 21:20 Drug: NS 0.9% 1000 ml Route: IV; Rate: 1 bolus; Site: right antecubital; ch4 21:20 Drug: morphine 2 mg Route: IVP; Site: right antecubital; ch4 21:20 Drug: Zofran (Ondansetron) 4 mg Route: IVP; Site: right antecubital; ch4 21:20 Drug: Rocephin (cefTRIAXone) 1 grams Route: IV; Rate: per protocol; Site: right ch4 antecubital; 21:20 Drug: LevOfloxacin 500 mg Route: PO; ch4 Outcome: 21:45 Discharge ordered by MD. bowers 22:03 Patient left the ED. ch4 Signatures: Dispatcher [employer] EDTay Koch MD MD cha Rittger, Kevin, MD MD kdr Martinez, Amelia as Leal, Jahala, RN RN jl7 Michelle Kan RN RN 3 Milagro Rodriguez RN RN ch4
--- NOTE | 2021-07-12 21:46 | EDPHYS ---
Physician Documentation [facility] Name: Adi Gifford Age: 70 yrs Sex: Female : 1950 Arrival Date: 07/12/2021 Time: 15:28 Bed 11 Private MD: ED Physician Tay Flores HPI: 07/12 20:21 This 70 yrs old Female presents to ER via EMS with complaints of Abdominal elissa Pain. 20:21 The patient presents with abdominal pain in the upper abdomen, in the lower abdomen. elissa Onset: The symptoms/episode began/occurred 2 day(s) ago. The symptoms do not radiate. Associated signs and symptoms: none. The symptoms are described as crampy. Modifying factors: The symptoms are alleviated by nothing, the symptoms are aggravated by movement. Severity of pain: At its worst the pain was mild in the emergency department the pain is unchanged. The patient has not experienced similar symptoms in the past. Historical: - Allergies: 15:41 No Known Allergies; jl7 - PMHx: 15:41 CHF; Depression; High Cholesterol; Hypertension; Hypothyroidism; Myocardial infarction; jl7 Chronic obstructive lung disease; Diabetes mellitus; - Immunization history:: Client reports receiving the 2nd dose of the Covid vaccine. - Social history:: Smoking status: Patient denies any tobacco usage or history of. - Family history:: not pertinent. ROS: 20:21 Constitutional: Negative for fever, chills, and weight loss, Eyes: Negative for injury, elissa pain, redness, and discharge, ENT: Negative for injury, pain, and discharge, Neck: Negative for injury, pain, and swelling, Cardiovascular: Negative for chest pain, palpitations, and edema, Respiratory: Negative for shortness of breath, cough, wheezing, and pleuritic chest pain, Back: Negative for injury and pain, : Negative for injury, bleeding, discharge, and swelling, MS/Extremity: Negative for injury and deformity, Skin: Negative for injury, rash, and discoloration, Neuro: Negative for headache, weakness, numbness, tingling, and seizure, Psych: Negative for depression, anxiety, suicide ideation, homicidal ideation, and hallucinations, Allergy/Immunology: Negative for hives, rash, and allergies, Endocrine: Negative for neck swelling, polydipsia, polyuria, polyphagia, and marked weight changes, Hematologic/Lymphatic: Negative for swollen nodes, abnormal bleeding, and unusual bruising. 20:21 Abdomen/GI: Positive for abdominal pain, of the right upper quadrant, left upper quadrant, right lower quadrant and left lower quadrant. Exam: 20:21 Constitutional: This is a well developed, well nourished patient who is awake, alert, elissa and in no acute distress. Head/Face: Normocephalic, atraumatic. Eyes: Pupils equal round and reactive to light, extra-ocular motions intact. Lids and lashes normal. Conjunctiva and sclera are non-icteric and not injected. Cornea within normal limits. Periorbital areas with no swelling, redness, or edema. ENT: Nares patent. No nasal discharge, no septal abnormalities noted. Tympanic membranes are normal and external auditory canals are clear. Oropharynx with no redness, swelling, or masses, exudates, or evidence of obstruction, uvula midline. Mucous membranes moist. Neck: Trachea midline, no thyromegaly or masses palpated, and no cervical lymphadenopathy. Supple, full range of motion without nuchal rigidity, or vertebral point tenderness. No Meningismus. Chest/axilla: Normal chest wall appearance and motion. Nontender with no deformity. No lesions are appreciated. Cardiovascular: Regular rate and rhythm with a normal S1 and S2. No gallops, murmurs, or rubs. Normal PMI, no JVD. No pulse deficits. Respiratory: Lungs have equal breath sounds bilaterally, clear to auscultation and percussion. No rales, rhonchi or wheezes noted. No increased work of breathing, no retractions or nasal flaring. Back: No spinal tenderness. No costovertebral tenderness. Full range of motion. Female : Normal external genitalia. Skin: Warm, dry with normal turgor. Normal color with no rashes, no lesions, and no evidence of cellulitis. MS/ Extremity: Pulses equal, no cyanosis. Neurovascular intact. Full, normal range of motion. Neuro: Awake and alert, GCS 15, oriented to person, place, time, and situation. Cranial nerves II-XII grossly intact. Motor strength 5/5 in all extremities. Sensory grossly intact. Cerebellar exam normal. Normal gait. Psych: Awake, alert, with orientation to person, place and time. Behavior, mood, and affect are within normal limits. 20:21 Abdomen/GI: Inspection: distension, that is mild, that is moderate, obese Bowel sounds: normal, in all quadrants, active, all quadrants, Palpation: mild abdominal tenderness, in the right upper quadrant and left lower quadrant, Liver: no appreciated palpable abnormalities, Hernia: noted in the epigastric area, paraumbilical area and umbilical area. Vital Signs: 15:38 Pulse 81; Resp 15; Temp 97.7; Pulse Ox 97% ; Weight 99.79 kg; Pain 9/10; jl7 15:38 BP 148 / 57; jl7 19:49 BP 146 / 81; Pulse 79; Resp 18; Pulse Ox 100% on R/A; lh3 21:21 BP 184 / 91; Pulse 72; Resp 17; Temp 97.9(T); Pulse Ox 99% ; ch4 22:02 BP 182 / 74; Pulse 72; Resp 17; Temp 97.5; Pulse Ox 99% on R/A; ch4 MDM: 19:29 Patient medically screened. elissa 20:24 Differential diagnosis: bowel obstruction, diverticulitis, Mesenteric ischemia or elissa infarction, non-specific abd pain, pancreatitis, Peptic Ulcer Disease. Data reviewed: vital signs, nurses notes, lab test result(s), EKG, radiologic studies, CT scan. Data interpreted: monitor and storage bin tender: rate is 79 beats/min, rhythm is regular, Pulse oximetry: on room air is 100 %. Test interpretation: by ED physician or midlevel provider: ECG. Counseling: I had a detailed discussion with the patient and/or guardian regarding: the historical points, exam findings, and any diagnostic results supporting the discharge/admit diagnosis, lab results, radiology results, the need for outpatient follow up, for definitive care, a family practitioner, a general surgeon. 07/12 18:31 Order name: Basic Metabolic Panel; Complete Time: 20:03 ss 08 18:31 Order name: CBC with Diff; Complete Time: 20:33 ss 07/12 18:31 Order name: Hepatic Function; Complete Time: 20:03 ss 07/12 18:31 Order name: Lipase; Complete Time: 20:03 ss 07/12 18:59 Order name: Urine Dipstick-Ancillary; Complete Time: 20:03 EDMS 07/12 20:21 Order name: CT Abd/Pelvis - IV Contrast Only; Complete Time: 21:44 elissa 07/12 20:23 Order name: CBC Smear Scan; Complete Time: 20:33 EDMS 08 18:31 Order name: IV Saline Lock; Complete Time: 20: ss 07/12 18:31 Order name: Labs collected and sent; Complete Time: 20: ss 07/12 20:21 Order name: EKG - Nurse/Tech elissa Administered Medications: 21:20 Drug: NS 0.9% 1000 ml Route: IV; Rate: 1 bolus; Site: right antecubital; ch4 21:20 Drug: morphine 2 mg Route: IVP; Site: right antecubital; ch4 21:20 Drug: Zofran (Ondansetron) 4 mg Route: IVP; Site: right antecubital; ch4 21:20 Drug: Rocephin (cefTRIAXone) 1 grams Route: IV; Rate: per protocol; Site: right ch4 antecubital; 21:20 Drug: LevOfloxacin 500 mg Route: PO; ch4 Disposition Summary: 07/12/21 21:45 Discharge Ordered Location: Home [facility] Problem: new [facility] Symptoms: have improved [facility] Condition: Stable [facility] Diagnosis - Ventral hernia without obstruction or gangrene elissa - Obesity, unspecified elissa - UTI/ Urinary tract infection, site not specified elissa Followup: elissa - With: Private Physician - When: 2 - 3 days - Reason: Recheck today's complaints, Continuance of care, Re-evaluation by your physician Followup: elissa - With: - When: 2 - 3 days - Reason: Recheck today's complaints, Continuance of care, Re-evaluation by your physician Discharge Instructions: - Discharge Summary Sheet [facility] - Dysuria elissa - Hernia, Adult elissa - Obesity, Adult elissa - Urinary Tract Infection, Adult elissa - Urinary Tract Infection, Adult, [id number] elissa - Hernia, Adult, [id number] [facility] Forms: - Medication Reconciliation Form [facility] - Thank You Letter [facility] - Antibiotic Education [facility] - Prescription Opioid Use [facility] Prescriptions: - Pepcid 20 mg Oral Tablet - take 1 tablet by ORAL route every 12 hours for 10 days; 20 tablet; Refills: 0, [facility] Product Selection Permitted - Bactrim DS 800-160 mg Oral Tablet - take 1 tablet by ORAL route every 12 hours for 7 days; 14 tablet; Refills: 0, [facility] Product Selection Permitted - dicyclomine 20 mg Oral Tablet - take 1 tablet by ORAL route 4 times per day; 28 tablet; Refills: 0, Product [facility] Selection Permitted - levofloxacin 500 mg Oral Tablet - take 1 tablet by ORAL route once daily for 7 days; 7 tablet; Refills: 0, elissa Product Selection Permitted Signatures: Dispatcher [employer] Tay Martinez, Mitzi Law MD, cha, RN RN ss Brenda Savage RN RN jl7 Milagro Rodriguez RN RN ch4
[2021-07-12 22:59] VITALS: O2SAT 99
[2021-07-12 23:02] VITALS: BP 182/74; TEMP 97.5
== END 2021-07-12 22:03 | disposition home or self-care (01) ==
LOC: ER 15:25
DX: N39.0 Urinary tract infection, site not specified (principal); K43.9 Ventral hernia without obstruction or gangrene; I10 Essential (primary) hypertension; E66.9 Obesity, unspecified
CPT/HCPCS: 85025; 80048; 36415; 80076; 81003; 83690; 74177; 96375; 96374; 99284; Q9967; J2270; J7030; J2405

== ENCOUNTER 2021-12-31 07:37 | Day surgery (SDC) | payer OTHER ==
[2021-12-27 16:23] LABS: Absolute Lymphocytes (CBC) 1.6 K/uL (0.7-4.9); Hematocrit 41.8 % (36.0-45.0); Lymphocytes % 27.4 % (15.3-44.8); MPV 7.1 fL (7.6-11.3); RBC Red Blood Cell Count 5.15 M/uL (3.86-4.86)
[2021-12-27 16:40] LABS: Potassium 4.3 mmol/L (3.5-5.1)
--- NOTE | 2021-12-27 16:50 | RAD REPORT ---
EXAM DESCRIPTION: Benita Mercer (2 Views)12/27/2021 3:30 pm CLINICAL HISTORY: Preop for hernia repair COMPARISON: 2018 FINDINGS: The lungs appear clear of acute infiltrate. The heart is normal size IMPRESSION: No acute abnormalities displayed
[2021-12-31] MEDS ORDERED: NA CHLORIDE 0.9% 1,000 ML ONE ×2 (08:00→12:55)
[2021-12-31] MEDS ORDERED: CEFAZOLIN/SWI 2gm 2 GM/20 ML SYR ONE (08:00)
[2021-12-31] MEDS ORDERED: BUPIVACAINE 0.25% PF 10 ML VIAL ONE (10:24)
[2021-12-31] MEDS ORDERED: ROCURONIUM 50 MG/5 ML VIAL IV ONE ×2 (11:32→13:19)
[2021-12-31] MEDS ORDERED: propofoL 200 MG/20 ML VIAL IV ONE (11:32)
[2021-12-31] MEDS ORDERED: FENTANYL CITR 100 MCG/2 ML ONE ×2 (11:32→13:52)
[2021-12-31] MEDS ORDERED: LIDOCAINE 2% MPF 5 ML VIAL ONE (11:32)
[2021-12-31] MEDS ORDERED: ONDANSETRON 4 MG/2 ML VIAL ONE ×2 (11:32→16:12)
[2021-12-31] MEDS ORDERED: MIDAZOLAM HCL 2 MG/2 ML INJ ONE (11:33)
[2021-12-31] MEDS ORDERED: EPHEDRINE SULF 50 MG/ML VIAL ONE (12:00)
[2021-12-31] MEDS ORDERED: GLYCOPYRROLATE 0.2 MG/ML SYR ONE ×2 (12:08)
[2021-12-31] MEDS ORDERED: KETOROLAC 30 MG/ML INJ ONE (15:14)
--- NOTE | 2021-12-31 15:14 | P.OP ---
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
[2021-12-31] MEDS: HYDROMORPHONE HCL 1 MG/ML INJ ONE ×4 (15:45→16:16)
[2021-12-31] MEDS ORDERED: ALBUTEROL 2.5 MG/3 ML NEB SOL ONE (15:45)
[2021-12-31] MEDS ORDERED: PROMETHAZINE INJ 25 MG/ML AMP ONE (16:38)
[2021-12-31] MEDS ORDERED: MEPERIDINE HCL 50 MG/ML ONE (16:43)
[2021-12-31 17:37] VITALS: BP 120/58; TEMP 97.3
[2021-12-31] MEDS ORDERED: HYDROCODONE/APAP 10/325 TAB ONE (18:06)
[2021-12-31 18:46] VITALS: O2SAT 96
--- NOTE | 2022-01-01 02:13 | OP ---
Date of Procedure: 12/31/2021 Surgeon: Ronald Menodza MD, Nitrocellulose Operator: Kortney Ledesma Preoperative Diagnosis: Recurrent ventral incisional hernias with incarcerated bowel. Postoperative Diagnosis: Recurrent ventral incisional hernias with incarcerated bowel. Procedure Performed: 1.Laparoscopic ventral hernia repair with multiple pieces of mesh. 2.Laparoscopic adhesiolysis greater than 2 hours. Anesthesia: General endotracheal plus local with 0.25% Marcaine. Estimated Blood Loss: Less than 10 mL. Specimen: None. Findings: 1.Approximately 10 cm x 15 cm lower ventral incisional hernia to the right of midline. 2.Hernia with approximately 10 x 11 cm hernia in the epigastric area containing preperitoneal fat. Complications: None. Implants: Bard Ventralight ST mesh x2. 1.A 20 x 25 [address] mesh with Echo Positioning System in the lower righ t midline ventral hernia placed. 2.A 15 cm round [address] mesh with Echo Positioning System in the epigastric hernia was p laced. Fixation was obtained with SorbaFix absorbable fixation tacks as well as ReliaTack reticulating absor bable fixation tacks. Disposition: The patient was transferred to recovery room in good condition. Procedure In Detail: After informed consent was obtained, the patient was brought to the operating r oom, prepped and draped in the usual sterile fashion. After adequate anesthesia achieved, left upper quadrant area was anesthetized with 0.25% Marcaine, sharply incised, and a 5 mm 0-degree optical tro car was placed in the abdomen without evidence of complication. Insufflation was obtained to 15 mmHg at this time. There was no injury to vital structures upon entry into the abdomen. At this point, I found 2 additional trocars, one in the left lower quadrant, which was a 5 mm trocar and one in the left mid abdomen, which was a 12 mm trocar, all placed under direct visualization without evidence of complication. Additional 5 mm trocar was placed in the right upper quadrant under direct vision wit hout evidence of complication. I then proceeded to dissect the omentum and small bowel out of the mu ltiple hernias in the anterior abdominal wall. The small bowel was incarcerated within this area, bu t did not require bowel resection. Meticulous dissection was carried out for approximately 2 hours u sing a combination of endoscopic nicolás as well as LigaSure device and blunt dissection. After the a nterior abdominal wall was swept clean of all bowel contents, the bowel was inspected. No obvious in juries were appreciated at this point during the entire adhesiolysis and as such, I turned my attenti on to sizing of the mesh at this point. At this point, I sized the meshes based on the above finding s and brought in the larger mesh in the inferior position first, deployed it using a balloon deployme nt system centered it in the center portion of the defect. These defects were large enough and had t hin tissue such that primary closure could not be obtained intraperitoneally. After the mesh was dep loyed, I secured it to the anterior abdominal wall using a double-crown SorbaFix fixation system with good apposition of the tissues. I attempted to imbricate the hernia sac into the mesh as well with the same said tacks to help reduce postoperative seromas. At this point, I turned my attention to th e epigastric hernia. This required additional sweeping of preperitoneal fat out of this area. I siz ed it appropriately and brought in a 15.2 cm round [address]ight ST mesh with Echo Positioning Sys tem, essentially positioned it, deployed the balloon system, and then secured to the anterior abdomin al wall using the same said SorbaFix tacks, and then a set of 30 ReliaTack tacks were placed as well to allow for optimal positioning and flat apposition of the tacks. At this point, I inspected the ar ea. There was some overlap between the meshes. The SorbaFix fixation tacks were able to penetrate t his quite adequately and the double crown was then placed on both meshes. At this point, I cleansed the stab incisions at the center portion of the mesh positioning, which were used to pass the hernia mesh with a Sloan-Marlin suture passer and they were not leaking any air at this point. I then tu rned my attention to the left mid abdominal quadrant, removed the trocar, and closed the trocar site using a Sloan-Marlin suture passer with 0 Vicryl in interrupted fashion with good approximation of tissues. I then completely desufflated the abdomen under direct visualization without evidence of c omplication. All skin incisions were then copiously irrigated and closed with interrupted trevon. A sterile dressing was placed over top along with abdominal binder. The patient tolerated procedure well without evidence of complication and transferred back in good condition. All counts were correc t at the end of the case. LEATHA/RACHEL Voice ID: [id number] Report ID: [id number]
== END 2021-12-31 18:42 | disposition home or self-care (01) ==
LOC: OR 07:37
PROVIDERS: ATTEND Surgery
PROC: 0DNU4ZZ Release Omentum, Percutaneous Endoscopic Approach (ICD-10-PCS; 2021-12-31)
PROC: 0DN84ZZ Release Small Intestine, Percutaneous Endoscopic Approach (ICD-10-PCS; 2021-12-31)
PROC: 0WUF4JZ Supplement Abdominal Wall with Synthetic Substitute, Percutaneous Endoscopic Approach (ICD-10-PCS; principal; 2021-12-31 09:15)
DX: K43.0 Incisional hernia with obstruction, without gangrene (principal); K43.6 Other and unspecified ventral hernia with obstruction, without gangrene; K66.0 Peritoneal adhesions (postprocedural) (postinfection); Z20.822 Contact with and (suspected) exposure to COVID-19
CPT/HCPCS: 93005; 85025; 80048; 36415; 86900; 86850; 86901; 82947 ×2; 71046; 49656; 49329; 44180; U0003; J2704; J2550; J2250; J3010 ×2; J2175; J1170 ×2; J0690; J7030 ×2; J2405 ×2

== ENCOUNTER 2022-04-02 12:38 | Observation (INO) | payer OTHER ==
--- OUTSIDE RECORDS SUMMARY | 2022-04-02 12:45 | XMS REPORT | Continuity of Care Document ---
:1950 Author Organization [facility] t Address [address] [place] [address] Care Team Providers Name Role Phone Leni LEMONS Primary Care Physician Unavailable RITA Attending Clinician Unavailable Kayla WARD Attending Clinician KAYLA Attending Clinician Unavailable Doctor Unassigned, Name Attending Clinician Unavailable MAHESH Attending Clinician Unavailable Mahesh WARD Attending Clinician Brian MEDINA Attending Clinician Unavailable Adamjanice AGUIAR, B Attending Clinician Rich Myers MD Attending Clinician Samuel Hughes MD Attending Clinician RITA Admitting Clinician Unavailable Brian MEDINA Admitting Clinician Unavailable Payers Payer Name Policy Type Policy Number Effective Date Expiration Date [facility] [id number] 2021 (MEDICARE 00:00:00 REPLACEMENT HMO) Problems Condition Condition Condition Status Onset Resolution Last Treating Co mments Source Name Details Category Date Date Treatment Clinician Date RECURRENT Diagnosis Active 2017-12-22 Memoria VENTRAL 04-17 08:52:00 l INCISIONAL 00:00: Michael hahn HERNIA RECURRENT 00 VENTRAL INCISIONAL HERNIA Active 04/17/2017 [facility] INCISIONAL Diagnosis Active 2017-04-14 Memoria HERNIA, 02-26 09:34:00 l ABD PAIN, 00:00: Kranthi UMBILICAL INCISIONAL 00 P HERNIA, ABD PAIN, UMBILICAL P Active 02/26/2017 [facility] INCISIONAL Diagnosis Active 2017-04-14 Memoria HERNIA 09:34:00 l WITHOUT Kranthi OBSTRUCTIO INCISIONAL N OR HERNIA WITHOUT OBSTRUCTIO N OR Active [facility] PERIUMBILI Diagnosis Active 2017-04-14 Memoria MARGARET PAIN 09:34:00 l [place] PERIUMBILI MARGARET PAIN Active [facility] Coronary Problem Active 2017-05-02 Mem oria arterioscl 01:04:31 l erosis Coronary Michael n (disorder) arterioscl erosis (disorder) Active Problem 05/02/2017 [facility] Body mass Problem Active 2017-05-02 Me moria index 40+ 01:04:31 l - severely Body Michael n obese mass index (finding) 40+ - severely obese (finding) Active Problem 05/02/2017 BMI-46.7 [facility] Hypertensi Problem Active 2017-05-02 M emoria ve 01:04:31 l disorder, Kranthi systemic Hypertensi arterial ve (disorder) disorder, systemic arterial (disorder) Active Problem 05/02/2017 [facility] Obstructiv Problem Active 2017-05-02 M emoria e sleep 01:04:31 l apnea Kranthi syndrome Obstructiv (disorder) e sleep apnea syndrome (disorder) Active Problem 05/02/2017 [facility] Diabetes Problem Active 2017-05-02 Mem oria mellitus 01:04:31 l type 2 Diabetes Michael n (disorder) mellitus type 2 (disorder) Active Problem 05/02/2017 [facility] No known No known Disease Unive rs active active ity of problems problems [facility] Branch Allergies, Adverse Reactions, Alerts Allergy Allergy Status Severity Reaction(s) Onset Inactive Treating Comm ents Source Name Type Date Date Clinician NO KNOWN Drug Active Univers ALLERGIE Class [facility] [place] [facility] Social History Social Habit Start Date Stop Date Quantity Comments Source History [facility] University o f Alcohol Std [place] [facility] Drinks Branch History [facility] University o f Alcohol Binge [place] [facility] Exposure to Unable to assess Univers ity of SARS-CoV-2 [place] [facility] (event) Branch Sex Assigned At [facility] [place] [facility] History SDOH 2020-05-25 2020-05-25 2 University o f Alcohol Frequency 00:00:00 00:00:00 [facility] edical Branch Tobacco use and 2020-05-25 2020-05-25 Never used Universit y of exposure 00:00:00 00:00:00 [facility] Alcohol intake 2020-05-25 2020-05-25 Current drinker Unive rsity of 00:00:00 00:00:00 of alcohol [facility] (finding) Anthony Social History 2017-04-21 2017-04-21 [facility] Jonathan headley 16:06:37 16:06:37 Smoking Status Start Date Stop Date Source Never smoker [facility] Medications Ordered Filled Start Stop Current Ordering Indication Dosage Frequency Signature Comments Components Source Medication Medication Date Date Medication? Clinician (SIG) Name Name iohexol 2020-0 2020- No 120mL 120 mL, Unive rs (OMNIPAQUE 02-16 Intravenou it y of 350 23:45: 23:45 s, ONCE, 1 [place] BULK-150 00 :00 dose, [facility] mL) 02/17/20 at Anthony injection 1845, 120 mL Routine ondansetron 2019- 2020- No 4mg 4 mg, Slow Univers (ZOFRAN 02-16 IV Push, ity of (PF)) 23:30: 22:50 ONCE, 1 [place] injection 4 00 :00 dose, [facility] Med ical mg 02/17/20 at Branch 1830, [place] morpHINE 2019-0 2020- No 4mg 4 mg, Slow Un iraj injection 4 02-16 IV Push, ity of mg 23:30: 22:50 ONCE, 1 [place] 00 :00 dose, [facility] Medical 02/17/20 at Branch 1830, STAT dicyclomine 2019-0 2020- No 20mg 20 mg, Uni vers (BENTYL) 02-16 Intramuscu ity of injection 23:30: 22:50 [place], ONCE, [place] 20 mg 00 :00 1 dose, Medical [facility] 02/17/20 at 1830, Routine NaCl 0.9% 2020-0 2020- No 1000mL at 999 Uni vers (NS) bolus 02-16- mL/hr, ity of infusion 22:30: 00:45 1,000 mL, [place] 1,000 mL 00 :00 IV Medical Infusion, [place] ONCE, 1 dose, [facility] 02/17/20 at 1730, [place] ondansetron 2020-0 Yes [id number] 4mg Take 1 Univers 4 mg 3-19 tablet by ity of disintegrat 00:00: mouth [place] ing tablet 00 every 8 Medica l (eight) Branch hours as needed for Nausea and Vomiting (N/V). ondansetron 2020-0 Yes [id number] 4mg Take 1 Univers 4 mg 3-19 tablet by ity of disintegrat 00:00: mouth [place] ing tablet 00 every 8 Medica l (eight) Branch hours as needed for Nausea and Vomiting (N/V). ondansetron 2020-0 Yes [id number] 4mg Take 1 Univers 4 mg 3-19 tablet by ity of disintegrat 00:00: mouth [place] ing tablet 00 every 8 Medica l (eight) Branch hours as needed for Nausea and Vomiting (N/V). ondansetron 2020-0 Yes [id number] 4mg Take 1 Univers 4 mg 3-19 tablet by ity of disintegrat 00:00: mouth [place] ing tablet 00 every 8 Medica l (eight) Branch hours as needed for Nausea and Vomiting (N/V). ondansetron 2020-0 Yes [id number] 4mg Take 1 Univers 4 mg 3-19 tablet by ity of disintegrat 00:00: mouth [place] ing tablet 00 every 8 Medica l (eight) Branch hours as needed for Nausea and Vomiting (N/V). ondansetron 2020-0 Yes [id number] 4mg Take 1 Univers 4 mg 3-19 tablet by ity of disintegrat 00:00: mouth [place] ing tablet 00 every 8 Medica l (eight) Branch hours as needed for Nausea and Vomiting (N/V). ondansetron 2020-0 Yes [id number] 4mg Take 1 Univers 4 mg 3-19 tablet by ity of disintegrat 00:00: mouth [place] ing tablet 00 every 8 Medica l (eight) Branch hours as needed for Nausea and Vomiting (N/V). ondansetron 2020-0 Yes [id number] 4mg Take 1 Univers 4 mg 3-19 tablet by ity of disintegrat 00:00: mouth [place] ing tablet 00 every 8 Medica l (eight) Branch hours as needed for Nausea and Vomiting (N/V). ondansetron 2020-0 Yes [id number] 4mg Take 1 Univers 4 mg 3-19 tablet by ity of disintegrat 00:00: mouth [place] ing tablet 00 every 8 Medica l (eight) Branch hours as needed for Nausea and Vomiting (N/V). ondansetron 2020-0 Yes [id number] 4mg Take 1 Univers 4 mg 3-19 tablet by ity of disintegrat 00:00: mouth [place] ing tablet 00 every 8 Medica l (eight) Branch hours as needed for Nausea and Vomiting (N/V). ondansetron 2020-0 Yes [id number] 4mg Take 1 Univers 4 mg 3-19 tablet by ity of disintegrat 00:00: mouth [place] ing tablet 00 every 8 Medica l (eight) Branch hours as needed for Nausea and Vomiting (N/V). ondansetron 2020-0 Yes [id number] 4mg Take 1 Univers 4 mg 3-19 tablet by ity of disintegrat 00:00: mouth [place] ing tablet 00 every 8 Medica l (eight) Branch hours as needed for Nausea and Vomiting (N/V). dicyclomine 2020-0 2020- No [id number] 10mg Take 1 Univers (BENTYL) 10 -19 03-25 capsule by i ty of mg capsule 00:00: 04:59 mouth 4 [place] 00 :00 (four) Medical times [place] daily as needed for Abdominal pain for up to 5 days. KCL 20 2019- No 40meq 40 mEq, Univer s mEq/15 mL 8-12 08-12 Oral, ONCE ity of solution 40 03:15: 02:22 NOW, 1 [place] mEq 00 :00 dose, [facility] 07/11/19 at Branch 2215, [place] DULoxetine 2019-0 Yes 60mg Take 60 mg U nivers 60 mg 8-12 by mouth ity of capsule 02:23: daily. [address] metoprolol 2019-0 Yes 25mg Take 25 mg U nivers tartrate 25 8-12 by mouth 2 it y of mg tablet 02:23: (two) [address] daily[address] Anthony DULoxetine 2019-0 Yes 60mg Take 60 mg U nivers 60 mg 8-12 by mouth ity of capsule 02:23: daily. [address] metoprolol 2019-0 Yes 25mg Take 25 mg U nivers tartrate 25 8-12 by mouth 2 it y of mg tablet 02:23: (two) [address] daily[address] Branch DULoxetine 2019-0 Yes 60mg Take 60 mg U nivers 60 mg 8-12 by mouth ity of capsule 02:23: daily. [place] [address] Medical Branch metoprolol 2019-0 Yes 25mg Take 25 mg U nivers tartrate 25 8-12 by mouth 2 it y of mg tablet 02:23: (two) [place] 21 times Medical daily. Branch DULoxetine 2019-0 Yes 60mg Take 60 mg U nivers 60 mg 8-12 by mouth ity of capsule 02:23: daily. [place] [address] Medical Branch metoprolol 2019-0 Yes 25mg Take 25 mg U nivers tartrate 25 8-12 by mouth 2 it y of mg tablet 02:23: (two) [place] times Medical daily. Branch DULoxetine 2019-0 Yes 60mg Take 60 mg U nivers 60 mg 8-12 by mouth ity of capsule 02:23: daily. [place] [address] Medical Branch metoprolol 2019-0 Yes 25mg Take 25 mg U nivers tartrate 25 8-12 by mouth 2 it y of mg tablet 02:23: (two) [place] times Medical daily. Branch DULoxetine 2019-0 Yes 60mg Take 60 mg U nivers 60 mg 8-12 by mouth ity of capsule 02:23: daily. [place] [address] Medical Branch metoprolol 2019-0 Yes 25mg Take 25 mg U nivers tartrate 25 8-12 by mouth 2 it y of mg tablet 02:23: (two) [place] times Medical daily. Branch DULoxetine 2019-0 Yes 60mg Take 60 mg U nivers 60 mg 8-12 by mouth ity of capsule 02:23: daily. [place] [address] Medical Branch metoprolol 2019-0 Yes 25mg Take 25 mg U nivers tartrate 25 8-12 by mouth 2 it y of mg tablet 02:23: (two) [place] 21 times Medical daily. Branch DULoxetine 2019-0 Yes 60mg Take 60 mg U nivers 60 mg 8-12 by mouth ity of capsule 02:23: daily. [place] [address] Medical Branch DULoxetine 2019-0 Yes 60mg Take 60 mg U nivers 60 mg 8-12 by mouth ity of capsule 02:23: daily. [place] [address] Medical Branch metoprolol 2019-0 Yes 25mg Take 25 mg U nivers tartrate 25 8-12 by mouth 2 it y of mg tablet 02:23: (two) [place] 21 times Medical daily. Branch metoprolol 2019-0 Yes 25mg Take 25 mg U nivers tartrate 25 8-12 by mouth 2 it y of mg tablet 02:23: (two) [place] 21 times Medical daily. [place] DULoxetine 2019-0 Yes 60mg Take 60 mg U nivers 60 mg 8-12 by mouth ity of capsule 02:23: daily. [address] metoprolol 2019-0 Yes 25mg Take 25 mg U nivers tartrate 25 8-12 by mouth 2 it y of mg tablet 02:23: (two) [place] 21 times Medical daily. [place] DULoxetine 2019-0 Yes 60mg Take 60 mg U nivers 60 mg 8-12 by mouth ity of capsule 02:23: daily. [address] metoprolol 2019-0 Yes 25mg Take 25 mg U nivers tartrate 25 8-12 by mouth 2 it y of mg tablet 02:23: (two) [place] 21 times Medical daily. [place] DULoxetine 2019-0 Yes 60mg Take 60 mg U nivers 60 mg 8-12 by mouth ity of capsule 02:23: daily. [address] metoprolol 2019-0 Yes 25mg Take 25 mg U nivers tartrate 25 8-12 by mouth 2 it y of mg tablet 02:23: (two) [place] 21 times Medical daily. [place] DULoxetine 2019-0 Yes 60mg Take 60 mg U nivers 60 mg 8-12 by mouth ity of capsule 02:23: daily. [address] metoprolol 2019-0 Yes 25mg Take 25 mg U nivers tartrate 25 8-12 by mouth 2 it y of mg tablet 02:23: (two) [place] 21 times Medical daily. [place] DULoxetine 2019-0 Yes 60mg Take 60 mg U nivers 60 mg 8-12 by mouth ity of capsule 02:23: daily. [address] metoprolol 2019-0 Yes 25mg Take 25 mg U nivers tartrate 25 8-12 by mouth 2 it y of mg tablet 02:23: (two) [place] 21 times Medical daily. Anthony doxycycline 2019-0 2019- No 100mg 100 mg, U nivers (Vibramycin 8-12 08-12 Oral, ity of ) capsule 02:00: 00:54 ONCE, 1 [place] 100 mg 00 :00 dose, [place] [facility] 07/11/19 at Branch 2100, [place]
Re ason for Anti-Infec tive: Empiric Therapy for Suspected Infection< br>Empiric Therapy Site: Skin / Soft tissue
Duration of therapy: 7 days ondansetron 2018-0 2019- No 8mg 8 mg, Slow Univers (ZOFRAN 07-12 IV Push, ity of (PF)) 01:00: 00:58 ONCE, 1 [place] injection 8 00 :00 dose, [facility] mg 07/11/19 at Branch 2000, [place] NaCl 0.9% 2018- No 1000mL at 999 Uni vers (NS) bolus 07-12 mL/hr, ity of infusion 00:00: 02:23 1,000 mL, [place] 1,000 mL 00 :00 IV Medical Infusion, [place] ONCE, 1 dose, 07/11/19 at 1900, [place] clopidogrel 2019-0 Yes 75mg Take 75 mg Univers (PLAVIX) 75 8-11 by mouth ity of mg tablet 23:56: daily. [address] clopidogrel 2019-0 Yes 75mg Take 75 mg Univers (PLAVIX) 75 8-11 by mouth ity of mg tablet 23:56: daily. [address] clopidogrel 2019-0 Yes 75mg Take 75 mg Univers (PLAVIX) 75 8-11 by mouth ity of mg tablet 23:56: daily. [address] clopidogrel 2019-0 Yes 75mg Take 75 mg Univers (PLAVIX) 75 8-11 by mouth ity of mg tablet 23:56: daily. [address] clopidogrel 2019-0 Yes 75mg Take 75 mg Univers (PLAVIX) 75 8-11 by mouth ity of mg tablet 23:56: daily. [address] clopidogrel 2019-0 Yes 75mg Take 75 mg Univers (PLAVIX) 75 8-11 by mouth ity of mg tablet 23:56: daily. [address] clopidogrel 2019-0 Yes 75mg Take 75 mg Univers (PLAVIX) 75 8-11 by mouth ity of mg tablet 23:56: daily. [address] clopidogrel 2019-0 Yes 75mg Take 75 mg Univers (PLAVIX) 75 8-11 by mouth ity of mg tablet 23:56: daily. [address] clopidogrel 2019-0 Yes 75mg Take 75 mg Univers (PLAVIX) 75 8-11 by mouth ity of mg tablet 23:56: daily. [address] clopidogrel 2019-0 Yes 75mg Take 75 mg Univers (PLAVIX) 75 8-11 by mouth ity of mg tablet 23:56: daily. [address] clopidogrel Yes 75mg Take 75 mg Univers (PLAVIX) 75 8-11 by mouth ity of mg tablet 23:56: daily. [address] clopidogrel Yes 75mg Take 75 mg Univers (PLAVIX) 75 8-11 by mouth ity of mg tablet 23:56: daily. [address] clopidogrel Yes 75mg Take 75 mg Univers (PLAVIX) 75 8-11 by mouth ity of mg tablet 23:56: daily. [address] clopidogrel Yes 75mg Take 75 mg Univers (PLAVIX) 75 8-11 by mouth ity of mg tablet 23:56: daily. [address] solifenacin 2019- No 10mg Take 10 mg Univers (VESICARE) 07-11 by mouth ity of 10 mg 23:56: 00:00 daily. [place] tablet 46 :00 Medical Branch rOPINIRole 2019- No 5mg Take 5 mg U nivers (REQUIP) 5 07-11 by mouth ity of mg tablet 23:56: 00:00 at [place] 37 :00 bedtime. Medical Branch esomeprazol 2019- No 40mg Take 40 mg Univers e (NEXIUM) 07-11 by mouth ity of 40 mg 23:56: 00:00 daily. [place] capsule 28 :00 Medical Branch Cholecalcif 2019- No 1{capsu Take 1 Cap Univers ana maria, 07-11 le} by mouth ity of Vitamin D3, 23:56: 00:00 daily. [place] as (VITAMIN 19 :00 Medical D3) 1,000 Branch unit Cap bumetanide 2019- No 2mg Take 2 mg U nivers (BUMEX) 2 07-11 by mouth 2 ity of mg tablet 23:56: 00:00 (two) [place] 13 :00 times Medical daily. Branch amitriptyli 2019- No 25mg Take 25 mg Univers ne (ELAVIL) 07-11 by mouth ity of 25 mg 23:56: 00:00 at [place] tablet 07 :00 bedtime. Medical Branch aMILoride 2018- 2019- No 5mg Take 5 mg Un iraj (MIDAMOR) 5 -10 08-11 by mouth 2 i ty of mg tablet 23:56: 00:00 (two) [place] 03 :00 times Medical daily. Branch allopurinol 2019- No 300mg Take 300 Univers (ZYLOPRIM) 8- 08-11 mg by ity of 300 mg 23:55: 00:00 mouth [place] tablet 51 :00 daily. Medical Branch doxycycline 2018-0 Yes [id number] 100mg Take 1 Univers 100 mg 8-11 [id number] capsule by ity o f capsule 00:00: mouth 2 [place] 00 (two) Medical times Branch daily. ondansetron 2018-0 Yes [id number] 4mg Take 1 Univers (ZOFRAN) 4 8-11 tablet by ity of mg tablet 00:00: mouth [place] 00 every 8 Medical (eight) Branch hours as needed for Nausea and Vomiting (N/V). acetaminoph 2018- Yes [id number] 1{tbl} Take 1 Univers en-codeine 8-11 [id number] tablet by it y of (TYLENOL-CO 00:00: mouth [place] DEINE #3) 00 every 4 Medical 300-30 mg (four) Branch tablet hours as needed for Pain (scale 7-10). doxycycline 2018- Yes [id number] 100mg Take 1 Univers 100 mg 8-11 [id number] capsule by ity o f capsule 00:00: mouth 2 [place] 00 (two) Medical times Branch daily. ondansetron 2019-0 Yes [id number] 4mg Take 1 Univers (ZOFRAN) 4 8-11 tablet by ity of mg tablet 00:00: mouth [place] 00 every 8 Medical (eight) Branch hours as needed for Nausea and Vomiting (N/V). acetaminoph 2019- Yes [id number] 1{tbl} Take 1 Univers en-codeine 8-11 [id number] tablet by it y of (TYLENOL-CO 00:00: mouth [place] DEINE #3) 00 every 4 Medical 300-30 mg (four) Branch tablet hours as needed for Pain (scale 7-10). doxycycline 2019-0 Yes [id number] 100mg Take 1 Univers 100 mg 8-11 [id number] capsule by ity o f capsule 00:00: mouth 2 [place] 00 (two) Medical times Branch daily. ondansetron 2019-0 Yes [id number] 4mg Take 1 Univers (ZOFRAN) 4 8-11 tablet by ity of mg tablet 00:00: mouth [place] 00 every 8 Medical (eight) Branch hours as needed for Nausea and Vomiting (N/V). acetaminoph 2018-0 Yes [id number] 1{tbl} Take 1 Univers en-codeine 8-11 [id number] tablet by it y of (TYLENOL-CO 00:00: mouth [place] DEINE #3) 00 every 4 Medical 300-30 mg (four) Branch tablet hours as needed for Pain (scale 7-10). doxycycline 2019-0 Yes [id number] 100mg Take 1 Univers 100 mg 8-11 [id number] capsule by ity o f capsule 00:00: mouth 2 00 (two) Medical times Branch daily. ondansetron 2018-0 Yes [id number] 4mg Take 1 Univers (ZOFRAN) 4 8-11 tablet by ity of mg tablet 00:00: mouth [place] 00 every 8 Medical (eight) Branch hours as needed for Nausea and Vomiting (N/V). acetaminoph Yes [id number] 1{tbl} Take 1 Univers en-codeine 8-11 [id number] tablet by it y of (TYLENOL-CO 00:00: mouth [place] DEINE #3) 00 every 4 Medical 300-30 mg (four) Branch tablet hours as needed for Pain (scale 7-10). doxycycline 2018-0 Yes [id number] 100mg Take 1 Univers 100 mg 8-11 [id number] capsule by ity o f capsule 00:00: mouth 2 00 (two) Medical times Branch daily. ondansetron 2019-0 Yes [id number] 4mg Take 1 Univers (ZOFRAN) 4 8-11 tablet by ity of mg tablet 00:00: mouth [place] 00 every 8 Medical (eight) Branch hours as needed for Nausea and Vomiting (N/V). acetaminoph 0 Yes [id number] 1{tbl} Take 1 Univers en-codeine 8-11 [id number] tablet by it y of (TYLENOL-CO 00:00: mouth [place] DEINE #3) 00 every 4 Medical 300-30 mg (four) Branch tablet hours as needed for Pain (scale 7-10). doxycycline 2019-0 Yes [id number] 100mg Take 1 Univers 100 mg 8-11 [id number] capsule by ity o f capsule 00:00: mouth 2 [place] 00 (two) Medical times Branch daily. ondansetron 2019-0 Yes [id number] 4mg Take 1 Univers (ZOFRAN) 4 8-11 tablet by ity of mg tablet 00:00: mouth [place] 00 every 8 Medical (eight) Branch hours as needed for Nausea and Vomiting (N/V). acetaminoph 2019-0 Yes [id number] 1{tbl} Take 1 Univers en-codeine 8-11 [id number] tablet by it y of (TYLENOL-CO 00:00: mouth [place] DEINE #3) 00 every 4 Medical 300-30 mg (four) Branch tablet hours as needed for Pain (scale 7-10). doxycycline 2018-0 Yes [id number] 100mg Take 1 Univers 100 mg 8-11 [id number] capsule by ity o f capsule 00:00: mouth 2 [place] 00 (two) Medical times Branch daily. ondansetron 2018-0 Yes [id number] 4mg Take 1 Univers (ZOFRAN) 4 8-11 tablet by ity of mg tablet 00:00: mouth [place] 00 every 8 Medical (eight) Branch hours as needed for Nausea and Vomiting (N/V). acetaminoph Yes [id number] 1{tbl} Take 1 Univers en-codeine 8-11 [id number] tablet by it y of (TYLENOL-CO 00:00: mouth [place] DEINE #3) 00 every 4 Medical 300-30 mg (four) Branch tablet hours as needed for Pain (scale 7-10). doxycycline 2019-0 Yes [id number] 100mg Take 1 Univers 100 mg 8-11 [id number] capsule by ity o f capsule 00:00: mouth 2 [place] 00 (two) Medical times Branch daily. ondansetron 2019-0 Yes [id number] 4mg Take 1 Univers (ZOFRAN) 4 8-11 tablet by ity of mg tablet 00:00: mouth [place] 00 every 8 Medical (eight) Branch hours as needed for Nausea and Vomiting (N/V). acetaminoph 2019-0 Yes [id number] 1{tbl} Take 1 Univers en-codeine 8-11 [id number] tablet by it y of (TYLENOL-CO 00:00: mouth [place] DEINE #3) 00 every 4 Medical 300-30 mg (four) Branch tablet hours as needed for Pain (scale 7-10). doxycycline 2019-0 Yes [id number] 100mg Take 1 Univers 100 mg 8-11 [id number] capsule by ity o f capsule 00:00: mouth 2 [place] 00 (two) Medical times Branch daily. doxycycline 2019-0 Yes [id number] 100mg Take 1 Univers 100 mg 8-11 [id number] capsule by ity o f capsule 00:00: mouth 2 [place] 00 (two) Medical times Branch daily. ondansetron 2019-0 Yes [id number] 4mg Take 1 Univers (ZOFRAN) 4 8-11 tablet by ity of mg tablet 00:00: mouth [place] 00 every 8 Medical (eight) Branch hours as needed for Nausea and Vomiting (N/V). acetaminoph 2018-0 Yes [id number] 1{tbl} Take 1 Univers en-codeine 8-11 [id number] tablet by it y of (TYLENOL-CO 00:00: mouth [place] DEINE #3) 00 every 4 Medical 300-30 mg (four) Branch tablet hours as needed for Pain (scale 7-10). ondansetron 2018-0 Yes [id number] 4mg Take 1 Univers (ZOFRAN) 4 8-11 tablet by ity of mg tablet 00:00: mouth [place] 00 every 8 Medical (eight) Branch hours as needed for Nausea and Vomiting (N/V). doxycycline 2018-0 Yes [id number] 100mg Take 1 Univers 100 mg 8-11 [id number] capsule by ity o f capsule 00:00: mouth 2 [place] 00 (two) Medical times Branch daily. ondansetron 2019-0 Yes [id number] 4mg Take 1 Univers (ZOFRAN) 4 8-11 tablet by ity of mg tablet 00:00: mouth [place] 00 every 8 Medical (eight) Branch hours as needed for Nausea and Vomiting (N/V). acetaminoph 2019-0 Yes [id number] 1{tbl} Take 1 Univers en-codeine 8-11 [id number] tablet by it y of (TYLENOL-CO 00:00: mouth [place] DEINE #3) 00 every 4 Medical 300-30 mg (four) Branch tablet hours as needed for Pain (scale 7-10). acetaminoph 2019-0 Yes [id number] 1{tbl} Take 1 Univers en-codeine 8-11 [id number] tablet by it y of (TYLENOL-CO 00:00: mouth [place] DEINE #3) 00 every 4 Medical 300-30 mg (four) Branch tablet hours as needed for Pain (scale 7-10). doxycycline 2019-0 Yes [id number] 100mg Take 1 Univers 100 mg 8-11 [id number] capsule by ity o f capsule 00:00: mouth 2 [place] 00 (two) Medical times Branch daily. ondansetron 2019-0 Yes [id number] 4mg Take 1 Univers (ZOFRAN) 4 8-11 tablet by ity of mg tablet 00:00: mouth [place] 00 every 8 Medical (eight) Branch hours as needed for Nausea and Vomiting (N/V). acetaminoph Yes [id number] 1{tbl} Take 1 Univers en-codeine 8-11 [id number] tablet by it y of (TYLENOL-CO 00:00: mouth [place] DEINE #3) 00 every 4 Medical 300-30 mg (four) Branch tablet hours as needed for Pain (scale 7-10). doxycycline 2018-0 Yes [id number] 100mg Take 1 Univers 100 mg 8-11 [id number] capsule by ity o f capsule 00:00: mouth 2 [place] 00 (two) Medical times Branch daily. ondansetron 2018-0 Yes [id number] 4mg Take 1 Univers (ZOFRAN) 4 8-11 tablet by ity of mg tablet 00:00: mouth [place] 00 every 8 Medical (eight) Branch hours as needed for Nausea and Vomiting (N/V). acetaminoph 0 Yes [id number] 1{tbl} Take 1 Univers en-codeine 8-11 [id number] tablet by it y of (TYLENOL-CO 00:00: mouth [place] DEINE #3) 00 every 4 Medical 300-30 mg (four) Branch tablet hours as needed for Pain (scale 7-10). doxycycline 2019-0 Yes [id number] 100mg Take 1 Univers 100 mg 8-11 [id number] capsule by ity o f capsule 00:00: mouth 2 [place] 00 (two) Medical times Branch daily. ondansetron 2019-0 Yes [id number] 4mg Take 1 Univers (ZOFRAN) 4 8-11 tablet by ity of mg tablet 00:00: mouth [place] 00 every 8 Medical (eight) Branch hours as needed for Nausea and Vomiting (N/V). acetaminoph Yes [id number] 1{tbl} Take 1 Univers en-codeine 8- [id number] tablet by it y of (TYLENOL-CO 00:00: mouth [place] DEINE #3) 00 every 4 Medical 300-30 mg (four) Branch tablet hours as needed for Pain (scale 7-10). pantoprazol Yes 40 mg = 1 M emoria e 40 mg 5-30 tab, PO, l oral 21:20: Daily, 0 [place] enteric 00 Refill(s) coated tablet Acetaminoph Yes [...] 5-30 microgram l MG/ACTUAT 21:20: = 1 [place] Inhalant 00 inhalation Powder , [Spiriva] INHALATION [...] as: Protonix) sennosides, No Notes: Arnulfo magdi HALFWAY 04-27 (Same as: l 14:00: Senokot) Kranthi 00 Psyllium No Notes: Memoria - (Same as: l 14:00: Metamucil) Kranthi 00 Mix in 8 oz liquid with meal. Miralax No Notes: Memoria - Dissolve l 14:00: in 8 oz of Kranthi 00 water or juice. (Same as: Miralax) Isolyte S No Notes: Memori a (PH 7.4) 04-27 (Same as: l 1000 mL 13:45: Isolyte S Su nn 1,000 mL 00 PH 7.4) Mag-Ox 400 No Notes: Memor ia 04-27 (Same as: l 13:38: Mag-Ox Kranthi 00 400) Magnesium oxide [id number] g elemental magnesium Dose=____m g magnesium oxide (___mg elemental magnesium) Acetaminoph No Notes: Max Memoria en 04-26 acetaminop l 23:00: hen 4000 Kranthi 00 mg/day (4 gm/day). (Same as: Tylenol Extra Strength) Morphine No Notes: Memoria 5-27 (Same l 23:00: as:MORPhin [place] 00 e Sulfate) Morphine No Notes: Memoria 5-27 (Same l 18:04: as:MORPhin [place] 00 e Sulfate) gabapentin No Notes: Memor ia 300 MG Oral 04-26 (Same as: l Capsule 18:03: Neurontin) Herm annmarie 00 phenol No Notes: Memoria 5-27 Chlorasept l 18:00: ic [place] (Same as: Chlorasept ic, Sore Throat [place]) WASTE: F/P - Black; E - Municipal Trash Bin Flomax No Notes: Memoria 5-27 (Same As: l 13:30: Flomax) Kranthi 00 "Do Not Crush" Thyroxine No Notes: Memori a - (Same as: l 11:30: Synthroid) Reconstitu te with 5ml of NS. Final concentrat ion = 20 micrograms /ml. Use immediatel y after reconstitu tion and discard remaining solution. Ofirmev No Notes: Memoria 5- Infuse l 23:00: over 15 Kranthi 00 minutes Do not exceed 4gm/day of acetaminop hen MEDICATION WASTE Product Size: 1000 mg Product Wasted: ___ mg Protonix No Notes: For Mem oria - IV push l 22:00: reconstitu te with 10 ml 0.9% sodium chloride and push over 2 minutes. (Same as: Protonix) Zofran No Notes: Memoria - (Same as: l 21:48: Zofran) MEDICATION WASTE Product Size: 4 mg Product Wasted: ___ mg Morphine No Notes: Memoria - (Same l 21:06: as:MORPhin e Sulfate) Isolyte S No Notes: Memori a (PH 7.4) - (Same as: l 1000 mL 19:39: Isolyte S Su nn 1,000 mL 00 PH 7.4) Zofran No Notes: Memoria - (Same as: l 18:43: Zofran) Bisacodyl No Notes: Memori a - (Same As: l 18:15: Dulcolax, Kranthi 00 Correctol) (Do Not Crush) "Do Not Crush" Bisacodyl No Notes: Memori a 5-26 (Same As: l 18:14: Dulcolax, Kranthi 00 Bisco-Lax) Lovenox No Notes: Memoria 5- (Same as: l 01:00: Lovenox) Plavix No [...] (Same capsular as: antigen Prevnar diphtheria 13) [id number] protein conjugate vaccine / Streptococc us pneumoniae serotype 14 capsular antigen diphtheria [id number] protein conjugate vaccine / Streptococc us pneumoniae [...] a 5-25 (Same As: l 14:00: BuSpar) Bumetanide No Notes: Memor ia 5-25 (Same As: l 14:00: Bumex) Enoxaparin No Notes: Memor ia 5-25 (Same as: l 12:00: Lovenox) Levothroid No 75 Memoria 5-25 microgram, l 11:30: 1 tab, Route: PO, Drug form: TAB, Q630AM, Dosing Weight 115.455, kg, Start date: 04/24/17 6:30:00 CDT, Duration: 30 day, Stop date: 05/23/17 6:30:00 CDT Acetaminoph No Notes: Max Memoria en 5-25 acetaminop l 07:00: hen 4000 [place] 00 mg/day (4 gm/day). (Same as: Tylenol Extra Strength) celecoxib No Notes: Memori a 5-25 NSAID. l 07:00: Please Kranthi 00 check indication . Not for seizure. (Same As: CeleBREX) gabapentin No Notes: Memor ia 300 MG Oral 5-25 (Same as: l Capsule 05:00: Neurontin) Herm annmarie 00 pregabalin No Notes: Memor ia 5-25 (Same as: l 02:00: Lyrica) [place] 00 Docusate No Notes: Memoria Sodium 50 5-25 (Same as: l MG Oral 02:00: Colace) Kranthi Capsule 00 [Colace] Oxycodone No Notes: Memori a Hydrochlori 5-25 (Same as: l de 5 MG 01:49: Roxicodone Herm annmarie Oral Tablet 00 ) Ofirmev No Notes: Memoria 5-24 Infuse l 23:00: over 15 [place] 00 minutes Do not exceed 4gm/day of acetaminop hen MEDICATION WASTE Product Size: 1000 mg Product Wasted: ___ mg Albuterol No Notes: Memori a 0.833 MG/ML 5-24 (Same as: l / 22:27: Duoneb) Kranthi Ipratropium 00 [place] 0.167 MG/ML Inhalant Solution [DuoNeb] Insulin, No Notes: Memoria Aspart, 5-24 Roll in l Human 22:26: palms of [place] 00 hands gently; Do not shake vigorously . [...] ONCE, Stop date: 04/23/17 17:26:00 CDT cyclobenzap No 10 mg, 1 Me moria rine 5-24 tab, l 22:25: Route: PO, Drug form: TAB, TID, Dosing Weight 115.455, kg, PRN as needed for muscle spasm, Start date: 04/23/17 17:25:00 CDT, Duration: 30 day, Stop date: 05/23/17 17:24:00 CDT Dilaudid No Notes: Memoria 5-24 Same as: l 22:20: Dilaudid tramadol 0 No 50 mg, 1 Memor ia hydrochlori 5-24 tab, l de 50 MG 22:18: Route: PO, Her duran Oral Tablet 00 Drug form: TAB, Q6H, Dosing Weight 115.455, kg, PRN Pain Score 1-3, Start date: 04/23/17 17:18:00 CDT, Duration: 30 day, Stop date: 05/23/17 17:17:00 CDT Isolyte S 2017-0 No 1,000 mL, Mem oria (PH 7.4) 5-24 Rate: 35 l 1000 mL 22:16: ml/hr, [place] 1,000 mL 00 Infuse over: 28.6 hr, Route: IV, Dosing Weight 115.455 kg, Total Volume: 1,000, Start date: 04/23/17 17:16:00 CDT, Stop date: 05/23/17 17:15:00 CDT rocuronium 2016-0 No Route: IV, M emoria (ANES) -24 Drug form: l 21:20: INJ, ONCE, Stop date: 04/23/17 16:20:00 CDT dexamethaso 2016-0 No Route: IV, Memoria ne (ANES) 24 Drug form: l 21:07: INJ, ONCE, Stop date: 04/23/17 16:07:00 CDT ketAMINE 2016-0 No Route: IV, Mem oria (ANES) -24 Drug form: l 21:05: INJ, ONCE, Stop date: 04/23/17 16:05:00 CDT Promethazin 2017-0 No 6.25 mg, Me moria e 5-24 Route: l 20:59: IVPB, Kranthi 00 ONCE, Dosing Weight 115.455, kg, PRN Nausea & Vomiting, Start date: 04/23/17 15:59:00 CDT Ondansetron 2017-0 No 4 mg, Memor ia 5-24 Route: l 20:59: IVP, ONCE, Dosing Weight 115.455, kg, PRN Nausea & Vomiting, Start date: 04/23/17 15:59:00 CDT Hydralazine 2016-0 No 10 mg, Arnulfo magdi 5-24 Route: l 20:59: IVP, Q20Min, Dosing Weight 115.455, kg, PRN [...] Memori a 04-23 Route: l 20:59: IVP, [place] 00 Q2MIN, Dosing Weight 115.455, kg, PRN Narcotic Reversal, Start date: 04/23/17 15:59:00 CDT, Duration: 8 doses or times, Stop date: Limited # of times Flumazenil 2017-0 No 0.2 mg, Arnulfo magdi 04-23 Route: l 20:59: IVP, PRN, Kranthi 00 Dosing Weight 115.455, kg, PRN Benzodiaze pine Reversal, Initial dose, Start date: 04/23/17 15:59:00 CDT, Duration: 30 day, Stop date: 05/23/17 15:58:00 CDT Oxycodone 2017-0 No 5 mg, Memoria 04-23 Route: PO, l 20:59: Drug form: Kranthi 00 TAB, Q4H, Dosing Weight 115.455, kg, PRN Pain Score 4-6, Start date: 04/23/17 15:59:00 CDT, Duration: 30 day, Stop date: 05/23/17 15:58:00 CDT rocuronium No Route: IV, M emoria (ANES) 5-24 Drug form: l 20:40: INJ, ONCE, Stop date: 04/23/17 15:40:00 CDT dexamethaso No Route: IV, Memoria ne (ANES) 5-24 Drug form: l 20:25: INJ, ONCE, Stop date: 04/23/17 15:25:00 CDT famotidine No Route: IV, M emoria (ANES) 5-24 Drug form: l 20:25: INJ, ONCE, Stop date: 04/23/17 15:25:00 CDT ketAMINE No Route: IV, Mem oria (ANES) 5-24 Drug form: l 20:25: INJ, ONCE, Stop date: 04/23/17 15:25:00 CDT metoprolol No Route: IV, M emoria (ANES) 5-24 Drug form: l 20:25: INJ, ONCE, Stop date: 04/23/17 15:25:00 CDT midazolam No Route: IV, Me moria (ANES) 5-24 Drug form: l 20:25: SOLN, ONCE, Stop date: 04/23/17 15:25:00 CDT lidocaine No Route: IV, Me moria (ANES) 5-24 Drug form: l 20:25: INJ, ONCE, Stop date: 04/23/17 15:25:00 CDT propofol No Route: IV, Mem oria (ANES) 5-24 Drug form: l 20:25: INJ, ONCE, Stop date: 04/23/17 15:25:00 CDT succinylcho No Route: IV, Memoria line (ANES) 5-24 Drug form: l 20:25: INJ, ONCE, Stop date: 04/23/17 15:25:00 CDT fentaNYL No Route: IV, Mem oria (ANES) 5-24 Drug form: l 20:25: INJ, ONCE, Stop date: 04/23/17 15:25:00 CDT ceFAZolin No Route: IV, moria (ANES) 04-23 Drug form: l 20:09: INJ, ONCE, Stop date: 04/23/17 15:09:00 CDT LR 1000 mL No Route: IV, M emoria INJ (ANES) 04-23 Total l 18:50: Volume: 1,000, Start date: 04/23/17 13:50:00 CDT, Stop date: 04/23/17 14:50:00 CDT ceFAZolin No Notes: Memori a 04-23 Same as: l 04:00: Ancef spironolact Yes 50mg Take 50 mg [facility] one 9-25 by mouth 2 ity of (ALDACTONE) 16:10: (two) [place] 50 mg 13 times Medical tablet daily. Branch metformin Yes 500mg Take 500 Uni vers ER 9-25 mg by ity of (GLUCOPHAGE 16:10: mouth [place] -XR) 500 mg 13 daily. Medica l 24 hr Branch tablet spironolact Yes 50mg Take 50 mg [facility] one 9-25 by mouth 2 ity of (ALDACTONE) 16:10: (two) [place] 50 mg 13 times Medical tablet daily. Branch traZODone Yes 150mg Take 150 Uni vers (DESYREL) 9-25 mg by ity of 150 mg 16:10: mouth at [place] tablet 13 bedtime. Medical Branch zolpidem Yes 10mg Take 10 mg Uni vers (AMBIEN) 10 9-25 by mouth ity of mg tablet 16:10: at [place] 13 bedtime. Medical Branch levothyroxi Yes 75ug Take 75 Uni vers ne 9-25 mcg by ity of (SYNTHROID) 16:10: mouth [place] 75 mcg 13 daily. Medical tablet Branch simvastatin Yes 40mg Take 40 mg Univers (ZOCOR) 40 9-25 by mouth ity o f mg tablet 16:10: at [place] 13 bedtime. Medical Branch metformin Yes 500mg Take 500 Uni vers ER 9-25 mg by ity of (GLUCOPHAGE 16:10: mouth [place] -XR) 500 mg 13 daily. Medica l 24 hr Branch tablet spironolact Yes 50mg Take 50 mg [facility] one 9-25 by mouth 2 ity of (ALDACTONE) 16:10: (two) [place] 50 mg 13 times Medical tablet daily. Branch traZODone Yes 150mg Take 150 Uni vers (DESYREL) 9-25 mg by ity of 150 mg 16:10: mouth at [place] tablet 13 bedtime. Medical Branch zolpidem Yes 10mg Take 10 mg Uni vers (AMBIEN) 10 9-25 by mouth ity of mg tablet 16:10: at [place] 13 bedtime. Medical Branch levothyroxi Yes 75ug Take 75 Uni vers ne 9-25 mcg by ity of (SYNTHROID) 16:10: mouth [place] 75 mcg 13 daily. Medical tablet Branch simvastatin Yes 40mg Take 40 mg Univers (ZOCOR) 40 9-25 by mouth ity o f mg tablet 16:10: at [place] 13 bedtime. Medical Branch traZODone Yes 150mg Take 150 Uni vers (DESYREL) 9-25 mg by ity of 150 mg 16:10: mouth at [place] tablet 13 bedtime. Medical Branch metformin Yes 500mg Take 500 Uni vers ER 9-25 mg by ity of (GLUCOPHAGE 16:10: mouth [place] -XR) 500 mg 13 daily. Medica l 24 hr Branch tablet spironolact Yes 50mg Take 50 mg [facility] one 9-25 by mouth 2 ity of (ALDACTONE) 16:10: (two) [place] 50 mg 13 times Medical tablet daily. Branch traZODone Yes 150mg Take 150 Uni vers (DESYREL) 9-25 mg by ity of 150 mg 16:10: mouth at [place] tablet 13 bedtime. Medical Branch zolpidem Yes 10mg Take 10 mg Uni vers (AMBIEN) 10 9-25 by mouth ity of mg tablet 16:10: at [place] 13 bedtime. Medical Branch levothyroxi Yes 75ug Take 75 Uni vers ne 9-25 mcg by ity of (SYNTHROID) 16:10: mouth [place] 75 mcg 13 daily. Medical tablet Branch simvastatin Yes 40mg Take 40 mg Univers (ZOCOR) 40 9-25 by mouth ity o f mg tablet 16:10: at [place] 13 bedtime. Medical Branch metformin Yes 500mg Take 500 Uni vers ER 9-25 mg by ity of (GLUCOPHAGE 16:10: mouth [place] -XR) 500 mg 13 daily. Medica l 24 hr Branch tablet zolpidem Yes 10mg Take 10 mg Uni vers (AMBIEN) 10 9-25 by mouth ity of mg tablet 16:10: at [place] 13 bedtime. Medical Branch spironolact Yes 50mg Take 50 mg [facility] one 9-25 by mouth 2 ity of (ALDACTONE) 16:10: (two) [place] 50 mg 13 times Medical tablet daily. Branch traZODone Yes 150mg Take 150 Uni vers (DESYREL) 9-25 mg by ity of 150 mg 16:10: mouth at [place] tablet 13 bedtime. Medical Branch zolpidem Yes 10mg Take 10 mg Uni vers (AMBIEN) 10 9-25 by mouth ity of mg tablet 16:10: at [place] 13 bedtime. Medical Branch levothyroxi Yes 75ug Take 75 Uni vers ne 9-25 mcg by ity of (SYNTHROID) 16:10: mouth [place] 75 mcg 13 daily. Medical tablet Branch simvastatin Yes 40mg Take 40 mg Univers (ZOCOR) 40 9-25 by mouth ity o f mg tablet 16:10: at [place] 13 bedtime. Medical Branch levothyroxi Yes 75ug Take 75 Uni vers ne 9-25 mcg by ity of (SYNTHROID) 16:10: mouth [place] 75 mcg 13 daily. Medical tablet Branch metformin Yes 500mg Take 500 Uni vers ER 9-25 mg by ity of (GLUCOPHAGE 16:10: mouth [place] -XR) 500 mg 13 daily. Medica l 24 hr Branch tablet spironolact Yes 50mg Take 50 mg [facility] one 9-25 by mouth 2 ity of (ALDACTONE) 16:10: (two) [place] 50 mg 13 times Medical tablet daily. Branch traZODone Yes 150mg Take 150 Uni vers (DESYREL) 9-25 mg by ity of 150 mg 16:10: mouth at [place] tablet 13 bedtime. Medical Branch zolpidem Yes 10mg Take 10 mg Uni vers (AMBIEN) 10 9-25 by mouth ity of mg tablet 16:10: at [place] 13 bedtime. Medical Branch levothyroxi Yes 75ug Take 75 Uni vers ne 9-25 mcg by ity of (SYNTHROID) 16:10: mouth [place] 75 mcg 13 daily. Medical tablet Branch simvastatin Yes 40mg Take 40 mg Univers (ZOCOR) 40 9-25 by mouth ity o f mg tablet 16:10: at [place] 13 bedtime. Medical Branch simvastatin Yes 40mg Take 40 mg Univers (ZOCOR) 40 9-25 by mouth ity o f mg tablet 16:10: at [place] 13 bedtime. Medical Branch metformin Yes 500mg Take 500 Uni vers ER 9-25 mg by ity of (GLUCOPHAGE 16:10: mouth [place] -XR) 500 mg 13 daily. Medica l 24 hr Branch tablet spironolact Yes 50mg Take 50 mg [facility] one 9-25 by mouth 2 ity of (ALDACTONE) 16:10: (two) [place] 50 mg 13 times Medical tablet daily. Branch traZODone Yes 150mg Take 150 Uni vers (DESYREL) 9-25 mg by ity of 150 mg 16:10: mouth at [place] tablet 13 bedtime. Medical Branch zolpidem Yes 10mg Take 10 mg Uni vers (AMBIEN) 10 9-25 by mouth ity of mg tablet 16:10: at [place] 13 bedtime. Medical Branch levothyroxi Yes 75ug Take 75 Uni vers ne 9-25 mcg by ity of (SYNTHROID) 16:10: mouth [place] 75 mcg 13 daily. Medical tablet Branch simvastatin Yes 40mg Take 40 mg Univers (ZOCOR) 40 9-25 by mouth ity o f mg tablet 16:10: at [place] 13 bedtime. Medical Branch metformin Yes 500mg Take 500 Uni vers ER 9-25 mg by ity of (GLUCOPHAGE 16:10: mouth [place] -XR) 500 mg 13 daily. Medica l 24 hr Branch tablet spironolact Yes 50mg Take 50 mg [facility] one 9-25 by mouth 2 ity of (ALDACTONE) 16:10: (two) [place] 50 mg 13 times Medical tablet daily. Branch traZODone Yes 150mg Take 150 Uni vers (DESYREL) 9-25 mg by ity of 150 mg 16:10: mouth at [place] tablet 13 bedtime. Medical Branch zolpidem Yes 10mg Take 10 mg Uni vers (AMBIEN) 10 9-25 by mouth ity of mg tablet 16:10: at [place] 13 bedtime. Medical Branch levothyroxi Yes 75ug Take 75 Uni vers ne 9-25 mcg by ity of (SYNTHROID) 16:10: mouth [place] 75 mcg 13 daily. Medical tablet Branch simvastatin Yes 40mg Take 40 mg Univers (ZOCOR) 40 9-25 by mouth ity o f mg tablet 16:10: at [place] 13 bedtime. Medical Branch metformin Yes 500mg Take 500 Uni vers ER 9-25 mg by ity of (GLUCOPHAGE 16:10: mouth [place] -XR) 500 mg 13 daily. Medica l 24 hr Branch tablet spironolact Yes 50mg Take 50 mg [facility] one 9-25 by mouth 2 ity of (ALDACTONE) 16:10: (two) [place] 50 mg 13 times Medical tablet daily. Branch traZODone Yes 150mg Take 150 Uni vers (DESYREL) 9-25 mg by ity of 150 mg 16:10: mouth at [place] tablet 13 bedtime. Medical Branch zolpidem Yes 10mg Take 10 mg Uni vers (AMBIEN) 10 9-25 by mouth ity of mg tablet 16:10: at [place] 13 bedtime. Medical Branch levothyroxi Yes 75ug Take 75 Uni vers ne 9-25 mcg by ity of (SYNTHROID) 16:10: mouth [place] 75 mcg 13 daily. Medical tablet Branch simvastatin Yes 40mg Take 40 mg Univers (ZOCOR) 40 9-25 by mouth ity o f mg tablet 16:10: at [place] 13 bedtime. Medical Branch metformin Yes 500mg Take 500 Uni vers ER 9-25 mg by ity of (GLUCOPHAGE 16:10: mouth [place] -XR) 500 mg 13 daily. Medica l 24 hr Branch tablet spironolact Yes 50mg Take 50 mg [facility] one 9-25 by mouth 2 ity of (ALDACTONE) 16:10: (two) [place] 50 mg 13 times Medical tablet daily. Branch traZODone Yes 150mg Take 150 Uni vers (DESYREL) 9-25 mg by ity of 150 mg 16:10: mouth at [place] tablet 13 bedtime. Medical Branch zolpidem Yes 10mg Take 10 mg Uni vers (AMBIEN) 10 9-25 by mouth ity of mg tablet 16:10: at [place] 13 bedtime. Medical Branch levothyroxi Yes 75ug Take 75 Uni vers ne 9-25 mcg by ity of (SYNTHROID) 16:10: mouth [place] 75 mcg 13 daily. Medical tablet Branch simvastatin Yes 40mg Take 40 mg Univers (ZOCOR) 40 9-25 by mouth ity o f mg tablet 16:10: at [place] 13 bedtime. Medical Branch metformin Yes 500mg Take 500 Uni vers ER 9-25 mg by ity of (GLUCOPHAGE 16:10: mouth [place] -XR) 500 mg 13 daily. Medica l 24 hr Branch tablet spironolact Yes 50mg Take 50 mg Univers one 9-25 by mouth 2 ity of (ALDACTONE) 16:10: (two) [place] 50 mg 13 times Medical tablet daily. Branch traZODone Yes 150mg Take 150 Uni vers (DESYREL) 9-25 mg by ity of 150 mg 16:10: mouth at [place] tablet 13 bedtime. Medical Branch zolpidem Yes 10mg Take 10 mg Uni vers (AMBIEN) 10 9-25 by mouth ity of mg tablet 16:10: at [place] 13 bedtime. Medical Branch levothyroxi Yes 75ug Take 75 Uni vers ne 9-25 mcg by ity of (SYNTHROID) 16:10: mouth [place] 75 mcg 13 daily. Medical tablet Branch simvastatin Yes 40mg Take 40 mg Univers (ZOCOR) 40 9-25 by mouth ity o f mg tablet 16:10: at [place] 13 bedtime. Medical Branch metformin Yes 500mg Take 500 Uni vers ER 9-25 mg by ity of (GLUCOPHAGE 16:10: mouth [place] -XR) 500 mg 13 daily. Medica l 24 hr Branch tablet spironolact 2015-0 Yes 50mg Take 50 mg Univers one 9-25 by mouth 2 ity of (ALDACTONE) 16:10: (two) [place] 50 mg 13 times Medical tablet daily. Branch traZODone Yes 150mg Take 150 Uni vers (DESYREL) 9-25 mg by ity of 150 mg 16:10: mouth at [place] tablet 13 bedtime. Medical Branch zolpidem Yes 10mg Take 10 mg Uni vers (AMBIEN) 10 9-25 by mouth ity of mg tablet 16:10: at [place] 13 bedtime. Medical Branch levothyroxi Yes 75ug Take 75 Uni vers ne 9-25 mcg by ity of (SYNTHROID) 16:10: mouth [place] 75 mcg 13 daily. Medical tablet Branch simvastatin Yes 40mg Take 40 mg Univers (ZOCOR) 40 9-25 by mouth ity o f mg tablet 16:10: at [place] 13 bedtime. Medical Branch metformin Yes 500mg Take 500 Uni vers ER 9-25 mg by ity of (GLUCOPHAGE 16:10: mouth [place] -XR) 500 mg 13 daily. Medica l 24 hr Branch tablet spironolact Yes 50mg Take 50 mg Univers one 9-25 by mouth 2 ity of (ALDACTONE) 16:10: (two) [place] 50 mg 13 times Medical tablet daily. Branch traZODone Yes 150mg Take 150 Uni vers (DESYREL) 9-25 mg by ity of 150 mg 16:10: mouth at [place] tablet 13 bedtime. Medical Branch zolpidem Yes 10mg Take 10 mg Uni vers (AMBIEN) 10 9-25 by mouth ity of mg tablet 16:10: at [place] 13 bedtime. Medical Branch levothyroxi Yes 75ug Take 75 Uni vers ne 9-25 mcg by ity of (SYNTHROID) 16:10: mouth [place] 75 mcg 13 daily. Medical tablet Branch simvastatin Yes 40mg Take 40 mg Univers (ZOCOR) 40 9-25 by mouth ity o f mg tablet 16:10: at [place] 13 bedtime. Medical Branch metformin Yes 500mg Take 500 Uni vers ER 9-25 mg by ity of (GLUCOPHAGE 16:10: mouth [place] -XR) 500 mg 13 daily. Medica l 24 hr Branch tablet spironolact Yes 50mg Take 50 mg Univers one 9-25 by mouth 2 ity of (ALDACTONE) 16:10: (two) [place] 50 mg 13 times Medical tablet daily. Branch traZODone Yes 150mg Take 150 Uni vers (DESYREL) 9-25 mg by ity of 150 mg 16:10: mouth at [place] tablet 13 bedtime. Medical Branch zolpidem Yes 10mg Take 10 mg Uni vers (AMBIEN) 10 9-25 by mouth ity of mg tablet 16:10: at [place] 13 bedtime. Medical Branch levothyroxi Yes 75ug Take 75 Uni vers ne 9-25 mcg by ity of (SYNTHROID) 16:10: mouth [place] 75 mcg 13 daily. Medical tablet Branch simvastatin Yes 40mg Take 40 mg Univers (ZOCOR) 40 9-25 by mouth ity o f mg tablet 16:10: at [place] 13 bedtime. Medical Branch metformin Yes 500mg Take 500 Uni vers ER 9-25 mg by ity of (GLUCOPHAGE 16:10: mouth [place] -XR) 500 mg 13 daily. Medica l 24 hr Branch tablet Immunizations Ordered Immunization Filled Immunization Date Status Commen ts Source Name Name pneumococcal 2017-04-29 Completed [facility] 13-valent vaccine 16:39:00 [place] Vital Signs Vital Name Observation Time Observation Value Comments Source Systolic blood 2020-06-20 15:55:00 138 mm[Hg] [facility] Diastolic blood 2020-06-20 15:55:00 84 mm[Hg] Unive rsity of [facility] Heart rate 2020-06-20 15:55:00 71 /min [facility] Body height 2020-06-20 15:55:00 161.3 cm [facility] Body weight 2020-06-20 15:55:00 89.994 kg [facility] BMI 2020-06-20 15:55:00 34.59 kg/m2 [facility] Systolic blood 2020-06-20 15:55:00 138 mm[Hg] Univer sity of pressure [facility] Diastolic blood 2020-06-20 15:55:00 84 mm[Hg] Unive rsity of [facility] Heart rate 2020-06-20 15:55:00 71 /min [facility]i ty of [facility] Body height 2020-06-20 15:55:00 161.3 cm [facility] [place] [facility] Body weight 2020-06-20 15:55:00 89.994 kg [facility] [place] [facility] BMI 2020-06-20 15:55:00 34.59 kg/m2 [facility] Systolic blood 2020-05-25 14:07:00 105 mm[Hg] Univer sity of pressure [facility] Diastolic blood 2020-05-25 14:07:00 52 mm[Hg] Unive rsity of pressure [facility] Heart rate 2020-05-25 14:07:00 73 /min [facility]i ty of [facility] Body temperature 2020-05-25 14:07:00 36.56 Meghana Univ ersity of [facility] Body height 2020-05-25 14:07:00 163.8 cm Universi ty of [facility] Body weight 2020-05-25 14:07:00 94.858 kg [facility]i [facility] of [facility] Branch BMI 2020-05-25 14:07:00 35.34 kg/m2 [facility] of [facility] Oxygen saturation in 2020-02-18 01:10:00 96 /min [facility] Arterial blood by [facility] Pulse oximetry Branch Systolic blood 2020-02-18 01:10:00 171 mm[Hg] Univer sity of pressure [facility] Diastolic blood 2020-02-18 01:10:00 74 mm[Hg] Unive rsity of pressure [facility] Heart rate 2020-02-18 01:10:00 65 /min [facility]i [facility] of [facility] Respiratory rate 2020-02-18 01:10:00 17 /min Univ ersity of [facility] Body temperature 2020-02-17 22:04:00 36.67 Meghana Univ ersity of [facility] Body height 2020-02-17 22:04:00 162.6 cm Universi ty of [facility] Body weight 2020-02-17 22:04:00 81.647 kg [facility]i ty of [facility] Branch BMI 2020-02-17 22:04:00 30.90 kg/m2 [facility] of [facility] Systolic blood 2019-07-12 02:00:00 162 mm[Hg] Univer sity of pressure [facility] Diastolic blood 2019-07-12 02:00:00 71 mm[Hg] Unive rsity of pressure [facility] Heart rate 2019-07-12 02:00:00 71 /min [facility] Respiratory rate 2019-07-12 02:00:00 18 /min [facility] Oxygen saturation in 2019-07-12 02:00:00 98 /min [facility] Arterial blood by [facility] Pulse oximetry [facility] Body temperature 2019-07-11 23:33:00 36.44 Meghana [facility] Body height 2019-07-11 23:33:00 162.6 cm [facility] Body weight 2019-07-11 23:33:00 111.131 kg [facility] BMI 2019-07-11 23:33:00 42.05 kg/m2 [facility] Heart Rate 2017-04-29 22:13:00 [facility] Respitory Rate 2017-04-29 22:13:00 [facility] Systolic (mm Hg) 2017-04-29 22:13:00 Arnulfo rial [place] Diastolic (mm Hg) 2017-04-29 22:13:00 Mem orial [place] Temperature Oral (F) 2017-04-29 22:13:00 97.7 F [facility] [place] Temperature Oral (F) 2017-04-29 17:52:00 97.8 F [facility] Heart Rate 2017-04-29 17:52:00 [facility] [place] Systolic (mm Hg) 2017-04-29 17:52:00 Arnulfo rial [place] Diastolic (mm Hg) 2017-04-29 17:52:00 Mem orial [place] Respitory Rate 2017-04-29 17:52:00 Memori al [facility] Respitory Rate 2017-04-29 15:07:00 Memori al [place] Systolic (mm Hg) 2017-04-29 13:31:00 Arnulfo rial [facility] Diastolic (mm Hg) 2017-04-29 13:31:00 Mem orial [facility] Temperature Oral (F) 2017-04-29 13:31:00 97.5 F [facility] Heart Rate 2017-04-29 13:31:00 [facility] 2017-04-24 01:58:00 160.02 cm [facility] BMI Calculated 2017-04-24 01:58:00 Harpal Burnett Weight 2017-04-24 01:58:00 [facility] Weight 2017-04-23 14:02:00 [facility] BMI Calculated 2017-04-23 14:02:00 Harpal Burnett Height 2017-04-23 14:02:00 161.29 cm [facility] Height 2017-04-21 19:23:00 161.29 cm [facility] BMI Calculated 2017-04-21 19:23:00 Harpal reis [place] Weight 2017-04-21 19:23:00 [facility] Procedures Procedure Date / Time Performing Clinician Source Performed AUTHORIZATION TO RELEASE 2020-08-18 05:01:00 Doctor Ocampo [facility] PHI TO [facility] Name Medical [place] EXTERNAL PROVIDER RECORDS 2020-08-09 05:01:00 Doctor Hammerkaiser permanent[facility] Medical Anthony ASSIGNMENT OF BENEFITS 2020-05-25 13:47:09 Doctor Ocampo [facility] Medical Anthony CT ABDOMEN PELVIS W 2020-02-17 23:39:32 Maximus Medina [facility] CONTRAST Medical Branch LIPASE 2020-02-17 22:40:00 Maximus Medina [facility] COMP. METABOLIC PANEL 2020-02-17 22:40:00 Maximus Medina [facility] ([id number]) [facility] CBC WITH DIFFERENTIAL 2020-02-17 22:40:00 Maximus Medina [facility] URINALYSIS 2020-02-17 22:40:00 Maximus Medina [facility] CONSENT/REFUSAL FOR 2020-02-17 21:46:21 Doctor Terrence [facility] DIAGNOSIS AND TREATMENT [facility] BASIC METABOLIC PANEL (NA, 2019-07-12 00:44:00 Jean Myers [facility] K, CL, CO2, GLUCOSE, BUN, Medica l Branch CREATININE, CA) CBC WITH DIFFERENTIAL 2019-07-12 00:44:00 Jean Myers [facility] NOTICE OF PRIVACY 2019-07-11 23:26:49 Doctor Terrence [facility] PRACTICES [place] Medical Anthony CONSENT/REFUSAL FOR 2019-07-11 23:24:58 Doctor Unassigned, Unive [facility] DIAGNOSIS AND TREATMENT [place] Medical Branch Cholecystectomy [facility] Hernia repair [facility] [place] Hysterectomy [facility] Knee joint operation [facility] Encounters Start End Encounter Admission Attending Care Care Encounter Source Date/Time Date/Time Type Type Clinicians Facility Department ID 2021-12-06 2021-12-06 Outpatient [facility]ER [facility] [id number] Devoted 10:09:00 10:09:00 _N 0106 Medica l Group 2021-06-21 2021-06-21 Outpatient [facility]OGENRIEDER [facility] 487 Devoted 11:16:00 11:16:00 _N 0722 Medica l Group 2021-03-03 2021-03-03 [facility] [id number] Devoted 06:02:00 06:02:00 0403 Medica l Group 2020-09-26 2020-09-26 Telemedici Kayla Darrick [facility] 1.2.840.114 [id number] Univers 08:06:00 16:31:49 ne Visit Health 350.1.13.10 i [place] [phone] [place] [address] Branch Office Building 2020-09-26 2020-09-26 Telemedici Kayla Darrick [facility] 1.2.840.114 [id number] 08:06:00 16:31:49 ne Visit Health [id number] Clear 4.2.7.2.686 [place] [phone] [place] [address] Office Building 2020-09-26 2020-09-26 Outpatient DARRICK [facility] [id number] Univers 09:45:00 09:45:00 [id number] ity [facility] 2020-09-26 2020-09-26 Outpatient [facility]ICK [facility] [id number] Univers 09:45:00 09:45:00 ity [facility] 2020-09-18 2020-09-18 Outpatient [facility]ARRICK [facility] [id number] Univers 11:15:00 11:15:00 [id number] ity [facility] 2020-09-18 2020-09-18 Outpatient [facility]ICK [facility] [id number] Univers 11:15:00 11:15:00 ity [facility] 2020-09-18 2020-09-18 Telephone Darrick Garza [facility] 1.2.840.114 [id number] Univers 00:00:00 00:00:00 Health 350.1.13.10 [place] [phone] [address] Office Building 2020-09-18 2020-09-18 Telephone Darrick Garza [facility] 1.2.840.114 [id number] 00:00:00 00:00:00 Health 350.1.13.10 Clear 4.2.7.2.686 [place] [phone] [address] 2020-09-04 2020-09-04 Outpatient R KAYLA [facility] [id number] Univers 11:00:00 11:00:00 ity [facility] 2020-09-04 2020-09-04 Outpatient R KAYLA [facility] [id number] Univers 11:00:00 11:00:00 ity [facility] 2020-08-18 2020-08-18 Orders Doctor ELIJAH 1.2.840.114 [id number] 00:00:00 00:00:00 Only Unassigned, [place]UG[place] 350.1.13.10 [place] [facility] 4.2.7.2.686 [id number] 009 2020-08-18 2020-08-18 Orders Doctor ELIJAH 1.2.840.114 [id number] Univers 00:00:00 00:00:00 Only Unassigned, AUGUST 350.1.13.10 ity of [place] [facility] 4.2.7.2.686 [place] [phone] [address] 2020-08-09 2020-08-09 Letter Darrick Garza [facility] 1.2.840.114 [id number] 00:00:00 00:00:00 (Out) Health 350.1.13.10 Clear 4.2.7.2.686 [place] [id number] [place] [address] Office Building 2020-08-09 2020-08-09 Orders Doctor ELIJAH Mann2.840.114 [id number] 00:00:00 00:00:00 Only Unassigned, AUGUST 350.1.13.10 [place] [facility] 4.2.7.2.686 [id number] 009 2020-08-09 2020-08-09 Letter KaylaDarrick [facility] 1.2.840.114 [id number] Univers 00:00:00 00:00:00 (Out) Health 350.1.13.10 [place] [phone] [address] Office Building 2020-08-09 2020-08-09 Orders Doctor ELIJAH 1.2.840.114 [id number] Univers 00:00:00 00:00:00 Only Unassigned, AUGUST 350.1.13.10 ity of [place] [facility] 4.2.7.2.686 [place] [id number] [address] 2020-07-31 2020-07-31 Telephone Kayla Darrick [facility] 1.2.840.114 [id number] 00:00:00 00:00:00 Health 350.1.13.10 Specialty 4.2.7.2.686 Care - [phone] [place] [address] 2020-07-31 2020-07-31 Telephone KaylaDarrick BINA 1.2.840.114 [id number] Univers 00:00:00 00:00:00 Health 350.1.13.10 it [place]2.[place] - [phone] [address] 2020-06-20 2020-06-20 Office Darrick Garza 1.2.840.114 [id number] 10:45:01 13:39:43 Visit Health 350.1.13.10 [place] 4.2.7.2.686 [place] [phone] [place] [address] [facility] 2020-06-20 2020-06-20 Office Darrick Garza 1.2.840.[id number] [facility] [place] [place] 10:45:01 13:39:43 Visit Health 350.1.13.10 [place] [id number] [address] Office Building 2020-06-20 2020-06-20 Outpatient R [facility] [id number] Univers 11:00:00 11:00:00 [id number] ity [facility] 2020-06-20 2020-06-20 Outpatient [facility] [id number] Univers 11:00:00 11:00:00 ity [facility] 2020-06-08 2020-06-08 Outpatient R ARAGON, [facility] [id number] Univers 15:45:00 15:45:00 [facility] [id number] [facility] 2020-05-25 2020-05-25 Office Aragon, [facility] 1.2.197.750 [id number] Univers 08:50:26 09:37:46 Visit Amanda Houser 350.1.13.10 i ty of [place] 4.2.7.2.686 [facility] [phone] Al dical [address] 2020-05-25 2020-05-25 Outpatient R MAHESH [facility] [id number] Univers 09:00:00 09:00:00 [facility] 2020-05-25 2020-05-25 Orders Doctor ELIJAH 1.2.840.114 [id number] Univers 00:00:00 00:00:00 Only Unassigned, AUGUST 350.1.13.10 ity of [place] [facility] 4.2.7.2.686 [place] [phone] [facility] 009 [place] 2020-02-17 2020-02-17 Emergency X ADAM, [facility] ERT [id number] Univers 17:02:29 20:30:00 MAXIMUS ity [facility] 2020-02-17 2020-02-17 [facility] 1.2.840.114 [id number] Univers 17:02:29 20:30:00 Maximustoña Houser 350.1.13.10 i ty [place]2.[place] [id number] [facility] 084 Anthony 2020-02-17 2020-02-17 Orders Doctor ELIJAH 1.2.840.114 [id number] Univers 00:00:00 00:00:00 Only Unassigned, AUGUST 350.1.13.10 ity of [place] [facility] 4.2.7.2.686 [place] [id number] [facility] 009 Branch 2019-07-11 2019-07-11 Emergency Jean Myers [facility] 1.2.[id number] [facility] [place] [place] 18:37:27 21:30:00 Vanessa Hughes 350.1.13.10 [facility] 4.2.7.2.[place] [phone] [facility] 084 Branch 2017-04-23 2017-04-29 Inpatient [facility] [id number] [facility] 13:34:00 23:01:00 [facility] 01 [facility] Results Test Test Test Results Result Source Description Time Comments Comments CT ABDOMEN 2020-01- Impression:1. There is Un iversity of PELVIS W 19 diastases rectus and [place] CONTRAST 23:51:31 extension of bowel and Br anch mesentery into thedefect extending caudally but the outer fascial layer appears intact andthere is no bowel obstruction.2. Thinning of the abdominal wall fascia and supraumbilical diastasesrectus without bowel or fat extending through the defect.3. Some hazy stranding around the proximal superior mesenteric artery thatcould be seen in the setting of mild vasculitis. There is calcified andnoncalcified plaque in moderate proximal stenosis.4. Cardiomegaly and other findings as described. Location Code: 2831 Clinical statement:Hernia, complicated Abd pain, acute, generalized lowerabd pain Ordering physician: MAXIMUS MEDINA Study: CT abdomen and pelvis with ?contrast. CT radiation dose protocolperformed in accordance with principles of ALARA. Technique: Axial images were obtained from the lung bases through thepelvis following ?I. V. contrast administration. Comparison: None Abdomen:Heart is enlarged. No pleural or pericardial effusion is seen. Lungbases are clear. Splenic hemangioma suspected. Adrenal glands are normal. Posterior medialleft renal cyst is present. IVC filter is present. Suspected right renalpelvic cyst is seen. Pancreas is unremarkable. Stomach is incompletelydistended. Gallbladder is absent. Intrahepatic bile duct dilatation may bepostsurgical. No solid liver lesion is seen. There is calcified and noncalcified plaque in the aorta and some hazinessaround the proximal aspect of the superior mesenteric artery with moderateproximal stenosis. Stranding in the surrounding fat may be related to mildvasculitis. No periaortic stranding, dissection or occlusion is seen. Mainrenal arteries are patent. Fascial thinning and focal diastases is seen in the supraumbilicalabdominal wall. Pelvis:Extensive postsurgical changes are seen in the anterior abdominalwall with diastases rectus and extension of bowel and mesenteric fat intothe defect but the outer fascial layer is intact. Bladder and distal ureters are normal. No mass, adenopathy, free air, obstruction, pneumatosis, inflammatorychanges or collections are seen. Small left ovarian cyst is present. Uterus is absent. Degenerative changes are seen in the spine and pelvis. [facility], Radiant Results Inft User - 02/17/2020 6:52 PM CDTClinical statement:Hernia, complicated Abd pain, acute, generalized lowerabd pain Ordering physician: MAXIMUS MEDINA Study: CT abdomen and pelvis with contrast. CT radiation dose protocolperformed in accordance with principles of ALARA.Technique: Axial images were obtained from the lung bases through thepelvis following I. V. contrast administration.Comparison: NoneAbdomen:Heart is enlarged. No pleural or pericardial effusion is seen. Lungbases are clear.Splenic hemangioma suspected. Adrenal glands are normal. Posterior medialleft renal cyst is present. IVC filter is present. Suspected right renalpelvic cyst is seen. Pancreas is unremarkable. Stomach is incompletelydistended. Gallbladder is absent. Intrahepatic bile duct dilatation may bepostsurgical. No solid liver lesion is seen.There is calcified and noncalcified plaque in the aorta and some hazinessaround the proximal aspect of the superior mesenteric artery with moderateproximal stenosis. Stranding in the surrounding fat may be related to mildvasculitis. No periaortic stranding, dissection or occlusion is seen. Mainrenal arteries are patent.Fascial thinning and focal diastases is seen in the supraumbilicalabdominal wall.Pelvis:Extensive postsurgical changes are seen in the anterior abdominalwall with diastases rectus and extension of bowel and mesenteric fat intothe defect but the outer fascial layer is intact.Bladder and distal ureters are normal.No mass, adenopathy, free air, obstruction, pneumatosis, inflammatorychanges or collections are seen.Small left ovarian cyst is present. Uterus is absent.Degenerative changes are seen in the spine and pelvis.IMPRESSIONImpressio n:1. There is diastases rectus and extension of bowel and mesentery into thedefect extending caudally but the outer fascial layer appears intact andthere is no bowel obstruction.2. Thinning of the abdominal wall fascia and supraumbilical diastasesrectus without bowel or fat extending through the defect.3. Some hazy stranding around the proximal superior mesenteric artery thatcould be seen in the setting of mild vasculitis. There is calcified andnoncalcified plaque in moderate proximal stenosis.4. Cardiomegaly and other findings as described.Location Code: 2831 Urinalysis 2020-02-17 23:16:00 Test Item Value Reference Range Interpretation Comme nts APPEARANCE (test code = Hazy Clear A 6472392952) COLOR (test code = 9361034378) Yellow Yellow PH (test code = 8035409080) 4.8-8.0 SP GRAVITY (test code = 1.003-1.030 3236278910) GLU U QUAL (test code = Normal Normal 6757111910) BLOOD (test code = 2437296246) Negative Negative KETONES (test code = 3418313485) Negative Negative PROTEIN (test code = 2887-8) Negative Negative UROBILIN (test code = 8208505848) Normal Normal BILIRUBIN (test code = Negative Negative 1840272741) NITRITE (test code = 8078098830) Negative Negative LEUK TOMASZ (test code = Negative Negative 5246191586) RBC/HPF (test code = 6374703593) See_Comment [Automated message] The system which imgix nerated this result transmit [place] reference range: 0 - 3 HP F. The reference range was not used to interpret th is result as normal/abnormal . WBC/HPF (test code = 1274120289) See_Comment [Automated message] The system which imgix nerated this result transmit [place] reference range: 0 - 5 HP F. The reference range was not used to interpret th is result as normal/abnormal . BACTERIA (test code = 2719479314) Few Negative A SQ EPITH (test code = 7505810605) HPF Lab Interpretation (test code = Abnormal 75883-8) [facility]. METABOLIC PANEL (58997)2020-02-17 23:08:00 Test Item Value Reference Range Interpretation Comments NA (test code = 138 mmol/L 135-145 7201336204) K (test code = 4.1 mmol/L 3.5-5 0254540835) CL (test code = 105 mmol/L 98-108 8476305968) CO2 TOTAL (test code = 25 mmol/L 23-31 7587301609) AGAP (test code = 2-16 3128319729) BUN (test code = 14 mg/dL 7-23 1271815374) GLUCOSE (test code = 104 mg/dL 70-110 4966482349) CREATININE (test code 0.67 mg/dL 0.5-1.04 = 1600353636) TOTAL BILI (test code 0.3 mg/dL 0.1-1.1 = 1073215752) CALCIUM (test code = 8.6 mg/dL 8.6-10.6 4101909834) T PROTEIN (test code = 7.4 g/dL 6.3-8.2 4687804393) ALBUMIN (test code = 3.9 g/dL 3.5-5 0799990164) ALK PHOS (test code = 59 U/L 34-122 9803058833) ALTv (test code = 13 U/L 5-35 1742-6) AST(SGOT) (test code = 24 U/L 13-40 3150832386) eGFR Calculation mL/min/1.73m2 (Non-) (test code = 7946373255) eGFR Calculation mL/min/1.73m2 () (test code = 1233870456) LYNN (test code = LYNN) Association of Glomerular Filtration Rate (GFR) and Staging of Kidney Disease* + -+ + ---+| GFR (mL/min/1.73 m2) ?| With Kidney Damage ?| ?Without Kidney Damage+ -------+ ------+ ---------+| ?>90 ?| ?Stage one ?| ? Normal ?+ --+ -+ ----+| ?60-89 ?| ?Stage two ?| ? Decreased GFR ? + -+ + ---+| ?30-59 ?| ?Stage three ?| ? Stage three ? + -+ + ---+| ?15-29 ?| ?Stage four ? | ? Stage four ?+ --+ -+ ----+| ?<15 (or dialysis) ? ?| ?Stage five ? | ? Stage five ?+ --+ -+ ----+ *Each stage assumes the associated GFR level has been in effect for at least three months. ?Stages 1 to 5, with or without kidney disease, indicate chronic kidney disease. Notes: Determination of stages one and two (with eGFR >59mL/min/1.73 m2) requires estimation of kidney damage for at least three months as defined by structural or functional abnormalities of the kidney, manifested by either:Pathological abnormalities or Markers of kidney damage (including abnormalities in the composition of the blood or urine or abnormalities in imaging tests). [facility] 23:08:00 Test Item Value Reference Range Interpretation Comments LIPASE (test code = 1021186098) 119 U/L 0-220 Lab Interpretation (test code = Normal 77014-9) [facility] WITH [id number] 22:56:00 Test Item Value Reference Range Interpretation Comments WBC (test code = See_Comment [Automated 2308-2) message] The sy stem which generated this result transmitted reference range : 4.30 - 11.10 10*3/?L. The reference range was not used to interpret this result as normal/abnormal . RBC (test code = See_Comment [Automated 203-8) message] The sy stem which generated this result transmitted reference range : 3.93 - 5.25 10*6/?L. The reference range was not used to interpret this result as normal/abnormal . HGB (test code = 13.0 g/dL 11.6-15 718-7) HCT (test code = 40.6 % 35.7-45.2 4544-3) MCV (test code = 81.2 fL 80.6-95.5 787-2) MCH (test code = 26.0 pg 25.9-32.8 785-6) MCHC (test code = 32.0 g/dL 31.6-35.1 786-4) RDW-SD (test code = 41.2 fL 39-49.9 88672-6) RDW-CV (test code = 14.1 % 12-15.5 788-0) PLT (test code = See_Comment [Automated 777-3) message] The sy stem which generated this result transmitted reference range : 166 - 358 10*3/ ?L. The reference r eric was not used to interpret this result as normal/abnormal . MPV (test code = 8.9 fL 9.5-12.9 L 97581-4) NRBC/100 WBC (test See_Comment [Automat ed code = 9114989133) message] The system which generated this result transmitted reference range : 0.0 - 10.0 /100 WBCs. The refer ence range was not u sed to interpret th is result as normal/abnormal . NRBC x10^3 (test code <0.01 See_Comment [Auto mated = 0943774922) message] The s ystem which generated this result transmitted reference range : 10*3/?L. The reference range was not used to interpret this result as normal/abnormal . GRAN MAT (NEUT) % 56.2 % (test code = 770-8) IMM GRAN % (test code 0.20 % = 3049682335) LYMPH % (test code = 29.2 % 736-9) MONO % (test code = 9.5 % 5905-5) EOS % (test code = 3.9 % 713-8) BASO % (test code = 1.0 % 706-2) GRAN MAT x10^3(ANC) 2.73 10*3/uL 1.88-7.09 (test code = 5627876096) IMM GRAN x10^3 (test <0.03 0-0.06 code = 7243902362) LYMPH x10^3 (test code 1.42 10*3/uL 1.32-3.29 = 731-0) MONO x10^3 (test code 0.46 10*3/uL 0.33-0.92 = 742-7) EOS x10^3 (test code = 0.19 10*3/uL 0.03-0.39 711-2) BASO x10^3 (test code 0.05 10*3/uL 0.01-0.07 = 704-7) Lab Interpretation Abnormal (test code = 33794-0) [facility] Metabolic Panel (NA, K, CL, CO2, GLUCOSE, BUN, CREATININE, CA)2019-07-12 01:21:00 Test Item Value Reference Range Interpretation Comments NA (test code = 143 mmol/L 135-145 9107597154) K (test code = 3.0 mmol/L 3.5-5 L 5013795169) CL (test code = 105 mmol/L 98-108 5510688464) CO2 TOTAL (test code = 28 mmol/L 23-31 7666603106) AGAP (test code = 2-16 4455746874) BUN (test code = 8 mg/dL 7-23 6623865789) GLUCOSE (test code = 123 mg/dL 70-110 H 4604810405) CREATININE (test code = 0.66 mg/dL 0.5-1.04 3230941735) CALCIUM (test code = 9.0 mg/dL 8.6-10.6 9355016627) eGFR Calculation mL/min/1.73m2 (Non-) (test code = 5813840250) eGFR Calculation mL/min/1.73m2 () (test code = 4354552563) LYNN (test code = LYNN) Association of Glomerular Filtration Rate (GFR) and Staging of Kidney Disease*+ + + +| GFR (mL/min/1.73 m2)?| With Kidney Damage?|?Without Kidney Damage+ --------+ --------+ +|?>90?|?S tage one?|? Normal?+ ---------+ ---------+ +|?60-89? |?Stage two?|? Decreased GFR? + --+ --+ ------+|?30-59?|?Stage three?|? Stage three? + --+ --+ ------+|?15-29?|?Stage four? |? Stage four?+ -------+ -------+ +|?<15 (or dialysis)?|?Stage five? |? Stage five?+ -------+ -------+ +*Each stage assumes the associated GFR level has been in effect for at least three months.?Stages 1 to 5, with or without kidney disease, indicate chronic kidney disease.Notes: Determination of stages one and two (with eGFR >59mL/min/1.73 m2) requires estimation of kidney damage for at least three months as defined by structural or functional abnormalities of the kidney, manifested by either:Pathological abnormalities or Markers of kidney damage (including abnormalities in the composition of the blood or urine or abnormalities in imaging tests). Lab Interpretation Abnormal (test code = 17544-8) [facility] WITH [id number] 00:55:00 Test Item Value Reference Range Interpretation Comments WBC (test code = See_Comment [Automated 6690-2) message] The sy stem which generated this result transmitted reference range : 4.30 - 11.10 10*3/?L. The reference range was not used to interpret this result as normal/abnormal . RBC (test code = See_Comment [Automated 789-8) message] The sy stem which generated this result transmitted reference range : 3.93 - 5.25 10*6/?L. The reference range was not used to interpret this result as normal/abnormal . HGB (test code = 12.1 g/dL 11.6-15 718-7) HCT (test code = 38.4 % 35.7-45.2 4544-3) MCV (test code = 85.7 fL 80.6-95.5 787-2) MCH (test code = 27.0 pg 25.9-32.8 785-6) MCHC (test code = 31.5 g/dL 31.6-35.1 L 786-4) RDW-SD (test code = 43.8 fL 39-49.9 28146-0) RDW-CV (test code = 14.1 % 12-15.5 788-0) PLT (test code = See_Comment [Automated 777-3) message] The sy stem which generated this result transmitted reference range : 166 - 358 10*3/ ?L. The reference r eric was not used to interpret this result as normal/abnormal . MPV (test code = 9.3 fL 9.5-12.9 L 09131-5) NRBC/100 WBC (test See_Comment [Automat ed code = 9431423160) message] The system which generated this result transmitted reference range : 0.0 - 10.0 /100 WBCs. The refer ence range was not u sed to interpret th is result as normal/abnormal . NRBC x10^3 (test code <0.01 See_Comment [Auto mated = 9854101723) message] The s ystem which generated this result transmitted reference range : 10*3/?L. The reference range was not used to interpret this result as normal/abnormal . GRAN MAT (NEUT) % 61.3 % (test code = 770-8) IMM GRAN % (test code 0.40 % = 6503670437) LYMPH % (test code = 24.4 % 736-9) MONO % (test code = 9.1 % 5905-5) EOS % (test code = 3.8 % 713-8) BASO % (test code = 1.0 % 706-2) GRAN MAT x10^3(ANC) 3.22 10*3/uL 1.88-7.09 (test code = 0882679727) IMM GRAN x10^3 (test <0.03 0-0.06 code = 8925968766) LYMPH x10^3 (test code 1.28 10*3/uL 1.32-3.29 L = 731-0) MONO x10^3 (test code 0.48 10*3/uL 0.33-0.92 = 742-7) EOS x10^3 (test code = 0.20 10*3/uL 0.03-0.39 711-2) BASO x10^3 (test code 0.05 10*3/uL 0.01-0.07 = 704-7) Lab Interpretation Abnormal (test code = 77980-8) [facility] 08:[facility]00 Test Item Value Reference Range Interpretation Comments AGAP (test code = AGAP) 11.2 10.0-20.0 [id number] 08:33:00 Test Item Value Reference Range Interpretation Comments Chloride Lvl (test code = Chloride Lvl) 101 95-109 [facility] CenterJsyxkgkCQOWGHHMXVWJ7589-10-88 08:33:00 Test Item Value Reference Range Interpretation Comments Potassium Lvl (test code = Potassium 3.2 3.5-5.1 Lvl) [facility] [id number] 08:33:00 Test Item Value Reference Range Interpretation Comments Sodium Lvl (test code = Sodium Lvl) 138 135-145 [facility] CenterSotmwmgQWYSSNLJBZNB2439-39-33 08:33:00 Test Item Value Reference Range Interpretation Comments CO2 (test code = CO2) 29 24-32 [facility] CenterOjebziyBMOSONUTUCJI3689-21-14 08:33:00 Test Item Value Reference Range Interpretation Comments Calcium Lvl (test code = Calcium Lvl) 8.5 8.5-10.5 [facility] CenterNvvnphgAHLKAUAYTTZQ0790-18-11 08:33:00 Test Item Value Reference Range Interpretation Comments BUN (test code = BUN) 14 7-22 [facility] CenterCqieqogMSGYNWSLPOVS2674-24-18 08:33:00 Test Item Value Reference Range Interpretation Comments Creatinine Lvl (test code = Creatinine 0.72 0.50-1.40 Lvl) [facility] CenterJtjrcmxVGYEBCZWURBC4812-28-39 08:33:00 Test Item Value Reference Range Interpretation Comments Glucose Lvl (test code = Glucose Lvl) 98 70-99 [facility] CenterWrncjrgWGXOEFBOWSPY4311-17-05 08:33:00 Test Item Value Reference Range Interpretation Comments eGFR (test code = eGFR) 87 [facility] CampusKusgpboOYJBLDDQAV3141-28-62 08:33:00 Test Item Value Reference Range Interpretation Comments RBC (test code = RBC) 3.94 4.20-5.40 [facility] CampusAgubjsoKKCMTAYXZY2956-51-23 08:33:00 Test Item Value Reference Range Interpretation Comments Hgb (test code = Hgb) 11.2 12.0-16.0 [facility] CampusFgmqnzjDOVXRFBNLT0040-23-55 08:33:00 Test Item Value Reference Range Interpretation Comments Hct (test code = Hct) 34.0 36.0-48.0 [facility] CampusOqxweyqHGGDFWDBIP6996-62-72 08:33:00 Test Item Value Reference Range Interpretation Comments MCV (test code = MCV) 86.1 80.0-98.0 [facility] CampusPzmekjqIRGTKUCYFA2149-25-58 08:33:00 Test Item Value Reference Range Interpretation Comments MCHC (test code = MCHC) 33.1 32.0-36.0 [facility] CampusDezrwyjAOYDSJRMVI6312-28-78 08:33:00 Test Item Value Reference Range Interpretation Comments MCH (test code = MCH) 28.5 pg 27.0-31.0 [facility] CampusUvkdvveESKNRRDOIX8400-94-79 08:33:00 Test Item Value Reference Range Interpretation Comments RDW (test code = RDW) 16.2 11.5-14.5 [facility] CampusQhelvjcOJVSUJUNIU5309-98-85 08:33:00 Test Item Value Reference Range Interpretation Comments Platelet (test code = Platelet) 213 133-450 [facility] CampusDjizsziIPAVCYPPWC2104-66-19 08:33:00 Test Item Value Reference Range Interpretation Comments MPV (test code = MPV) 7.3 7.4-10.4 [facility] CampusThzzvbnCBYWFEYQNR5868-79-76 08:33:00 Test Item Value Reference Range Interpretation Comments WBC (test code = WBC) 6.4 3.7-10.4 [facility] CampusErxsigyJABZRKRGQN6355-01-41 08:33:00 Test Item Value Reference Range Interpretation Comments Monocytes # (test code 0.6 See_Comment [Aut omated message] The = Monocytes #) system which generated this result tra nsmitted reference range : <=0.8. The reference r eric was not used to int erpret this result as normal/abnormal . [facility] CampusSyhoahoXVTKOKEUIV9729-44-48 08:33:00 Test Item Value Reference Range Interpretation Comments Eosinophils # (test code 0.4 See_Comment [A utomated message] The = Eosinophils #) system whic h generated this result tra nsmitted reference range : <=0.5. The reference r eric was not used to int erpret this result as normal/abnormal . [facility] CampusOvwmkkbCHWYZLQUSP6792-15-42 08:33:00 Test Item Value Reference Range Interpretation Comments Basophils # (test code 0.1 See_Comment [Aut omated message] The = Basophils #) system which generated this result tra nsmitted reference range : <=0.2. The reference r eric was not used to int erpret this result as normal/abnormal . [facility] CampusRjslyqjSTHXQISXEE1456-29-81 08:33:00 Test Item Value Reference Range Interpretation Comments Segs (test code = Segs) 60.9 45.0-75.0 [facility] CampusGtageptNRQWVZFDBE6712-28-80 08:33:00 Test Item Value Reference Range Interpretation Comments Lymphocytes (test code = Lymphocytes) 23.4 20.0-40.0 [facility] CampusMtwvdzeXUDXMLZFDV5676-40-39 08:33:00 Test Item Value Reference Range Interpretation Comments Eosinophils (test code = 5.6 See_Comment [A utomated message] The Eosinophils) system which ge nerated this result tra nsmitted reference range : <=4.0. The reference r eric was not used to int erpret this result as normal/abnormal . [facility] CampusFoivimyQJIVTMDEKK2123-87-11 08:33:00 Test Item Value Reference Range Interpretation Comments Monocytes (test code = Monocytes) 9.2 2.0-12.0 [facility] CampusHkcjlgyCNFJCZTYWN3715-15-98 08:33:00 Test Item Value Reference Range Interpretation Comments Basophils (test code = 0.9 See_Comment [Aut omated message] The Basophils) system which ge nerated this result tra nsmitted reference range : <=1.0. The reference r eric was not used to int erpret this result as normal/abnormal . [facility] CampusRvqxjkzFEEAEROINJ4381-90-29 08:33:00 Test Item Value Reference Range Interpretation Comments Segs-Bands # (test code = Segs-Bands #) 3.9 1.5-8.1 [facility] CampusIwtuyukFADNROVEEI2200-53-41 08:33:00 Test Item Value Reference Range Interpretation Comments Lymphocytes # (test code = Lymphocytes 1.5 1.0-5.5 #) [facility] CenterLedvxwzJTKYGOWGRMSM1088-49-37 11:48:00 Test Item Value Reference Range Interpretation Comments AGAP (test code = AGAP) 11.4 10.0-20.0 [facility] CenterKxmlxsiCKWYDAFMKPQE2633-81-58 11:48:00 Test Item Value Reference Range Interpretation Comments CO2 (test code = CO2) 30 24-32 [facility] CenterLqjyekzGVTBWFAGKJXG7561-00-69 11:48:00 Test Item Value Reference Range Interpretation Comments Calcium Lvl (test code = Calcium Lvl) 8.4 8.5-10.5 [facility] CenterLqyjmkmGYMHZWVKEPAI9582-94-38 11:48:00 Test Item Value Reference Range Interpretation Comments BUN (test code = BUN) 11 7-22 [facility] CenterKmcaswwALVEQESTXCNG9295-30-05 11:48:00 Test Item Value Reference Range Interpretation Comments Creatinine Lvl (test code = Creatinine 0.82 0.50-1.40 Lvl) [facility] CenterLxpjtvnWQFAQTNUFKYN7800-48-56 11:48:00 Test Item Value Reference Range Interpretation Comments Sodium Lvl (test code = Sodium Lvl) 139 135-145 [facility] CenterYsgynyhGMLDXPNCIMRB5367-56-07 11:48:00 Test Item Value Reference Range Interpretation Comments Glucose Lvl (test code = Glucose Lvl) 111 70-99 [facility] CenterNcfntqqMVWQMAFYXURA9438-19-89 11:48:00 Test Item Value Reference Range Interpretation Comments Potassium Lvl (test code = Potassium 3.4 3.5-5.1 Lvl) [facility] CenterKlnlljfQBYEAYVZKQSL8642-78-38 11:48:00 Test Item Value Reference Range Interpretation Comments Chloride Lvl (test code = Chloride Lvl) 101 95-109 [facility] CenterYdhjerqGQCCXOXBHQJN9718-37-73 11:48:00 Test Item Value Reference Range Interpretation Comments eGFR (test code = eGFR) 74 [facility] CampusKulbzkaPRFOKFNWDN5138-01-94 11:48:00 Test Item Value Reference Range Interpretation Comments Monocytes (test code = Monocytes) 9.1 2.0-12.0 [facility] CampusPgbcaqiBHNOVKAXWY3051-40-45 11:48:00 Test Item Value Reference Range Interpretation Comments Segs (test code = Segs) 65.8 45.0-75.0 [facility] CampusMdzepriRJRTSCGYTR6363-16-72 11:48:00 Test Item Value Reference Range Interpretation Comments Basophils # (test code 0.1 See_Comment [Aut omated message] The = Basophils #) system which generated this result tra nsmitted reference range : <=0.2. The reference r eric was not used to int erpret this result as normal/abnormal . [facility] CampusNhanrltODQPQJJZTQ2755-79-91 11:48:00 Test Item Value Reference Range Interpretation Comments Eosinophils # (test code 0.3 See_Comment [A utomated message] The = Eosinophils #) system whic h generated this result tra nsmitted reference range : <=0.5. The reference r eric was not used to int erpret this result as normal/abnormal . [facility] CampusAtgxqhzZEPRPGZXOV1950 11:48:00 Test Item Value Reference Range Interpretation Comments Monocytes # (test code 0.6 See_Comment [Aut omated message] The = Monocytes #) system which generated this result tra nsmitted reference range : <=0.8. The reference r eric was not used to int erpret this result as normal/abnormal . [facility] CampusNxgirmnFOBFRWEYYA9765-61-45 11:48:00 Test Item Value Reference Range Interpretation Comments Lymphocytes # (test code = Lymphocytes 1.4 1.0-5.5 #) [facility] CampusRgsfunsEQYHWVWGSS3044-16-40 11:48:00 Test Item Value Reference Range Interpretation Comments Basophils (test code = 1.0 See_Comment [Aut omated message] The Basophils) system which ge nerated this result tra nsmitted reference range : <=1.0. The reference r eric was not used to int erpret this result as normal/abnormal . [facility] CampusRpjghaePJDEGTZNKE4012-36-13 11:48:00 Test Item Value Reference Range Interpretation Comments Eosinophils (test code = 3.9 See_Comment [A utomated message] The Eosinophils) system which ge nerated this result tra nsmitted reference range : <=4.0. The reference r eric was not used to int erpret this result as normal/abnormal . [facility] CampusZzeijhiUJBWYKHCPK9521-32-11 11:48:00 Test Item Value Reference Range Interpretation Comments Lymphocytes (test code = Lymphocytes) 20.2 20.0-40.0 [facility] CampusYhirofuNVRFUOQEEX4969-75-56 11:48:00 Test Item Value Reference Range Interpretation Comments Segs-Bands # (test code = Segs-Bands #) 4.5 1.5-8.1 [facility] CampusKboyghnJYNKSJJQQY7774-63-58 11:48:00 Test Item Value Reference Range Interpretation Comments MCH (test code = MCH) 27.7 pg 27.0-31.0 [facility] CampusCvmljtjQTCNDQWEAA8135-39-81 11:48:00 Test Item Value Reference Range Interpretation Comments MCV (test code = MCV) 87.3 80.0-98.0 [facility] CampusWjhnqryTSFEOZFAJA6672-51-81 11:48:00 Test Item Value Reference Range Interpretation Comments MPV (test code = MPV) 7.2 7.4-10.4 [facility] CampusEkmimapJEADCYRALQ8613-02-11 11:48:00 Test Item Value Reference Range Interpretation Comments RBC (test code = RBC) 4.24 4.20-5.40 [facility] CampusAlmhsdcEMZZLNEHDY9142-62-97 11:48:00 Test Item Value Reference Range Interpretation Comments WBC (test code = WBC) 6.8 3.7-10.4 [facility] CampusMbfdvfyFASDCIPDNI1269-11-12 11:48:00 Test Item Value Reference Range Interpretation Comments Hct (test code = Hct) 37.0 36.0-48.0 [facility] CampusTyjyvydQVPJMXXMZD3957-42-04 11:48:00 Test Item Value Reference Range Interpretation Comments Hgb (test code = Hgb) 11.7 12.0-16.0 [facility] CampusZyrqwrzXEILDNIEDX4423-01-69 11:48:00 Test Item Value Reference Range Interpretation Comments MCHC (test code = MCHC) 31.7 32.0-36.0 [facility] CampusZgzitfaFQXNCRSHWY9633-17-19 11:48:00 Test Item Value Reference Range Interpretation Comments RDW (test code = RDW) 16.6 11.5-14.5 [facility] CampusLiznpmcUVFXBTZXZK3499-98-89 11:48:00 Test Item Value Reference Range Interpretation Comments Platelet (test code = Platelet) 212 133-450 [facility] HospitalFgvbiunCWMSJTJSSY8834-82-32 17:52:00 Test Item Value Reference Range Interpretation Comments Prealbumin (test code = Prealbumin) 13.4 18.0-45.0 [facility] CampusDavlckhJGSWDGFPGA9294-10-66 11:28:00 Test Item Value Reference Range Interpretation Comments Lymphocytes (test code = Lymphocytes) 20.3 20.0-40.0 [facility] CampusKoqfaqrZGDVSEJGKV5206-09-21 11:28:00 Test Item Value Reference Range Interpretation Comments Eosinophils (test code = 3.1 See_Comment [A utomated message] The Eosinophils) system which ge nerated this result tra nsmitted reference range : <=4.0. The reference r eric was not used to int erpret this result as normal/abnormal . [facility] CampusYpormsiSGAZBBEVZX9907-37-37 11:28:00 Test Item Value Reference Range Interpretation Comments Monocytes (test code = Monocytes) 9.0 2.0-12.0 [facility] CampusOckvgsxIXJJENNKXP1478-23-52 11:28:00 Test Item Value Reference Range Interpretation Comments Segs-Bands # (test code = Segs-Bands #) 5.9 1.5-8.1 [facility] CampusUkqtlesNBXZECRPHP6511-67-59 11:28:00 Test Item Value Reference Range Interpretation Comments Basophils (test code = 0.6 See_Comment [Aut omated message] The Basophils) system which ge nerated this result tra nsmitted reference range : <=1.0. The reference r eric was not used to int erpret this result as normal/abnormal . [facility] CampusFxyczixPRYFNZHFXY6439-04-54 11:28:00 Test Item Value Reference Range Interpretation Comments RBC (test code = RBC) 4.57 4.20-5.40 [facility] CampusWrcdyxmGDNDOALXNL4815-56-01 11:28:00 Test Item Value Reference Range Interpretation Comments WBC (test code = WBC) 8.8 3.7-10.4 [facility] CampusNuqwbfeVIOSUAIPKG2948-48-90 11:28:00 Test Item Value Reference Range Interpretation Comments Hgb (test code = Hgb) 12.8 12.0-16.0 [facility] CampusOxqjqlrBOWTUZKZUW6270-88-25 11:28:00 Test Item Value Reference Range Interpretation Comments Hct (test code = Hct) 40.3 36.0-48.0 [facility] CampusUajychzEIAXNHWMWX2190-82-31 11:28:00 Test Item Value Reference Range Interpretation Comments MCH (test code = MCH) 28.0 pg 27.0-31.0 [facility] CampusKhlshieROCTQYXIHA2341-41-19 11:28:00 Test Item Value Reference Range Interpretation Comments RDW (test code = RDW) 16.7 11.5-14.5 [facility] CampusSijhtaeFLSLDILAIR3621-98-03 11:28:00 Test Item Value Reference Range Interpretation Comments MCHC (test code = MCHC) 31.7 32.0-36.0 [facility] CampusNoftkhpBZJKQBWQKP2234-24-83 11:28:00 Test Item Value Reference Range Interpretation Comments MPV (test code = MPV) 7.5 7.4-10.4 [facility] CampusOiaqwzaUQFILMIRME1905-35-24 11:28:00 Test Item Value Reference Range Interpretation Comments Platelet (test code = Platelet) 213 133-450 [facility] CampusQcqucukBEAJWHBNRV0084-42-39 11:28:00 Test Item Value Reference Range Interpretation Comments MCV (test code = MCV) 88.2 80.0-98.0 [facility]2017-05-27 11:28:00 Test Item Value Reference Range Interpretation Comments Magnesium Lvl (test code = Magnesium 2.4 1.8-2.4 Lvl) [facility]2017-05-27 11:28:00 Test Item Value Reference Range Interpretation Comments Phosphorus (test code = Phosphorus) 2.8 2.5-4.5 [facility]2017-05-27 11:28:00 Test Item Value Reference Range Interpretation Comments eGFR (test code = eGFR) 89 [facility]2017-05-27 11:28:00 Test Item Value Reference Range Interpretation Comments AGAP (test code = AGAP) 11.5 10.0-20.0 [facility]2017-05-27 11:28:00 Test Item Value Reference Range Interpretation Comments Potassium Lvl (test code = Potassium 4.5 3.5-5.1 Lvl) [facility]2017-05-27 11:28:00 Test Item Value Reference Range Interpretation Comments Chloride Lvl (test code = Chloride Lvl) 104 95-109 [facility]2017-05-27 11:28:00 Test Item Value Reference Range Interpretation Comments Calcium Lvl (test code = Calcium Lvl) 7.9 8.5-10.5 [facility]2017-05-27 11:28:00 Test Item Value Reference Range Interpretation Comments BUN (test code = BUN) 15 7-22 [place] 245807-05-27 11:28:00 Test Item Value Reference Range Interpretation Comments Sodium Lvl (test code = Sodium Lvl) 139 135-145 [facility]2017-05-27 11:28:00 Test Item Value Reference Range Interpretation Comments Creatinine Lvl (test code = Creatinine 0.71 0.50-1.40 Lvl) [facility]2017-05-27 11:28:00 Test Item Value Reference Range Interpretation Comments CO2 (test code = CO2) 28 24-32 [facility]2017-05-27 11:28:00 Test Item Value Reference Range Interpretation Comments Glucose Lvl (test code = Glucose Lvl) 114 70-99 [facility] CampusBvckxngRGEEBRWGPB7200-42-73 11:28:00 Test Item Value Reference Range Interpretation Comments Eosinophils # (test code 0.3 See_Comment [A utomated message] The = Eosinophils #) system whic h generated this result tra nsmitted reference range : <=0.5. The reference r eric was not used to int erpret this result as normal/abnormal . [facility] CampusYdjonutLRXJRBDDNR3369-94-71 11:28:00 Test Item Value Reference Range Interpretation Comments Lymphocytes # (test code = Lymphocytes 1.8 1.0-5.5 #) [facility] CampusXpxrzeuCHIDYFBEGX9731-19-26 11:28:00 Test Item Value Reference Range Interpretation Comments Monocytes # (test code 0.8 See_Comment [Aut omated message] The = Monocytes #) system which generated this result tra nsmitted reference range : <=0.8. The reference r eric was not used to int erpret this result as normal/abnormal . [facility]IosxiscDRNUBSYHFI0481-53-76 11:28:00 Test Item Value Reference Range Interpretation Comments Segs (test code = Segs) 67.0 45.0-75.0 [facility] AND [id number] 15:22:00 Test Item Value Reference Range Interpretation Comments UA Urobilinogen (test code = UA <=1.0 mg/dL 0.1-1.0 Urobilinogen) [facility] AND [id number] 15:22:00 Test Item Value Reference Range Interpretation Comments UA Sq Epi (test code = UA Sq Occasional /LPF Epi) [facility] AND [id number] 15:22:00 Test Item Value Reference Range Interpretation Comments UA Bili (test code = Negative *NA*(04/25/17 UA Bili) 10:22 AM) [facility] AND [id number] 15:22:00 Test Item Value Reference Range Interpretation Comments UA Mucus (test code = UA Mucus) Few /LPF [facility] AND [id number] 15:22:00 Test Item Value Reference Range Interpretation Comments UA Ketones (test code = UA Negative mg/dL Ketones) [facility] AND [id number] 15:22:00 Test Item Value Reference Range Interpretation Comments UA Blood (test code = Negative (04/25/17 10:22 UA Blood) AM) [facility] AND [id number] 15:22:00 Test Item Value Reference Range Interpretation Comments UA Nitrite (test code Negative (04/25/17 10:22 = UA Nitrite) AM) [facility] AND [id number] 15:22:00 Test Item Value Reference Range Interpretation Comments UA Leuk Est (test Negative (04/25/17 10:22 code = UA Leuk Est) AM) [facility] AND [id number] 15:22:00 Test Item Value Reference Range Interpretation Comments UA WBC (test code = 1 See_Comment [Automa [place] message] The UA WBC) system which ge nerated this result transmit [place] reference range : <=5. The reference range was not used to interpr et this result as aiden l/abnormal. [facility] [employer] AND [id number] 15:22:00 Test Item Value Reference Range Interpretation Comments UA Protein (test code = UA Negative mg/dL Protein) [facility] AND [id number] 15:22:00 Test Item Value Reference Range Interpretation Comments UA Glucose (test code = UA Negative mg/dL Glucose) [facility] AND [id number] 15:22:00 Test Item Value Reference Range Interpretation Comments UA Color (test code = Yellow *NA*(04/25/17 UA Color) 10:22 AM) [facility] AND [id number] 15:22:00 Test Item Value Reference Range Interpretation Comments UA pH (test code = UA pH) 5.5 5.0-8.0 [facility] AND [id number] 15:22:00 Test Item Value Reference Range Interpretation Comments UA Spec Grav (test code = UA Spec Grav) 1.017 [facility] AND [id number] 15:22:00 Test Item Value Reference Range Interpretation Comments UA Turbidity (test code = Clear (04/25/17 10:22 UA Turbidity) AM) [facility] [employer] [id number] 07:51:00 Test Item Value Reference Range Interpretation Comments Phosphorus (test code = Phosphorus) 3.4 2.5-4.5 [facility] [employer] [id number] 07:51:00 Test Item Value Reference Range Interpretation Comments Magnesium Lvl (test code = Magnesium 2.5 1.8-2.4 Lvl) [facility] [employer] [id number] 14:08:00 Test Item Value Reference Range Interpretation Comments Antibody Scrn (test Negative (04/23/17 9:08 code = Antibody Scrn) AM) [facility] [employer] [id number] 14:08:00 Test Item Value Reference Range Interpretation Comments ABO/Rh (test code = ABO/Rh) O POS [facility] [employer] [id number] 17:30:00 Test Item Value Reference Range Interpretation Comments B/C Ratio (test code = B/C Ratio) 20 6-25 [facility] [employer] [id number] 17:30:00 Test Item Value Reference Range Interpretation Comments Globulin (test code = Globulin) 3.9 2.7-4.2 [facility]ZigmoSELECT [id number] 17:30:00 Test Item Value Reference Range Interpretation Comments A/G Ratio (test code = A/G Ratio) 1.0 0.7-1.6 [facility] HospitalZigmoSELECT [facility] [id number] 17:30:00 Test Item Value Reference Range Interpretation Comments ALT (test code = ALT) 38 See_Comment [Auto mated message] The system which ge nerated this result transmit [place] reference range : <=65. The reference range was not used to interpr et this result as aiden l/abnormal. [facility] [id number] 17:30:00 Test Item Value Reference Range Interpretation Comments Total Protein (test code = Total 7.7 6.4-8.4 Protein) [facility] HospitalZigmoSELECT [facility]OS[facility] [id number] 17:30:00 Test Item Value Reference Range Interpretation Comments Albumin Lvl (test code = Albumin Lvl) 3.8 3.5-5.0 [facility] [id number] 17:30:00 Test Item Value Reference Range Interpretation Comments AST (test code = AST) 34 See_Comment [Auto mated message] The system which ge nerated this result transmit [place] reference range : <=37. The reference range was not used to interpr et this result as aiden l/abnormal. [facility] [id number] 17:30:00 Test Item Value Reference Range Interpretation Comments Alk Phos (test code = Alk Phos) 106 39-136 [facility] HospitalZigmoSELECT SPECIALTY [facility]OS[facility] [id number] 17:30:00 Test Item Value Reference Range Interpretation Comments Bili Total (test code = Bili Total) 0.3 0.2-1.3 [id number] 17:30:00 Test Item Value Reference Range Interpretation Comments Basophils # (test code 0.1 See_Comment [Aut omated message] The = Basophils #) system which generated this result tra nsmitted reference range : <=0.2. The reference r eric was not used to int erpret this result as normal/abnormal . [facility] [id number] 17:30:00 Test Item Value Reference Range Interpretation Comments Hgb A1C (test code = Hgb A1C) 7.1 [facility]
[2022-04-02 13:22] LABS: Absolute Lymphocytes (CBC) 1.7 K/uL (0.7-4.9); Hematocrit 42.6 % (36.0-45.0); Lymphocytes % 24.1 % (15.3-44.8); MPV 6.9 fL (7.6-11.3); RBC Red Blood Cell Count 5.48 M/uL (3.86-4.86)
[2022-04-02] MEDS ORDERED: MECLIZINE HCL 12.5 MG TAB ONE (13:23)
[2022-04-02] MEDS ORDERED: ONDANSETRON 4 MG/2 ML VIAL ONE (13:24)
[2022-04-02 13:26] LABS: Protime INR 1.08
[2022-04-02 13:41] LABS: Albumin 3.4 g/dL (3.4-5.0); Bilirubin Direct 0.1 mg/dL (0-0.2); Bilirubin Total 0.2 mg/dL (0.2-1.0); Potassium 3.4 mmol/L (3.5-5.1); Protein, Total 7.7 g/dL (6.4-8.2); Troponin High Sensitivity 5.5 pg/mL (<58.9)
--- NOTE | 2022-04-02 14:34 | RAD REPORT ---
EXAM DESCRIPTION: RAD - Chest Single View - 04/02/2022 2:28 pm CLINICAL HISTORY: dizziness COMPARISON: Two view chest 12/27/2021 TECHNIQUE: AP portable chest image was obtained 04/02/2022 2:28 pm . FINDINGS: Lung volumes are low. No acute lung parenchymal process seen. Heart and vasculature are no rmal. No measurable pleural effusion and no pneumothorax. No acute bony abnormality seen. No acute ao rtic findings suspected. IMPRESSION: No acute cardiopulmonary process. No significant change from comparison study.
--- NOTE | 2022-04-02 14:37 | RAD REPORT ---
EXAM DESCRIPTION: CT - Head Brain Wo Cont - 04/02/2022 2:29 pm CLINICAL HISTORY: Dizziness, non-specific, hypertension COMPARISON: HEAD BRAIN W O CONTRAST dated 01/27/2016 TECHNIQUE: Axial 5 mm thick images of the head were obtained without IV contrast. All CT scans are performed using dose optimization technique as appropriate and may include automated exposure control or mA/KV adjustment according to patient size. FINDINGS: No intracranial hemorrhage, mass, edema or shift of mid-line structures. No acute infarcti on changes seen. No abnormal extra-axial fluid collections. Ventricles are normal. No significant atr ophy or chronic ischemic change. Physiologic calcifications are present. Intracranial findings are si milar to the 2016 study. Mastoid air cells and visualized portions of the paranasal sinuses are clear of acute or significant finding. No acute bony findings. IMPRESSION: Negative non-contrast CT head examination for acute or significant finding.
--- NOTE | 2022-04-02 15:31 | RAD REPORT ---
EXAM DESCRIPTION: CT - Neck Angio - 04/02/2022 3:13 pm CLINICAL HISTORY: Dizziness, non-specific TECHNIQUE: During dynamic enhancement using nonionic IV contrast, axial 2 mm thick images of the nec k were obtained. Sagittal and axial reconstruction images were generated using MIP technique and revi ewed. All CT scans are performed using dose optimization technique as appropriate and may include automated exposure control or mA/KV adjustment according to patient size. COMPARISON: CT head same date FINDINGS: No aneurysm or vascular malformation identified. No carotid or vertebral dissection. Prominent atherosclerotic calcifications at the origin of the left subclavian artery cause approximat sigrid 40% stenosis. No other significant aortic arch finding. Patient has a normal variant bovine confi guration. Proximal vertebral arteries are quite tortuous. There is mild luminal narrowing at the right vertebr al origin due to atherosclerotic calcification. More distally the vertebral arteries show no tortuosi ty or measurable luminal narrowing. No basilar artery abnormality seen. Atherosclerotic calcification s are present at the left carotid bulb without significant luminal narrowing. More prominent calcific ations seen in the posteromedial wall of the proximal left ICA with 40-50% stenosis seen. No measurab le right-sided plaquing changes. Prominent bony degenerative changes are present. No acute or pathologic bone process. No suspicious s oft tissue finding in the neck. IMPRESSION: Approximately 40-50% stenosis left proximal ICA Left carotid bulb atherosclerotic calcifications without significant luminal narrowing.
--- NOTE | 2022-04-02 15:35 | RAD REPORT ---
EXAM DESCRIPTION: CT - Head angio - 04/02/2022 3:13 pm CLINICAL HISTORY: Dizziness, non-specific TECHNIQUE: During dynamic enhancement using nonionic IV contrast, axial 1 millimeter thick images of the head were obtained. Sagittal and axial reconstruction images were generated using MIP technique and reviewed. All CT scans are performed using dose optimization technique as appropriate and may include automated exposure control or mA/KV adjustment according to patient size. COMPARISON: CT head same date FINDINGS: No aneurysm or vascular malformation identified. Major venous sinuses are patent. No stenosis, named branch occlusion, vasculitis or other significant findings identified in the anter ior, middle and posterior cerebral artery distributions. No basilar artery abnormality. . Dense calcifications are present in the cavernous portion of each internal carotid artery. Stenosis d oes not exceed 40%. IMPRESSION: Dense bilateral distal internal carotid artery atherosclerotic calcifications with sten oses not exceeding 40%. Remainder of the CTA head examination without significant finding.
[2022-04-02] MEDS ORDERED: DIAZEPAM 10 MG/2 ML INJ SYRINGE ONE (17:17)
--- NOTE | 2022-04-02 19:33 | ER ---
Nurse's Notes [facility] Name: Adi Gifford Age: 71 yrs Sex: Female : 1950 Arrival Date: 04/02/2022 Time: 12:42 Bed 20 Private MD: Diagnosis: Dizziness and giddiness Presentation: 04/02 12:34 Chief complaint: Patient states: dizziness, headache, shortness of breath and near ss syncope. Coronavirus screen: Client denies travel out of the [place] in the last 14 days. Ebola Screen: Patient denies exposure to infectious person. Patient denies travel to an Ebola-affected area in the 21 days before illness onset. Initial Sepsis Screen: Does the patient meet any 2 criteria? No. Patient's initial sepsis screen is negative. Does the patient have a suspected source of infection? No. Patient's initial sepsis screen is negative. Risk Assessment: Do you want to hurt yourself or someone else? Patient reports no desire to harm self or others. Onset of symptoms. 12:34 Method Of Arrival: EMS: [facility] 12:34 Acuity: RONI 3 ss Historical: - PMHx: 12:42 CHF; High Cholesterol; diabetes mellitus; Depression; Hypertension; Chronic obstructive ss lung disease; Hypothyroidism; Myocardial infarction; - Immunization history:: Adult Immunizations unknown. - Social history:: Smoking status: unknown. Screenin:58 Abuse screen: Denies threats or abuse. Nutritional screening: No deficits noted. jh6 Tuberculosis screening: No symptoms or risk factors identified. Fall Risk IV access (20 points). Gait- Weak (10 pts.). Assessment: 12:46 General: Appears in no apparent distress. comfortable, obese, Behavior is calm, jh6 cooperative. 12:46 Pain: Complains of pain in forehead Pain currently is 4 out of 10 on a pain scale. jh6 Quality of pain is described as aching, dull. 14:00 Reassessment: Patient and/or family updated on plan of care and expected duration. Pain jh6 level reassessed. Pt brought back from ct due to increased pain with flushing current iv to rt ac CT needing another iv site. 15:01 Reassessment: Patient and/or family updated on plan of care and expected duration. Pain jh6 level reassessed. Patient is alert, oriented x 3, equal unlabored respirations, skin warm/dry/pink. states that dizziness isnt as bad but she still has a alvarenga. Patient states feeling better. Pain: Complains of pain in forehead and left christianity Pain currently is 6 out of 10 on a pain scale. Neuro: No deficits noted. Reports headache. 17:00 Reassessment: Patient is alert, oriented x 3, equal unlabored respirations, skin jh6 warm/dry/pink. pt was able to walk back and forth from bathroom but still feeling slightly dizzy. provider advised and meds to be ordered. 20:00 General: Appears in no apparent distress. comfortable, Behavior is calm, cooperative, al4 patient states she has leg pain due to neuropathy that is normal for her . Neuro: Level of Consciousness is awake, alert, obeys commands, Oriented to person, place, time, Speech is normal. Cardiovascular: Patient's skin is warm and dry. Respiratory: Airway is patent Respiratory effort is unlabored, Respiratory pattern is regular. 21:29 Reassessment: RN contacted Karissa Saenz about patients c/o dizziness and weakness. al4 Patient was unable to sit up for longer than a few seconds before feeling dizzy again. Current nursing order to re-ambulate patient not done due to patient unable to tolerate at this time. Karissa Saenz aware. 22:30 Reassessment: Patient appears in no apparent distress at this time. al4 23:57 Reassessment: EKG ordered on day shift was not done or is not able to be found on al4 patient at this time - EKG done by ERT. 04/03 00:26 Reassessment: Patient appears in no apparent distress at this time. al4 01:18 Reassessment: Patient appears in no apparent distress at this time. Patient is alert, al4 oriented x 3, equal unlabored respirations, skin warm/dry/pink. 01:25 Reassessment: patient ambulated to restroom with ERT Jorge, patient tolerated well al4 with standby assist. 01:37 Reassessment: waiting for ERT to take patient upstairs. al4 01:56 Reassessment: Patient appears in no apparent distress at this time. patient being al4 transported upstairs with ERT Kar. Vital Signs: 04/02 14:17 BP 126 / 72; Pulse 70; Resp 17; Pulse Ox 100% on R/A; jh6 15:30 BP 115 / 55; Pulse 74; Resp 16; Pulse Ox 100% ; Pain 0/10; jh6 16:30 BP 109 / 61; Pulse 75; Resp 16; Pulse Ox 98% on R/A; Pain 0/10; jh6 17:30 BP 102 / 53; Pulse 75; Resp 16; Temp 98; Pain 0/10; jh6 20:00 BP 117 / 80; Pulse 75; Resp 17 S; Pulse Ox 98% on R/A; al4 21:00 BP 115 / 64; Pulse 72; Resp 18 S; Pulse Ox 100% on R/A; al4 22:09 BP 143 / 63; Pulse 71; Resp 17 S; Pulse Ox 98% on R/A; al4 Vitals: 13:00 Cardiac Rhythm Assessment Regular Sinus rhythm. [facility] ED Course: 12:42 Patient arrived in ED. ss 12:42 Arm band placed on right wrist. ss 12:44 Timmy Cuello PA is PHCP. [facility] 12:44 Rasheed French MD is Attending Physician. [facility] 13:00 Placed in gown. Bed in low position. Call light in reach. Side rails up X2. 6 13:00 Inserted saline lock: 22 gauge in right antecubital area, using aseptic technique. 6 13:16 Cristy Berman, RN is Primary Nurse. 6 13:57 Triage completed. ss 14:[address] via stretcher. jh6 14:30 XRAY Chest (1 view) In Process Unspecified. EDMS 14:31 CT Head Brain wo Cont In Process Unspecified. EDMS 15:00 Inserted saline lock: 20 gauge in left forearm, using aseptic technique. jh6 15:[address] jh6 15:15 CT Head Angio In Process Unspecified. EDMS 15:15 CT Neck Angio In Process Unspecified. EDMS 15:18 Patient moved back from CT. 6 19:32 Marc Hawthorne is Hospitalizing Provider. [facility] [id number] 01:26 No provider procedures requiring assistance completed. Patient admitted, IV remains in al4 place. Administered Medications: 04/02 13:00 Drug: Meclizine 50 mg Route: PO; [facility] 15:18 Follow up: Response: No adverse reaction jh6 13:00 Drug: Zofran (Ondansetron) 4 mg Route: IVP; Site: right antecubital; jh6 14:05 Follow up: Response: No adverse reaction jh6 15:18 Follow up: Response: No adverse reaction jh6 17:18 Drug: Valium (diazepam) 5 mg Route: IVP; Site: left forearm; jh6 21:26 Drug: Gabapentin 300 mg Route: PO; al4 22:18 Follow up: Response: No adverse reaction al4 22:15 Drug: NS 0.9% 500 ml Route: IV; Rate: 75 ml/hr; Site: left forearm; al4 Outcome: 19:33 Decision to Hospitalize by Provider. tanner 04/03 01:32 Admitted to Med/surg room 223, Report called to ROCÍO Doty al4 Condition: stable Discharge instructions given to patient, Instructed on the need for admit, Demonstrated understanding of instructions. 01:58 Patient left the ED. vc1 Signatures: Dispatcher [employer] EDMS Timmy Cuello PA PA jmm Smirch, Shelby, RN RN ss Hastedt, Jennifer, RN RN jh6 [place] Lucio al4 Laila Goddard RN RN vc1
--- NOTE | 2022-04-02 19:33 | EDPHYS ---
Physician Documentation [facility] Name: Adi Gifford Age: 71 yrs Sex: Female : 1950 Arrival Date: 04/02/2022 Time: 12:42 Bed 20 Private MD: ED Physician Rasheed French HPI: 04/02 13:15 This 71 yrs old Female presents to ER via Unassigned with complaints of jmm Dizziness. 13:15 The patient presents with dizziness. Onset: The symptoms/episode began/occurred jmm acutely. Modifying factors: The symptoms are alleviated by closing eyes, holding head still, the symptoms are aggravated by movement of head, changing position. Associated signs and symptoms: Pertinent positives: nausea, vomiting. The patient has not experienced similar symptoms in the past. Historical: - PMHx: 12:42 CHF; High Cholesterol; diabetes mellitus; Depression; Hypertension; Chronic obstructive ss lung disease; Hypothyroidism; Myocardial infarction; - Immunization history:: Adult Immunizations unknown. - Social history:: Smoking status: unknown. ROS: 13:15 Constitutional: Negative for fever, chills, and weight loss, Cardiovascular: Negative jmm for chest pain, palpitations, and edema, Respiratory: Negative for shortness of breath, cough, wheezing, and pleuritic chest pain. 13:15 Abdomen/GI: Positive for nausea and vomiting. 13:15 Neuro: Positive for dizziness. 13:15 All other systems are negative. Exam: 13:15 Constitutional: This is a well developed, well nourished patient who is awake, alert, jmm and in no acute distress. Head/Face: atraumatic. 13:15 ENT: Moist Mucus Membranes Neck: Trachea midline, Supple Chest/axilla: Normal chest wall appearance and motion. Cardiovascular: Regular rate and rhythm. No edema appreciated Respiratory: Normal respirations, no respiratory distress appreciated Abdomen/GI: Non distended, soft Back: Normal ROM Skin: General appearance color normal 13:15 Eyes: Nystagmus: nystagmus with fast component noted, bilaterally. 13:15 Musculoskeletal/extremity: ROM: intact in all extremities. 13:15 Skin: Appearance: Color: normal in color. 13:15 Neuro: Orientation: is normal, Mentation: is normal, Memory: is normal. 13:15 Psych: Behavior/mood is pleasant, cooperative. Vital Signs: 14:17 BP 126 / 72; Pulse 70; Resp 17; Pulse Ox 100% on R/A; jh6 15:30 BP 115 / 55; Pulse 74; Resp 16; Pulse Ox 100% ; Pain 0/10; jh6 16:30 BP 109 / 61; Pulse 75; Resp 16; Pulse Ox 98% on R/A; Pain 0/10; jh6 17:30 BP 102 / 53; Pulse 75; Resp 16; Temp 98; Pain 0/10; jh6 20:00 BP 117 / 80; Pulse 75; Resp 17 S; Pulse Ox 98% on R/A; al4 21:00 BP 115 / 64; Pulse 72; Resp 18 S; Pulse Ox 100% on R/A; al4 22:09 BP 143 / 63; Pulse 71; Resp 17 S; Pulse Ox 98% on R/A; al4 MDM: 12:45 Patient medically screened. [facility] 19:31 Data reviewed: vital signs, nurses notes. Counseling: I had a detailed discussion with tanner the patient and/or guardian regarding: the historical points, exam findings, and any diagnostic results supporting the discharge/admit diagnosis, radiology results, the need for further work-up and treatment in the hospital. ED course: I discussed the patient with Karissa Saenz whom accepted the patient to Dr. Hawthorne's service. . 04/02 12:51 Order name: Basic Metabolic Panel; Complete Time: 13:45 [facility] 04/02 12:51 Order name: CBC with Diff; Complete Time: 13:45 [facility] 04/02 12:51 Order name: LFT's; Complete Time: 13:45 [facility] 04/02 12:51 Order name: Magnesium; Complete Time: 13:45 [facility] 04/02 12:51 Order name: NT PRO-BNP; Complete Time: 13:45 [facility] 04/02 12:51 Order name: PT-INR; Complete Time: 13:45 [facility] 04/02 12:51 Order name: Troponin HS; Complete Time: 13:45 [facility] 04/02 12:51 Order name: XRAY Chest (1 view); Complete Time: 14:41 [facility] 04/02 12:52 Order name: CT Head Angio; Complete Time: 15:35 [facility] 04/02 12:53 Order name: CT Neck Angio; Complete Time: 15:35 [facility] 04/02 12:53 Order name: CT Head Brain wo Cont; Complete Time: 14:41 [facility] 04/02 18:54 Order name: SARS-COV-2 RT PCR (Document "Date of Onset" if Symptomatic); Complete Time: [facility] 23:08 04/02 12:51 Order name: EKG; Complete Time: 12:52 [facility] 04/02 12:51 Order name: Cardiac monitoring; Complete Time: 13:17 [facility] 04/02 12:51 Order name: EKG - Nurse/Tech; Complete Time: 00:46 [facility] 04/02 12:51 Order name: IV Saline Lock; Complete Time: 13:17 [facility] 04/02 12:51 Order name: Labs collected and sent; Complete Time: 13:17 [facility] 04/02 12:51 Order name: O2 Per Protocol; Complete Time: 13:17 [facility] 04/02 12:51 Order name: O2 Sat Monitoring; Complete Time: 13:17 [facility] Administered Medications: 13:00 Drug: Meclizine 50 mg Route: PO; jh6 15:18 Follow up: Response: No adverse reaction 6 13:00 Drug: Zofran (Ondansetron) 4 mg Route: IVP; Site: right antecubital; jh6 14:05 Follow up: Response: No adverse reaction jh6 15:18 Follow up: Response: No adverse reaction jh6 17:18 Drug: Valium (diazepam) 5 mg Route: IVP; Site: left forearm; jh6 21:26 Drug: Gabapentin 300 mg Route: PO; al4 22:18 Follow up: Response: No adverse reaction al4 22:15 Drug: NS 0.9% 500 ml Route: IV; Rate: 75 ml/hr; Site: left forearm; al4 Disposition: 04/03 07:13 Co-signature as Attending Physician, Rasheed French MD. rn Disposition Summary: 04/02/22 19:33 Hospitalization Ordered Hospitalization Status: Observation [facility] Provider: Marc Hawthorne Location: Telemetry/MedSurg (observation) [facility] Condition: Stable [facility] Problem: new jmm Symptoms: are unchanged [facility] Bed/Room Type: Standard [facility] Room Assignment: 232(04/02/22 23:41) ld1 Diagnosis - Dizziness and giddiness [facility] Forms: - Medication Reconciliation Form [facility] - SBAR form [facility] Signatures: Dispatcher [employer] EDTimmy Ambrocio PA PA jmm Nieto, Roman, MD MD rn Smirch, Shelby, RN RN ss Dorota Villarreal RN RN ld1 Cristy Berman RN RN jh6 [place] Lucio Vanessa, RN RN vc1 Gracie Saenz PA PA sb3 Corrections: (The following items were deleted from the chart) 04/02 23:41 19:33 tanner ld1
[2022-04-02] MEDS ORDERED: GABAPENTIN 300 MG CAP ONE (21:20)
--- NOTE | 2022-04-02 21:35 | P.HP ---
Certification for Inpatient Patient admitted to: Observation With expected LOS: <2 Midnights Patient will require the following post-hospital care: None Practitioner: I am a practitioner with admitting privileges, knowledge of patient current condition, hospital course, and medical plan of care. Services: Services provided to patient in accordance with Admission requirements found in Title 42 Section 412.3 of the Code of Federal Regulations Patient History Date of Service: 04/03/22 Reason for admission: Dizziness History of Present Illness: Patient is a 71-year-old female with several comorbidities who presented to the ED with complaints of new onset dizziness. She states that she was walking in [employer] today when it began and felt like she was going to pass out. Symptoms are aggravated by movement of head or changing positions and alleviated by closing eyes and holding head still. She denies any previous episodes or any changes in medications. No significant lab abnormalities. CT head negative, CTA head/neck showed carotid artery atherosclerotic calcifications with stenosis not exceeding 40% and 40-50% stenosis of the left proximal ICA. She was given meclizine and Valium in the ED with improvement in dizziness. Will admit patient for observation and further testing. Allergies No Known Allergies Allergy (Uncoded 12/27/21 14:45) Unknown Home medications list reviewed: Yes Home Medications: Amitriptyline HCl 5 mg PO BEDTIME 12/27/21 Clopidogrel Bisulfate [Plavix] 75 mg PO DAILY 12/27/21 Furosemide [Lasix] 40 mg PO BIDL 12/27/21 Gabapentin 300 mg PO TID 12/27/21 Hydrocodone Bit/Acetaminophen [Hydrocodon-Acetaminophn 10-325] 1 each PO BID 12/27/21 Levothyroxine Sodium [Euthyrox] 75 mcg PO DAILY 12/27/21 Metformin ER [Glucophage ER] 500 mg PO DAILY 12/27/21 Metoprolol Tartrate [Lopressor] 25 mg PO BID 12/27/21 Simvastatin 40 mg PO BEDTIME 12/27/21 Spironolactone [Aldactone] 25 mg PO BID 12/27/21 Trazodone [Desyrel] 150 mg PO BEDTIME 12/27/21 - Past Medical/Surgical History Diabetic: Yes -: Diastolic CHF -: Hypertension -: Hyperlipidemia -: GERD -: COPD -: Diabetes mellitus type 2 -: CAD with prior stent -: Obstructive sleep apnea -: Hypothyroidism -: Anxiety -: Diabetic neuropathy -: Chronic renal disease -: Hysterectomy -: Cholecystectomy -: Ventral hernia repair -: IVC filter -: bladder reconstruction -: knee/ [place] -: knee/zoroastrian Psychosocial/ Personal History: Patient is a . She has 2 children. - Family History Mother -: Cancer Sister -: Hypertension - Social History Smoking Status: Never smoker Alcohol use: Yes CD- Drugs: No Caffeine use: Yes Place of Residence: Home Review of Systems Neurological: As per HPI Physical Examination - Physical Exam General: Alert, In no apparent distress, Oriented x3, Obese HEENT: Atraumatic, PERRLA, Mucous membr. moist/pink, EOMI, Sclerae nonicteric Neck: Supple, 2+ carotid pulse no bruit, No LAD, Without JVD or thyroid abnormality Respiratory: Clear to auscultation bilaterally, Normal air movement Cardiovascular: Regular rate/rhythm, Normal S1 S2 Gastrointestinal: Normal bowel sounds, No tenderness Musculoskeletal: No tenderness Integumentary: No rashes Neurological: Normal gait, Normal speech, Normal strength at 5/5 x4 extr, Normal tone, Sensation intact, Normal affect - Studies Laboratory Data (last 24 hrs) 04/02/22 13:16: PT 11.9, INR 1.08 04/02/22 13:16: WBC 6.9, Hgb 13.6, Hct 42.6, Plt Count 261 04/02/22 13:16: Sodium 138, Potassium 3.4 L, BUN 13, Creatinine 1.24, Glucose 9 1, Magnesium 2.0, Total Bilirubin 0.2, AST 9 L, ALT 14, Alkaline Phosphatase 83 Assessment and Plan - Problems (Diagnosis) (1) Dizziness Current Visit: Yes Status: Acute (2) Hyperlipidemia Onset Date: 01/29/16 Current Visit: No Status: Chronic (3) COPD (chronic obstructive pulmonary disease) Onset Date: 10/13/18 Current Visit: No Status: Chronic Qualifiers: Emphysema type: unspecified (4) Diabetes mellitus, type II Onset Date: 10/13/18 Current Visit: Yes Status: Chronic Qualifiers: 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: without group home use Diabetes mellitus complication status: with kidney complications Diabetes mellitus complication detail: with chronic kidney disease Chronic kidney disease stage 3 subtype: stage 3b (GFR 30-44) (5) Coronary arteriosclerosis Onset Date: 01/29/16 Current Visit: Yes Status: Chronic (6) Hypokalemia Current Visit: Yes Status: Acute (7) CHF (congestive heart failure) Onset Date: 10/13/18 Current Visit: Yes Status: Chronic Qualifiers: Heart failure type: diastolic Heart failure chronicity: chronic Qualified Code(s): I50.32 - Chronic diastolic (congestive) heart failure (8) Hypertension Onset Date: 10/13/18 Current Visit: Yes Status: Chronic Qualifiers: Hypertension type: primary hypertension Qualified Code(s): I10 - Essential (primary) hypertension (9) Hypothyroidism Onset Date: 01/29/16 Current Visit: No Status: Chronic Qualifiers: Hypothyroidism type: acquired Qualified Code(s): E03.9 - Hypothyroidism, unspecified - Plan -Admit patient for observation and monitor dizziness -MRI, echo, and carotid ultrasound ordered for the morning to further evaluate cause of dizziness. 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
[2022-04-02] MEDS ORDERED: NA CHLORIDE 0.9% 500 ML ONE (22:16)
[2022-04-03] MEDS ORDERED: MECLIZINE HCL 12.5 MG TAB PO PRN (00:08)
[2022-04-03] MEDS ORDERED: ONDANSETRON 4 MG/2 ML VIAL IV PRN (00:08)
[2022-04-03] MEDS: INSULIN -REGULAR HUMAN 50 UNIT/0.5 ML ML SQ SCH ×5 (00:08→21:00)
[2022-04-03 03:30] VITALS: BMI 40.4
[2022-04-03] MEDS: ACETAMINOPHEN 500 MG TAB PO PRN ×2 (03:33→16:30)
[2022-04-03 04:00] VITALS: O2SAT 98
[2022-04-03 04:47] LABS: Absolute Lymphocytes (CBC) 1.6 K/uL (0.7-4.9); Hematocrit 37.4 % (36.0-45.0); Lymphocytes % 26.4 % (15.3-44.8); RBC Red Blood Cell Count 4.78 M/uL (3.86-4.86)
[2022-04-03 04:57] LABS: Magnesium 1.8 mg/dL (1.8-2.4); Phosphorus 2.4 mg/dL (2.5-4.9); Potassium 3.5 mmol/L (3.5-5.1)
--- NOTE | 2022-04-03 06:52 | RAD REPORT ---
EXAM DESCRIPTION: US - CP - 04/03/2022 1:04 am CLINICAL HISTORY: dizziness COMPARISON: Neck Angio dated 04/02/2022 TECHNIQUE: Real-time sonographic evaluation of bilateral carotid and vertebral systems was performed . Quintero scale and Doppler interrogation were performed with waveform tracing bilaterally. FINDINGS: Normal high resistance waveforms are noted in both external carotid arteries. The common c arotid arteries and internal carotid arteries show normal low resistance waveforms. Calcified and noncalcified plaquing changes are present in the bilateral carotid vasculature, more pr onounced on the left. Right-sided plaquing changes do not cause significant luminal narrowing on visu al inspection. Right-side peak systolic velocity, end diastolic velocity and ratios do not indicate s ignificant stenosis on the right. Prominent carotid bulb calcifications on the left do not cause a si gnificant degree of luminal narrowing based on visual inspection and velocity values. More prominent ICA plaquing changes are present. Stenosis does not exceed 50%. Antegrade flow seen in both vertebral arteries. Velocity values and ratios were recorded and are retained in the patient's imaging records. IMPRESSION: Left greater than right calcified and noncalcified plaquing changes. Findings are most p ronounced in the left internal carotid artery but do not exceed 50% stenosis.
[2022-04-03 08:14] LABS: Urine Appearance Clear (Clear); Urine Bilirubin Negative (Negative); Urine Blood Negative (Negative); Urine Color Yellow (Yellow); Urine Glucose Negative (Negative); Urine Protein Negative (Negative); Urine Urobilinogen 0.2 mg/dL (0.2-1.0); Urine pH 5.5 (5.0-7.0)
[2022-04-03 08:16] LABS: Urine Microscopic Reflex NO UMIC
[2022-04-03] MEDS ORDERED: PNEUMOCOCCAL VACCINE 0.5 ML IMVAC ONE (10:00)
[2022-04-03] MEDS: ENOXAPARIN 40 MG/0.4 ML SQ SCH (10:10)
--- NOTE | 2022-04-03 11:49 | RAD REPORT ---
EXAM DESCRIPTION: MRI - Brain W/Wo Cont - 04/03/2022 11:23 am CLINICAL HISTORY: dizziness COMPARISON: Head Brain Wo Cont dated 04/02/2022 TECHNIQUE: Sagittal and axial T1-weighted images were obtained. Axial PD/heavily T2-weighted and T2- FLAIR images were obtained along with axial DWI/ADC mapping sequences. Coronal heavily T2 weighted s equence obtained. Axial and coronal post-contrast T1-weighted images were also obtained. A 20 ml Mul tihance contrast following utilized. FINDINGS: No intracranial hemorrhage, mass or acute infarction. There is no edema or shift of midli ne structures. No extra-axial fluid collections. Quintero-matter/white matter junction is preserved. Sig nal voids are seen as a normal finding in the major intracranial vessels. No measurable atrophy or chronic ischemic change identifiable. Ventricles are normal. No sella or supra sella abnormality. No globe or orbital content suspicious finding. Post-contrast images show normal enhancement. No dural thickening. Mastoid air cells and paranasal sinuses are clear. IMPRESSION: Negative contrast enhanced MRI of the Brain for acute or significant finding.
--- NOTE | 2022-04-03 12:52 | EKG ---
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
--- NOTE | 2022-04-03 18:12 | P.PN ---
Subjective Date of Service: 04/03/22 Chief Complaint: Dizziness Patient complaining of vertigo with sitting or standing. She states symptoms resolved when she lays down. Physical Examination - Vital Signs Temperature: 97.2 F Blood Pressure: 139/64 Pulse: 80 Respirations: 16 Pulse Ox (%): 92 Assessment And Plan - Current Problems (Diagnosis) (1) Vertigo Current Visit: Yes Status: Acute (2) Hypothyroidism Onset Date: 01/29/16 Current Visit: No Status: Chronic Qualifiers: Hypothyroidism type: acquired Qualified Code(s): E03.9 - Hypothyroidism, unspecified (3) Hypertension Onset Date: 10/13/18 Current Visit: Yes Status: Chronic Qualifiers: Hypertension type: primary hypertension Qualified Code(s): I10 - Essential (primary) hypertension - Plan Physical Exam General: Alert, In no apparent distress, Oriented x3, Obese HEENT: PERRLA, Mucous membr. moist/pink, EOMI, Sclerae nonicteric Neck: Supple, 2+ carotid pulse no bruit, Without thyroid abnormality Respiratory: Clear to auscultation bilaterally, Normal air movement Cardiovascular: Regular rate/rhythm, Normal S1 S2 Gastrointestinal: Normal bowel sounds, No tenderness Musculoskeletal: No tenderness Integumentary: No rashes Neurological: Normal gait, Normal speech, Normal strength at 5/5 x4 extr. Plan: MRI of the brain is negative. I suspect patient's symptoms related to benign positional vertigo. Continue home antihypertensives. Awaiting PT evaluation and vestibular maneuvers. Fall precautions. Check TSH. Continue Synthroid. Continue other home medications. Monitor BP.
[2022-04-03] MEDS ORDERED: ATORVASTATIN 20 MG TAB PO SCH (21:00)
[2022-04-03] MEDS ORDERED: AMITRIPTYLINE 10 MG TAB PO SCH (21:00)
[2022-04-03] MEDS: HYDROCODONE/APAP 10/325 TAB PO SCH (21:12)
[2022-04-03] MEDS: SPIRONOLACTONE 25 MG TABLET PO SCH (21:13)
[2022-04-03] MEDS: METOPROLOL TAR 25 MG TAB PO SCH (21:13)
[2022-04-03] MEDS: GABAPENTIN 300 MG CAP PO SCH (21:15)
[2022-04-04 05:33] LABS: Absolute Lymphocytes (CBC) 1.6 K/uL (0.7-4.9); Hematocrit 36.8 % (36.0-45.0); Lymphocytes % 39.6 % (15.3-44.8); MPV 6.9 fL (7.6-11.3); RBC Red Blood Cell Count 4.79 M/uL (3.86-4.86)
[2022-04-04 05:51] LABS: Potassium 3.8 mmol/L (3.5-5.1)
[2022-04-04] MEDS: INSULIN -REGULAR HUMAN 50 UNIT/0.5 ML ML SQ SCH ×2 (07:30→11:30)
--- NOTE | 2022-04-04 08:12 | ECHO ---
HEIGHT: 5 ft 3 in WEIGHT: 228 lb 3.2 oz DATE OF STUDY: 04/03/[address]: Gracie Saenz 2-DIMENSIONAL: YES M.MODE: YES DOPPLER: YES COLOR FLOW: YES TDS: PORTABLE: YES DEFINITY: BUBBLE STUDY: DIAGNOSIS: DIZZINESS CARDIAC HISTORY: CATHERIZATION: SURGERY: PROSTHETIC VALVE: PACEMAKER: MEASUREMENTS (cm) DIASTOLIC (NORMALS) SYSTOLIC (NORMALS) IVSd 1.2 (0.6-1.2) LA Diam 3.6 (1.9-4.0) LVEF 68% LVIDd 4.6 (3.5-5.7) LVIDs 2.9 (2.0-3.5) %FS 38% LVPWd 1.2 (0.6-1.2) Ao Diam 2.5 (2.0-3.7) 2 DIMENSIONAL ASSESSMENT: RIGHT ATRIUM: NORMAL LEFT ATRIUM: NORMAL RIGHT VENTRICLE: NORMAL LEFT VENTRICLE: NORMAL TRICUSPID VALVE: NORMAL MITRAL VALVE: MITRAL ANNULAR CALCIFICATION PULMONIC VALVE: NORMAL AORTIC VALVE: NORMAL PERICARDIAL EFFUSION: NONE AORTIC ROOT: NORMAL LEFT VENTRICULAR WALL MOTION: NORMAL DOPPLER/COLOR FLOW: NORMAL COMMENTS: MITRAL ANNULAR CALCIFICATION. NORMAL LEFT VENTRICULAR SIZE AND FUNCTION. NO WALL MOTION ABNORMALITY. NO EFFUSION. TECHNOLOGIST: CHELSEA ANGUIANO
[2022-04-04] MEDS ORDERED: FUROSEMIDE 40 MG TABLET PO SCH (09:00)
[2022-04-04] MEDS ORDERED: LEVOTHYROXINE SOD 0.075 MG TAB PO SCH (09:00)
[2022-04-04] MEDS ORDERED: CLOPIDOGREL 75 MG TABLET PO SCH (09:00)
[2022-04-04] MEDS: ENOXAPARIN 40 MG/0.4 ML SQ SCH (09:21)
[2022-04-04] MEDS: HYDROCODONE/APAP 10/325 TAB PO SCH (09:21)
[2022-04-04] MEDS: GABAPENTIN 300 MG CAP PO SCH (09:21)
[2022-04-04] MEDS: METOPROLOL TAR 25 MG TAB PO SCH (09:22)
[2022-04-04] MEDS: SPIRONOLACTONE 25 MG TABLET PO SCH (09:22)
[2022-04-04 13:14] VITALS: BP 139/89; TEMP 97.3
--- NOTE | 2022-04-04 13:33 | P.DS ---
Admission Date: 04/02/22 Discharge Date: 04/04/22 Reason for Admission: Dizziness - Problems (1) Vertigo Current Visit: Yes Status: Acute (2) Hypothyroidism Onset Date: 01/29/16 Current Visit: No Status: Chronic Qualifiers: Hypothyroidism type: acquired Qualified Code(s): E03.9 - Hypothyroidism, unspecified (3) Hypertension Onset Date: 10/13/18 Current Visit: Yes Status: Chronic Qualifiers: Hypertension type: primary hypertension Qualified Code(s): I10 - Essential (primary) hypertension Brief History of Present Illness: Patient is a 71-year-old female with several comorbidities who presented to the ED with complaints of new onset dizziness. She stated that she was walking in [employer] today when it began and felt like she was going to pass out. Symptoms are aggravated by movement of head or changing positions and alleviated by closing eyes and holding head still. She denies any previous episodes or any changes in medications. No significant lab abnormalities. CT head negative, CTA head/neck showed carotid artery atherosclerotic calcifications with stenosis not exceeding 40% and 40-50% stenosis of the left proximal ICA. She was given meclizine and Valium in the ED with improvement in dizziness. Patient admitted for further management. Hospital Course: Patient placed on observation on the medical floor. Stroke work-up was done with an MRI and echocardiogram which were all negative. No acute stroke. Patient's symptoms likely related to benign positional vertigo. She was seen by PT, Alma maneuver done, vertigo noted to be treated at a specific head position. Acute stroke ruled out, case discussed with neurology, patient is discharged to home with home health and advised to perform the Alma maneuver as directed. She is also prescribed meclizine and scopolamine as needed for dizziness. Vital Signs/Physical Exam: Temp Pulse Resp BP Pulse Ox 97.3 F 70 20 139/89 95 04/04/22 12:00 04/04/22 12:00 04/04/22 12:00 04/04/22 12:00 04/04/22 12:00 General: Alert, In no apparent distress, Oriented x3 HEENT: Mucous membr. moist/pink Neck: Supple, JVD not distended Respiratory: Clear to auscultation bilaterally, Normal air movement Cardiovascular: Regular rate/rhythm, Normal S1 S2, No murmurs Gastrointestinal: Normal bowel sounds, Soft and benign, Non-distended, No tenderness Musculoskeletal: No swelling Integumentary: No rashes, No erythema, No cyanosis Neurological: Normal strength at 5/5 x4 extr, Cranial nerves 3-12 intact Laboratory Data at Discharge: WBC 4.1 K/uL (4.3-10.9) L D 04/04/22 05:13 Hgb 12.1 g/dL (12.0-15.0) 04/04/22 05:13 Hct 36.8 % (36.0-45.0) 04/04/22 05:13 Plt Count 187 K/uL (152-406) 04/04/22 05:13 PT 11.9 SECONDS (9.5-12.5) 04/02/22 13:16 INR 1.08 04/02/22 13:16 Sodium 141 mmol/L (136-145) 04/04/22 05:13 Potassium 3.8 mmol/L (3.5-5.1) 04/04/22 05:13 BUN 11 mg/dL (7-18) 04/04/22 05:13 Creatinine 0.73 mg/dL (0.55-1.3) 04/04/22 05:13 Glucose 87 mg/dL (74-106) 04/04/22 05:13 Phosphorus 2.4 mg/dL (2.5-4.9) L 04/03/22 04:23 Magnesium 1.8 mg/dL (1.8-2.4) 04/03/22 04:23 Total Bilirubin 0.2 mg/dL (0.2-1.0) 04/02/22 13:16 AST 9 U/L (15-37) L 04/02/22 13:16 ALT 14 U/L (12-78) 04/02/22 13:16 Alkaline Phosphatase 83 U/L (45-117) 04/02/22 13:16 Home Medications: Amitriptyline HCl 5 mg PO BEDTIME 12/27/21 Clopidogrel Bisulfate [Plavix*] 75 mg PO DAILY 12/27/21 Furosemide [Lasix*] 40 mg PO BIDL 12/27/21 Gabapentin 300 mg PO TID 12/27/21 Hydrocodone Bit/Acetaminophen [Hydrocodon-Acetaminophn 10-325] 1 each PO BID 12/27/21 Levothyroxine Sodium [Euthyrox] 75 mcg PO DAILY 12/27/21 Metformin ER [Glucophage ER*] 500 mg PO DAILY 12/27/21 Metoprolol Tartrate [Lopressor*] 25 mg PO BID 12/27/21 Simvastatin 40 mg PO BEDTIME 12/27/21 Spironolactone [Aldactone*] 25 mg PO BID 12/27/21 Trazodone [Desyrel*] 150 mg PO BEDTIME 12/27/21 Meclizine HCl [Antivert*] 25 mg PO Q6H PRN #30 tab 04/04/22 Scopolamine 1 each TD Q72H #3 patch.td.3 04/04/22 New Medications: Meclizine HCl [Antivert*] 25 mg PO Q6H PRN #30 tab PRN Reason: Dizziness Scopolamine 1 each TD Q72H #3 patch.td.3 Diet: AHA Activity: Fall precautions Followup: [facility] [Primary Care Provider] -
--- NOTE | 2022-04-05 00:47 | CON ---
Reason For Consultation: Consultation called because of vertigo. History Of Present Illness: Ms. Gifford is a 71-year-old right-handed patient who has a hi story of positional vertigo at least 5 episodes over the several years, comes to [facility] with a similar episode. She was walking in [employer] earlier on the 3rd, today is 5th when she felt l leno passing out and world was spinning from right to left. She became nauseated and closed her eyes and hold on to nearby objects to stop from falling. She came to [facility] and had CT scan and CT angiogram, which were unremarkable except there was some carotid arthrosclerotic calcification , but less than 50% in the left proximal ICA. She received meclizine and Valium in the emergency bridger m, which improved her symptoms. Subsequent brain MRI ruled out the presence of an acute ischemic or hemorrhagic stroke. She was admitted to have a further workup. Her echocardiogram showed an ejectio n fraction of 68%. Essentially normal study except for mitral annular calcification. Her carotid ar anna ultrasound did show left greater than right calcified and noncalcified plaques and more pronounc ed in the left internal carotid artery, but not greater than 50%. She was also given scopolamine pat ch for the left ear to be discharged home with. She also had the Alma maneuver, which helped. Past Medical History: Congestive heart failure with diastolic dysfunction, hypertension, dyslipidemi a, gastroesophageal reflux disease, chronic obstructive pulmonary disease, diabetes type 2, hypothyro idism, diabetic peripheral neuropathy, chronic renal disease. Past Surgical History: Cardiac stents, hysterectomy, cholecystectomy, ventral hernia repair, IVC janie ter, bladder reconstruction, knee surgery x2. Allergies: NO KNOWN DRUG ALLERGIES. Home Medications: Amitriptyline 5 mg at bedtime, Plavix 75 mg daily, Lasix 40 mg twice daily, gabape ntin 300 mg 3 times daily, [place] 10/325 twice daily, levothyroxine 75 mcg daily, metformin extended-r elease 500 mg daily, Lopressor 25 mg twice daily, simvastatin 40 mg at bedtime, Aldactone 25 mg twice daily, and Desyrel 150 mg at bedtime. Family History: Cancer in mother and hypertension in sister. Social History: No tobacco use. Occasional alcohol consumption and caffeinated beverages also. Review of Systems: Aside from mentioned above where she has positional-related nausea and vomiting with vertigo symptoms with the world tending to spin from right to left. She has no fevers or chills, myalgias, or arthra lgias. No focal weakness in the face, arm, or leg. Physical Examination: Vital Signs: Blood pressure 139/89, pulse 70, respiratory rate 16, temperature 97.3, oxygen saturati on 95%. Weight 228 pounds, height 5 feet 3 inches, BMI 40.4. General: Ms. Gifford is resting in bed. She is in no acute distress. She has mild symptoms of vert igo. HEENT: She is normocephalic, atraumatic. Sclerae anicteric. Oropharynx is moist and pink. Neck: Supple. Chest: Clear. Heart: Regular. Extremities: Show no significant clubbing, cyanosis, or edema. Neurological: She is alert and oriented to person, place, situation, and time. Follows all commands appropriately. Cranial nerves 2 through 12 show no deficits. On motor exam, full strength 5/5 prox imally and distally. Sensory exam intact in the upper and lower extremities. Coordination intact in upper and lower extremities. Reflex symmetric and intact. Her gait, she has good stance and stride . Tendency to drift to the left is slight. Laboratory Studies: Complete blood count with differential shows slightly low white blood cell count of 4.1, normal hemoglobin and hematocrit, platelets normal at 187. INR 1.08. Chemistries unremarka ble except slightly elevated chloride of 109, calcium slightly low at 8.3. Liver functions unremarka ble. Urinalysis is normal. COVID-19 test is negative. Assessment: Ms. Gifford is a 71-year-old patient with multiple medical problems as outlined above, melisa narvaez has benign paroxysmal positional vertigo. She was given an Alma maneuver, which did help. Also should have scopolamine patch placed for 72 hours and may be able to remove it. She also had meclizi ne and Valium. Plan: 1.As indicated scopolamine patch. 2.Alma maneuver as needed. 3.Meclizine 25 mg every 8 hours as needed. 4.Aggressive management of her comorbid medical conditions. 5.Discharge home and follow up with Dr. Khan in clinic in 1 month. SEBASTIEN/RACHEL Voice ID: [id number] Report ID: [id number]
== END 2022-04-04 15:38 | disposition home health service (06) ==
LOC: ER 12:38 → ERHOLD 20:52 → 2ND 04-03 00:48
PROVIDERS: ADMIT Internal Medicine; ATTEND Internal Medicine
DX: R42 Dizziness and giddiness (principal); I13.0 Hypertensive heart and chronic kidney disease with heart failure and stage 1 through stage 4 chronic kidney disease, or unspecified chronic kidney disease; E11.22 Type 2 diabetes mellitus with diabetic chronic kidney disease; N18.32 Chronic kidney disease, stage 3b; I50.32 Chronic diastolic (congestive) heart failure; E03.9 Hypothyroidism, unspecified; E87.6 Hypokalemia; E11.40 Type 2 diabetes mellitus with diabetic neuropathy, unspecified; E78.5 Hyperlipidemia, unspecified; J44.9 Chronic obstructive pulmonary disease, unspecified; K21.9 Gastro-esophageal reflux disease without esophagitis; I25.10 Atherosclerotic heart disease of native coronary artery without angina pectoris; G47.33 Obstructive sleep apnea (adult) (pediatric); F41.9 Anxiety disorder, unspecified; Z95.5 Presence of coronary angioplasty implant and graft; Z79.84 Long term (current) use of oral hypoglycemic drugs; Z79.02 Long term (current) use of antithrombotics/antiplatelets; Z79.899 Other long term (current) drug therapy; Z90.49 Acquired absence of other specified parts of digestive tract; Z90.710 Acquired absence of both cervix and uterus; Z82.49 Family history of ischemic heart disease and other diseases of the circulatory system; Z80.9 Family history of malignant neoplasm, unspecified
CPT/HCPCS: 93005; 93306; 85025 ×3; 80048 ×3; 36415 ×2; 83735 ×2; 84100; 85610; 82947 ×6; 80076; 81003; 84484; 83880; 70450; 70496; 70498; 71045; 93880; 70553; 97161; 97530 ×4; 99285; U0003; Q9967; A9577; J8597 ×2; J1650 ×2; J3360; J7040; J2405; G0378 ×3

== ENCOUNTER 2024-10-07 22:55 | Emergency (ER) | payer MEDICARE ==
[2024-10-08] MEDS ORDERED: ALBUTEROL 2.5 MG/3 ML NEB SOL ONE (00:02)
[2024-10-08] MEDS ORDERED: METHYLPREDNISOLONE 125 MG INJ ONE (00:02)
[2024-10-08] MEDS ORDERED: AZITHROMYCIN 500 MG INJ IVPB ONE (00:02)
[2024-10-08] MEDS ORDERED: IPRATROPIUM BROM 0.5MG/2.5ML ONE (00:02)
[2024-10-08] MEDS ORDERED: NA CHLORIDE 0.9% 250 ML ONE (00:03)
[2024-10-08 01:31] LABS: Absolute Basophils 0.1 K/uL (0-0.5); Absolute Eosinophils 0.1 K/uL (0-0.5); Absolute Lymphocytes (CBC) 1.6 K/uL (0.7-4.9); Absolute Monocytes 0.8 K/uL (0.1-1.3); Absolute Neutrophil 7.2 K/uL (1.8-8.0); Basophils % 0.9 % (0-1.3); Eosinophils % 1.3 % (0-4.4); Hematocrit 40.3 % (36.0-45.0); Lymphocytes % 16.5 % (15.3-44.8); MCH 27.1 pg (27.0-35.0); MCHC 32.3 g/dL (32.0-36.0); MCV 83.8 fL (80-100); MPV 7.3 fL (7.6-11.3); Neutrophils % 73.3 % (41.7-73.7); Platelets 233 thou/uL (152-406); RBC Red Blood Cell Count 4.81 M/uL (3.86-4.86); Red Cell Distribution Width 14.7 % (12.1-15.2)
[2024-10-08 01:37] LABS: SARS-CoV-2 Antigen CONTROL BLUE LINE VIS/BG OK; SARS-CoV-2 Antigen Rapid Res Negative (Negative)
[2024-10-08 01:46] LABS: Anion Gap 7.6 mEq/L (5.0-15.0); Potassium 3.6 mEq/L (3.5-5.1); Troponin High Sensitivity 43.8 pg/mL (<58.9)
--- NOTE | 2024-10-08 02:11 | ER ---
Nurse's Notes [facility] Name: Adi Gifford Age: 73 yrs Sex: Female : 1950 Arrival Date: 10/07/2024 Time: 22:55 Bed 8 Private MD: Diagnosis: Acute diastolic (congestive) heart failure Presentation: 10/07 22:55 Chief complaint: Patient states: SHORTNESS OF BREATH SINCE FRIDAY AND IT GOT WORSE jj7 TONIGHT. Coronavirus screen: cough unrelated to allergies, shortness of breath. Ebola Screen: No symptoms or risks identified at this time. Initial Sepsis Screen: Does the patient meet any 2 criteria? RR > 20 per min. Yes Does the patient have a suspected source of infection? No. Patient's initial sepsis screen is negative. Risk Assessment: Do you want to hurt yourself or someone else? Patient reports no desire to harm self or others. Onset of symptoms was October 07, 2024. Care prior to arrival: Medication(s) given: Albuterol Neb x 1, Atrovent Neb x 1, Med neb given. 22:55 Method Of Arrival: EMS: [facility] jj7 22:55 Acuity: RONI 3 jj7 Triage Assessment: 22:55 General: Appears in no apparent distress. uncomfortable, Behavior is calm, cooperative, jj7 appropriate for age. Pain: Denies pain. Respiratory: Reports shortness of breath at rest cough that is Onset: The symptoms/episode began/occurred today, the patient has moderate shortness of breath. Historical: - Allergies: 23:46 No Known Allergies; jj7 - PMHx: 23:46 CHF; Chronic obstructive lung disease; Depression; diabetes mellitus; High Cholesterol; jj7 Hypertension; Hypothyroidism; Myocardial infarction; - PSHx: 23:46 Repair of inguinal hernia; Total abdominal hysterectomy; Appendectomy; Cholecystectomy; jj7 BLADDER LIFT; - Immunization history:: Adult Immunizations not up to date, Client reports having NOT received the Covid vaccine. Flu vaccine is not up to date. - Infectious Disease History:: Denies. - Social history:: Smoking status: Patient denies any tobacco usage or history of. Patient/guardian denies using alcohol, but has a distant history of alcohol abuse, street drugs. Screenin:55 Abuse screen: Denies threats or abuse. Nutritional screening: No deficits noted. jj7 Tuberculosis screening: No symptoms or risk factors identified. 23:00 [facility] ED Fall Risk Assessment (Adult) History of falling in the last 3 months, j7 including since admission No falls in past 3 months (0 pts) Confusion or Disorientation No (0 pts) Intoxicated or Sedated No (0 pts) Impaired Gait Yes (1 pt) Mobility Assist Device Used No (0 pt) Altered Elimination Yes (1 pt) Score/Fall Risk Level 0 - 2 = Low Risk Oriented to surroundings, Maintained a safe environment, Educated pt \T\ family on fall prevention, incl call for assistance when getting out of bed, Assessed \T\ reinforced patient's understanding of fall precautions. Assessment: 22:55 Reassessment: SEE TRIAGE ASSESSMENT. Respiratory: Airway is patent Respiratory effort jj7 is labored. 10/08 02:10 Reassessment: INFORMED OF PT'S BP. j7 Vital Signs: 10/07 22:55 BP 183 / 81; Pulse 75; Resp 21; Temp 98.4; Pulse Ox 97% on 2 lpm NC; Weight 118.84 kg; jj7 Height 5 ft. 3 in. ; 10/08 00:47 BP 206 / 99; Pulse 65; Resp 17; Pulse Ox 100% ; jj7 01:30 BP 192 / 80; Pulse 78; Resp 17; Pulse Ox 96% on R/A; jj7 01:40 BP 175 / 90; Pulse 74; Resp 20; Temp 98.6; Pulse Ox 95% on R/A; jj7 02:05 BP 192 / 80; ec2 10/07 22:55 Body Mass Index 46.41 (118.84 kg, 160.02 cm) j7 ED Course: 10/07 22:55 Arm band placed on right wrist. Patient placed in an exam room, on a stretcher, on jj7 oxygen, on pulse oximetry. 22:55 Patient has correct armband on for positive identification. Bed in low position. Call jj7 light in reach. Side rails up X2. Provided Education on: USE OF CALL PORTER. Warm blanket given. 23:13 Patient arrived in ED. ty 23:19 Braden Merchant MD is Attending Physician. ec2 23:38 Dragan, Juwairiyah, RN is Primary Nurse. jj7 23:46 Triage completed. jj7 10/08 00:14 XRAY Chest (1 view) In Process Unspecified. EDMS 00:18 SARS RAPID Sent. al5 00:18 Influenza Screen (a \T\ B) Sent. al5 00:18 Missed attempt(s): 22 gauge in right antecubital area. vk 00:18 COVID swab sent to lab. Flu and/or RSV swab sent to lab. vk 00:45 Missed attempt(s): 20 gauge in left forearm. Bleeding controlled, band aid applied, jj7 catheter tip intact. 00:46 Missed attempt(s): 22 gauge in left hand. Bleeding controlled, band aid applied, jj7 catheter tip intact. 01:15 Inserted saline lock: 20 gauge in left antecubital area, using aseptic technique. Blood ha1 collected. Flushed with 10 mL NS Accessed peripheral vein via ultrasound, utilizing dynamic ultrasound technique. 01:20 Basic Metabolic Panel Sent. ha1 01:20 CBC with Diff Sent. ha1 01:20 NT PRO-BNP Sent. ha1 01:20 Troponin HS Sent. ha1 02:58 No provider procedures requiring assistance completed. IV discontinued, intact, jj7 bleeding controlled, No redness/swelling at site. Pressure dressing applied. Administered Medications: 00:30 Drug: DuoNeb Nebulize (3:1) (2.5 mg - 0.5 mg) 3 ml Nebulizer once Route: Nebulizer; jj7 01:00 Follow up: Response: Marked relief of symptoms jj7 01:49 Drug: MethylPrednisoLONE IVP 125 mg IVP once Route: IVP; Site: left antecubital; jj7 02:11 Follow up: Response: No adverse reaction jj7 02:04 Drug: AZITHromycin IVPB 500 mg IVPB once over 1 hrs; (mix in 250 mL NS) Route: IVPB; jj7 Infused Over: 1 hrs; Site: left antecubital; 02:56 Follow up: IV Status: Completed infusion jj7 02:56 Not Given (Patient Refused): [id number] mg IVP once; give over 2 minutes jj7 Medication: 10/07 22:55 VIS not applicable for this client. jj7 Outcome: 10/08 02:11 Discharge ordered by . ec2 02:58 Discharged to home ambulatory, jj7 02:58 Discharged to home ambulatory, via wheelchair, with family, 02:58 Condition: improved 02:58 Discharge instructions given to patient, Instructed on discharge instructions, Demonstrated understanding of instructions, 02:59 Patient left the ED. jj7 Signatures: Dispatcher [employer] Karon Porter RN RN ha1 Nacho Archibald RN RN jj7 Braden Merchant MD MD ec2 Anastasiia Daniel Tylor ty Langhorst, Amanda, RN RN al5 Corrections: (The following items were deleted from the chart) 10/07 23:49 23:46 Immunization history: Adult Immunizations not up to date, Client reports having j7 NOT received the Covid vaccine. Flu vaccine is not up to date. jj7 49 23:46 Infectious Disease History: Denies. jj7 jj7 23:49 23:46 Social history: Smoking status: Patient denies any tobacco usage or history of. jj7 Patient/guardian denies using alcohol, but has a distant history of alcohol abuse, street drugs, jj7 10/08 00:46 00:45 Missed attempt(s): 20 gauge in left forearm. jj7 jj7
--- NOTE | 2024-10-08 02:11 | EDPHYS ---
Physician Documentation [facility] Name: Adi Gifford Age: 73 yrs Sex: Female : 1950 Arrival Date: 10/07/2024 Time: 22:55 Bed 8 Private MD: ED Physician Braden Merchant HPI: 10/07 23:33 This 73 yrs old Female presents to ER via Unassigned with complaints of ec2 Shortness Of Breath, COPD Exacerbation. 23:33 Patient arrives today for evaluation of shortness of breath. History of COPD. Patient ec2 reports he been having a persistent cough. No vomiting, no diarrhea.. Historical: - Allergies: 23:46 No Known Allergies; jj7 - PMHx: 23:46 CHF; Chronic obstructive lung disease; Depression; diabetes mellitus; High Cholesterol; jj7 Hypertension; Hypothyroidism; Myocardial infarction; - PSHx: 23:46 Repair of inguinal hernia; Total abdominal hysterectomy; Appendectomy; Cholecystectomy; jj7 BLADDER LIFT; - Immunization history:: Adult Immunizations not up to date, Client reports having NOT received the Covid vaccine. Flu vaccine is not up to date. - Infectious Disease History:: Denies. - Social history:: Smoking status: Patient denies any tobacco usage or history of. Patient/guardian denies using alcohol, but has a distant history of alcohol abuse, street drugs. ROS: 23:33 Constitutional: as per hpi ec2 Exam: 23:33 Constitutional: GEN: NAD Head: atraumatic Eyes: EOMI Ears: External ears are ec2 normal. CV: regular rate LUNGS: no respiratory distress, occasional scattered wheeze noted. ABD: non-distended SKIN: no evidence of rashes MSK: no evidence of trauma Vital Signs: 22:55 BP 183 / 81; Pulse 75; Resp 21; Temp 98.4; Pulse Ox 97% on 2 lpm NC; Weight 118.84 kg; jj7 Height 5 ft. 3 in. ; 10/08 00:47 BP 206 / 99; Pulse 65; Resp 17; Pulse Ox 100% ; jj7 01:30 BP 192 / 80; Pulse 78; Resp 17; Pulse Ox 96% on R/A; jj7 01:40 BP 175 / 90; Pulse 74; Resp 20; Temp 98.6; Pulse Ox 95% on R/A; jj7 02:05 BP 192 / 80; ec2 10/07 22:55 Body Mass Index 46.41 (118.84 kg, 160.02 cm) j7 MDM: 10/07 23:21 Medical Screening Exam initiated ec2 23:33 Data reviewed: vital signs. ED course: Patient arrives today for evaluation of ec2 shortness of breath. Examination remarkable for cardiopulmonary findings as above. Will obtain lab work, EKG, chest x-ray. Differential diagnoses include COPD exacerbation, viral infection, pneumonia, volume overload.. 11 00:52 ED course: EKG reviewed and interpreted by me, shows normal sinus rhythm, rate 61, no ec2 acute ST segment elevations, intervals are nonactionable.. 02:05 ED course: Metabolic profile is reassuring. BNP elevated at 3500. Troponin within ec2 normal ranges.. 02:10 ED course: Further discussion with patient, patient reports history of heart failure, ec2 states that she has a water pill at home that she does not take. Instructed her she needs to start taking her diuretic because she is retaining fluid. Will discharge home have the patient follow-up outpatient with PCP. Return precautions given.. 10/07 23:27 Order name: Basic Metabolic Panel; Complete Time: 02:05 ec2 10/07 23:27 Order name: CBC with Diff; Complete Time: 01:38 ec2 10/07 23:27 Order name: NT PRO-BNP; Complete Time: 02:05 ec2 10/07 23:27 Order name: Troponin HS; Complete Time: 02:05 ec2 10/07 23:27 Order name: Influenza Screen (a \T\ B); Complete Time: 01:38 ec2 10/07 23:27 Order name: SARS RAPID; Complete Time: 01:38 ec2 10/07 23:27 Order name: XRAY Chest (1 view) ec2 10/07 23:27 Order name: EKG; Complete Time: 23:28 ec2 10/07 23:27 Order name: Cardiac monitoring; Complete Time: 00:48 ec2 10/07 23:27 Order name: EKG - Nurse/Tech; Complete Time: 00:48 ec2 10/07 23:27 Order name: IV Saline Lock; Complete Time: 01:20 ec2 10/07 23:27 Order name: Labs collected and sent; Complete Time: 01:20 ec2 10/07 23:27 Order name: O2 Per Protocol; Complete Time: 00:29 ec2 10/07 23:27 Order name: O2 Sat Monitoring; Complete Time: 00:29 ec2 Administered Medications: 00:30 Drug: DuoNeb Nebulize (3:1) (2.5 mg - 0.5 mg) 3 ml Nebulizer once Route: Nebulizer; jj7 01:00 Follow up: Response: Marked relief of symptoms jj7 01:49 Drug: MethylPrednisoLONE IVP 125 mg IVP once Route: IVP; Site: left antecubital; jj7 02:11 Follow up: Response: No adverse reaction jj7 02:04 Drug: AZITHromycin IVPB 500 mg IVPB once over 1 hrs; (mix in 250 mL NS) Route: IVPB; jj7 Infused Over: 1 hrs; Site: left antecubital; 02:56 Follow up: IV Status: Completed infusion jj7 02:56 Not Given (Patient Refused): [id number] mg IVP once; give over 2 minutes jj7 Disposition Summary: 10/08/24 02:11 Discharge Ordered Condition: Stable ec2 Diagnosis - Acute diastolic (congestive) heart failure ec2 Followup: ec2 - With: Private Physician - When: - Reason: Recheck today's complaints Discharge Instructions: - Discharge Summary Sheet ec2 - Heart Failure Exacerbation ec2 Forms: - Medication Reconciliation Form ec2 - Antibiotic Education ec2 - Prescription Opioid Use ec2 - Patient Portal Instructions ec2 - Leadership Thank You Letter ec2 Signatures: Dispatcher [employer] Nacho Chanel RN RN jj7 Braden Merchant MD MD ec2 Corrections: (The following items were deleted from the chart) 10/07 23:28 23:28 BASIC METABOLIC PANEL+C.LAB.BRZ ordered. EDMS EDMS 23:28 23:28 CBC+H.LAB.BRZ ordered. EDMS EDMS 23:28 23:28 PROBNP+C.LAB.BRZ ordered. EDMS EDMS 23:28 23:28 Troponin High Sensitivity+C.LAB.BRZ ordered. EDMS EDMS 23:28 23:28 Influenza Screen (A \T\ B)+BA.LAB.BRZ ordered. EDMS EDMS 23:28 23:28 SARS-COV-2 Antigen Rapid+I.LAB.BRZ ordered. EDMS EDMS 23:46 Immunization history: Adult Immunizations not up to date, Client reports having chris NOT received the Covid vaccine. Flu vaccine is not up to date. j7 23:46 Infectious Disease History: Denies. jj7 jj7 23:46 Social history: Smoking status: Patient denies any tobacco usage or history of. jj7 Patient/guardian denies using alcohol, but has a distant history of alcohol abuse, street drugs, jj7
[2024-10-08] MEDS ORDERED: FUROSEMIDE 40 MG/4 ML VIAL ONE (02:44)
[2024-10-08 03:14] VITALS: TEMP 98.6; O2SAT 95
[2024-10-08 03:15] VITALS: BP 192/80
--- NOTE | 2024-10-08 05:48 | RAD REPORT ---
EXAM DESCRIPTION: Chest Single View CLINICAL HISTORY: COPD COMPARISON: None TECHNIQUE: Single AP view of the chest. FINDINGS: Lung volumes adequate. Cardiac silhouette is mildly enlarged. No pneumothorax. No large pleural effusion. No focal consolidation. Mild bilateral interstitial thickening. No acute bony finding. IMPRESSION: 1. Mild bilateral interstitial thickening, could represent mild pulmonary edema. 2. Mildly enlarged cardiac silhouette. Electronically signed by: Bk Sandhu MD 10/08/2024 12:19 AM [facility] Z9 Due to temporary technical issues with the PACS/Oncope[employer] reporting system, reports are being deisi d by the in-house radiologist without review as a courtesy to ensure prompt reporting the interpreting radiologist is fully responsible for the content of the report. Transcribed Date/Time: 10/08/2024 5:47 AM
--- NOTE | 2024-10-08 15:07 | EKG ---
Test Date: 2024-10-08 Test Time: 00:46:44 Press Writer: KIERAN MEASUREMENT RESULTS: Intervals: Rate: 61 NC: 140 QRSD: 84 QT: 436 QTc: 438 [place]: P: 49 NC: 140 QRS: 30 T: 38 INTERPRETIVE STATEMENTS: Normal sinus rhythm with sinus arrhythmia Normal ECG Compared to ECG 04/02/2022 23:52:05 Atrial premature complex(es) no longer present Electronically Signed On 10-08-24 15:06:45 [employer] by Peter Alva
== END 2024-10-08 02:59 | disposition home or self-care (01) ==
LOC: ER 22:55
DX: I50.31 Acute diastolic (congestive) heart failure (principal); I10 Essential (primary) hypertension; E11.9 Type 2 diabetes mellitus without complications
CPT/HCPCS: 96365; 93005; 85025; 80048; 36415; 84484; 83880; 87804 ×2; 71045; 96375; 99285; 87811; J1940; J7613; J7644; J2919; J7050